=== PATIENT | female | born 1945 | race Two or more races ===

== ENCOUNTER 2016-11-18 20:38 | Inpatient (IN) | payer MEDICARE, OTHER ==
[~2016-11-18] VITALS: Ht 144.8 cm; Wt 50.0 kg
[~2016-11-18 20:38] MED LIST: ACET500T68 PO; CALC500T PO; CIPR250T30 PO; ENOX30DI SQ; HALO5AMP2 IJ; INSU100I17 SQ; INSU100V13 SQ; INSU200I SQ; LACT1CAP19 PO; LINA5TAB PO; LORA0.5T PO; MAG30ORA2 PO; MAGN2400 PO; MEMA10TA PO; METH29OI TP; MIRT15TA2 PO; MULT-245 PO; ONDA4TAB10 SL; PANT40TA3 PO; POTA10TA10 PO; POTA20TA82 PO; PROC5VIA2 IJ; QUET25TA PO; RIVA1PAT TD; SENN1TAB21 PO; SITA100T PO; SULF1TAB24 PO; THIA100T43 PO
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
[2016-11-18 21:41] LABS: BASO % 0 % (0-3); EOS # 0.1 x10^3/uL (0.0-0.7); EOS % 2 % (0-3); HEMATOCRIT 32.7 % (36.0-47.0); HEMOGLOBIN 11.2 g/dL (12.0-15.5); LYMPH # 2.4 x10^3/uL (1.0-4.8); LYMPH % 35 % (24-48); MEAN CORPUSCULAR HEMOGLOBIN 33 pg (25-35); MEAN CORPUSCULAR HGB CONC 34 g/dL (31-37); MEAN CORPUSCULAR VOLUME 97 fL (79-100); MONO # 0.5 x10^3/uL (0.0-1.1); MONO % 8 % (0-9); NEUT # 3.9 x10^3uL (1.8-7.7); NEUT % 56 % (31-73); PLATELET COUNT 191 x10^3/uL (140-400); RED BLOOD COUNT 3.36 x10^6/uL (3.50-5.40); RED CELL DISTRIBUTION WIDTH 13.3 % (11.5-14.5); WHITE BLOOD COUNT 6.9 x10^3/uL (4.0-11.0)
[2016-11-18 21:53] LABS: ACETAMIN < 2 mcg/mL (10-30); ETHANOL < 10 mg/dL (0-10)
--- NOTE | 2016-11-18 21:57 | EKG ---
[address] [address] Test Date: 2016-11-18 Test Time: 21:56:33 Pat Name: MARTIN CRAWLEY Department: Room: Gender: F Scada Operator: : [id number] Requested By: ASHLEY BARBER Order Number: [id number] Reading MD: Jatinder Morrell Measurements Intervals Clifford Rate: 75 P: 34 MO: 164 QRS: 0 QRSD: 88 T: 32 QT: 408 QTc: 458 Interpretive Statements SINUS RHYTHM Electronically Signed On 11-25-2016 14:20:40 CDT by Jatinder Morrell
--- NOTE | 2016-11-18 21:58 | RAD ---
PROCEDURE Head CT without contrast. HISTORY Altered mental status. TECHNIQUE Computed tomographic images the head were obtained without contrast. COMPARISON None. FINDINGS There is no acute or subacute hemorrhage. There is no mass effect or midline shift. There is mild to moderate enlargement of the ventricles, likely due to cerebral atrophy. There are scattered areas of hypodensity within the cerebral white matter, likely due to chronic small vessel disease. The orbits, paranasal sinuses mastoid air cells are unremarkable. No calvarial lesion is seen. IMPRESSION 1. Mild to moderate ventricular enlargement, appropriate for the degree of cerebral atrophy. This is not clearly greater than expected for cerebral volume to suggest hydrocephalus. 2. Scattered areas of hypodensity within the cerebral white matter, likely due to chronic small vessel disease. 3. Note is made that MRI is more sensitive for acute infarction. Electronically signed by: Aracelis Wade (Nov 18, 2016 21:57:06)
[2016-11-18 22:03] LABS: ALBUMIN 3.4 g/dL (3.4-5.0); ALBUMIN/GLOBULIN RATIO 0.9 (1.0-1.7); CREATININE 0.7 mg/dL (0.6-1.0); GFR 82.7; POTASSIUM 3.7 mmol/L (3.5-5.1); TOTAL BILIRUBIN 0.3 mg/dL (0.2-1.0); TOTAL PROTEIN 7.1 g/dL (6.4-8.2)
[2016-11-18 22:04] LABS: AMPHETAMINE/METHAMPHETAMINE NEG (NEG); BARBITURATES NEG (NEG); BENZODIAZEPINES NEG (NEG); CANNABINOIDS NEG (NEG); COCAINE NEG (NEG); METHADONE NEG (NEG); OPIATES NEG (NEG); PHENCYCLIDINE NEG (NEG)
[2016-11-18 22:16] LABS: BILIRUBIN,URINE NEG (NEG); CLARITY,URINE CLEAR; COLOR,URINE STRAW; GLUCOSE,URINE NEG (NEG)
[2016-11-18 22:17] LABS: NITRITE,URINE NEG (NEG); UROBILINOGEN,URINE 0.2 mg/dL (0.2 mg/dL)
[2016-11-18 22:18] LABS: BACTERIA,URINE 0 /HPF (0-FEW); RBC,URINE OCC /HPF (0-2); SQUAMOUS EPITHELIAL CELL,UR FEW /LPF
--- NOTE | 2016-11-18 23:30 | NUR ---
Admission Note: Pt arrived via EMS from ER @2315. Pt admitted to Dr. Slade with Dx: Dementia w/BD; Bipolar, mixed w/Psychotic Features. Pt A/O x1, becoming agitated and combative w/staff when attempting to assist her w/clothing and brief change. Skin C/D/I, LCTA bilateral upper lobes and diminished in bases, HRRR. Pt uncooperative w/admission assessment questions.
[2016-11-18 23:44] VITALS: BP 137/81
[2016-11-18] MEDS ORDERED: METHYL SALICYLATE/MENTHOL TOPICAL OINTMENT 29GM TUBE. TP PRN (23:45)
[2016-11-18] MEDS ORDERED: MAGNESIUM HYDROXIDE 2,400 MG/30 ML ORAL.SUSP. PO PRN (23:45)
[2016-11-18] MEDS ORDERED: MAG HYDROX/AL HYDROX/SIMETH 30 ML ORAL.SUSP PO PRN (23:45)
[2016-11-18] MEDS ORDERED: ACETAMINOPHEN 325 MG TABLET PO PRN (23:45)
[2016-11-19] MEDS ORDERED: OMEP20CA9 PO (00:16)
[2016-11-19] MEDS ORDERED: MIRT30TA3 PO (00:18)
[2016-11-19] MEDS ORDERED: QUET200T4 PO (00:19)
[2016-11-19] MEDS ORDERED: TRAZ50TA15 PO (00:21)
[2016-11-19] MEDS ORDERED: CLON0.5T3 PO (00:28)
[2016-11-19] MEDS ORDERED: ACET325T9 PO (00:30)
[2016-11-19] MEDS ORDERED: BUSP5TAB PO (00:31)
[2016-11-19] MEDS ORDERED: QUET100T4 PO (00:32)
--- NOTE | 2016-11-19 01:34 | ACF ---
Admission Criteria Forms PSYCHIATRIC DISORDERS Clinical Indications for Inpatient Care (Place 'X' for any and all applicable criteria): Ongoing inpatient care may be needed for ANY ONE of the following(1)(2)(3)(4)(6) (7)(8): [X]I. Danger to self or others not manageable at lower level of care. [ ]II. Grave disability (eg, inability to perform self care necessary at lower level of care) [ ]III. Agitation or inappropriate behavior interfering with care for primary condition (eg, attempting to discontinue lines or drains prematurely, unable to cooperate with respiratory care) [ ]IV. Severe disability or disorder indicated by ALL of the following: [ ]a) Severe behavioral health disorder-related symptoms or condition indicated by ANY ONE of the following: [ ]i) Severe problem with cognition, memory, judgment, or impulse control [ ]ii) Severe clinical manifestations (eg, hallucinations, delusions, other acute psychotic symptoms, ronit, extreme agitation or anxiety) [ ]b) Patient management at lower level of care is not feasible until acute intervention or modification is initiated. Extended stay beyond goal length of stay for the primary condition may be indicated when ANY ONE of the following is present: (1)(2)(3)(4): [ ]a) Patient is a danger to self or others and not manageable at lower level of care. [ ]b) Behavior crisis management, including physical or chemical restraints, is required and is not available at a lower level of care. [ ]c) Behavioral symptoms (e.g., agitation, somnolence, inappropriate behavior) are present, and are not manageable at a lower level of care. [ ]d) Patient cannot understand follow-up treatment and crisis plan. [ ]e) Provider and supports are not sufficiently available at lower level of care. [ ]f) Patient cannot participate (e.g., verify absence of plan for harm) and is in needed of monitoring. The original [facility] content created by [employer] has been revised. The portions of the content which have been revised are identified through the use of italic text or in bold, and [email or web address] has neither reviewed nor approved the modified material. All other unmodified content is copyright [facility] [employer]. Please see references footnoted in the original [facility] edition 2016 Admission Criteria Met?: Yes SYED ARBOLEDA Nov 19, 2016 01:33
--- NOTE | 2016-11-19 02:21 | NUR ---
Behavior Intervention Response and Plan: BIRP Note: Behavior: Assumed Care of patient, patient located in Patient Room at shift change. Patient exhibited the following behavior Disorganized, Irritable, Agitated. Brief assessment on rounds of vital signs, medication needs, lab studies, and pain. Treatment plan problems 1 and 2. Intervention: Patient assessed and the following interventions initiated safety checks 15 Minute Checks Cognitive Assessment , Head to toe Assessment , Medications. Response: After interactions and interventions patient responded in the following manner, Disorganized , Irritable ,Demanding. Continue to assess behaviors and condition will continue to monitor throughout the shift as needed. 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 Continue to assess patient for changes in above assessment. Monitor for medication needs, pain, and safety concerns. Hourly rounding performed to ensure safe environment.
--- NOTE | 2016-11-19 08:37 | RAD ---
Portable chest, 11/18/2016: History: Altered mental status The heart size and pulmonary vascularity are normal. There is mild tortuosity of the thoracic aorta. No pulmonary infiltrate is seen. There is no evidence of pleural fluid. Moderate spurring is present in the spine. IMPRESSION: No acute cardiopulmonary abnormality is detected.
[2016-11-19 09:59] VITALS: BP 122/70
[2016-11-19] MEDS: LACTOBACILLUS ACIDOPH & BULGAR 1 TABLET. PO SCH (10:01)
[2016-11-19] MEDS: QUEtiapine 100 MG TABLET. PO SCH ×4 (10:02→19:54)
[2016-11-19] MEDS: SENNOSIDES/DOCUSATE 8.6/50MG TABLET. PO SCH ×2 (10:02→19:52)
[2016-11-19] MEDS: PANTOPRAZOLE 40 MG TABLET. PO SCH (10:02)
[2016-11-19] MEDS: MEMANTINE 10 MG TABLET. PO SCH ×2 (10:02→19:52)
[2016-11-19] MEDS: MULTIVITAMIN with MINERAL TABLET. PO SCH (10:02)
[2016-11-19] MEDS: THIAMINE 100 MG TABLET. PO SCH (10:03)
[2016-11-19] MEDS: CLONAZEPAM 0.5 MG TABLET PO SCH ×2 (10:03→19:55)
[2016-11-19] MEDS: LINAGLIPTIN 5 MG TABLET PO SCH (10:04)
[2016-11-19] MEDS: ACETAMINOPHEN 325 MG TABLET PO SCH ×2 (10:04→19:52)
[2016-11-19] MEDS: POTASSIUM CHLORIDE 10 MEQ TABLET.ER. PO SCH (10:04)
[2016-11-19] MEDS: busPIRone 5 MG TABLET. PO SCH ×3 (10:04→19:52)
--- NOTE | 2016-11-19 11:28 | NUR ---
Psychosocial Assessment completed at previous admit - 04/2016 SW completed Psychosocial Assessment w/ Pt's dtr, Jeanna. Pt. was born and raised in [place] w/her siblings. Most of Pt's family history is unknown by dtr. Pt's dtr. was unsure if Pt. 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 Pt. was "for some time" to a man named Preston, who has . Pt. had 5 children; one of SIDS, one was murdered, and x2 from an alcohol related ). Only surviving child is Jeanna. Pt. has a strong history of alcohol abuse. Pt's dtr. could not exactly report usage terms, but stated she and a friend would each have a case of beer and split a bottle of liquor. Pt. began drinking heavily "young" and continued up until July of 2015 when Pt. moved in w/dtr due to her ongoing memory issues. According to Pt's dtr, PT. has not had a drink of liquor since July 2015. Pt. did test positive for THC, but Jeanna is unsure if it was due to marijuana use. Jeanna works in a women's [employer] unit where she stated, at times when a female inmate uses certain cold medications, it may result in a false THC positive. Jeanna does acknowledge she lives in a bad neighborhood, and there are times where the Pt. will sit on the porch and it is possible for someone of "shady character" to possibly have drugs on them. Jeanna could not be sure Pt. didn't smoke marijuana. At previous admit, APS was involved to assure Pt's safety and to establish Emergency Guardianship for new admit into a facility.
--- NOTE | 2016-11-19 12:06 | NUR ---
Behavior Intervention Response and Plan: BIRP Note: Behavior: Assumed Care of patient, patient located in Day Room at shift change. Patient exhibited the following behavior Disorganized, Non Compliant, Irritable. Brief assessment on rounds of vital signs, medication needs, lab studies, and pain. Treatment plan problems . Intervention: Patient assessed and the following interventions initiated safety checks 15 Minute Checks Cognitive Assessment , Head to toe Assessment , Medications. Response: After interactions and interventions patient responded in the following manner, Disorganized , Irritable ,Non Compliant with Meds. Continue to assess behaviors and condition will continue to monitor throughout the shift as needed. 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 Continue to assess patient for changes in above assessment. Monitor for medication needs, pain, and safety concerns. Hourly rounding performed to ensure safe environment.
[2016-11-19 14:18] LABS: THYROID STIM HORMONE (TSH) 1.994 uIU/mL (0.358-3.740)
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
[2016-11-19 16:16] VITALS: BP 162/91
[2016-11-19 18:11] LABS: T3 TOTAL 121 ng/dL (71-180); THYROXINE 6.4 ug/dL (4.5-12.0)
[2016-11-19] MEDS: traZODone 50 MG TABLET. PO SCH (19:54)
[2016-11-19] MEDS: MIRTAZAPINE 30 MG TABLET PO SCH (19:55)
[2016-11-19] MEDS ORDERED: QUEtiapine 100 MG TABLET. ONE (21:00)
--- NOTE | 2016-11-19 21:02 | PDOC ---
Exam Maximiliano Demential Exam: Maximiliano Note: Please also refer to the separate dictated note~for this date of service dictated separately.~Patient seen individually. Discussed the patient with Nursing staff reviewed the chart.~Reviewed interim history and current functioning. Reviewed vital signs,~Labs/ Radiology~and current medications noted below. Continue current treatment with the changes noted in the dictated addendum note Assessment: Vital Signs: Vital Signs Date Time Temp Pulse Resp B/P Pulse Ox O2 Delivery O2 Flow Rate FiO2 11/19/16 16:16 97.3 70 18 162/91 96 11/18/16 23:44 Room Air I&O Intake and Output 11/19/16 07:00 # Voids 1 Labs: Laboratory Tests Test 11/18/16 21:20 11/18/16 21:30 11/19/16 07:33 11/19/16 16:54 White Blood Count 6.9x10^3/uL (4.0-11.0) Red Blood Count 3.36x10^6/uL (3.50-5.40) L Hemoglobin 11.2g/dL (12.0-15.5) L Hematocrit 32.7% (36.0-47.0) L Mean Corpuscular Volume 97fL (79-100) Mean Corpuscular Hemoglobin 33pg (25-35) Mean Corpuscular Hemoglobin Concent 34g/dL (31-37) Red Cell Distribution Width 13.3% (11.5-14.5) Platelet Count 191x10^3/uL (140-400) Neutrophils (%) (Auto) 56% (31-73) Lymphocytes (%) (Auto) 35% (24-48) Monocytes (%) (Auto) 8% (0-9) Eosinophils (%) (Auto) 2% (0-3) Basophils (%) (Auto) 0% (0-3) Neutrophils # (Auto) 3.9x10^3uL (1.8-7.7) Lymphocytes # (Auto) 2.4x10^3/uL (1.0-4.8) Monocytes # (Auto) 0.5x10^3/uL (0.0-1.1) Eosinophils # (Auto) 0.1x10^3/uL (0.0-0.7) Basophils # (Auto) 0.0x10^3/uL (0.0-0.2) Sodium Level 141mmol/L (136-145) Potassium Level 3.7mmol/L (3.5-5.1) Chloride Level 106mmol/L (98-107) Carbon Dioxide Level 27mmol/L (21-32) Anion Gap 8 (6-14) Blood Urea Nitrogen 11mg/dL (7-20) Creatinine 0.7mg/dL (0.6-1.0) Estimated GFR (Cockcroft-Gault) 82.7 BUN/Creatinine Ratio 16 (6-20) Glucose Level 202mg/dL (70-99) H Lactic Acid Level 1.6mmol/L (0.4-2.0) Calcium Level 9.0mg/dL (8.5-10.1) Magnesium Level 2.1mg/dL (1.8-2.4) Iron Level 46ug/dL (50-170) L Total Iron Binding Capacity 264ug/dL (250-450) Iron Saturation 17% (15-34) Total Bilirubin 0.3mg/dL (0.2-1.0) Aspartate Amino Transferase (AST) 17U/L (15-37) Alanine Aminotransferase (ALT) 26U/L (14-59) Alkaline Phosphatase 90U/L (46-116) Ammonia 19mcmol/L (11-34) Total Protein 7.1g/dL (6.4-8.2) Albumin 3.4g/dL (3.4-5.0) Albumin/Globulin Ratio 0.9 (1.0-1.7) L Triglycerides Level 59mg/dL (0-150) Cholesterol Level 198mg/dL (0-200) LDL Cholesterol, Calculated 135mg/dL (0-100) H VLDL Cholesterol, Calculated 11mg/dL (0-40) HDL Cholesterol 52mg/dL (40-60) Cholesterol/HDL Ratio 3.0 Vitamin B12 Level 551pg/mL (247-911) 25-Hydroxy Vitamin D Total Pending Thyroid Stimulating Hormone (TSH) 1.994uIU/mL (0.358-3.740) Thyroxine (T4) 6.4ug/dL (4.5-12.0) Total Triiodothyronine (TT3) 121ng/dL (71-180) Salicylates Level 1.0mg/dL (2.8-20.0) L Salicylate Last Dose Date Unknown Salicylate Last Dose Time Unknown Acetaminophen Level < 2mcg/mL (10-30) L Acetaminophen Last Dose Date Unknown Acetaminophen Last Dose Time Unknown Ethyl Alcohol Level < 10mg/dL (0-10) Acetone Level Neg (NEG) RPR Titer Additional Testing Pending Urine Collection Type U cath Urine Color Straw Urine Clarity Clear Urine pH 6.5 Urine Specific Gloster 1.010 Urine Protein Neg (NEG-TRACE) Urine Glucose (UA) Negmg/dL (NEG) Urine Ketones (Stick) Negmg/dL (NEG) Urine Blood Trace (NEG) Urine Nitrite Neg (NEG) Urine Bilirubin Neg (NEG) Urine Urobilinogen Dipstick 0.2mg/dL (0.2 mg/dL) Urine Leukocyte Esterase Neg (NEG) Urine RBC Occ/HPF (0-2) Urine WBC 1-4/HPF (0-4) Urine Squamous Epithelial Cells Few/LPF Urine Transitional Epithelial Cells Few/LPF Urine Renal Epithelial Cells Few/LPF Urine Bacteria 0/HPF (0-FEW) Urine Opiates Screen Neg (NEG) Urine Methadone Screen Neg (NEG) Urine Barbiturates Neg (NEG) Urine Phencyclidine Screen Neg (NEG) Urine Amphetamine/Methamphetamine Neg (NEG) Urine Benzodiazepines Screen Neg (NEG) Urine Cocaine Screen Neg (NEG) Urine Cannabinoids Screen Neg (NEG) Urine Ethyl Alcohol Neg (NEG) Glucose (Fingerstick) 136mg/dL (70-99) H 149mg/dL (70-99) H Current Medications: Meds: Current Medications Acetaminophen (Tylenol) 650 mg PRN Q6HRS PRN PO PAIN / TEMP; Start 11/18/16 at 23:45 Multi-Ingredient Ointment (Analgesic Cullen) 1 kelin PRN QID PRN TP MUSCLE PAIN; Start 11/18/16 at 23:45 Al Hydroxide/Mg Hydroxide (Mylanta Plus Xs) 15 ml PRN AFTMEALHC PRN PO DYSPEPSIA; Start 11/18/16 at 23:45 Magnesium Hydroxide (Milk Of Magnesia) 2,400 mg PRN QHS PRN PO CONSTIPATION; Start 11/18/16 at 23:45 Buspirone HCl (Buspar) 5 mg TID PO Last administered on 11/19/16t 19:52; Start 11/19/16 at 09:00 Clonazepam (Klonopin) 0.25 mg BID PO Last administered on 11/19/16 19:55; Start 11/19/16 at 09:00 Memantine (Namenda) 10 mg BID PO Last administered on 11/19/16 19:52; Start at 09:00 Mirtazapine (Remeron) 30 mg QHS PO Last administered on 11/19/16 19:55; Start 11/19/16 at 21:00 Quetiapine Fumarate (SEROquel) 100 mg TIDWMEALS PO Last administered on 16:13; Start 11/19/16 at 08:00 Trazodone HCl (Desyrel) 50 mg QHS PO Last administered on 11/19/16 19:54; Start 11/19/16 at 21:00 Quetiapine Fumarate (SEROquel) 200 mg QHS PO Psychosis Last administered on 11/19 19:54; Start 11/19/16 at 21:00 Acetaminophen (Tylenol) 650 mg BID PO Last administered on 11/19/16 19:52; Start 11/19/16 at 09:00 Senna/Docusate Sodium (Senna Plus) 1 tab BID PO Last administered on 11/19/16 19:52; Start 11/19/16 at 09:00 Thiamine HCl (Vitamin B-1) 100 mg DAILY PO Last administered on 11/19/16 10:03 ; Start 11/19/16 at 09:00 Lactobacillus Acidophilus (Bacid, Ester-Bid) 2 tab DAILY PO Last administered on 11/19/16 10:01; Start 11/19/16 at 09:00 Multivitamins/ Calcium (Thera-M Plus) 1 tab DAILY PO Last administered on 10:02; Start 11/19/16 at 09:00 Pantoprazole Sodium (Protonix) 40 mg DAILYAC PO Last administered on 11/19/16 10:02; Start 11/19/16 at 07:30 Potassium Chloride (Klor-Con) 10 meq DAILYWBKFT PO Last administered on 10:04; Start 11/19/16 at 08:00 Linagliptin (Tradjenta) 5 mg DAILY PO Last administered on 11/19/16t 10:04; Start 11/19/16 at 09:00 Selenium Sulfide (Selsun Blue) 1 kelin QMTH TP ; Start 11/20/16 at 16:00 Active Scripts Active Reported Seroquel (Quetiapine Fumarate) 100 Mg Tablet 100 Mg PO TIDWMEALS Buspirone Hcl 5 Mg Tablet 5 Mg PO TID Tylenol (Acetaminophen) 325 Mg Tablet 650 Mg PO BID Clonazepam 0.5 Mg Tablet 0.25 Mg PO BID Trazodone Hcl 50 Mg Tablet 50 Mg PO QHS Seroquel (Quetiapine Fumarate) 200 Mg Tablet 200 Mg PO QHS Mirtazapine 30 Mg Tablet 30 Mg PO QHS Omeprazole 20 Mg Capsule.dr 20 Mg PO DAILY Potassium Chloride 10 Meq Tablet.er 10 Meq PO DAILYWBKFT Namenda (Memantine Hcl) 10 Mg Tablet 10 Mg PO BID Januvia (Sitagliptin Phosphate) 100 Mg Tablet 100 Mg PO DAILY B-1 (Thiamine HCl) 100 Mg Tablet 100 Mg PO DAILY Multi Vitamin Daily (Multivitamin) 1 Each Tablet 1 Each PO DAILY Senna Plus Tablet (Sennosides/Docusate Sodium) 1 Each Tablet 1 Each PO BID Culturelle (Lactobacillus Rhamnosus Gg) 1 Each Cap.sprink 1 Each PO DAILY Diagnosis: Problems: (1) Agitation (2) Bipolar disorder, mixed (3) Anxiety disorder (4) Dementia in Alzheimer's disease with delusions (5) Dementia in Alzheimer's disease with depression (6) Impulse control disorder (7) Dementia, vascular, with delusions (8) Dementia, vascular, with depression VIPIN BELTRAN MD Nov 19, 2016 21:02
--- NOTE | 2016-11-19 22:23 | NUR ---
Behavior Intervention Response and Plan: BIRP Note: Behavior: Assumed Care of patient, patient located in Day Room at shift change. Patient exhibited the following behavior Disorganized, Irritable, Resistive. Brief assessment on rounds of vital signs, medication needs, lab studies, and pain. Treatment plan problems 1 and 2. Intervention: Patient assessed and the following interventions initiated safety checks 15 Minute Checks Cognitive Assessment , Head to toe Assessment , Medications. Response: After interactions and interventions patient responded in the following manner, Irritable , Demanding ,Compliant. Continue to assess behaviors and condition will continue to monitor throughout the shift as needed. 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 Continue to assess patient for changes in above assessment. Monitor for medication needs, pain, and safety concerns. Hourly rounding performed to ensure safe environment.
[2016-11-20 05:52] VITALS: BP 137/74
--- NOTE | 2016-11-20 07:45 | NUR ---
Patient very resistive with morning acucheck. Hitting, scratching and kicking staff.
--- NOTE | 2016-11-20 09:08 | HP ---
ADMIT DATE: 11/19/2016 IDENTIFYING DATA: The patient is a 71-year-old female referred back to us from [facility] in [place], [place] on account of worsening symptoms of bipolar disorder after the patient was extremely paranoid that the other residents were taking her things and talking about her, irritable, yelling, cursing, and tried to take a female resident drink. She has been hitting at other residents, quite confused, psychotic, and paranoid. She has failed outpatient psychiatric interventions and was admitted by her court-appointed guardian Alena Montilla for psychiatric stabilization. CHIEF COMPLAINT: "I don't do those things." The patient responded after described the circumstances prompting her admission. HISTORY OF PRESENT ILLNESS: The patient has a long history of bipolar disorder. Additionally, she has been getting extremely confused, forgetful, and her diagnosis of dementia with behavioral disturbance. As noted above recently she has been increasingly paranoid, confused, irritable, yelling, cursing, trying to take peers drink, and was striking out at others unmanageable. She has had sleep and appetite changes. No active suicidal or homicidal ideation other than above. PAST PSYCHIATRIC HISTORY: The patient was admitted with us in 03/2016. She has a long history of bipolar disorder and progressive dementia recently. MEDICAL HISTORY: Diabetes mellitus, hypertension, GERD, and hyperlipidemia. She is a full code. DRUG ALLERGIES: Negative. She is no longer a smoker. CURRENT PSYCHOTROPICS: Remeron 30 mg p.o. bedtime and Seroquel 200 mg at bedtime. She was treated on Augmentin for UTI in November, Klonopin 0.5 mg twice a day, and Seroquel 100 mg 3 times a day. FAMILY HISTORY: Noncontributory. SOCIAL HISTORY: No history of alcohol, drug abuse, physical, sexual, or elder abuse. She is not known to be a perpetrator. REVIEW OF SYSTEMS: No CV, , pulmonary, eye, ENT system symptoms on review. Reliability is poor. OBJECTIVE: VITAL SIGNS: BP 122/70, pulse 74, respirations 18, and temperature 97.6. MENTAL STATUS EXAM: The patient is oriented to herself. Insight, judgment, recent memory is impaired. Mood and affect is labile, attention, concentration, fund of knowledge poor consistent with her diagnosis, attention span short, and language function intact. No active suicidal or homicidal ideation. LABORATORY DATA: Reviewed. IMPRESSION: Major neurocognitive disorder, Alzheimer, vascular with depression, delusion, behavioral disturbance; anxiety disorder, unspecified; impulse control disorder, unspecified; and bipolar 1 disorder, mixed with psychotic features. Rest diagnoses as above. PLAN: Admit to the geropsychiatry unit at [facility]. Request Dr. Rosen/Dr. Catherine to follow the patient from medical standpoint. I will see the patient daily individually from a psychiatric standpoint. Continue current psychotropics. Adjust these as clinically indicated with a plan to return to the [facility] at once she is psychiatrically stable. MAN Gladis BELTRAN MD DR: JIE/triston JOB#: [id number] / [id number]
[2016-11-20] MEDS: QUEtiapine 100 MG TABLET. PO SCH ×4 (09:43→20:08)
[2016-11-20] MEDS: SENNOSIDES/DOCUSATE 8.6/50MG TABLET. PO SCH ×2 (09:43→20:07)
[2016-11-20] MEDS: LINAGLIPTIN 5 MG TABLET PO SCH (09:43)
[2016-11-20] MEDS: LACTOBACILLUS ACIDOPH & BULGAR 1 TABLET. PO SCH (09:44)
[2016-11-20] MEDS: MULTIVITAMIN with MINERAL TABLET. PO SCH (09:44)
[2016-11-20] MEDS: PANTOPRAZOLE 40 MG TABLET. PO SCH (09:44)
[2016-11-20] MEDS: POTASSIUM CHLORIDE 10 MEQ TABLET.ER. PO SCH (09:44)
[2016-11-20] MEDS: THIAMINE 100 MG TABLET. PO SCH (09:44)
[2016-11-20] MEDS: ACETAMINOPHEN 325 MG TABLET PO SCH ×2 (09:44→20:08)
[2016-11-20] MEDS: MEMANTINE 10 MG TABLET. PO SCH ×2 (09:44→20:08)
[2016-11-20] MEDS: busPIRone 5 MG TABLET. PO SCH ×3 (09:44→20:08)
[2016-11-20] MEDS: CLONAZEPAM 0.5 MG TABLET PO SCH ×2 (09:46→20:08)
--- NOTE | 2016-11-20 11:15 | NUR ---
THERAPEUTIC RECREATION GROUP NOTE TITLE :Movement to Music: Flexibility ACTIVITY : Movement/ Exercise GOAL : Increase morale, attention, flexibility. Decrease stress/anxiety. DURATION : 35 Minutes RESPONSE : Minimal participation. Pt. was agreeable and joined the group; however, she only clapped to the music and was not redirectable in a group setting.
--- NOTE | 2016-11-20 14:45 | NUR ---
THERAPEUTIC RECREATION GROUP NOTE TITLE :Bin or Basket: [employer] history, quiz and game ACTIVITY : Activities and Games GOAL : Stimulate memory, increase socialization DURATION : 60 minutes RESPONSE : Moderate participation. Pt. talked nearly the entire time, mumbling most of the time. She occasionally gave valid responses but most of the time she would talk about random things that did not make complete sense.
[2016-11-20 15:40] VITALS: BP 162/77
[2016-11-20] MEDS: SELENIUM SULFIDE 2.5% SHAMPOO 120ML BOTTLE. TP SCH (16:23)
[2016-11-20] MEDS: MIRTAZAPINE 30 MG TABLET PO SCH (20:08)
[2016-11-20] MEDS: traZODone 50 MG TABLET. PO SCH (20:08)
--- NOTE | 2016-11-20 21:07 | PDOC ---
Exam Maximiliano Demential Exam: Maximiliano Note: Please also refer to the separate dictated note~for this date of service dictated separately.~Patient seen individually. Discussed the patient with Nursing staff reviewed the chart.~Reviewed interim history and current functioning. Reviewed vital signs,~Labs/ Radiology~and current medications noted below. Continue current treatment with the changes noted in the dictated addendum note Assessment: Vital Signs: Vital Signs Date Time Temp Pulse Resp B/P Pulse Ox O2 Delivery O2 Flow Rate FiO2 11/20/16 15:40 98.2 86 20 162/77 97 11/18/16 23:44 Room Air I&O Intake and Output 11/20/16 07:00 Intake Total 720 ml Balance 720 ml Intake Oral 720 ml Labs: Laboratory Tests Test 11/20/16 07:21 Glucose (Fingerstick) 183mg/dL (70-99) H Current Medications: Meds: Current Medications Acetaminophen (Tylenol) 650 mg PRN Q6HRS PRN PO PAIN / TEMP; Start 11/18/16 at 23:45 Multi-Ingredient Ointment (Analgesic [place]) 1 kelin PRN QID PRN TP MUSCLE PAIN; Start 11/18/16 at 23:45 Al Hydroxide/Mg Hydroxide (Mylanta Plus Xs) 15 ml PRN AFTMEALHC PRN PO DYSPEPSIA; Start 11/18/16 at 23:45 Magnesium Hydroxide (Milk Of Magnesia) 2,400 mg PRN QHS PRN PO CONSTIPATION; Start 11/18/16 at 23:45 Buspirone HCl (Buspar) 5 mg TID PO Last administered on 11/20/16 20:08; Start 11/19/16 at 09:00 Clonazepam (Klonopin) 0.25 mg BID PO Last administered on 11/20/16 20:08; Start 11/19/16 at 09:00 Memantine (Namenda) 10 mg BID PO Last administered on 11/20/16 20:08; Start at 09:00 Mirtazapine (Remeron) 30 mg QHS PO Last administered on 11/20/16 20:08; Start 11/19/16 at 21:00 Quetiapine Fumarate (SEROquel) 100 mg TIDWMEALS PO Last administered on 16:23; Start 11/19/16 at 08:00 Trazodone HCl (Desyrel) 50 mg QHS PO Last administered on 11/20/16 20:08; Start 11/19/16 at 21:00 Quetiapine Fumarate (SEROquel) 200 mg QHS PO Psychosis Last administered on 11/20 20:08; Start 11/19/16 at 21:00 Acetaminophen (Tylenol) 650 mg BID PO Last administered on 11/20/16 20:08; Start 11/19/16 at 09:00 Senna/Docusate Sodium (Senna Plus) 1 tab BID PO Last administered on 11/20/16 20:07; Start 11/19/16 at 09:00 Thiamine HCl (Vitamin B-1) 100 mg DAILY PO Last administered on 11/20/16 09:44 ; Start 11/19/16 at 09:00 Lactobacillus Acidophilus (Bacid, Ester-Bid) 2 tab DAILY PO Last administered on 11/20/16 09:44; Start 11/19/16 at 09:00 Multivitamins/ Calcium (Thera-M Plus) 1 tab DAILY PO Last administered on 09:44; Start 11/19/16 at 09:00 Pantoprazole Sodium (Protonix) 40 mg DAILYAC PO Last administered on 11/20/16 09:44; Start 11/19/16 at 07:30 Potassium Chloride (Klor-Con) 10 meq DAILYWBKFT PO Last administered on 09:44; Start 11/19/16 at 08:00 Linagliptin (Tradjenta) 5 mg DAILY PO Last administered on 11/20/16 09:43; Start 11/19/16 at 09:00 Selenium Sulfide (Selsun Blue) 1 kelin QMTH TP Last administered on 11/20/16 16: 23; Start 11/20/16 at 16:00 Quetiapine Fumarate (SEROquel) 200 mg STK-MED ONCE .ROUTE ; Start 11/19/16 at 21 :00; Stop 11/20/16 at 12:24; Status DC Active Scripts Active Reported Seroquel (Quetiapine Fumarate) 100 Mg Tablet 100 Mg PO TIDWMEALS Buspirone Hcl 5 Mg Tablet 5 Mg PO TID Tylenol (Acetaminophen) 325 Mg Tablet 650 Mg PO BID Clonazepam 0.5 Mg Tablet 0.25 Mg PO BID Trazodone Hcl 50 Mg Tablet 50 Mg PO QHS Seroquel (Quetiapine Fumarate) 200 Mg Tablet 200 Mg PO QHS Mirtazapine 30 Mg Tablet 30 Mg PO QHS Omeprazole 20 Mg Capsule.dr 20 Mg PO DAILY Potassium Chloride 10 Meq Tablet.er 10 Meq PO DAILYWBKFT Namenda (Memantine Hcl) 10 Mg Tablet 10 Mg PO BID Januvia (Sitagliptin Phosphate) 100 Mg Tablet 100 Mg PO DAILY B-1 (Thiamine HCl) 100 Mg Tablet 100 Mg PO DAILY Multi Vitamin Daily (Multivitamin) 1 Each Tablet 1 Each PO DAILY Senna Plus Tablet (Sennosides/Docusate Sodium) 1 Each Tablet 1 Each PO BID Culturelle (Lactobacillus Rhamnosus Gg) 1 Each Cap.sprink 1 Each PO DAILY Diagnosis: Problems: (1) Agitation (2) Bipolar disorder, mixed (3) Anxiety disorder (4) Dementia in Alzheimer's disease with delusions (5) Dementia in Alzheimer's disease with depression (6) Impulse control disorder (7) Dementia, vascular, with delusions (8) Dementia, vascular, with depression VIPIN BELTRAN MD Nov 20, 2016 21:07
--- NOTE | 2016-11-21 00:21 | NUR ---
Behavior Intervention Response and Plan: BIRP Note: Behavior: Assumed Care of patient, patient located in Hallway at shift change. Patient exhibited the following behavior Irritable, Disorganized, Restless. Brief assessment on rounds of vital signs, medication needs, lab studies, and pain. Treatment plan problems Dementia with BD, Alteration in Mood and Fall Risk. Intervention: Patient assessed and the following interventions initiated safety checks 15 Minute Checks Head to toe Assessment , Cognitive Assessment , Medications. Response: After interactions and interventions patient responded in the following manner, Irritable , Restless ,Cooperative. Continue to assess behaviors and condition will continue to monitor throughout the shift as needed. 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 Continue to assess patient for changes in above assessment. Monitor for medication needs, pain, and safety concerns. Hourly rounding performed to ensure safe environment.
[2016-11-21 06:33] VITALS: BP 130/61
[2016-11-21] MEDS: THIAMINE 100 MG TABLET. PO SCH (07:57)
[2016-11-21] MEDS: MEMANTINE 10 MG TABLET. PO SCH ×2 (07:57→19:37)
[2016-11-21] MEDS: LACTOBACILLUS ACIDOPH & BULGAR 1 TABLET. PO SCH (07:57)
[2016-11-21] MEDS: LINAGLIPTIN 5 MG TABLET PO SCH (07:57)
[2016-11-21] MEDS: SENNOSIDES/DOCUSATE 8.6/50MG TABLET. PO SCH ×2 (07:57→19:37)
[2016-11-21] MEDS: PANTOPRAZOLE 40 MG TABLET. PO SCH (07:57)
[2016-11-21] MEDS: QUEtiapine 100 MG TABLET. PO SCH ×4 (07:57→19:38)
[2016-11-21] MEDS: POTASSIUM CHLORIDE 10 MEQ TABLET.ER. PO SCH (07:57)
[2016-11-21] MEDS: busPIRone 5 MG TABLET. PO SCH ×3 (07:57→19:34)
[2016-11-21] MEDS: MULTIVITAMIN with MINERAL TABLET. PO SCH (07:57)
[2016-11-21] MEDS: ACETAMINOPHEN 325 MG TABLET PO SCH ×2 (07:57→19:38)
[2016-11-21] MEDS: CLONAZEPAM 0.5 MG TABLET PO SCH ×2 (07:59→19:42)
--- NOTE | 2016-11-21 09:50 | NUR ---
Behavior Intervention Response and Plan: BIRP Note: Behavior: Assumed Care of patient, patient located in Dining Room at shift change. Patient exhibited the following behavior Disorganized, Irritable, Compliant. Brief assessment on rounds of vital signs, medication needs, lab studies, and pain. Treatment plan problems . Intervention: Patient assessed and the following interventions initiated safety checks 15 Minute Checks Cognitive Assessment , Head to toe Assessment , Medications. Response: After interactions and interventions patient responded in the following manner, Disorganized , Restless , calm. Continue to assess behaviors and condition will continue to monitor throughout the shift as needed. 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 Continue to assess patient for changes in above assessment. Monitor for medication needs, pain, and safety concerns. Hourly rounding performed to ensure safe environment.
--- NOTE | 2016-11-21 14:37 | NUR ---
pt up adl to meals. has been compliant with meds and cares.
[2016-11-21 15:25] VITALS: BP 139/78
--- NOTE | 2016-11-21 16:00 | NUR ---
THERAPEUTIC RECREATION GROUP NOTE TITLE :Devendra Davis Planter Painting ACTIVITY : Arts and Crafts GOAL : Increase creativity, fine motor, socialization. DURATION : 60 minutes RESPONSE : Full participation. Pt. needed redirection and prompting. She painted the inside of her can. She talked most of the time under her breath and was difficult to understand but was pleasant
--- NOTE | 2016-11-21 18:50 | NUR ---
ACTIVITY THERAPY ASSESSMENT Completed based on observations and interview on this day at this time in the day room. Pt. was difficult to understand and did not give clear answers to most questions. Pt. reported she was 48 years old and seemed to turn every answer into talking about young kids. She stays around groups most of the time but does wander. Pt. goes by "Thania" and her initial goal: Pt. will participate in all group activities.
--- NOTE | 2016-11-21 19:00 | NUR ---
THERAPEUTIC RECREATION GROUP NOTE TITLE :Complete the popular phrase/ idiom ACTIVITY : Cognitive Stimulation GOAL : Stimulate memory, Increase problem solving DURATION : 60 minutes RESPONSE : Minimal participation. Pt. sat with group the entire time but was quiet and did not shout out guesses. She did not find the correct word after being asked directly and with several clues.
[2016-11-21] MEDS ORDERED: traZODone 50 MG TABLET. PO PRN (19:15)
[2016-11-21] MEDS: traZODone 50 MG TABLET. PO SCH (19:35)
[2016-11-21] MEDS: MIRTAZAPINE 30 MG TABLET PO SCH (19:37)
[2016-11-21] MEDS: DIVALPROEX 125 MG CAP.SPRINK PO SCH (19:42)
--- NOTE | 2016-11-21 20:58 | PDOC ---
Exam Maximiliano Demential Exam: Maximiliano Note: Please also refer to the separate dictated note~for this date of service dictated separately.~Patient seen individually. Discussed the patient with Nursing staff reviewed the chart.~Reviewed interim history and current functioning. Reviewed vital signs,~Labs/ Radiology~and current medications noted below. Continue current treatment with the changes noted in the dictated addendum note Assessment: Vital Signs: Vital Signs Date Time Temp Pulse Resp B/P Pulse Ox O2 Delivery O2 Flow Rate FiO2 11/21/16 15:25 98.0 78 18 139/78 97 11/18/16 23:44 Room Air I&O Intake and Output 11/21/16 07:00 Intake Total 720 ml Balance 720 ml Intake Oral 720 ml Labs: Laboratory Tests Test 11/21/16 07:13 Glucose (Fingerstick) 146mg/dL (70-99) H Current Medications: Meds: Current Medications Acetaminophen (Tylenol) 650 mg PRN Q6HRS PRN PO PAIN / TEMP; Start 11/18/16 at 23:45 Multi-Ingredient Ointment (Analgesic [place]) 1 kelin PRN QID PRN TP MUSCLE PAIN; Start 11/18/16 at 23:45 Al Hydroxide/Mg Hydroxide (Mylanta Plus Xs) 15 ml PRN AFTMEALHC PRN PO DYSPEPSIA; Start 11/18/16 at 23:45 Magnesium Hydroxide (Milk Of Magnesia) 2,400 mg PRN QHS PRN PO CONSTIPATION; Start 11/18/16 at 23:45 Buspirone HCl (Buspar) 5 mg TID PO Last administered on 11/21/16 19:34; Start 11/19/16 at 09:00 Clonazepam (Klonopin) 0.25 mg BID PO Last administered on 11/21/16 19:42; Start 11/19/16 at 09:00 Memantine (Namenda) 10 mg BID PO Last administered on 11/21/16 19:37; Start at 09:00 Mirtazapine (Remeron) 30 mg QHS PO Last administered on 11/21/16 19:37; Start 11/19/16 at 21:00 Quetiapine Fumarate (SEROquel) 100 mg TIDWMEALS PO Last administered on 17:23; Start 11/19/16 at 08:00 Trazodone HCl (Desyrel) 50 mg QHS PO Last administered on 11/21/16 19:35; Start 11/19/16 at 21:00 Quetiapine Fumarate (SEROquel) 200 mg QHS PO Psychosis Last administered on 11/21 19:38; Start 11/19/16 at 21:00 Acetaminophen (Tylenol) 650 mg BID PO Last administered on 11/21/16 19:38; Start 11/19/16 at 09:00 Senna/Docusate Sodium (Senna Plus) 1 tab BID PO Last administered on 11/21/16 19:37; Start 11/19/16 at 09:00 Thiamine HCl (Vitamin B-1) 100 mg DAILY PO Last administered on 11/21/16 07:57 ; Start 11/19/16 at 09:00 Lactobacillus Acidophilus (Bacid, Ester-Bid) 2 tab DAILY PO Last administered on 11/21/16 07:57; Start 11/19/16 at 09:00 Multivitamins/ Calcium (Thera-M Plus) 1 tab DAILY PO Last administered on 07:57; Start 11/19/16 at 09:00 Pantoprazole Sodium (Protonix) 40 mg DAILYAC PO Last administered on 11/21/16 07:57; Start 11/19/16 at 07:30 Potassium Chloride (Klor-Con) 10 meq DAILYWBKFT PO Last administered on 07:57; Start 11/19/16 at 08:00 Linagliptin (Tradjenta) 5 mg DAILY PO Last administered on 11/21/16 07:57; Start 11/19/16 at 09:00 Selenium Sulfide (Selsun Blue) 1 kelin QMTH TP Last administered on 11/20/16 16: 23; Start 11/20/16 at 16:00 Quetiapine Fumarate (SEROquel) 200 mg STK-MED ONCE .ROUTE ; Start 11/19/16 at 21 :00; Stop 11/20/16 at 12:24; Status DC Divalproex Sodium (Depakote Sprinkles) 125 mg BID PO Last administered on 19:42; Start 11/21/16 at 21:00 Trazodone HCl (Desyrel) 50 mg PRN QHS PRN PO INSOMNIA; Start 11/21/16 at 19:15 Active Scripts Active Reported Seroquel (Quetiapine Fumarate) 100 Mg Tablet 100 Mg PO TIDWMEALS Buspirone Hcl 5 Mg Tablet 5 Mg PO TID Tylenol (Acetaminophen) 325 Mg Tablet 650 Mg PO BID Clonazepam 0.5 Mg Tablet 0.25 Mg PO BID Trazodone Hcl 50 Mg Tablet 50 Mg PO QHS Seroquel (Quetiapine Fumarate) 200 Mg Tablet 200 Mg PO QHS Mirtazapine 30 Mg Tablet 30 Mg PO QHS Omeprazole 20 Mg Capsule.dr 20 Mg PO DAILY Potassium Chloride 10 Meq Tablet.er 10 Meq PO DAILYWBKFT Namenda (Memantine Hcl) 10 Mg Tablet 10 Mg PO BID Januvia (Sitagliptin Phosphate) 100 Mg Tablet 100 Mg PO DAILY B-1 (Thiamine HCl) 100 Mg Tablet 100 Mg PO DAILY Multi Vitamin Daily (Multivitamin) 1 Each Tablet 1 Each PO DAILY Senna Plus Tablet (Sennosides/Docusate Sodium) 1 Each Tablet 1 Each PO BID Culturelle (Lactobacillus Rhamnosus Gg) 1 Each Cap.sprink 1 Each PO DAILY Diagnosis: Problems: (1) Agitation (2) Bipolar disorder, mixed (3) Anxiety disorder (4) Dementia in Alzheimer's disease with delusions (5) Dementia in Alzheimer's disease with depression (6) Impulse control disorder (7) Dementia, vascular, with delusions (8) Dementia, vascular, with depression VIPIN BELTRAN MD Nov 21, 2016 20:58
--- NOTE | 2016-11-21 22:57 | NUR ---
Behavior Intervention Response and Plan: BIRP Note: Behavior: Assumed Care of patient, patient located in Day Room at shift change. Patient exhibited the following behavior Calm, Cooperative, Compliant. Brief assessment on rounds of vital signs, medication needs, lab studies, and pain. Treatment plan problems 1-2. Intervention: Patient assessed and the following interventions initiated safety checks 15 Minute Checks Cognitive Assessment , Head to toe Assessment , Medications. Response: After interactions and interventions patient responded in the following manner, Calm , Compliant ,Cooperative. Continue to assess behaviors and condition will continue to monitor throughout the shift as needed. Plan: Continue to monitor Master Treatment Plan for patient's progress toward short term goals of Decreased Agitation, Improved Mood, half-way goals to return to previous living setting vs placement. Continue to assess patient for changes in above assessment. Monitor for medication needs, pain, and safety concerns. Hourly rounding performed to ensure safe environment.
--- NOTE | 2016-11-21 23:32 | PN ---
DATE: 11/20/2016 PSYCHIATRIC PROGRESS NOTE This is late entry for date of service 11/20/2016. SUBJECTIVE: The patient staffed at treatment team meeting with the entire team the morning of 11/20/2016, seen individually in the evening of 11/20/2016. She is not cooperative with labs, continues to have marked mood lability, confused. REVIEW OF SYSTEMS: No CV, , pulmonary, eye, ENT system symptoms on review, sleeping about 5-1/2 hours, appetite 75%. MENTAL STATUS EXAMINATION: Oriented to herself. Insight, judgment, recent and remote memory, attention, concentration, fund of knowledge poor, consistent with her diagnosis. LABORATORY DATA: Reviewed. IMPRESSION: Unchanged from initial note, bipolar 1 disorder, mixed with psychotic features; major neurocognitive disorder, Alzheimer, vascular with delusion, depression, behavioral disturbance. PLAN: Continue trazodone 50 mg at bedtime, Seroquel 200 at bedtime, Remeron 30 at bedtime, Namenda 10 b.i.d., Klonopin 0.25 b.i.d., BuSpar 5 t.i.d., Seroquel 100 mg 3 times a day with meals, add Depakote Sprinkles 125 mg twice a day. Follow labs level. Adjust as clinically indicated. Depakote has been added as a mood stabilizer for her bipolar disorder and history of aggression prompting this hospitalization. MAN Gladis BELTRAN MD DR: JIE/triston JOB#: [id number] / [id number]
[2016-11-22 06:27] VITALS: BP 122/71
[2016-11-22] MEDS: POTASSIUM CHLORIDE 10 MEQ TABLET.ER. PO SCH (07:55)
[2016-11-22] MEDS: PANTOPRAZOLE 40 MG TABLET. PO SCH (07:55)
[2016-11-22] MEDS: QUEtiapine 100 MG TABLET. PO SCH ×4 (07:55→20:33)
[2016-11-22] MEDS: busPIRone 5 MG TABLET. PO SCH ×3 (07:55→20:32)
[2016-11-22] MEDS: MULTIVITAMIN with MINERAL TABLET. PO SCH (07:55)
[2016-11-22] MEDS: LACTOBACILLUS ACIDOPH & BULGAR 1 TABLET. PO SCH (07:55)
[2016-11-22] MEDS: SENNOSIDES/DOCUSATE 8.6/50MG TABLET. PO SCH ×2 (07:55→20:32)
[2016-11-22] MEDS: THIAMINE 100 MG TABLET. PO SCH (07:55)
[2016-11-22] MEDS: LINAGLIPTIN 5 MG TABLET PO SCH (07:55)
[2016-11-22] MEDS: CLONAZEPAM 0.5 MG TABLET PO SCH ×2 (07:56→20:36)
[2016-11-22] MEDS: ACETAMINOPHEN 325 MG TABLET PO SCH ×2 (07:56→20:34)
[2016-11-22] MEDS: DIVALPROEX 125 MG CAP.SPRINK PO SCH ×2 (07:56→20:32)
[2016-11-22] MEDS: MEMANTINE 10 MG TABLET. PO SCH ×2 (07:56→20:33)
--- NOTE | 2016-11-22 09:14 | NUR ---
Behavior Intervention Response and Plan: BIRP Note: Behavior: Assumed Care of patient, patient located in Dining Room at shift change. Patient exhibited the following behavior Calm, Anxious, Compliant. Brief assessment on rounds of vital signs, medication needs, lab studies, and pain. Treatment plan problems . Intervention: Patient assessed and the following interventions initiated safety checks 15 Minute Checks Cognitive Assessment , Head to toe Assessment , Medications. Response: After interactions and interventions patient responded in the following manner, Calm , Compliant ,Sleeping. Continue to assess behaviors and condition will continue to monitor throughout the shift as needed. Plan: Continue to monitor Master Treatment Plan for patient's progress toward short term goals of Decreased Agitation, Improved Mood, snf goals to return to previous living setting vs placement. Continue to assess patient for changes in above assessment. Monitor for medication needs, pain, and safety concerns. Hourly rounding performed to ensure safe environment.
--- NOTE | 2016-11-22 11:00 | NUR ---
THERAPEUTIC RECREATION GROUP NOTE TITLE :: Flower planting in painted tin cans ACTIVITY : Sensory Stimulation GOAL : Increase feeling of wellness, socialization, and facilitate memory DURATION : 30 minutes RESPONSE : Moderate participation. Pt. needed assistance every step but Pt. got her hands dirt and sat with the group the entire time.
[2016-11-22 16:10] VITALS: BP 116/78
[2016-11-22] MEDS ORDERED: OLANZAPINE ZYDIS 5 MG TAB.RAPDIS PO PRN (16:30)
--- NOTE | 2016-11-22 17:35 | NUR ---
pt yelling at peers to be quiet in day room. dr mitchell notified. ann given. pt has been up ambulating in halls. has been compliant with meds and cares,
[2016-11-22] MEDS: traZODone 50 MG TABLET. PO SCH (20:32)
[2016-11-22] MEDS: MIRTAZAPINE 30 MG TABLET PO SCH (20:32)
--- NOTE | 2016-11-22 23:45 | NUR ---
Behavior Intervention Response and Plan: BIRP Note: Behavior: Assumed Care of patient, patient located in Patient Room at shift change. Patient exhibited the following behavior Interactive, Able to Focus on Task, Compliant. Brief assessment on rounds of vital signs, medication needs, lab studies, and pain. Treatment plan problems:1-2 Intervention: Patient assessed and the following interventions initiated safety checks 15 Minute Checks Cognitive Assessment , Head to toe Assessment , Medications. Response: After interactions and interventions patient responded in the following manner, Disorganized , Calm ,Compliant. Continue to assess behaviors and condition will continue to monitor throughout the shift as needed. Plan: Continue to monitor Master Treatment Plan for patient's progress toward short term goals of Decreased Agitation, , intermediate designer goals to return to previous living setting vs placement. Continue to assess patient for changes in above assessment. Monitor for medication needs, pain, and safety concerns. Hourly rounding performed to ensure safe environment.
[2016-11-23] MEDS: LACTOBACILLUS ACIDOPH & BULGAR 1 TABLET. PO SCH (07:47)
[2016-11-23] MEDS: QUEtiapine 100 MG TABLET. PO SCH ×4 (07:47→21:10)
[2016-11-23] MEDS: PANTOPRAZOLE 40 MG TABLET. PO SCH (07:48)
[2016-11-23] MEDS: ACETAMINOPHEN 325 MG TABLET PO SCH ×2 (07:48→21:11)
[2016-11-23] MEDS: MULTIVITAMIN with MINERAL TABLET. PO SCH (07:48)
[2016-11-23] MEDS: MEMANTINE 10 MG TABLET. PO SCH ×2 (07:48→21:11)
[2016-11-23] MEDS: THIAMINE 100 MG TABLET. PO SCH (07:48)
[2016-11-23] MEDS: SENNOSIDES/DOCUSATE 8.6/50MG TABLET. PO SCH ×2 (07:48→21:10)
[2016-11-23] MEDS: busPIRone 5 MG TABLET. PO SCH ×3 (07:48→21:11)
[2016-11-23] MEDS: DIVALPROEX 125 MG CAP.SPRINK PO SCH ×2 (07:48→21:10)
[2016-11-23] MEDS: POTASSIUM CHLORIDE 10 MEQ TABLET.ER. PO SCH (07:48)
[2016-11-23] MEDS: LINAGLIPTIN 5 MG TABLET PO SCH (07:48)
[2016-11-23] MEDS: CLONAZEPAM 0.5 MG TABLET PO SCH ×2 (07:50→21:13)
--- NOTE | 2016-11-23 15:27 | NUR ---
pt slept thru breakfast. took pills at lunch. took meds with much encouragement. irritable in afternoon. compliant with cares.
[2016-11-23 17:03] VITALS: BP 109/71
--- NOTE | 2016-11-23 17:52 | PN ---
DATE: 11/21/2016 PSYCHIATRIC PROGRESS NOTE This is late entry of 11/21/2016, covers elements not covered in my initial note. SUBJECTIVE: The patient was up until about 1:30 in the morning, takes her medications whole, gets a little anxious, paranoid at times. REVIEW OF SYSTEMS: No CV, , pulmonary, eye, ENT system symptoms on review. MENTAL STATUS EXAMINATION: Oriented to herself. Insight, judgment, recent memory is impaired. Language function intact. Attention span short. Mood and affect still somewhat anxious, labile. LABORATORY DATA: Reviewed. IMPRESSION: Bipolar 1 disorder, mixed with psychotic features, dementia, Alzheimer, vascular with depression, delusion, behavioral disturbance. Rest diagnoses unchanged. PLAN: Continue Depakote 125 b.i.d. Labs level to be checked on 11/25/2016, Seroquel 200 at bedtime. She is on trazodone 50 at bedtime. We will add that it can be repeated x 1 for insomnia. Maintain Remeron 30 mg at bedtime, Namenda 10 b.i.d., Klonopin 0.25 b.i.d., BuSpar 5 t.i.d., Seroquel 100 t.i.d. Adjust further as clinically indicated. MAN Gladis BELTRAN MD DR: JIE/triston JOB#: [id number] / [id number]
--- NOTE | 2016-11-23 17:58 | PN ---
DATE: 11/22/2016 PSYCHIATRIC PROGRESS NOTE This is a late entry of 11/22/2016 covers elements not covered in my initial note. SUBJECTIVE: Per nursing report, the patient has been anxious, restless. Nursing staff had paged me due to increased agitation, being overstimulated in the day room area. We added Zyprexa p.r.n. She did better with it. Slept better the previous night with the added trazodone. REVIEW OF SYSTEMS: No CV, , pulmonary, eye, ENT system symptoms on review. Reliability poor. MENTAL STATUS EXAM: Oriented to herself. Insight, judgment, recent and remote memory, attention, concentration, fund of knowledge poor, consistent with her diagnosis mentioned in my initial note. PLAN: Continue current psychotropics including the increased trazodone. Check labs level on the Depakote. Adjust further as clinically indicated. MAN Gladis BELTRAN MD DR: JIE/triston JOB#: [id number] / [id number]
--- NOTE | 2016-11-23 21:00 | PDOC ---
Exam Maximiliano Demential Exam: Maximiliano Note: Please also refer to the separate dictated note~for this date of service dictated separately.~Patient seen individually. Discussed the patient with Nursing staff reviewed the chart.~Reviewed interim history and current functioning. Reviewed vital signs,~Labs/ Radiology~and current medications noted below. Continue current treatment with the changes noted in the dictated addendum note Assessment: Vital Signs: Vital Signs Date Time Temp Pulse Resp B/P Pulse Ox O2 Delivery O2 Flow Rate FiO2 11/23/16 17:03 97.9 82 17 109/71 95 11/22/16 06:27 Room Air I&O Intake and Output 11/23/16 07:00 Intake Total 1200 ml Balance 1200 ml Intake Oral 1200 ml Labs: Laboratory Tests Test 11/23/16 07:16 11/23/16 11:47 Glucose (Fingerstick) 156mg/dL (70-99) H 142mg/dL (70-99) H Current Medications: Meds: Current Medications Acetaminophen (Tylenol) 650 mg PRN Q6HRS PRN PO PAIN / TEMP; Start 11/18/16 at 23:45 Multi-Ingredient Ointment (Analgesic [place]) 1 kelin PRN QID PRN TP MUSCLE PAIN; Start 11/18/16 at 23:45 Al Hydroxide/Mg Hydroxide (Mylanta Plus Xs) 15 ml PRN AFTMEALHC PRN PO DYSPEPSIA; Start 11/18/16 at 23:45 Magnesium Hydroxide (Milk Of Magnesia) 2,400 mg PRN QHS PRN PO CONSTIPATION; Start 11/18/16 at 23:45 Buspirone HCl (Buspar) 5 mg TID PO Last administered on 11/23/16 12:16; Start 11/19/16 at 09:00 Clonazepam (Klonopin) 0.25 mg BID PO Last administered on 11/23/16 07:50; Start 11/19/16 at 09:00 Memantine (Namenda) 10 mg BID PO Last administered on 11/23/16 07:48; Start at 09:00 Mirtazapine (Remeron) 30 mg QHS PO Last administered on 11/22/16 20:32; Start 11/19/16 at 21:00 Quetiapine Fumarate (SEROquel) 100 mg TIDWMEALS PO Last administered on 17:30; Start 11/19/16 at 08:00 Trazodone HCl (Desyrel) 50 mg QHS PO Last administered on 11/22/16 20:32; Start 11/19/16 at 21:00 Quetiapine Fumarate (SEROquel) 200 mg QHS PO Psychosis Last administered on 11/22 20:33; Start 11/19/16 at 21:00 Acetaminophen (Tylenol) 650 mg BID PO Last administered on 11/23/16 07:48; Start 11/19/16 at 09:00 Senna/Docusate Sodium (Senna Plus) 1 tab BID PO Last administered on 11/23/16 07:48; Start 11/19/16 at 09:00 Thiamine HCl (Vitamin B-1) 100 mg DAILY PO Last administered on 11/23/16 07:48 ; Start 11/19/16 at 09:00 Lactobacillus Acidophilus (Bacid, Ester-Bid) 2 tab DAILY PO Last administered on 11/23/16 07:47; Start 11/19/16 at 09:00 Multivitamins/ Calcium (Thera-M Plus) 1 tab DAILY PO Last administered on 07:48; Start 11/19/16 at 09:00 Pantoprazole Sodium (Protonix) 40 mg DAILYAC PO Last administered on 11/23/16 07:48; Start 11/19/16 at 07:30 Potassium Chloride (Klor-Con) 10 meq DAILYWBKFT PO Last administered on 07:48; Start 11/19/16 at 08:00 Linagliptin (Tradjenta) 5 mg DAILY PO Last administered on 11/23/16 07:48; Start 11/19/16 at 09:00 Selenium Sulfide (Selsun Blue) 1 kelin QMTH TP Last administered on 11/20/16 16: 23; Start 11/20/16 at 16:00 Quetiapine Fumarate (SEROquel) 200 mg STK-MED ONCE .ROUTE ; Start 11/19/16 at 21 :00; Stop 11/20/16 at 12:24; Status DC Divalproex Sodium (Depakote Sprinkles) 125 mg BID PO Last administered on 07:48; Start 11/21/16 at 21:00 Trazodone HCl (Desyrel) 50 mg PRN QHS PRN PO INSOMNIA; Start 11/21/16 at 19:15 Olanzapine (Zyprexa Zydis) 2.5 mg PRN Q2HR PRN PO PSYCHOSIS Last administered on 11/22/16 16:41; Start 11/22/16 at 16:30 Active Scripts Active Reported Seroquel (Quetiapine Fumarate) 100 Mg Tablet 100 Mg PO TIDWMEALS Buspirone Hcl 5 Mg Tablet 5 Mg PO TID Tylenol (Acetaminophen) 325 Mg Tablet 650 Mg PO BID Clonazepam 0.5 Mg Tablet 0.25 Mg PO BID Trazodone Hcl 50 Mg Tablet 50 Mg PO QHS Seroquel (Quetiapine Fumarate) 200 Mg Tablet 200 Mg PO QHS Mirtazapine 30 Mg Tablet 30 Mg PO QHS Omeprazole 20 Mg Capsule.dr 20 Mg PO DAILY Potassium Chloride 10 Meq Tablet.er 10 Meq PO DAILYWBKFT Namenda (Memantine Hcl) 10 Mg Tablet 10 Mg PO BID Januvia (Sitagliptin Phosphate) 100 Mg Tablet 100 Mg PO DAILY B-1 (Thiamine HCl) 100 Mg Tablet 100 Mg PO DAILY Multi Vitamin Daily (Multivitamin) 1 Each Tablet 1 Each PO DAILY Senna Plus Tablet (Sennosides/Docusate Sodium) 1 Each Tablet 1 Each PO BID Culturelle (Lactobacillus Rhamnosus Gg) 1 Each Cap.sprink 1 Each PO DAILY Diagnosis: Problems: (1) Agitation (2) Bipolar disorder, mixed (3) Anxiety disorder (4) Dementia in Alzheimer's disease with delusions (5) Dementia in Alzheimer's disease with depression (6) Impulse control disorder (7) Dementia, vascular, with delusions (8) Dementia, vascular, with depression VIPIN BELTRAN MD Nov 23, 2016 21:00
[2016-11-23] MEDS: MIRTAZAPINE 30 MG TABLET PO SCH (21:10)
[2016-11-23] MEDS: traZODone 50 MG TABLET. PO SCH (21:10)
--- NOTE | 2016-11-24 00:02 | NUR ---
Behavior Intervention Response and Plan: BIRP Note: Behavior: Assumed Care of patient, patient located in Day Room at shift change. Patient exhibited the following behavior Interactive, Disorganized, Able to Focus on Task. Brief assessment on rounds of vital signs, medication needs, lab studies, and pain. Treatment plan problems:1-2 Intervention: Patient assessed and the following interventions initiated safety checks 15 Minute Checks Cognitive Assessment , Head to toe Assessment , Medications. Response: After interactions and interventions patient responded in the following manner, Calm , Cooperative ,Social. Continue to assess behaviors and condition will continue to monitor throughout the shift as needed. 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 Continue to assess patient for changes in above assessment. Monitor for medication needs, pain, and safety concerns. Hourly rounding performed to ensure safe environment.
[2016-11-24 06:53] VITALS: BP 125/63
[2016-11-24] MEDS: LACTOBACILLUS ACIDOPH & BULGAR 1 TABLET. PO SCH (08:41)
[2016-11-24] MEDS: POTASSIUM CHLORIDE 10 MEQ TABLET.ER. PO SCH (08:41)
[2016-11-24] MEDS: DIVALPROEX 125 MG CAP.SPRINK PO SCH ×2 (08:41→19:54)
[2016-11-24] MEDS: PANTOPRAZOLE 40 MG TABLET. PO SCH (08:41)
[2016-11-24] MEDS: ACETAMINOPHEN 325 MG TABLET PO SCH ×2 (08:41→19:55)
[2016-11-24] MEDS: busPIRone 5 MG TABLET. PO SCH ×3 (08:41→19:53)
[2016-11-24] MEDS: SENNOSIDES/DOCUSATE 8.6/50MG TABLET. PO SCH ×2 (08:41→19:54)
[2016-11-24] MEDS: MULTIVITAMIN with MINERAL TABLET. PO SCH (08:41)
[2016-11-24] MEDS: THIAMINE 100 MG TABLET. PO SCH (08:41)
[2016-11-24] MEDS: QUEtiapine 100 MG TABLET. PO SCH ×4 (08:41→19:55)
[2016-11-24] MEDS: MEMANTINE 10 MG TABLET. PO SCH ×2 (08:42→19:54)
[2016-11-24] MEDS: LINAGLIPTIN 5 MG TABLET PO SCH (08:42)
[2016-11-24] MEDS: CLONAZEPAM 0.5 MG TABLET PO SCH ×2 (08:43→19:57)
--- NOTE | 2016-11-24 11:09 | NUR ---
Behavior Intervention Response and Plan: BIRP Note: Behavior: Assumed Care of patient, patient located in Patient Room at shift change. Patient exhibited the following behavior Disorganized, Withdrawn, Drowsy. Brief assessment on rounds of vital signs, medication needs, lab studies, and pain. Treatment plan problems . Intervention: Patient assessed and the following interventions initiated safety checks 15 Minute Checks Cognitive Assessment , Head to toe Assessment , Medications. Response: After interactions and interventions patient responded in the following manner, Withdrawn , Drowsy ,Compliant. Continue to assess behaviors and condition will continue to monitor throughout the shift as needed. Plan: Continue to monitor Master Treatment Plan for patient's progress toward short term goals of Decreased Anxiety, Improved Mood, alf goals to return to previous living setting vs placement. Continue to assess patient for changes in above assessment. Monitor for medication needs, pain, and safety concerns. Hourly rounding performed to ensure safe environment.
--- NOTE | 2016-11-24 15:34 | PN ---
DATE: 11/23/2016 PSYCHIATRIC PROGRESS NOTE This is late entry of 11/23/2016, covers elements not covered in my initial note. SUBJECTIVE: The patient has been irritable today, staff had called me earlier in the day by paging me because of increased agitation, mood lability, we added Zyprexa p.r.n., which helped, resistive to taking medications. REVIEW OF SYSTEMS: No CV, , pulmonary, eye, ENT system symptoms on review. Reliability poor. MENTAL STATUS EXAMINATION: Oriented to herself. Insight, judgment, recent memory is impaired. Language function is intact. Attention span is short. Mood and affect remains intermittently labile. She is somewhat paranoid. LABORATORY DATA: Reviewed. IMPRESSION: Major neurocognitive disorder, Alzheimer, vascular with delusions, behavioral disturbance; bipolar 1 disorder, mixed with psychotic features, in partial remission. PLAN: Continue current psychotropics, Zyprexa was added p.r.n. Check valproic acid level on 11/25/2016. Adjust Depakote to reach a therapeutic level as a mood stabilizer. MAN Gladis BELTRAN MD DR: JIE/triston JOB#: [id number] / [id number]
[2016-11-24] MEDS: SELENIUM SULFIDE 2.5% SHAMPOO 120ML BOTTLE. TP SCH (16:00)
[2016-11-24 16:09] VITALS: BP 129/79
[2016-11-24] MEDS: traZODone 50 MG TABLET. PO SCH (19:53)
[2016-11-24] MEDS: MIRTAZAPINE 30 MG TABLET PO SCH (19:53)
--- NOTE | 2016-11-24 20:30 | NUR ---
Behavior Intervention Response and Plan: BIRP Note: Behavior: Assumed Care of patient, patient located in Day Room at shift change. Patient exhibited the following behavior Wandering, Calm, but anxious at time, Cooperative. Brief assessment on rounds of vital signs, medication needs, lab studies, and pain. Treatment plan problems 1-2/fall risk . Intervention: Patient assessed and the following interventions initiated safety checks 15 Minute Checks Cognitive Assessment , Head to toe Assessment , Medications, oral nutrition and hydration, tolieting. Response: After interactions and interventions patient responded in the following manner, Wandering , Interactive ,Calm, pleasant, compliant. Continue to assess behaviors and condition will continue to monitor throughout the shift as needed. Plan: Continue to monitor Master Treatment Plan for patient's progress toward short term goals of Decreased Anxiety, Medication Compliance, Improved Mood, residential goals to return to previous living setting vs placement. Continue to assess patient for changes in above assessment. Monitor for medication needs, pain, and safety concerns. Hourly rounding performed to ensure safe environment.
--- NOTE | 2016-11-24 23:43 | PDOC ---
Exam Maximiliano Demential Exam: Maximiliano Note: Please also refer to the separate dictated note~for this date of service dictated separately.~Patient seen individually. Discussed the patient with Nursing staff reviewed the chart.~Reviewed interim history and current functioning. Reviewed vital signs,~Labs/ Radiology~and current medications noted below. Continue current treatment with the changes noted in the dictated addendum note Assessment: Vital Signs: Vital Signs Date Time Temp Pulse Resp B/P Pulse Ox O2 Delivery O2 Flow Rate FiO2 11/24/16 16:09 72 18 129/79 96 11/24/16 06:53 97.8 11/22/16 06:27 Room Air I&O Intake and Output 11/24/16 07:00 Intake Total 720 ml Balance 720 ml Intake Oral 720 ml Labs: Laboratory Tests Test 11/24/16 07:24 11/24/16 17:06 Glucose (Fingerstick) 148mg/dL (70-99) H 171mg/dL (70-99) H Current Medications: Meds: Current Medications Acetaminophen (Tylenol) 650 mg PRN Q6HRS PRN PO PAIN / TEMP; Start 11/18/16 at 23:45 Multi-Ingredient Ointment (Analgesic [place]) 1 kelin PRN QID PRN TP MUSCLE PAIN; Start 11/18/16 at 23:45 Al Hydroxide/Mg Hydroxide (Mylanta Plus Xs) 15 ml PRN AFTMEALHC PRN PO DYSPEPSIA; Start 11/18/16 at 23:45 Magnesium Hydroxide (Milk Of Magnesia) 2,400 mg PRN QHS PRN PO CONSTIPATION; Start 11/18/16 at 23:45 Buspirone HCl (Buspar) 5 mg TID PO Last administered on 11/24/16 19:53; Start 11/19/16 at 09:00 Clonazepam (Klonopin) 0.25 mg BID PO Last administered on 11/24/16 19:57; Start 11/19/16 at 09:00 Memantine (Namenda) 10 mg BID PO Last administered on 11/24/16 19:54; Start at 09:00 Mirtazapine (Remeron) 30 mg QHS PO Last administered on 11/24/16 19:53; Start 11/19/16 at 21:00 Quetiapine Fumarate (SEROquel) 100 mg TIDWMEALS PO Last administered on 17:22; Start 11/19/16 at 08:00 Trazodone HCl (Desyrel) 50 mg QHS PO Last administered on 11/24/16 19:53; Start 11/19/16 at 21:00 Quetiapine Fumarate (SEROquel) 200 mg QHS PO Psychosis Last administered on 11/24 19:55; Start 11/19/16 at 21:00 Acetaminophen (Tylenol) 650 mg BID PO Last administered on 11/24/16 19:55; Start 11/19/16 at 09:00 Senna/Docusate Sodium (Senna Plus) 1 tab BID PO Last administered on 11/24/16 19:54; Start 11/19/16 at 09:00 Thiamine HCl (Vitamin B-1) 100 mg DAILY PO Last administered on 11/24/16 08:41 ; Start 11/19/16 at 09:00 Lactobacillus Acidophilus (Bacid, Ester-Bid) 2 tab DAILY PO Last administered on 11/24/16 08:41; Start 11/19/16 at 09:00 Multivitamins/ Calcium (Thera-M Plus) 1 tab DAILY PO Last administered on 08:41; Start 11/19/16 at 09:00 Pantoprazole Sodium (Protonix) 40 mg DAILYAC PO Last administered on 11/24/16 08:41; Start 11/19/16 at 07:30 Potassium Chloride (Klor-Con) 10 meq DAILYWBKFT PO Last administered on 08:41; Start 11/19/16 at 08:00 Linagliptin (Tradjenta) 5 mg DAILY PO Last administered on 11/24/16 08:42; Start 11/19/16 at 09:00 Selenium Sulfide (Selsun Blue) 1 kelin QMTH TP Last administered on 11/20/16 16: 23; Start 11/20/16 at 16:00 Quetiapine Fumarate (SEROquel) 200 mg STK-MED ONCE .ROUTE ; Start 11/19/16 at 21 :00; Stop 11/20/16 at 12:24; Status DC Divalproex Sodium (Depakote Sprinkles) 125 mg BID PO Last administered on 19:54; Start 11/21/16 at 21:00 Trazodone HCl (Desyrel) 50 mg PRN QHS PRN PO INSOMNIA; Start 11/21/16 at 19:15 Olanzapine (Zyprexa Zydis) 2.5 mg PRN Q2HR PRN PO PSYCHOSIS Last administered on 11/22/16 16:41; Start 11/22/16 at 16:30 Active Scripts Active Reported Seroquel (Quetiapine Fumarate) 100 Mg Tablet 100 Mg PO TIDWMEALS Buspirone Hcl 5 Mg Tablet 5 Mg PO TID Tylenol (Acetaminophen) 325 Mg Tablet 650 Mg PO BID Clonazepam 0.5 Mg Tablet 0.25 Mg PO BID Trazodone Hcl 50 Mg Tablet 50 Mg PO QHS Seroquel (Quetiapine Fumarate) 200 Mg Tablet 200 Mg PO QHS Mirtazapine 30 Mg Tablet 30 Mg PO QHS Omeprazole 20 Mg Capsule.dr 20 Mg PO DAILY Potassium Chloride 10 Meq Tablet.er 10 Meq PO DAILYWBKFT Namenda (Memantine Hcl) 10 Mg Tablet 10 Mg PO BID Januvia (Sitagliptin Phosphate) 100 Mg Tablet 100 Mg PO DAILY B-1 (Thiamine HCl) 100 Mg Tablet 100 Mg PO DAILY Multi Vitamin Daily (Multivitamin) 1 Each Tablet 1 Each PO DAILY Senna Plus Tablet (Sennosides/Docusate Sodium) 1 Each Tablet 1 Each PO BID Culturelle (Lactobacillus Rhamnosus Gg) 1 Each Cap.sprink 1 Each PO DAILY Diagnosis: Problems: (1) Agitation (2) Bipolar disorder, mixed (3) Anxiety disorder (4) Dementia in Alzheimer's disease with delusions (5) Dementia in Alzheimer's disease with depression (6) Impulse control disorder (7) Dementia, vascular, with delusions (8) Dementia, vascular, with depression VIPIN BELTRAN MD Nov 24, 2016 23:43
[2016-11-25 06:14] VITALS: BP 128/74
[2016-11-25] MEDS: SENNOSIDES/DOCUSATE 8.6/50MG TABLET. PO SCH ×2 (09:37→20:18)
[2016-11-25] MEDS: THIAMINE 100 MG TABLET. PO SCH (09:37)
[2016-11-25] MEDS: MULTIVITAMIN with MINERAL TABLET. PO SCH (09:37)
[2016-11-25] MEDS: DIVALPROEX 125 MG CAP.SPRINK PO SCH ×2 (09:37→20:19)
[2016-11-25] MEDS: PANTOPRAZOLE 40 MG TABLET. PO SCH (09:37)
[2016-11-25] MEDS: LACTOBACILLUS ACIDOPH & BULGAR 1 TABLET. PO SCH (09:38)
[2016-11-25] MEDS: QUEtiapine 100 MG TABLET. PO SCH ×4 (09:38→20:19)
[2016-11-25] MEDS: POTASSIUM CHLORIDE 10 MEQ TABLET.ER. PO SCH (09:38)
[2016-11-25] MEDS: busPIRone 5 MG TABLET. PO SCH ×3 (09:38→20:19)
[2016-11-25] MEDS: LINAGLIPTIN 5 MG TABLET PO SCH (09:38)
[2016-11-25] MEDS: MEMANTINE 10 MG TABLET. PO SCH ×2 (09:38→20:19)
[2016-11-25] MEDS: ACETAMINOPHEN 325 MG TABLET PO SCH ×2 (09:44→20:19)
[2016-11-25] MEDS: CLONAZEPAM 0.5 MG TABLET PO SCH ×2 (09:44→20:20)
--- NOTE | 2016-11-25 10:00 | NUR ---
THERAPEUTIC RECREATION GROUP NOTE TITLE :Butterflies and [employer] ACTIVITY : Arts and Crafts GOAL : Increase socialization, fine motor skills, creativity DURATION : 30 minutes RESPONSE : No participation.
--- NOTE | 2016-11-25 10:16 | NUR ---
Case Management Note Updated clinical information sent to [facility] at [phone], fax confirmation obtained. Will follow for continued stay and or discharge planning.
[2016-11-25 10:25] LABS: BASO % 1 % (0-3); EOS # 0.2 x10^3/uL (0.0-0.7); EOS % 2 % (0-3); HEMATOCRIT 37.1 % (36.0-47.0); HEMOGLOBIN 12.3 g/dL (12.0-15.5); LYMPH # 2.9 x10^3/uL (1.0-4.8); LYMPH % 42 % (24-48); MEAN CORPUSCULAR HEMOGLOBIN 33 pg (25-35); MEAN CORPUSCULAR HGB CONC 33 g/dL (31-37); MEAN CORPUSCULAR VOLUME 99 fL (79-100); MONO # 0.5 x10^3/uL (0.0-1.1); MONO % 8 % (0-9); NEUT # 3.3 x10^3uL (1.8-7.7); NEUT % 48 % (31-73); PLATELET COUNT 208 x10^3/uL (140-400); RED BLOOD COUNT 3.74 x10^6/uL (3.50-5.40); RED CELL DISTRIBUTION WIDTH 13.6 % (11.5-14.5); WHITE BLOOD COUNT 6.9 x10^3/uL (4.0-11.0)
[2016-11-25 10:51] LABS: ALBUMIN 3.6 g/dL (3.4-5.0); ALBUMIN/GLOBULIN RATIO 0.9 (1.0-1.7); ALK PHOS 80 U/L (46-116); ALT (SGPT) 25 U/L (14-59); ANION GAP 6 (6-14); AST (SGOT) 17 U/L (15-37); BLOOD UREA NITROGEN 16 mg/dL (7-20); BUN/CREATININE RATIO 23 (6-20); CALCIUM 9.3 mg/dL (8.5-10.1); CARBON DIOXIDE 31 mmol/L (21-32); CHLORIDE 106 mmol/L (98-107); CREATININE 0.7 mg/dL (0.6-1.0); GFR 82.7; GLUCOSE 144 mg/dL (70-99); POTASSIUM 4.1 mmol/L (3.5-5.1); SODIUM 143 mmol/L (136-145); TOTAL BILIRUBIN 0.4 mg/dL (0.2-1.0); TOTAL PROTEIN 7.6 g/dL (6.4-8.2)
[2016-11-25 10:52] LABS: VAL ACID 28 mcg/mL (50-100)
--- NOTE | 2016-11-25 11:15 | NUR ---
THERAPEUTIC RECREATION GROUP NOTE TITLE :Movement to Music: Flexibility ACTIVITY : Movement/ Exercise GOAL : Increase morale, attention, flexibility. Decrease stress/anxiety. DURATION : 40 Minutes RESPONSE : Moderate participation. Pt. sat quietly but followed along with most of the moves. She was pleasant and agreeable with encouragement, reminders, and demonstrations
--- NOTE | 2016-11-25 13:01 | NUR ---
Behavior Intervention Response and Plan: BIRP Note: Behavior: Assumed Care of patient, patient located in Day Room at shift change. Patient exhibited the following behavior Disorganized, Irritable, Non Compliant with Meds. Brief assessment on rounds of vital signs, medication needs, lab studies, and pain. Treatment plan problems . Intervention: Patient assessed and the following interventions initiated safety checks 15 Minute Checks Cognitive Assessment , Head to toe Assessment , Medications. Response: After interactions and interventions patient responded in the following manner, Disorganized , Demanding ,Irritable. Continue to assess behaviors and condition will continue to monitor throughout the shift as needed. Plan: Continue to monitor Master Treatment Plan for patient's progress toward short term goals of Decreased Agitation, Decreased Aggression, rn long term care goals to return to previous living setting vs placement. Continue to assess patient for changes in above assessment. Monitor for medication needs, pain, and safety concerns. Hourly rounding performed to ensure safe environment.
--- NOTE | 2016-11-25 14:00 | NUR ---
THERAPEUTIC RECREATION GROUP NOTE TITLE :Sing along with [place] ACTIVITY : Music GOAL : Increase socialization, elevate mood, stimulate memory DURATION : 60 Minutes RESPONSE : Minimal participation. Pt. joined the group a little late after a shower but followed along with a mariama sheet. She did not sing.
[2016-11-25 16:17] VITALS: BP 134/81
[2016-11-25] MEDS: MIRTAZAPINE 30 MG TABLET PO SCH (20:18)
[2016-11-25] MEDS: traZODone 50 MG TABLET. PO SCH (20:19)
--- NOTE | 2016-11-25 20:40 | NUR ---
Behavior Intervention Response and Plan: BIRP Note: Behavior: Assumed Care of patient, patient located in Day Room at shift change. Patient exhibited the following behavior Calm, Interactive, Disorganized, Cooperative, Suspicious. Brief assessment on rounds of vital signs, medication needs, lab studies, and pain. Treatment plan problems: 1-2/fall risk . Intervention: Patient assessed and the following interventions initiated safety checks 15 Minute Checks Cognitive Assessment , Head to toe Assessment , Medications. Response: After interactions and interventions patient responded in the following manner, Calm, Interactive, Receptive, Compliant. Continue to assess behaviors and condition will continue to monitor throughout the shift as needed. 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 Continue to assess patient for changes in above assessment. Monitor for medication needs, pain, and safety concerns. Hourly rounding performed to ensure safe environment.
--- NOTE | 2016-11-26 02:30 | PN ---
DATE: 11/24/2016 PSYCHIATRIC PROGRESS NOTE This is a late entry for 11/24/2016, covers elements not covered in my initial note. SUBJECTIVE: Overall, the patient had a difficult day, labile in her mood, agitated, paranoid, takes her medications crushed and hidden in food if noncompliant. Agitated during showers, refused shower, took it later. REVIEW OF SYSTEMS: No CV, , pulmonary, eye, ENT system symptoms on review. Reliability poor. MENTAL STATUS EXAM: Oriented to herself and situation. Speech coherent, talking to herself as I met with her. Insight limited, judgment marginal, language function intact, attention span short. Mood and affect still somewhat labile. LABORATORY DATA: Reviewed. IMPRESSION: Major neurocognitive disorder, Alzheimer, vascular with depression, delusions; bipolar 1 disorder, mixed with psychotic features. PLAN: Check valproic acid level on 11/25/2016. Continue Depakote 125 mg b.i.d., Seroquel 200 mg at bedtime, trazodone p.r.n., Remeron 30 mg at bedtime, Namenda 10 mg b.i.d., Klonopin 0.25 mg b.i.d., BuSpar 5 mg t.i.d., Seroquel 100 mg t.i.d., Zyprexa p.r.n. Adjust further as clinically indicated. MAN Gladis BELTRAN MD DR: JIE/triston JOB#: [id number] / [id number]
[2016-11-26 06:29] VITALS: BP 110/64
[2016-11-26] MEDS: QUEtiapine 100 MG TABLET. PO SCH ×4 (08:48→19:42)
[2016-11-26] MEDS: DIVALPROEX 125 MG CAP.SPRINK PO SCH ×2 (08:48→19:43)
[2016-11-26] MEDS: LACTOBACILLUS ACIDOPH & BULGAR 1 TABLET. PO SCH (08:49)
[2016-11-26] MEDS: PANTOPRAZOLE 40 MG TABLET. PO SCH (08:49)
[2016-11-26] MEDS: SENNOSIDES/DOCUSATE 8.6/50MG TABLET. PO SCH ×2 (08:49→19:43)
[2016-11-26] MEDS: POTASSIUM CHLORIDE 10 MEQ TABLET.ER. PO SCH (08:49)
[2016-11-26] MEDS: ACETAMINOPHEN 325 MG TABLET PO SCH ×2 (08:49→19:43)
[2016-11-26] MEDS: MEMANTINE 10 MG TABLET. PO SCH ×2 (08:50→19:43)
[2016-11-26] MEDS: busPIRone 5 MG TABLET. PO SCH ×3 (08:50→19:43)
[2016-11-26] MEDS: MULTIVITAMIN with MINERAL TABLET. PO SCH (08:50)
[2016-11-26] MEDS: THIAMINE 100 MG TABLET. PO SCH (08:50)
[2016-11-26] MEDS: CLONAZEPAM 0.5 MG TABLET PO SCH ×2 (08:51→19:45)
[2016-11-26] MEDS: LINAGLIPTIN 5 MG TABLET PO SCH (08:54)
--- NOTE | 2016-11-26 14:21 | NUR ---
Behavior Intervention Response and Plan: BIRP Note: Behavior: Assumed Care of patient, patient located in Patient Room at shift change. Patient exhibited the following behavior Wandering, Exit Seeking, Interactive. Brief assessment on rounds of vital signs, medication needs, lab studies, and pain. Treatment plan problems . Intervention: Patient assessed and the following interventions initiated safety checks 15 Minute Checks Head to toe Assessment , Medications , Oral Hydration. Response: After interactions and interventions patient responded in the following manner, Disorganized , Irritable ,Defensive. Continue to assess behaviors and condition will continue to monitor throughout the shift as needed. Plan: Continue to monitor Master Treatment Plan for patient's progress toward short term goals of No harm To self/ others, Medication Compliance, jail goals to return to previous living setting vs placement. Continue to assess patient for changes in above assessment. Monitor for medication needs, pain, and safety concerns. Hourly rounding performed to ensure safe environment.
[2016-11-26 15:53] VITALS: BP 114/67
--- NOTE | 2016-11-26 19:40 | NUR ---
Behavior Intervention Response and Plan: BIRP Note: Behavior: Assumed Care of patient, patient located in Day Room at shift change. Patient exhibited the following behavior Calm, Compliant, Cooperative. Brief assessment on rounds of vital signs, medication needs, lab studies, and pain. Treatment plan problems . Intervention: Patient assessed and the following interventions initiated safety checks 15 Minute Checks Cognitive Assessment , Head to toe Assessment , Medications. Response: After interactions and interventions patient responded in the following manner, Calm , Compliant ,Cooperative. Continue to assess behaviors and condition will continue to monitor throughout the shift as needed. Plan: Continue to monitor Master Treatment Plan for patient's progress toward short term goals of Decreased Agitation, Decreased Anxiety, [facility] goals to return to previous living setting vs placement. Continue to assess patient for changes in above assessment. Monitor for medication needs, pain, and safety concerns. Hourly rounding performed to ensure safe environment.
[2016-11-26] MEDS: traZODone 50 MG TABLET. PO SCH (19:43)
[2016-11-26] MEDS: MIRTAZAPINE 30 MG TABLET PO SCH (19:43)
--- NOTE | 2016-11-26 21:05 | PDOC ---
Exam Maximiliano Demential Exam: Maximiliano Note: Please also refer to the separate dictated note~for this date of service dictated separately.~Patient seen individually. Discussed the patient with Nursing staff reviewed the chart.~Reviewed interim history and current functioning. Reviewed vital signs,~Labs/ Radiology~and current medications noted below. Continue current treatment with the changes noted in the dictated addendum note Assessment: Vital Signs: Vital Signs Date Time Temp Pulse Resp B/P Pulse Ox O2 Delivery O2 Flow Rate FiO2 11/26/16 15:53 97.8 87 18 114/67 96 11/22/16 06:27 Room Air I&O Intake and Output 11/26/16 07:00 Intake Total 600 ml Balance 600 ml Intake Oral 600 ml Labs: Laboratory Tests Test 11/26/16 08:02 Glucose (Fingerstick) 124mg/dL (70-99) H Current Medications: Meds: Current Medications Acetaminophen (Tylenol) 650 mg PRN Q6HRS PRN PO PAIN / TEMP; Start 11/18/16 at 23:45 Multi-Ingredient Ointment (Analgesic [place]) 1 kelin PRN QID PRN TP MUSCLE PAIN; Start 11/18/16 at 23:45 Al Hydroxide/Mg Hydroxide (Mylanta Plus Xs) 15 ml PRN AFTMEALHC PRN PO DYSPEPSIA; Start 11/18/16 at 23:45 Magnesium Hydroxide (Milk Of Magnesia) 2,400 mg PRN QHS PRN PO CONSTIPATION; Start 11/18/16 at 23:45 Buspirone HCl (Buspar) 5 mg TID PO Last administered on 11/26/16 19:43; Start 11/19/16 at 09:00 Clonazepam (Klonopin) 0.25 mg BID PO Last administered on 11/26/16 19:45; Start 11/19/16 at 09:00 Memantine (Namenda) 10 mg BID PO Last administered on 11/26/16 19:43; Start at 09:00 Mirtazapine (Remeron) 30 mg QHS PO Last administered on 11/26/16 19:43; Start 11/19/16 at 21:00 Quetiapine Fumarate (SEROquel) 100 mg TIDWMEALS PO Last administered on 16:00; Start 11/19/16 at 08:00 Trazodone HCl (Desyrel) 50 mg QHS PO Last administered on 11/26/16 19:43; Start 11/19/16 at 21:00 Quetiapine Fumarate (SEROquel) 200 mg QHS PO Psychosis Last administered on 11/26 19:42; Start 11/19/16 at 21:00 Acetaminophen (Tylenol) 650 mg BID PO Last administered on 11/26/16 19:43; Start 11/19/16 at 09:00 Senna/Docusate Sodium (Senna Plus) 1 tab BID PO Last administered on 11/26/16 19:43; Start 11/19/16 at 09:00 Thiamine HCl (Vitamin B-1) 100 mg DAILY PO Last administered on 11/26/16 08:50 ; Start 11/19/16 at 09:00 Lactobacillus Acidophilus (Bacid, Ester-Bid) 2 tab DAILY PO Last administered on 11/26/16 08:49; Start 11/19/16 at 09:00 Multivitamins/ Calcium (Thera-M Plus) 1 tab DAILY PO Last administered on 08:50; Start 11/19/16 at 09:00 Pantoprazole Sodium (Protonix) 40 mg DAILYAC PO Last administered on 11/26/16 08:49; Start 11/19/16 at 07:30 Potassium Chloride (Klor-Con) 10 meq DAILYWBKFT PO Last administered on 08:49; Start 11/19/16 at 08:00 Linagliptin (Tradjenta) 5 mg DAILY PO Last administered on 11/26/16 08:54; Start 11/19/16 at 09:00 Selenium Sulfide (Selsun Blue) 1 kelin QMTH TP Last administered on 11/20/16 16: 23; Start 11/20/16 at 16:00 Quetiapine Fumarate (SEROquel) 200 mg STK-MED ONCE .ROUTE ; Start 11/19/16 at 21 :00; Stop 11/20/16 at 12:24; Status DC Divalproex Sodium (Depakote Sprinkles) 125 mg BID PO Last administered on 09:37; Start 11/21/16 at 21:00; Stop 11/25/16 at 18:12; Status DC Trazodone HCl (Desyrel) 50 mg PRN QHS PRN PO INSOMNIA; Start 11/21/16 at 19:15 Olanzapine (Zyprexa Zydis) 2.5 mg PRN Q2HR PRN PO PSYCHOSIS Last administered on 11/22/16 16:41; Start 11/22/16 at 16:30 Divalproex Sodium (Depakote Sprinkles) 250 mg BID PO Last administered on 19:43; Start 11/25/16 at 21:00 Active Scripts Active Reported Seroquel (Quetiapine Fumarate) 100 Mg Tablet 100 Mg PO TIDWMEALS Buspirone Hcl 5 Mg Tablet 5 Mg PO TID Tylenol (Acetaminophen) 325 Mg Tablet 650 Mg PO BID Clonazepam 0.5 Mg Tablet 0.25 Mg PO BID Trazodone Hcl 50 Mg Tablet 50 Mg PO QHS Seroquel (Quetiapine Fumarate) 200 Mg Tablet 200 Mg PO QHS Mirtazapine 30 Mg Tablet 30 Mg PO QHS Omeprazole 20 Mg Capsule.dr 20 Mg PO DAILY Potassium Chloride 10 Meq Tablet.er 10 Meq PO DAILYWBKFT Namenda (Memantine Hcl) 10 Mg Tablet 10 Mg PO BID Januvia (Sitagliptin Phosphate) 100 Mg Tablet 100 Mg PO DAILY B-1 (Thiamine HCl) 100 Mg Tablet 100 Mg PO DAILY Multi Vitamin Daily (Multivitamin) 1 Each Tablet 1 Each PO DAILY Senna Plus Tablet (Sennosides/Docusate Sodium) 1 Each Tablet 1 Each PO BID Culturelle (Lactobacillus Rhamnosus Gg) 1 Each Cap.sprink 1 Each PO DAILY Diagnosis: Problems: (1) Agitation (2) Bipolar disorder, mixed (3) Anxiety disorder (4) Dementia in Alzheimer's disease with delusions (5) Dementia in Alzheimer's disease with depression (6) Impulse control disorder (7) Dementia, vascular, with delusions (8) Dementia, vascular, with depression VIPIN BELTRAN MD Nov 26, 2016 21:05
--- NOTE | 2016-11-27 04:22 | PN ---
DATE: 11/25/2016 This is a late entry for 11/25/2016 covers elements not covered in my initial note. SUBJECTIVE: Overall per nursing report, the patient has been agitated with lab draw, yelling, combative, refused her medications. Meds have to be given hidden in food, especially in the morning, but took it whole the rest of the day. REVIEW OF SYSTEMS: No CV, , pulmonary, eye, ENT system symptoms on review. MENTAL STATUS EXAM: She is talking to herself as I went to visit with her, oblivious of her surroundings, remains psychotic. Insight, judgment, recent, remote memory, attention, concentration, fund of knowledge poor, consistent with her diagnosis mentioned in my initial note. IMPRESSION: Major neurocognitive disorder, Alzheimer, vascular with delusion, behavioral disturbance; bipolar 1 disorder, mixed with psychotic features. Rest diagnoses unchanged. Valproic acid level is subtherapeutic. PLAN: We will increase the Depakote Sprinkles from 125 b.i.d. to 250 twice a day. Check labs level. Continue Seroquel 200 at bedtime, Remeron 30 at bedtime, Namenda 10 b.i.d., Klonopin 0.25 b.i.d., BuSpar 5 t.i.d., Seroquel 100 t.i.d., Zyprexa p.r.n. for now. MAN Gladis BELTRAN MD DR: JIE/triston JOB#: [id number] / [id number]
[2016-11-27 06:42] VITALS: BP 121/65
[2016-11-27] MEDS: SENNOSIDES/DOCUSATE 8.6/50MG TABLET. PO SCH ×2 (07:43→19:38)
[2016-11-27] MEDS: DIVALPROEX 125 MG CAP.SPRINK PO SCH ×2 (07:43→19:38)
[2016-11-27] MEDS: POTASSIUM CHLORIDE 10 MEQ TABLET.ER. PO SCH (07:43)
[2016-11-27] MEDS: LACTOBACILLUS ACIDOPH & BULGAR 1 TABLET. PO SCH (07:43)
[2016-11-27] MEDS: MULTIVITAMIN with MINERAL TABLET. PO SCH (07:43)
[2016-11-27] MEDS: ACETAMINOPHEN 325 MG TABLET PO SCH ×2 (07:43→19:38)
[2016-11-27] MEDS: THIAMINE 100 MG TABLET. PO SCH (07:44)
[2016-11-27] MEDS: QUEtiapine 100 MG TABLET. PO SCH ×4 (07:44→19:38)
[2016-11-27] MEDS: PANTOPRAZOLE 40 MG TABLET. PO SCH (07:44)
[2016-11-27] MEDS: LINAGLIPTIN 5 MG TABLET PO SCH (07:44)
[2016-11-27] MEDS: MEMANTINE 10 MG TABLET. PO SCH ×2 (07:44→19:38)
[2016-11-27] MEDS: busPIRone 5 MG TABLET. PO SCH ×3 (07:44→19:38)
[2016-11-27] MEDS: CLONAZEPAM 0.5 MG TABLET PO SCH ×2 (07:45→19:40)
--- NOTE | 2016-11-27 10:32 | NUR ---
Behavior Intervention Response and Plan: BIRP Note: Behavior: Assumed Care of patient, patient located in Patient Room at shift change. Patient exhibited the following behavior Disorganized, Irritable, Defensive. Brief assessment on rounds of vital signs, medication needs, lab studies, and pain. Treatment plan problems . Intervention: Patient assessed and the following interventions initiated safety checks 15 Minute Checks Head to toe Assessment , Medications , Oral Hydration. Response: After interactions and interventions patient responded in the following manner, Sarcastic , Wandering ,Exit Seeking. Continue to assess behaviors and condition will continue to monitor throughout the shift as needed. 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 Continue to assess patient for changes in above assessment. Monitor for medication needs, pain, and safety concerns. Hourly rounding performed to ensure safe environment.
--- NOTE | 2016-11-27 11:15 | NUR ---
THERAPEUTIC RECREATION GROUP NOTE TITLE :Movement to Music: Flexibility ACTIVITY : Movement/ Exercise GOAL : Increase morale, attention, flexibility. Decrease stress/anxiety. DURATION : 40 Minutes RESPONSE : Minimal participation. Pt. stayed with the group the entire time; however, only did a few stretches. She talked to herself occasionally but was pleasant and calm the entire time.
--- NOTE | 2016-11-27 14:00 | NUR ---
THERAPEUTIC RECREATION GROUP NOTE TITLE :Balloon Bop with Noodles ACTIVITY : Activities and Games GOAL : Increase socialization and alertness. Maintain/improve mental and physical functioning. DURATION : 30 minutes RESPONSE : Moderate participation. Pt. socialized with other patient and intermittently bumped balloon with noodle and hand.
[2016-11-27 15:47] VITALS: BP 144/88
[2016-11-27] MEDS: SELENIUM SULFIDE 2.5% SHAMPOO 120ML BOTTLE. TP SCH (16:00)
[2016-11-27] MEDS: traZODone 50 MG TABLET. PO SCH (19:38)
[2016-11-27] MEDS: MIRTAZAPINE 30 MG TABLET PO SCH (19:38)
--- NOTE | 2016-11-27 21:09 | PDOC ---
Exam Maximiliano Demential Exam: Maximiliano Note: Please also refer to the separate dictated note~for this date of service dictated separately.~Patient seen individually. Discussed the patient with Nursing staff reviewed the chart.~Reviewed interim history and current functioning. Reviewed vital signs,~Labs/ Radiology~and current medications noted below. Continue current treatment with the changes noted in the dictated addendum note Assessment: Vital Signs: Vital Signs Date Time Temp Pulse Resp B/P Pulse Ox O2 Delivery O2 Flow Rate FiO2 11/27/16 15:47 97.5 86 20 144/88 98 11/22/16 06:27 Room Air I&O Intake and Output 11/27/16 07:00 Intake Total 648 ml Balance 648 ml Intake Oral 648 ml Labs: Laboratory Tests Test 11/27/16 07:24 Glucose (Fingerstick) 146mg/dL (70-99) H Current Medications: Meds: Current Medications Acetaminophen (Tylenol) 650 mg PRN Q6HRS PRN PO PAIN / TEMP; Start 11/18/16 at 23:45 Multi-Ingredient Ointment (Analgesic [place]) 1 kelin PRN QID PRN TP MUSCLE PAIN; Start 11/18/16 at 23:45 Al Hydroxide/Mg Hydroxide (Mylanta Plus Xs) 15 ml PRN AFTMEALHC PRN PO DYSPEPSIA; Start 11/18/16 at 23:45 Magnesium Hydroxide (Milk Of Magnesia) 2,400 mg PRN QHS PRN PO CONSTIPATION; Start 11/18/16 at 23:45 Buspirone HCl (Buspar) 5 mg TID PO Last administered on 11/27/16 19:38; Start 11/19/16 at 09:00 Clonazepam (Klonopin) 0.25 mg BID PO Last administered on 11/27/16 19:40; Start 11/19/16 at 09:00 Memantine (Namenda) 10 mg BID PO Last administered on 11/27/16 19:38; Start at 09:00 Mirtazapine (Remeron) 30 mg QHS PO Last administered on 11/27/16 19:38; Start 11/19/16 at 21:00 Quetiapine Fumarate (SEROquel) 100 mg TIDWMEALS PO Last administered on 16:20; Start 11/19/16 at 08:00 Trazodone HCl (Desyrel) 50 mg QHS PO Last administered on 11/27/16 19:38; Start 11/19/16 at 21:00 Quetiapine Fumarate (SEROquel) 200 mg QHS PO Psychosis Last administered on 11/27 19:38; Start 11/19/16 at 21:00 Acetaminophen (Tylenol) 650 mg BID PO Last administered on 11/27/16 19:38; Start 11/19/16 at 09:00 Senna/Docusate Sodium (Senna Plus) 1 tab BID PO Last administered on 11/27/16 19:38; Start 11/19/16 at 09:00 Thiamine HCl (Vitamin B-1) 100 mg DAILY PO Last administered on 11/27/16 07:44 ; Start 11/19/16 at 09:00 Lactobacillus Acidophilus (Bacid, Ester-Bid) 2 tab DAILY PO Last administered on 11/27/16 07:43; Start 11/19/16 at 09:00 Multivitamins/ Calcium (Thera-M Plus) 1 tab DAILY PO Last administered on 07:43; Start 11/19/16 at 09:00 Pantoprazole Sodium (Protonix) 40 mg DAILYAC PO Last administered on 11/27/16 07:44; Start 11/19/16 at 07:30 Potassium Chloride (Klor-Con) 10 meq DAILYWBKFT PO Last administered on 07:43; Start 11/19/16 at 08:00 Linagliptin (Tradjenta) 5 mg DAILY PO Last administered on 11/27/16 07:44; Start 11/19/16 at 09:00 Selenium Sulfide (Selsun Blue) 1 kelin QMTH TP Last administered on 11/27/16 16: 00; Start 11/20/16 at 16:00 Quetiapine Fumarate (SEROquel) 200 mg STK-MED ONCE .ROUTE ; Start 11/19/16 at 21 :00; Stop 11/20/16 at 12:24; Status DC Divalproex Sodium (Depakote Sprinkles) 125 mg BID PO Last administered on 09:37; Start 11/21/16 at 21:00; Stop 11/25/16 at 18:12; Status DC Trazodone HCl (Desyrel) 50 mg PRN QHS PRN PO INSOMNIA; Start 11/21/16 at 19:15 Olanzapine (Zyprexa Zydis) 2.5 mg PRN Q2HR PRN PO PSYCHOSIS Last administered on 11/22/16 16:41; Start 11/22/16 at 16:30 Divalproex Sodium (Depakote Sprinkles) 250 mg BID PO Last administered on 19:38; Start 11/25/16 at 21:00 Active Scripts Active Reported Seroquel (Quetiapine Fumarate) 100 Mg Tablet 100 Mg PO TIDWMEALS Buspirone Hcl 5 Mg Tablet 5 Mg PO TID Tylenol (Acetaminophen) 325 Mg Tablet 650 Mg PO BID Clonazepam 0.5 Mg Tablet 0.25 Mg PO BID Trazodone Hcl 50 Mg Tablet 50 Mg PO QHS Seroquel (Quetiapine Fumarate) 200 Mg Tablet 200 Mg PO QHS Mirtazapine 30 Mg Tablet 30 Mg PO QHS Omeprazole 20 Mg Capsule.dr 20 Mg PO DAILY Potassium Chloride 10 Meq Tablet.er 10 Meq PO DAILYWBKFT Namenda (Memantine Hcl) 10 Mg Tablet 10 Mg PO BID Januvia (Sitagliptin Phosphate) 100 Mg Tablet 100 Mg PO DAILY B-1 (Thiamine HCl) 100 Mg Tablet 100 Mg PO DAILY Multi Vitamin Daily (Multivitamin) 1 Each Tablet 1 Each PO DAILY Senna Plus Tablet (Sennosides/Docusate Sodium) 1 Each Tablet 1 Each PO BID Culturelle (Lactobacillus Rhamnosus Gg) 1 Each Cap.sprink 1 Each PO DAILY Diagnosis: Problems: (1) Agitation (2) Bipolar disorder, mixed (3) Anxiety disorder (4) Dementia in Alzheimer's disease with delusions (5) Dementia in Alzheimer's disease with depression (6) Impulse control disorder (7) Dementia, vascular, with delusions (8) Dementia, vascular, with depression VIPIN BELTRAN MD Nov 27, 2016 21:09
--- NOTE | 2016-11-28 04:35 | NUR ---
Behavior Intervention Response and Plan: BIRP Note: Behavior: Assumed Care of patient, patient located in Hallway at shift change. Patient exhibited the following behavior Irritable, Disorganized, Restless. Brief assessment on rounds of vital signs, medication needs, lab studies, and pain. Treatment plan problems Dementia with BD, Alteration in Mood and Fall Risk. Intervention: Patient assessed and the following interventions initiated safety checks 15 Minute Checks Head to toe Assessment , Cognitive Assessment , Medications. Response: After interactions and interventions patient responded in the following manner, Irritable , Restless ,Cooperative. Continue to assess behaviors and condition will continue to monitor throughout the shift as needed. 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 Continue to assess patient for changes in above assessment. Monitor for medication needs, pain, and safety concerns. Hourly rounding performed to ensure safe environment.
[2016-11-28 05:53] VITALS: BP 148/70
[2016-11-28 06:49] LABS: ALBUMIN 3.2 g/dL (3.4-5.0); ALBUMIN/GLOBULIN RATIO 0.9 (1.0-1.7); ALK PHOS 83 U/L (46-116); ALT (SGPT) 21 U/L (14-59); ANION GAP 6 (6-14); AST (SGOT) 13 U/L (15-37); BLOOD UREA NITROGEN 13 mg/dL (7-20); BUN/CREATININE RATIO 19 (6-20); CALCIUM 8.7 mg/dL (8.5-10.1); CARBON DIOXIDE 31 mmol/L (21-32); CHLORIDE 108 mmol/L (98-107); CREATININE 0.7 mg/dL (0.6-1.0); GFR 82.7; GLUCOSE 142 mg/dL (70-99); SODIUM 145 mmol/L (136-145); TOTAL BILIRUBIN 0.3 mg/dL (0.2-1.0); TOTAL PROTEIN 6.6 g/dL (6.4-8.2)
[2016-11-28 06:51] LABS: VAL ACID 42 mcg/mL (50-100)
[2016-11-28] MEDS: THIAMINE 100 MG TABLET. PO SCH (07:39)
[2016-11-28] MEDS: SENNOSIDES/DOCUSATE 8.6/50MG TABLET. PO SCH ×2 (07:39→18:58)
[2016-11-28] MEDS: QUEtiapine 100 MG TABLET. PO SCH ×4 (07:39→18:58)
[2016-11-28] MEDS: LACTOBACILLUS ACIDOPH & BULGAR 1 TABLET. PO SCH (07:39)
[2016-11-28] MEDS: MULTIVITAMIN with MINERAL TABLET. PO SCH (07:39)
[2016-11-28] MEDS: PANTOPRAZOLE 40 MG TABLET. PO SCH (07:39)
[2016-11-28] MEDS: busPIRone 5 MG TABLET. PO SCH ×3 (07:39→18:58)
[2016-11-28] MEDS: POTASSIUM CHLORIDE 10 MEQ TABLET.ER. PO SCH (07:39)
[2016-11-28] MEDS: DIVALPROEX 125 MG CAP.SPRINK PO SCH ×2 (07:40→18:57)
[2016-11-28] MEDS: MEMANTINE 10 MG TABLET. PO SCH ×2 (07:40→18:58)
[2016-11-28] MEDS: LINAGLIPTIN 5 MG TABLET PO SCH (07:40)
[2016-11-28] MEDS: ACETAMINOPHEN 325 MG TABLET PO SCH ×2 (07:40→18:58)
[2016-11-28] MEDS: CLONAZEPAM 0.5 MG TABLET PO SCH ×2 (07:43→18:59)
--- NOTE | 2016-11-28 09:17 | NUR ---
Behavior Intervention Response and Plan: BIRP Note: Behavior: Assumed Care of patient, patient located in Dining Room at shift change. Patient exhibited the following behavior Calm, Anxious, Compliant. Brief assessment on rounds of vital signs, medication needs, lab studies, and pain. Treatment plan problems . Intervention: Patient assessed and the following interventions initiated safety checks 15 Minute Checks Cognitive Assessment , Head to toe Assessment , Medications. Response: After interactions and interventions patient responded in the following manner, Calm , Compliant ,Sleeping. Continue to assess behaviors and condition will continue to monitor throughout the shift as needed. Plan: Continue to monitor Master Treatment Plan for patient's progress toward short term goals of Decreased Agitation, Improved Mood, jail goals to return to previous living setting vs placement. Continue to assess patient for changes in above assessment. Monitor for medication needs, pain, and safety concerns. Hourly rounding performed to ensure safe environment.
[2016-11-28 09:38] LABS: BASO % 0 % (0-3); EOS # 0.1 x10^3/uL (0.0-0.7); EOS % 2 % (0-3); HEMATOCRIT 36.3 % (36.0-47.0); HEMOGLOBIN 11.9 g/dL (12.0-15.5); LYMPH # 1.9 x10^3/uL (1.0-4.8); LYMPH % 33 % (24-48); MEAN CORPUSCULAR HEMOGLOBIN 33 pg (25-35); MEAN CORPUSCULAR HGB CONC 33 g/dL (31-37); MEAN CORPUSCULAR VOLUME 99 fL (79-100); MONO # 0.3 x10^3/uL (0.0-1.1); MONO % 5 % (0-9); NEUT # 3.4 x10^3uL (1.8-7.7); NEUT % 59 % (31-73); PLATELET COUNT 196 x10^3/uL (140-400); RED BLOOD COUNT 3.66 x10^6/uL (3.50-5.40); RED CELL DISTRIBUTION WIDTH 13.7 % (11.5-14.5); WHITE BLOOD COUNT 5.9 x10^3/uL (4.0-11.0)
[2016-11-28 15:39] VITALS: BP 142/58
--- NOTE | 2016-11-28 17:05 | NUR ---
pt up adl to meals. pt takes several meds. taken with much encouragement. calm and compliant.
[2016-11-28] MEDS: traZODone 50 MG TABLET. PO SCH (18:58)
[2016-11-28] MEDS: MIRTAZAPINE 30 MG TABLET PO SCH (18:58)
--- NOTE | 2016-11-28 20:35 | NUR ---
Behavior Intervention Response and Plan: BIRP Note: Behavior: Assumed Care of patient, patient located in Hallway at shift change. Patient exhibited the following behavior Restless, Irritable, Resistive, conspiring with peers to escape and try to open doors. Brief assessment on rounds of vital signs, medication needs, lab studies, and pain. Treatment plan problems 1-2. Intervention: Patient assessed and the following interventions initiated safety checks 15 Minute Checks Cognitive Assessment , Head to toe Assessment , Medications. Response: After interactions and interventions patient responded in the following manner, Restless , Demanding ,Irritable, still wandering with peers looking for a way out, initially would only take half of her medications stating that there were way too many, she eventually took all of them. Continue to assess behaviors and condition will continue to monitor throughout the shift as needed. Plan: Continue to monitor Master Treatment Plan for patient's progress toward short term goals of Decreased Agitation, Decreased Aggression, prison goals to return to previous living setting vs placement. Continue to assess patient for changes in above assessment. Monitor for medication needs, pain, and safety concerns. Hourly rounding performed to ensure safe environment.
[2016-11-29 05:59] VITALS: BP 130/72
[2016-11-29] MEDS: MULTIVITAMIN with MINERAL TABLET. PO SCH (07:58)
[2016-11-29] MEDS: QUEtiapine 100 MG TABLET. PO SCH ×4 (07:58→20:10)
[2016-11-29] MEDS: PANTOPRAZOLE 40 MG TABLET. PO SCH (07:58)
[2016-11-29] MEDS: LACTOBACILLUS ACIDOPH & BULGAR 1 TABLET. PO SCH (07:58)
[2016-11-29] MEDS: busPIRone 5 MG TABLET. PO SCH ×3 (07:58→20:10)
[2016-11-29] MEDS: MEMANTINE 10 MG TABLET. PO SCH ×2 (07:58→20:10)
[2016-11-29] MEDS: LINAGLIPTIN 5 MG TABLET PO SCH (07:58)
[2016-11-29] MEDS: POTASSIUM CHLORIDE 10 MEQ TABLET.ER. PO SCH (07:59)
[2016-11-29] MEDS: DIVALPROEX 125 MG CAP.SPRINK PO SCH ×2 (07:59→20:10)
[2016-11-29] MEDS: ACETAMINOPHEN 325 MG TABLET PO SCH (07:59)
[2016-11-29] MEDS: SENNOSIDES/DOCUSATE 8.6/50MG TABLET. PO SCH ×2 (07:59→20:09)
[2016-11-29] MEDS: CLONAZEPAM 0.5 MG TABLET PO SCH ×2 (08:00→20:12)
--- NOTE | 2016-11-29 09:39 | PN ---
DATE: 11/26/2016 PSYCHIATRIC PROGRESS NOTE This is a late entry for 11/26/2016, covers elements not covered in my initial note. SUBJECTIVE: Overall, the patient remains confused, nonsensical in her speech, but not aggressive, not actively hallucinations, somewhat irritable at times, "grumpy" per nursing staff. Get some medications and pudding. REVIEW OF SYSTEMS: No CV, , pulmonary, eye, ENT system symptoms on review. Reliability poor. MENTAL STATUS EXAM: Oriented to herself. Insight, judgment, recent and remote memory, attention, concentration, fund of knowledge poor, consistent with her diagnosis mentioned in my initial note. IMPRESSION: Major neurocognitive disorder, Alzheimer, vascular with delusion, behavioral disturbance; bipolar 1 disorder, mixed with psychotic features. PLAN: Can continue current psychotropics mentioned in my initial note. Valproic acid level is 28. Repeat labs on 11/28/2016 and then adjust Depakote to reach a therapeutic level. MAN Gladis BELTRAN MD DR: JIE/triston JOB#: [id number] / [id number]
--- NOTE | 2016-11-29 09:43 | PN ---
DATE: 11/27/2016 PSYCHIATRIC PROGRESS NOTE This is a late entry for 11/27/2016, covers elements not covered in my initial note. SUBJECTIVE: The patient was staffed at treatment team meeting morning of 11/27/2016, seen individually at length evening of 11/27/2016. Slept 6-1/4 hours. Appetite 60-70%, remains confused, less psychotic, less reacting and responding overt hallucinations. No CV, , pulmonary, eye, ENT system symptoms on review. Reliability poor. MENTAL STATUS EXAM: Oriented to herself. Insight, judgment, recent and remote memory, attention, concentration, fund of knowledge poor, consistent with her diagnosis as mentioned in my initial note. IMPRESSION: Major neurocognitive disorder, Alzheimer, vascular with depression, delusion, behavioral disturbance; bipolar 1 disorder, mixed with psychotic features, in partial remission. PLAN: Continue psychotropics mentioned in my initial note including Seroquel 100 mg t.i.d. and Depakote 250 mg b.i.d., level 28. Repeat labs level on 11/28/2016. Seroquel 200 mg at bedtime, trazodone p.r.n., Remeron, Namenda, Klonopin, and BuSpar. Schedule Seroquel 100 mg t.i.d. and Zyprexa p.r.n. MAN Gladis BELTRAN MD DR: JIE/triston JOB#: [id number] / [id number]
--- NOTE | 2016-11-29 11:01 | NUR ---
Behavior Intervention Response and Plan: BIRP Note: Behavior: Assumed Care of patient, patient located in Dining Room at shift change. Patient exhibited the following behavior Calm, Anxious, Compliant. Brief assessment on rounds of vital signs, medication needs, lab studies, and pain. Treatment plan problems . Intervention: Patient assessed and the following interventions initiated safety checks 15 Minute Checks Cognitive Assessment , Head to toe Assessment , Medications. Response: After interactions and interventions patient responded in the following manner, Calm , Compliant ,Sleeping. Continue to assess behaviors and condition will continue to monitor throughout the shift as needed. Plan: Continue to monitor Master Treatment Plan for patient's progress toward short term goals of Decreased Agitation, Improved Mood, half-way goals to return to previous living setting vs placement. Continue to assess patient for changes in above assessment. Monitor for medication needs, pain, and safety concerns. Hourly rounding performed to ensure safe environment.
--- NOTE | 2016-11-29 16:14 | NUR ---
pt up for meals. meds taken with encouragement. pt resistive to taking numerous pills. spoke with dr mcallister and some meds were dcd. has been compliant with cares.
[2016-11-29 16:28] VITALS: BP 149/89
[2016-11-29] MEDS: MIRTAZAPINE 30 MG TABLET PO SCH (20:10)
[2016-11-29] MEDS: traZODone 50 MG TABLET. PO SCH (20:10)
--- NOTE | 2016-11-29 22:58 | NUR ---
Behavior Intervention Response and Plan: BIRP Note: Behavior: Assumed Care of patient, patient located in Hallway at shift change. Patient exhibited the following behavior Irritable, Disorganized, Restless. Brief assessment on rounds of vital signs, medication needs, lab studies, and pain. Treatment plan problems Dementia with BD, Alteration in Mood and Fall Risk. Intervention: Patient assessed and the following interventions initiated safety checks 15 Minute Checks Head to toe Assessment , Cognitive Assessment , Medications. Response: After interactions and interventions patient responded in the following manner, Irritable , Restless ,Cooperative. Continue to assess behaviors and condition will continue to monitor throughout the shift as needed. 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 Continue to assess patient for changes in above assessment. Monitor for medication needs, pain, and safety concerns. Hourly rounding performed to ensure safe environment.
[2016-11-30 06:08] VITALS: BP 114/65
[2016-11-30] MEDS: SENNOSIDES/DOCUSATE 8.6/50MG TABLET. PO SCH ×2 (07:25→19:42)
[2016-11-30] MEDS: POTASSIUM CHLORIDE 10 MEQ TABLET.ER. PO SCH (07:25)
[2016-11-30] MEDS: busPIRone 5 MG TABLET. PO SCH ×3 (07:25→19:42)
[2016-11-30] MEDS: DIVALPROEX 125 MG CAP.SPRINK PO SCH ×2 (07:25→19:42)
[2016-11-30] MEDS: PANTOPRAZOLE 40 MG TABLET. PO SCH (07:26)
[2016-11-30] MEDS: QUEtiapine 100 MG TABLET. PO SCH ×4 (07:26→19:42)
[2016-11-30] MEDS: MEMANTINE 10 MG TABLET. PO SCH ×2 (07:26→19:42)
[2016-11-30] MEDS: LINAGLIPTIN 5 MG TABLET PO SCH (07:26)
[2016-11-30] MEDS: CLONAZEPAM 0.5 MG TABLET PO SCH ×2 (07:27→19:46)
--- NOTE | 2016-11-30 10:33 | NUR ---
Behavior Intervention Response and Plan: BIRP Note: Behavior: Assumed Care of patient, patient located in Dining Room at shift change. Patient exhibited the following behavior Calm, Anxious, Compliant. Brief assessment on rounds of vital signs, medication needs, lab studies, and pain. Treatment plan problems . Intervention: Patient assessed and the following interventions initiated safety checks 15 Minute Checks Cognitive Assessment , Head to toe Assessment , Medications. Response: After interactions and interventions patient responded in the following manner, Calm , Compliant ,Sleeping. Continue to assess behaviors and condition will continue to monitor throughout the shift as needed. Plan: Continue to monitor Master Treatment Plan for patient's progress toward short term goals of Decreased Agitation, Improved Mood, custodial goals to return to previous living setting vs placement. Continue to assess patient for changes in above assessment. Monitor for medication needs, pain, and safety concerns. Hourly rounding performed to ensure safe environment.
[2016-11-30 17:41] VITALS: BP 120/78
--- NOTE | 2016-11-30 17:42 | NUR ---
pt up for meals and out to day room . has taken meds with encouragement. calm and in pleasant spirits.
[2016-11-30] MEDS: traZODone 50 MG TABLET. PO SCH (19:41)
[2016-11-30] MEDS: MIRTAZAPINE 30 MG TABLET PO SCH (19:42)
--- NOTE | 2016-12-01 00:20 | NUR ---
Behavior Intervention Response and Plan: BIRP Note: Behavior: Assumed Care of patient, patient located in Hallway at shift change. Patient exhibited the following behavior Irritable, Disorganized, Restless. Brief assessment on rounds of vital signs, medication needs, lab studies, and pain. Treatment plan problems Dementia with BD, Alteration in Mood and Fall Risk. Intervention: Patient assessed and the following interventions initiated safety checks 15 Minute Checks Head to toe Assessment , Cognitive Assessment , Medications. Response: After interactions and interventions patient responded in the following manner, Irritable , Restless ,Cooperative. Continue to assess behaviors and condition will continue to monitor throughout the shift as needed. 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 Continue to assess patient for changes in above assessment. Monitor for medication needs, pain, and safety concerns. Hourly rounding performed to ensure safe environment.
--- NOTE | 2016-12-01 05:45 | PN ---
DATE: 11/29/2016 PSYCHIATRIC PROGRESS NOTE This is a late entry 11/29, covers elements not covered in my initial note. SUBJECTIVE: The patient has been irritable at times paranoid, but redirectable, compliant with assessments and medicines. REVIEW OF SYSTEMS: No CV, , pulmonary, eye, ENT system symptoms on review. Reliability poor. MENTAL STATUS EXAM: Oriented to herself. Insight, judgment, recent and remote memory, attention, concentration, fund of knowledge poor, consistent with her diagnosis. LABS: Valproic acid level 42 on the . IMPRESSION: Unchanged from initial note. PLAN: Increase Depakote Sprinkles from 250 b.i.d. to 375 b.i.d. Check labs level in 3 days. Continue rest of the psychotropics, attempt to reach therapeutic level on the Depakote before adjusting other psychotropics. MAN Gladis BELTRAN MD DR: JIE/trisotn JOB#: [id number] / [id number]
[2016-12-01 06:07] VITALS: BP 139/75
[2016-12-01] MEDS: POTASSIUM CHLORIDE 10 MEQ TABLET.ER. PO SCH (08:00)
--- NOTE | 2016-12-01 08:53 | NUR ---
Updated clinicals faxed to [facility] requesting supervisor photoengraving time for dc on Thursday.
[2016-12-01] MEDS: PANTOPRAZOLE 40 MG TABLET. PO SCH (08:56)
[2016-12-01] MEDS: DIVALPROEX 125 MG CAP.SPRINK PO SCH ×2 (08:56→21:14)
[2016-12-01] MEDS: busPIRone 5 MG TABLET. PO SCH ×3 (08:56→21:14)
[2016-12-01] MEDS: LINAGLIPTIN 5 MG TABLET PO SCH (08:56)
[2016-12-01] MEDS: SENNOSIDES/DOCUSATE 8.6/50MG TABLET. PO SCH ×2 (08:57→21:19)
[2016-12-01] MEDS: MEMANTINE 10 MG TABLET. PO SCH ×2 (08:57→21:19)
[2016-12-01] MEDS: QUEtiapine 100 MG TABLET. PO SCH ×4 (08:57→21:19)
[2016-12-01] MEDS: CLONAZEPAM 0.5 MG TABLET PO SCH ×2 (09:09→21:19)
--- NOTE | 2016-12-01 13:59 | PN ---
DATE: 11/28/2016 PSYCHIATRIC PROGRESS NOTE This is late entry of 11/28/2016, covers elements not covered in my initial note. SUBJECTIVE: The patient needs much encouragement to participate in activities, does take her medications with encouragement, gets upset with the number of tablets she has to take, but no yelling noted. Behaviorally, she is better. No CV, , pulmonary, eye system symptoms on review. Reliability poor. MENTAL STATUS EXAM: Oriented to herself. Insight, judgment, recent and remote memory, attention, concentration, fund of knowledge poor, consistent with her diagnosis as mentioned in my initial note. PLAN: Continue psychotropics mentioned in my initial note. Adjust further as clinically indicated. MAN Gladis BELTRAN MD DR: JIE/triston JOB#: [id number] / [id number]
--- NOTE | 2016-12-01 14:00 | NUR ---
Behavior Intervention Response and Plan: BIRP Note: Behavior: Assumed Care of patient, patient located in Hallway at shift change. Patient exhibited the following behavior Disorganized, Irritable, Compliant. Brief assessment on rounds of vital signs, medication needs, lab studies, and pain. Treatment plan problems . Intervention: Patient assessed and the following interventions initiated safety checks 15 Minute Checks Call alex in reach , ADL's , Nutrition. Response: After interactions and interventions patient responded in the following manner, Irritable , Disorganized ,Compliant. Continue to assess behaviors and condition will continue to monitor throughout the shift as needed. Plan: Continue to monitor Master Treatment Plan for patient's progress toward short term goals of Decreased Agitation, Decreased Anxiety, jail goals to return to previous living setting vs placement. Continue to assess patient for changes in above assessment. Monitor for medication needs, pain, and safety concerns. Hourly rounding performed to ensure safe environment.
[2016-12-01 15:47] VITALS: BP 116/66
[2016-12-01] MEDS: SELENIUM SULFIDE 2.5% SHAMPOO 120ML BOTTLE. TP SCH (16:00)
--- NOTE | 2016-12-01 20:41 | PDOC ---
Exam Maximiliano Demential Exam: Maximiliano Note: Please also refer to the separate dictated note~for this date of service dictated separately.~Patient seen individually. Discussed the patient with Nursing staff reviewed the chart.~Reviewed interim history and current functioning. Reviewed vital signs,~Labs/ Radiology~and current medications noted below. Continue current treatment with the changes noted in the dictated addendum note Assessment: Vital Signs: Vital Signs Date Time Temp Pulse Resp B/P Pulse Ox O2 Delivery O2 Flow Rate FiO2 12/01/16 15:47 98.0 88 20 116/66 100 11/28/16 15:39 Room Air I&O Intake and Output 12/01/16 07:00 Intake Total 1080 ml Balance 1080 ml Intake Oral 1080 ml Labs: Laboratory Tests Test 12/01/16 07:42 Glucose (Fingerstick) 120mg/dL (70-99) H Current Medications: Meds: Current Medications Acetaminophen (Tylenol) 650 mg PRN Q6HRS PRN PO PAIN / TEMP; Start 11/18/16 at 23:45 Multi-Ingredient Ointment (Analgesic Branch) 1 kelin PRN QID PRN TP MUSCLE PAIN; Start 11/18/16 at 23:45 Al Hydroxide/Mg Hydroxide (Mylanta Plus Xs) 15 ml PRN AFTMEALHC PRN PO DYSPEPSIA; Start 11/18/16 at 23:45 Magnesium Hydroxide (Milk Of Magnesia) 2,400 mg PRN QHS PRN PO CONSTIPATION; Start 11/18/16 at 23:45 Buspirone HCl (Buspar) 5 mg TID PO Last administered on 12/01/16 13:32; Start 11/19/16 at 09:00 Clonazepam (Klonopin) 0.25 mg BID PO Last administered on 12/01/16 09:09; Start 11/19/16 at 09:00 Memantine (Namenda) 10 mg BID PO Last administered on 12/01/16 08:57; Start at 09:00 Mirtazapine (Remeron) 30 mg QHS PO Last administered on 11/30/16 19:42; Start 11/19/16 at 21:00 Quetiapine Fumarate (SEROquel) 100 mg TIDWMEALS PO Last administered on 17:37; Start 11/19/16 at 08:00 Trazodone HCl (Desyrel) 50 mg QHS PO Last administered on 11/30/16 19:41; Start 11/19/16 at 21:00 Quetiapine Fumarate (SEROquel) 200 mg QHS PO Psychosis Last administered on 11/30 19:42; Start 11/19/16 at 21:00 Acetaminophen (Tylenol) 650 mg BID PO Last administered on 11/29/16 07:59; Start 11/19/16 at 09:00; Stop 11/29/16 at 16:14; Status DC Senna/Docusate Sodium (Senna Plus) 1 tab BID PO Last administered on 12/01/16 08:57; Start 11/19/16 at 09:00 Thiamine HCl (Vitamin B-1) 100 mg DAILY PO Last administered on 11/28/16 07:39 ; Start 11/19/16 at 09:00; Stop 11/28/16 at 18:35; Status DC Lactobacillus Acidophilus (Bacid, Ester-Bid) 2 tab DAILY PO Last administered on 11/29/16 07:58; Start 11/19/16 at 09:00; Stop 11/29/16 at 16:14; Status DC Multivitamins/ Calcium (Thera-M Plus) 1 tab DAILY PO Last administered on 07:58; Start 11/19/16 at 09:00; Stop 11/29/16 at 16:14; Status DC Pantoprazole Sodium (Protonix) 40 mg DAILYAC PO Last administered on 12/01/16 08:56; Start 11/19/16 at 07:30 Potassium Chloride (Klor-Con) 10 meq DAILYWBKFT PO Last administered on 08:00; Start 11/19/16 at 08:00 Linagliptin (Tradjenta) 5 mg DAILY PO Last administered on 12/01/16 08:56; Start 11/19/16 at 09:00 Selenium Sulfide (Selsun Blue) 1 kelin QMTH TP Last administered on 11/27/16 16: 00; Start 11/20/16 at 16:00 Quetiapine Fumarate (SEROquel) 200 mg STK-MED ONCE .ROUTE ; Start 11/19/16 at 21 :00; Stop 11/20/16 at 12:24; Status DC Divalproex Sodium (Depakote Sprinkles) 125 mg BID PO Last administered on 09:37; Start 11/21/16 at 21:00; Stop 11/25/16 at 18:12; Status DC Trazodone HCl (Desyrel) 50 mg PRN QHS PRN PO INSOMNIA; Start 11/21/16 at 19:15 Olanzapine (Zyprexa Zydis) 2.5 mg PRN Q2HR PRN PO PSYCHOSIS Last administered on 11/22/16 16:41; Start 11/22/16 at 16:30 Divalproex Sodium (Depakote Sprinkles) 250 mg BID PO Last administered on 07:59; Start 11/25/16 at 21:00; Stop 11/29/16 at 19:43; Status DC Divalproex Sodium (Depakote Sprinkles) 375 mg BID PO Last administered on 08:56; Start 11/29/16 at 21:00 Active Scripts Active Reported Seroquel (Quetiapine Fumarate) 100 Mg Tablet 100 Mg PO TIDWMEALS Buspirone Hcl 5 Mg Tablet 5 Mg PO TID Tylenol (Acetaminophen) 325 Mg Tablet 650 Mg PO BID Clonazepam 0.5 Mg Tablet 0.25 Mg PO BID Trazodone Hcl 50 Mg Tablet 50 Mg PO QHS Seroquel (Quetiapine Fumarate) 200 Mg Tablet 200 Mg PO QHS Mirtazapine 30 Mg Tablet 30 Mg PO QHS Omeprazole 20 Mg Capsule.dr 20 Mg PO DAILY Potassium Chloride 10 Meq Tablet.er 10 Meq PO DAILYWBKFT Namenda (Memantine Hcl) 10 Mg Tablet 10 Mg PO BID Januvia (Sitagliptin Phosphate) 100 Mg Tablet 100 Mg PO DAILY B-1 (Thiamine HCl) 100 Mg Tablet 100 Mg PO DAILY Multi Vitamin Daily (Multivitamin) 1 Each Tablet 1 Each PO DAILY Senna Plus Tablet (Sennosides/Docusate Sodium) 1 Each Tablet 1 Each PO BID Culturelle (Lactobacillus Rhamnosus Gg) 1 Each Cap.sprink 1 Each PO DAILY Diagnosis: Problems: (1) Agitation (2) Bipolar disorder, mixed (3) Anxiety disorder (4) Dementia in Alzheimer's disease with delusions (5) Dementia in Alzheimer's disease with depression (6) Impulse control disorder (7) Dementia, vascular, with delusions (8) Dementia, vascular, with depression VIPIN BELTRAN MD December 01, 2016 20:41
[2016-12-01] MEDS: traZODone 50 MG TABLET. PO SCH (21:14)
[2016-12-01] MEDS: MIRTAZAPINE 30 MG TABLET PO SCH (21:20)
--- NOTE | 2016-12-01 22:54 | NUR ---
Behavior Intervention Response and Plan: BIRP Note: Behavior: Assumed Care of patient, patient located in Day room at shift change. Patient exhibited the following behavior Irritable, Disorganized, Restless. Brief assessment on rounds of vital signs, medication needs, lab studies, and pain. Treatment plan problems Dementia with BD, Alteration in Mood and Fall Risk. Intervention: Patient assessed and the following interventions initiated safety checks 15 Minute Checks Head to toe Assessment , Cognitive Assessment , Medications. Response: After interactions and interventions patient responded in the following manner, Disorganized ,Cooperative. Continue to assess behaviors and condition will continue to monitor throughout the shift as needed. Plan: Continue to monitor Master Treatment Plan for patient's progress toward short term goals of Decreased Agitation, Decreased Aggression, shelter goals to return to previous living setting vs placement. Continue to assess patient for changes in above assessment. Monitor for medication needs, pain, and safety concerns. Hourly rounding performed to ensure safe environment.
[2016-12-02] MEDS ORDERED: ACET325T9 PO (00:30)
[2016-12-02] MEDS ORDERED: DIVA125C PO (00:32)
[2016-12-02] MEDS ORDERED: LINA5TAB PO (00:33)
[2016-12-02] MEDS ORDERED: MAG30ORA2 PO (00:36)
[2016-12-02] MEDS ORDERED: MAGN400O4 PO (00:37)
[2016-12-02] MEDS ORDERED: METH29OI TP (00:38)
[2016-12-02] MEDS ORDERED: OLAN5TAB5 PO (00:39)
[2016-12-02] MEDS ORDERED: PANT40TA5 PO (00:40)
[2016-12-02] MEDS ORDERED: SELE180S3 TP (00:44)
[2016-12-02] MEDS ORDERED: TRAZ50TA15 PO (00:49)
--- NOTE | 2016-12-02 02:40 | PN ---
DATE: 11/30/2016 PSYCHIATRIC PROGRESS NOTE This is late entry of 11/30/2016. SUBJECTIVE: The patient seen individually evening of 11/30/2016, discussed with nursing staff, reviewed the chart. Often patient refuses her medications, takes it later. She has been less agitated, less labile. REVIEW OF SYSTEMS: No CV, , pulmonary, eye, ENT system symptoms on review. Reliability poor. MENTAL STATUS EXAMINATION: Oriented to herself. Insight, judgment, recent and remote memory, attention, concentration, fund of knowledge poor, consistent with her diagnosis. LABORATORY DATA: Reviewed. IMPRESSION: Major neurocognitive disorder, Alzheimer, vascular with depression, delusion, behavioral disturbance; bipolar 1, mixed with psychotic features, in partial remission, rest unchanged. PLAN: Continue Depakote 375 b.i.d., check labs level in 3 days, Seroquel is 200 at bedtime, trazodone p.r.n., Remeron 30 at bedtime, Namenda 10 b.i.d., Klonopin 0.25 b.i.d., BuSpar 5 t.i.d., Seroquel 100 t.i.d., Zyprexa p.r.n. MAN Gladis BELTRAN MD DR: JIE/triston JOB#: [id number] / [id number]
[2016-12-02 06:29] VITALS: BP 119/70
--- NOTE | 2016-12-02 08:00 | NUR ---
[facility] Social Work Discharge Planning Form Patient Name MARTIN CRAWLEY Admit Date: 11/18/16 DISCHARGE PLAN Discharge Destination: return to [facility] Transportation: Facility to strip picker 12/02/16 at 11:00 DISCHARGE TO FACILITY Facility: [facility] Address: [address] [place] [address] Contact Name: PCP: at facility w/in 10-12 days of dc Psychiatrist: at facility w/in 10-12 days of dc
[2016-12-02 08:05] LABS: BASO % 1 % (0-3); EOS # 0.2 x10^3/uL (0.0-0.7); EOS % 2 % (0-3); HEMATOCRIT 41.6 % (36.0-47.0); HEMOGLOBIN 13.5 g/dL (12.0-15.5); LYMPH # 2.8 x10^3/uL (1.0-4.8); LYMPH % 37 % (24-48); MEAN CORPUSCULAR HEMOGLOBIN 32 pg (25-35); MEAN CORPUSCULAR HGB CONC 33 g/dL (31-37); MEAN CORPUSCULAR VOLUME 99 fL (79-100); MONO # 0.7 x10^3/uL (0.0-1.1); MONO % 9 % (0-9); NEUT % 52 % (31-73); PLATELET COUNT 212 x10^3/uL (140-400); RED CELL DISTRIBUTION WIDTH 13.7 % (11.5-14.5); WHITE BLOOD COUNT 7.7 x10^3/uL (4.0-11.0)
[2016-12-02 08:13] LABS: ALBUMIN 3.7 g/dL (3.4-5.0); ALBUMIN/GLOBULIN RATIO 0.8 (1.0-1.7); ALK PHOS 91 U/L (46-116); ALT (SGPT) 23 U/L (14-59); ANION GAP 11 (6-14); AST (SGOT) 14 U/L (15-37); BLOOD UREA NITROGEN 20 mg/dL (7-20); BUN/CREATININE RATIO 29 (6-20); CALCIUM 9.5 mg/dL (8.5-10.1); CARBON DIOXIDE 29 mmol/L (21-32); CHLORIDE 105 mmol/L (98-107); CREATININE 0.7 mg/dL (0.6-1.0); GFR 82.7; GLUCOSE 150 mg/dL (70-99); POTASSIUM 3.9 mmol/L (3.5-5.1); SODIUM 145 mmol/L (136-145); TOTAL BILIRUBIN 0.4 mg/dL (0.2-1.0); TOTAL PROTEIN 8.2 g/dL (6.4-8.2)
[2016-12-02 08:14] LABS: VAL ACID 86 mcg/mL (50-100)
[2016-12-02] MEDS: POTASSIUM CHLORIDE 10 MEQ TABLET.ER. PO SCH (08:57)
[2016-12-02] MEDS: PANTOPRAZOLE 40 MG TABLET. PO SCH (08:57)
[2016-12-02] MEDS: busPIRone 5 MG TABLET. PO SCH (08:58)
[2016-12-02] MEDS: CLONAZEPAM 0.5 MG TABLET PO SCH (08:58)
[2016-12-02] MEDS: QUEtiapine 100 MG TABLET. PO SCH (08:58)
[2016-12-02] MEDS: DIVALPROEX 125 MG CAP.SPRINK PO SCH (08:58)
[2016-12-02] MEDS: LINAGLIPTIN 5 MG TABLET PO SCH (08:59)
[2016-12-02] MEDS: MEMANTINE 10 MG TABLET. PO SCH (08:59)
[2016-12-02] MEDS: SENNOSIDES/DOCUSATE 8.6/50MG TABLET. PO SCH (08:59)
--- NOTE | 2016-12-02 11:32 | NUR ---
Group Note [facility] Group Type [place] Start Time: 10:45 End Time: 11:10 Problem: Anxiety Purpose: Stimulate Memory, express feelings, Level of Participation: low Behaviors or Symptoms Observed: Pts talked about their mothers and the positive qualities Interventions: Reminiscence Response: Each pt wrote the qualities on a flower petal as they shared with the group. Plan: Group Participation Additional Comments: sat with group
--- NOTE | 2016-12-02 11:57 | NUR ---
Discharge Note [facility] Patient is not currently a tobacco user. Follow up Appointment made: Date and Time 12/02/16 [id number] instructions and Social Work Discharge planning sheet sent to next level of care. [facility] contact Number for 24 hour support [phone] Discharge Packet Sent, and discusssed with patient and caregiver that includes Copies from the record of current medications with indications and frequencies, history and physical, Psychiatric Eval with reason and justification for admission, Lab values, Radiology results , follow up instructions for continuation of care, and Social Work discharge planning form: yes Discharge Packet Faxed to Provider/Next Level of Care: yes Discharge Packet Faxed with discharge Order and Discharge diagnosis sent to: [facility] Discharge Packet Discussed, and report Given to: YUDELKA Braggpediatric physiatrist instruction sheet was included in the packet and sent with the patient upon discharge. Any Pending lab results can be obtained by calling [phone] Discharge Summary will be sent to next care provider when available. This includes the reason for admission, DC diagnosis, and next level of care recommendations.
--- NOTE | 2016-12-03 08:01 | PN ---
DATE: 12/01/2016 PSYCHIATRIC PROGRESS NOTE This is late entry of 12/01/2016, covers elements not covered in my initial note. SUBJECTIVE: Overall, the patient remains confused, less agitated, less labile in her mood. The paranoid facial expression she was exhibiting a few days back seems to have resolved. She seems calmer. REVIEW OF SYSTEMS: No CV, , pulmonary, eye, ENT system symptoms on review. Reliability poor. MENTAL STATUS EXAMINATION: Oriented to herself. Insight, judgment, recent and remote memory, attention, concentration, fund of knowledge poor, consistent with her diagnosis mentioned in my initial note. IMPRESSION: Major neurocognitive disorder, Alzheimer, vascular with delusion, behavioral disturbance; bipolar 1, mixed with psychotic features, in partial remission. PLAN: Continue current psychotropics mentioned in my initial note, labs level on the Depakote are awaited, then transition to the snf. MAN Gladis BELTRAN MD DR: JIE/triston JOB#: [id number] / [id number]
--- NOTE | 2016-12-03 12:48 | NUR ---
SW attempted to contact Pt's State Guardian to notify of DC. The number provided was not accepting messages and there was no answer. STELLA obtained another phone number [phone] where a message was left but due to the lack of personalization, SW only left a name and number.
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
== END 2016-12-02 11:45 | DRG 884 ==
LOC: ER 20:56 → GEROPSY 22:47
PROVIDERS: ADMIT Psychiatry & Neurology Psychiatry; ATTEND Psychiatry & Neurology Psychiatry
DX: F01.51 Vascular dementia, unspecified severity, with behavioral disturbance (principal); F31.60 Bipolar disorder, current episode mixed, unspecified; F02.81 Dementia in other diseases classified elsewhere, unspecified severity, with behavioral disturbance; G30.9 Alzheimer's disease, unspecified; D64.9 Anemia, unspecified; E11.9 Type 2 diabetes mellitus without complications; E78.00 Pure hypercholesterolemia, unspecified; E78.5 Hyperlipidemia, unspecified; F41.9 Anxiety disorder, unspecified; F63.9 Impulse disorder, unspecified; I10 Essential (primary) hypertension; K21.9 Gastro-esophageal reflux disease without esophagitis; R63.4 Abnormal weight loss; K59.00 Constipation, unspecified; Z87.440 Personal history of urinary (tract) infections; Z68.23 Body mass index [BMI] 23.0-23.9, adult; Z87.820 Personal history of traumatic brain injury
CPT/HCPCS: 36415; 70450; 71010; 80053; 80061; 80164; 81001; 82010; 82140; 82306; 82607; 82947; 83036; 83540; 83550; 83605; 83735; 84436; 84443; 84480; 85027; 86592; 86593; 93005; G0480; G0481; G6038; 80196; 99285-25

== ENCOUNTER 2017-04-14 14:00 | Inpatient (IN) | payer MEDICARE, OTHER ==
[~2017-04-14] VITALS: Ht 149.9 cm; Wt 61.3 kg
[~2017-04-14 14:00] MED LIST changes: +ACET325T9 PO; +BUSP5TAB PO; +CLON0.5T3 PO; +DIVA125C PO; -LINA5TAB PO; +LINA5TAB4 PO; +MAGN400O7 PO; +MIRT30TA3 PO; +OLAN5TAB5 PO; +OMEP20CA9 PO; +PANT40TA5 PO; +QUET100T4 PO; +QUET200T4 PO; -RIVA1PAT TD; +RIVA1PAT22 TD; +SELE180S3 TP; +TRAZ50TA15 PO
[2017-04-14 14:58] LABS: BASO # 0.1 x10^3/uL (0.0-0.2); BASO % 1 % (0-3); EOS # 0.1 x10^3/uL (0.0-0.7); EOS % 1 % (0-3); HEMATOCRIT 34.5 % (36.0-47.0); HEMOGLOBIN 11.8 g/dL (12.0-15.5); LYMPH # 3.4 x10^3/uL (1.0-4.8); LYMPH % 48 % (24-48); MEAN CORPUSCULAR HEMOGLOBIN 35 pg (25-35); MEAN CORPUSCULAR HGB CONC 34 g/dL (31-37); MEAN CORPUSCULAR VOLUME 101 fL (79-100); MONO # 0.7 x10^3/uL (0.0-1.1); MONO % 9 % (0-9); NEUT # 2.9 x10^3uL (1.8-7.7); NEUT % 41 % (31-73); PLATELET COUNT 207 x10^3/uL (140-400); RED BLOOD COUNT 3.42 x10^6/uL (3.50-5.40); RED CELL DISTRIBUTION WIDTH 13.1 % (11.5-14.5); WHITE BLOOD COUNT 7.1 x10^3/uL (4.0-11.0)
[2017-04-14 15:16] LABS: ALBUMIN 3.3 g/dL (3.4-5.0); ALBUMIN/GLOBULIN RATIO 0.8 (1.0-1.7); CALCIUM 8.9 mg/dL (8.5-10.1); CREATININE 0.7 mg/dL (0.6-1.0); GFR 82.7; MAGNESIUM 1.9 mg/dL (1.8-2.4); POTASSIUM 4.3 mmol/L (3.5-5.1); TOTAL BILIRUBIN 0.2 mg/dL (0.2-1.0); TOTAL PROTEIN 7.2 g/dL (6.4-8.2)
[2017-04-14 16:09] LABS: BACTERIA,URINE 0 /HPF (0-FEW); BILIRUBIN,URINE NEG (NEG); CLARITY,URINE CLEAR; COLOR,URINE YELLOW; GLUCOSE,URINE 250 mg/dL (NEG); NITRITE,URINE NEG (NEG); RBC,URINE 0 /HPF (0-2); SQUAMOUS EPITHELIAL CELL,UR OCC /LPF; UROBILINOGEN,URINE 0.2 mg/dL (0.2 mg/dL); WBC,URINE OCC /HPF (0-4)
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
--- NOTE | 2017-04-14 18:40 | NUR ---
Admission Note: Pt admitted from ED arrived by [facility] accompanied by staff. Pt was combative upon arrival- hitting, biting, yelling, scratching. Unable to assess or to obtain vitals. Dr. Slade witnessed behaviors. Ordered Zyprexa Zydis 5 mg immediately. Pt placed in [facility].
[2017-04-14] MEDS ORDERED: MAGNESIUM HYDROXIDE 2,400 MG/30 ML ORAL.SUSP. PO PRN (19:30)
[2017-04-14] MEDS ORDERED: METHYL SALICYLATE/MENTHOL TOPICAL OINTMENT 29GM TUBE. TP PRN (19:30)
[2017-04-14] MEDS ORDERED: MAG HYDROX/AL HYDROX/SIMETH 30 ML ORAL.SUSP PO PRN ×2 (19:30→23:00)
--- NOTE | 2017-04-14 19:38 | PDOC ---
Exam Maximiliano Demential Exam: Maximiliano Note: Please also refer to the separate dictated note~for this date of service dictated separately.~Patient seen individually. Discussed the patient with Nursing staff reviewed the chart.~Reviewed interim history and current functioning. Reviewed vital signs,~Labs/ Radiology~and current medications noted below. Continue current treatment with the changes noted in the dictated addendum note Assessment: Vital Signs: Vital Signs Date Time Temp Pulse Resp B/P (MAP) Pulse Ox O2 Delivery O2 Flow Rate FiO2 04/14/17 14:00 98.9 80 20 95 Room Air Labs: Laboratory Tests Test 04/14/17 14:45 04/14/17 15:25 White Blood Count 7.1 x10^3/uL (4.0-11.0) Red Blood Count 3.42 x10^6/uL (3.50-5.40) L Hemoglobin 11.8 g/dL (12.0-15.5) L Hematocrit 34.5 % (36.0-47.0) L Mean Corpuscular Volume 101 fL (79-100) H Mean Corpuscular Hemoglobin 35 pg (25-35) Mean Corpuscular Hemoglobin Concent 34 g/dL (31-37) Red Cell Distribution Width 13.1 % (11.5-14.5) Platelet Count 207 x10^3/uL (140-400) Neutrophils (%) (Auto) 41 % (31-73) Lymphocytes (%) (Auto) 48 % (24-48) Monocytes (%) (Auto) 9 % (0-9) Eosinophils (%) (Auto) 1 % (0-3) Basophils (%) (Auto) 1 % (0-3) Neutrophils # (Auto) 2.9 x10^3uL (1.8-7.7) Lymphocytes # (Auto) 3.4 x10^3/uL (1.0-4.8) Monocytes # (Auto) 0.7 x10^3/uL (0.0-1.1) Eosinophils # (Auto) 0.1 x10^3/uL (0.0-0.7) Basophils # (Auto) 0.1 x10^3/uL (0.0-0.2) Sodium Level 137 mmol/L (136-145) Potassium Level 4.3 mmol/L (3.5-5.1) Chloride Level 103 mmol/L (98-107) Carbon Dioxide Level 31 mmol/L (21-32) Anion Gap 3 (6-14) L Blood Urea Nitrogen 9 mg/dL (7-20) Creatinine 0.7 mg/dL (0.6-1.0) Estimated GFR (Cockcroft-Gault) 82.7 BUN/Creatinine Ratio 13 (6-20) Glucose Level 238 mg/dL (70-99) H Calcium Level 8.9 mg/dL (8.5-10.1) Magnesium Level 1.9 mg/dL (1.8-2.4) Total Bilirubin 0.2 mg/dL (0.2-1.0) Aspartate Amino Transferase (AST) 11 U/L (15-37) L Alanine Aminotransferase (ALT) 12 U/L (14-59) L Alkaline Phosphatase 88 U/L (46-116) Total Protein 7.2 g/dL (6.4-8.2) Albumin 3.3 g/dL (3.4-5.0) L Albumin/Globulin Ratio 0.8 (1.0-1.7) L Urine Collection Type Unknown Urine Color Yellow Urine Clarity Clear Urine pH 6.5 Urine Specific [employer] 1.010 Urine Protein Neg (NEG-TRACE) Urine Glucose (UA) 250 mg/dL (NEG) Urine Ketones (Stick) Neg mg/dL (NEG) Urine Blood Neg (NEG) Urine Nitrite Neg (NEG) Urine Bilirubin Neg (NEG) Urine Urobilinogen Dipstick 0.2 mg/dL (0.2 mg/dL) Urine Leukocyte Esterase Trace (NEG) Urine RBC 0 /HPF (0-2) Urine WBC Occ /HPF (0-4) Urine Squamous Epithelial Cells Occ /LPF Urine Bacteria 0 /HPF (0-FEW) Current Medications: Meds: Current Medications Olanzapine (ZyPREXA ZYDIS) 5 mg 1X ONCE PO ; Start 04/14/17 at 18:45; Stop 07/19 at 18:46; Status DC Olanzapine (ZyPREXA ZYDIS) 2.5 mg PRN Q2HR PRN PO PSYCHOSIS; Start 04/14/17 at 18:45 Active Scripts Active Reported Trazodone Hcl 50 Mg Tablet 50 Mg PO PRN QHS PRN Selenium Sulfide 180 Ml Shampoo 1 Ghada TP QMTH OR ON SHOWER DAYS Pantoprazole Sodium 40 Mg Tablet.dr 40 Mg PO DAILYAC Zyprexa Zydis (Olanzapine) 5 Mg Tab.rapdis 2.5 Mg PO PRN Q2HR PRN MAX 10MG/24HRS Analgesic [place] (Methyl Salicylate/Menthol) 29 Gm Oint...g. 1 Ghada TP PRN QID PRN Milk Of Magnesia (Magnesium Hydroxide) 400 Mg/5 Ml Oral.susp 2,400 Mg PO PRN QHS PRN Depakote Sprinkle (Divalproex Sodium) 125 Mg Cap.sprink 375 Mg PO BID Tylenol (Acetaminophen) 325 Mg Tablet 650 Mg PO PRN Q6HRS PRN Seroquel (Quetiapine Fumarate) 100 Mg Tablet 100 Mg PO TIDWMEALS Buspirone Hcl 5 Mg Tablet 5 Mg PO TID Clonazepam 0.5 Mg Tablet 0.25 Mg PO BID Trazodone Hcl 50 Mg Tablet 50 Mg PO QHS Seroquel (Quetiapine Fumarate) 200 Mg Tablet 200 Mg PO QHS Mirtazapine 30 Mg Tablet 30 Mg PO QHS Omeprazole 20 Mg Capsule.dr 20 Mg PO DAILY Potassium Chloride 10 Meq Tablet.er 10 Meq PO DAILYWBKFT Namenda (Memantine Hcl) 10 Mg Tablet 10 Mg PO BID Januvia (Sitagliptin Phosphate) 100 Mg Tablet 100 Mg PO DAILY Senna Plus Tablet (Sennosides/Docusate Sodium) 1 Each Tablet 1 Each PO BID Culturelle (Lactobacillus Rhamnosus Gg) 1 Each Cap.sprink 1 Each PO DAILY Diagnosis: Problems: (1) Agitation (2) Diabetes mellitus (3) Schizophrenia (4) Dementia with behavioral disturbance (5) Bipolar disorder, mixed (6) Anxiety disorder (7) Dementia in Alzheimer's disease with delusions (8) Dementia in Alzheimer's disease with depression (9) Impulse control disorder (10) Dementia, vascular, with delusions (11) Dementia, vascular, with depression VIPIN BELTRAN MD Apr 14, 2017 19:38
[2017-04-14] MEDS ORDERED: LACT1CAP2 PO (22:08)
[2017-04-14] MEDS ORDERED: SELE180S3 TP (22:08)
[2017-04-14] MEDS ORDERED: CLON0.5T3 PO (22:08)
[2017-04-14] MEDS ORDERED: ACET325T9 PO (22:08)
[2017-04-14] MEDS ORDERED: OMEP20CA9 PO (22:08)
[2017-04-14] MEDS ORDERED: SITA100T PO (22:08)
[2017-04-14] MEDS ORDERED: MEMA10TA PO (22:08)
[2017-04-14] MEDS ORDERED: GABA-585 PO (22:08)
[2017-04-14] MEDS ORDERED: INSU100I13 SQ (22:08)
[2017-04-14] MEDS ORDERED: POTA10TA10 PO (22:08)
[2017-04-14] MEDS ORDERED: QUET50TA5 PO (22:08)
[2017-04-14] MEDS ORDERED: SENN-79 PO (22:08)
[2017-04-14] MEDS ORDERED: MULT-503 PO (22:08)
[2017-04-14] MEDS ORDERED: MAG-27 PO (22:08)
[2017-04-14] MEDS ORDERED: RIVA1PAT22 TD (22:08)
[2017-04-14] MEDS ORDERED: MIRT30TA3 PO (22:08)
[2017-04-14] MEDS ORDERED: CITA20TA5 PO (22:08)
[2017-04-14] MEDS ORDERED: DIVA500T17 PO (22:08)
[2017-04-14] MEDS ORDERED: POLY17PO5 PO (22:08)
[2017-04-14] MEDS ORDERED: QUET300T5 PO (22:08)
[2017-04-14] MEDS ORDERED: DEXTROSE 50% 25 GM / 50ML DISP.SYRIN. IV PRN (22:15)
[2017-04-14] MEDS ORDERED: MEMANTINE 10 MG TABLET. PO SCH (22:45)
[2017-04-14] MEDS: MEMANTINE 10 MG TABLET. PO SCH (22:45)
[2017-04-14] MEDS: MIRTAZAPINE 30 MG TABLET PO SCH (22:45)
[2017-04-14] MEDS: QUEtiapine 100 MG TABLET. PO SCH (22:45)
[2017-04-14] MEDS: QUEtiapine 50 MG TABLET. PO SCH (22:45)
[2017-04-14] MEDS: DIVALPROEX ER 500 MG TAB.ER.24H PO SCH (22:45)
[2017-04-14] MEDS: GABAPENTIN 100 MG CAPSULE. PO SCH (22:45)
[2017-04-14] MEDS: clonazePAM 0.5 MG TABLET PO SCH (22:45)
--- NOTE | 2017-04-15 02:21 | NUR ---
Behavior Intervention Response and Plan: BIRP Note: Behavior: Assumed Care of patient, patient located in Hallway at shift change. Patient exhibited the following behavior Disorganized, Agitated, Resistive. Brief assessment on rounds of vital signs, medication needs, lab studies, and pain. Treatment plan problems Dementia W/ BD and Fall Risk. Intervention: Patient assessed and the following interventions initiated safety checks 15 Minute Checks Cognitive Assessment , ADL's , Oral Hydration. Response: After interactions and interventions patient responded in the following manner, Agitated , Withdrawn ,Irritable. Continue to assess behaviors and condition will continue to monitor throughout the shift as needed. Patient educated on ADL's, and hand hygiene. Plan: Continue to monitor Master Treatment Plan for patient's progress toward short term goals of Decreased Agitation, Decreased Anxiety, skilled nursing goals to return to previous living setting vs placement. Continue to assess patient for changes in above assessment. Monitor for medication needs, pain, and safety concerns. Hourly rounding performed to ensure safe environment.
[2017-04-15 07:55] VITALS: BP 98/50
[2017-04-15] MEDS: POTASSIUM CHLORIDE 10 MEQ TABLET.ER. PO SCH (08:00)
[2017-04-15] MEDS: PANTOPRAZOLE 40 MG TABLET. PO SCH (08:23)
[2017-04-15] MEDS: LINAGLIPTIN 5 MG TABLET PO SCH ×2 (08:23→09:00)
[2017-04-15] MEDS: GABAPENTIN 100 MG CAPSULE. PO SCH ×3 (08:24→20:31)
[2017-04-15] MEDS: MEMANTINE 10 MG TABLET. PO SCH ×2 (08:24→20:30)
[2017-04-15] MEDS: MULTIVITAMIN with MINERAL TABLET. PO SCH ×2 (08:24→09:00)
[2017-04-15] MEDS: DIVALPROEX ER 500 MG TAB.ER.24H PO SCH ×2 (08:24→20:30)
[2017-04-15] MEDS: CITALOPRAM 20 MG TABLET. PO SCH (08:24)
[2017-04-15] MEDS: QUEtiapine 50 MG TABLET. PO SCH ×2 (08:24→20:30)
[2017-04-15] MEDS: LACTOBACILLUS ACIDOPH & BULGAR 1 TABLET. PO SCH ×2 (08:24→09:00)
[2017-04-15] MEDS: POLYETHYLENE GLYCOL 3350 17 GM PACKET. PO SCH (08:25)
[2017-04-15] MEDS: RIVASTIGMINE 4.6MG PATCH. TD SCH (08:25)
[2017-04-15] MEDS: INSULIN ASPART 300 UNITS/3 ML INSULN.PEN SQ SCH ×2 (08:27→20:29)
[2017-04-15] MEDS: SENNOSIDES 8.6 MG TABLET PO SCH ×2 (08:30→09:00)
--- NOTE | 2017-04-15 08:30 | NUR ---
Patient refusing to get out of bed, take her medication, or cooperate with assessments. Will re-approach her later.
--- NOTE | 2017-04-15 09:15 | NUR ---
THERAPEUTIC RECREATION GROUP NOTE TITLE :Mood Changers: Laughter, Gratitude, Compliments ACTIVITY : Humor/ Relaxation GOAL : Decrease stress, elevate mood, increase concentration/attention, encourage awareness DURATION : 60 minutes RESPONSE : No participation
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
--- NOTE | 2017-04-15 09:29 | NUR ---
Breezy reviewed Pt. insurance upon admit. Face sheet, csnap and intake state PT's insurance is Medicare A,B no C and has Medicaid secondary. No auth required.
--- NOTE | 2017-04-15 09:54 | NUR ---
STELLA left message for STELLA Noriega at [facility] to discuss reason for admit from [facility] and if they will be accepting Pt. back at dc from this facility.
--- NOTE | 2017-04-15 10:40 | NUR ---
Patient is continuing to refuse medications or to cooperate with assessments. Will attempt to hide medications in her lunch tray.
--- NOTE | 2017-04-15 10:40 | NUR ---
Behavior Intervention Response and Plan: BIRP Note: Behavior: Assumed Care of patient, patient located in Patient Room at shift change. Patient exhibited the following behavior Non Compliant with Meds, Disorganized, Resistive. Brief assessment on rounds of vital signs, medication needs, lab studies, and pain. Treatment plan problems 1 & 2. Intervention: Patient assessed and the following interventions initiated safety checks 15 Minute Checks Cognitive Assessment , Head to toe Assessment , Medications. Response: After interactions and interventions patient responded in the following manner, Calm , Appropriate ,Compliant. Continue to assess behaviors and condition will continue to monitor throughout the shift as needed. Patient educated on ADL's, and hand hygiene. 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 Continue to assess patient for changes in above assessment. Monitor for medication needs, pain, and safety concerns. Hourly rounding performed to ensure safe environment.
--- NOTE | 2017-04-15 10:40 | NUR ---
Behavior Intervention Response and Plan: BIRP Note: Behavior: Assumed Care of patient, patient located in Patient Room at shift change. Patient exhibited the following behavior Disorganized, Non Compliant with Meds, Resistive. Brief assessment on rounds of vital signs, medication needs, lab studies, and pain. Treatment plan problems 1 & 2. Intervention: Patient assessed and the following interventions initiated safety checks 15 Minute Checks Cognitive Assessment , Head to toe Assessment , Medications. Response: After interactions and interventions patient responded in the following manner, Calm , Appropriate ,Compliant. Continue to assess behaviors and condition will continue to monitor throughout the shift as needed. Patient educated on ADL's, and hand hygiene. Plan: Continue to monitor Master Treatment Plan for patient's progress toward short term goals of Decreased Agitation, Decreased Aggression, rn long term care goals to return to previous living setting vs placement. Continue to assess patient for changes in above assessment. Monitor for medication needs, pain, and safety concerns. Hourly rounding performed to ensure safe environment.
--- NOTE | 2017-04-15 11:30 | NUR ---
THERAPEUTIC RECREATION GROUP NOTE TITLE :Movement to Music: Flexibility ACTIVITY : Movement/ Exercise GOAL : Increase morale, attention, flexibility. Decrease stress/anxiety. DURATION : 30 Minutes RESPONSE : No participation
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
--- NOTE | 2017-04-15 12:10 | NUR ---
Patient is more cooperative, still refusing medications. Crushed medications and placed them in her coffee. Will monitor for consumption.
--- NOTE | 2017-04-15 12:50 | NUR ---
Patient has consumed the majority of medications in her coffee. Will hold the 14:00 dose of gabapentin because of the close proximity of administrating morning dose.
--- NOTE | 2017-04-15 13:50 | NUR ---
ACTIVITY THERAPY ASSESSMENT Completed based on observation and interview. Pt. sat with her back to LENS MOLD SETTER, had poor eye contact, and crossed her arms the entire time. She was not agreeable with assessment. Pt. stated she has been here before and said her whole family was here with her. Pt. had difficulty expressing herself clearly and often used the word "panicked" in her sentences. She told LENS MOLD SETTER to "just keep it in your head" when LENS MOLD SETTER asked questions. When asked if she knew the date, Pt. rolled her eyes and said "Oh my God, why would you ask me that? That's just odd." Pt. will participate in groups; however, has minimal interaction with others. Initial goal aimed to increase socialization and time management skills: Pt. will participate in at least two groups a day.
[2017-04-15 14:04] LABS: THYROID STIM HORMONE (TSH) 0.449 uIU/mL (0.358-3.740)
--- NOTE | 2017-04-15 14:10 | NUR ---
THERAPEUTIC RECREATION GROUP NOTE TITLE :ABC's of Leisure ACTIVITY : Leisure Awareness GOAL : Increase knowledge of leisure activities DURATION : 50 Minutes RESPONSE : Minimal participation. Pt. was alert and with the group the entire time. She did not show much interest and needed encouragement and direct prompting to engage.
--- NOTE | 2017-04-15 15:09 | NUR ---
Group note: Pt was absent declined to participate. SW tried x 2 to engage pt in the group.
[2017-04-15 16:11] VITALS: BP 122/96
--- NOTE | 2017-04-15 19:47 | PDOC ---
Exam Maximiliano Demential Exam: Maximiliano Note: Please also refer to the separate dictated note~for this date of service dictated separately.~Patient seen individually. Discussed the patient with Nursing staff reviewed the chart.~Reviewed interim history and current functioning. Reviewed vital signs,~Labs/ Radiology~and current medications noted below. Continue current treatment with the changes noted in the dictated addendum note Assessment: Vital Signs: Vital Signs Date Time Temp Pulse Resp B/P (MAP) Pulse Ox O2 Delivery O2 Flow Rate FiO2 04/15/17 16:11 97.9 58 18 122/96 (105) 97 04/15/17 07:55 Room Air I&O Intake and Output 04/16/17 07:00 Intake Total 600 ml Balance 600 ml Intake Oral 600 ml Labs: Laboratory Tests Test 04/15/17 07:45 04/15/17 19:11 Glucose (Fingerstick) 113 mg/dL (70-99) H 157 mg/dL (70-99) H Current Medications: Meds: Current Medications Olanzapine (ZyPREXA ZYDIS) 5 mg 1X ONCE PO ; Start 04/14/17 at 18:45; Stop 07/19 at 18:46; Status DC Olanzapine (ZyPREXA ZYDIS) 2.5 mg PRN Q2HR PRN PO PSYCHOSIS; Start 04/14/17 at 18:45 Acetaminophen (Tylenol) 650 mg PRN Q6HRS PRN PO PAIN / TEMP; Start 04/14/17 at 19:30 Multi-Ingredient Ointment (Analgesic [place]) 1 ghada PRN QID PRN TP MUSCLE PAIN; Start 04/14/17 at 19:30 Al Hydroxide/Mg Hydroxide (Mylanta Plus Xs) 15 ml PRN AFTMEALHC PRN PO DYSPEPSIA; Start 04/14/17 at 19:30; Status Cancel Magnesium Hydroxide (Milk Of Magnesia) 2,400 mg PRN QHS PRN PO CONSTIPATION; Start 04/14/17 at 19:30 Insulin Aspart (NovoLOG) 0-7 UNITS BID SQ ; Start 04/15/17 at 09:00 Dextrose 12.5 gm PRN Q15MIN PRN IV SEE COMMENTS; Start 04/14/17 at 22:15 Citalopram Hydrobromide (CeleXA) 20 mg DAILY PO Last administered on 04/15/17t 08:24; Start 04/15/17 at 09:00 Clonazepam (KlonoPIN) 0.25 mg HS PO ; Start 04/14/17 at 22:45 Divalproex Sodium (Depakote Er) 500 mg BID PO Last administered on 04/15/17 08 :24; Start 04/14/17 at 22:45 Memantine (Namenda) 5 mg BID PO ; Start 04/14/17 at 22:45; Stop 04/14/17 at 22: 45; Status DC Memantine (Namenda) 15 mg BID PO Last administered on 04/15/17 08:24; Start at 22:45 Mirtazapine (Remeron) 30 mg HS PO ; Start 04/14/17 at 22:45 Quetiapine Fumarate (SEROquel) 50 mg BID PO Last administered on 04/15/17 08: 24; Start 04/14/17 at 22:45 Rivastigmine (Exelon) 1 patch DAILY TD Last administered on 04/15/17 08:25; Start 04/15/17 at 09:00 Quetiapine Fumarate (SEROquel) 300 mg QHS PO ; Start 04/14/17 at 22:45 Gabapentin (Neurontin) 200 mg TID PO Last administered on 04/15/17 08:24; Start 04/14/17 at 22:45 Polyethylene Glycol (miraLAX) 17 gm DAILY PO Last administered on 04/15/17 08: 25; Start 04/15/17 at 09:00 Sennosides (Senna) 8.6 mg DAILY PO ; Start 04/15/17 at 09:00 Insulin Detemir (Levemir) 6 units QHS SQ ; Start 04/15/17 at 21:00 Lactobacillus Acidophilus (Bacid, Ester-Bid) 1 tab DAILY PO ; Start 04/15/17 at 09:00 Al Hydroxide/Mg Hydroxide (Mylanta Plus Xs) 30 ml PRN Q8HRS PRN PO DYSPEPSIA; Start 04/14/17 at 23:00 Multivitamins/ Calcium (Thera-M Plus) 1 tab DAILY PO ; Start 04/15/17 at 09:00 Pantoprazole Sodium (Protonix) 40 mg DAILYAC PO Last administered on 04/15/17 08:23; Start 04/15/17 at 07:30 Potassium Chloride (Klor-Con) 10 meq DAILYWBKFT PO ; Start 04/15/17 at 08:00 Selenium Sulfide (Selsun) 1 ghada QTU TP ; Start 04/21/17 at 16:00 Linagliptin (Tradjenta) 5 mg DAILY PO ; Start 04/15/17 at 09:00 Selenium Sulfide (Selsun) 1 ghada QFR TP ; Start 04/17/17 at 16:00 Vitamin D (Vitamin D3) 50,000 unit WEEKLY PO ; Start 04/16/17 at 09:00 Active Scripts Active Reported Dianna-Lanta Liquid (Mag Hydrox/Al Hydrox/Simeth) 355 Ml Oral.susp 30 Ml PO PRN Q8HRS PRN Thera-M (Multivits, W-,Other Min) 1 Each Tablet 1 Each PO DAILY Senna (Sennosides) 8.6 Mg Tablet 8.6 Mg PO DAILY EXELON 4.6mg/24hr (Rivastigmine) 1 Each Patch.td24 1 Patch TD DAILY Seroquel (Quetiapine Fumarate) 50 Mg Tablet 50 Mg PO BID Seroquel (Quetiapine Fumarate) 300 Mg Tablet 300 Mg PO QHS Potassium Chloride 10 Meq Tablet.er 10 Meq PO DAILY Miralax (Polyethylene Glycol 3350) 17 Gm Powd.pack 17 Gm PO DAILY Omeprazole 20 Mg Capsule.dr 20 Mg PO DAILY Mirtazapine 30 Mg Tablet 30 Mg PO HS Namenda (Memantine Hcl) 10 Mg Tablet 5 Mg PO BID Namenda (Memantine Hcl) 10 Mg Tablet 10 Mg PO BID Januvia (Sitagliptin Phosphate) 100 Mg Tablet 100 Mg PO DAILY Gabapentin 100 Mg Capsule 200 Mg PO TID Divalproex Sodium Er (Divalproex Sodium) 500 Mg Tab.er.24h 500 Mg PO BID Citalopram Hbr (Citalopram Hydrobromide) 20 Mg Tablet 20 Mg PO DAILY Acidophilus (Lactobacillus Acidophilus) 1 Each Capsule 1 Each PO DAILY Selenium Sulfide 180 Ml Shampoo 1 Ghada TP QHS TUES AND FRI Clonazepam 0.5 Mg Tablet 0.25 Mg PO HS Lantus Solostar (Insulin Glargine,Hum.rec.anlog) 100 Unit/1 Ml Insuln.pen 6 Unit SQ HS Tylenol (Acetaminophen) 325 Mg Tablet 650 Mg PO PRN Q6HRS PRN Diagnosis: Problems: (1) Bipolar disorder, mixed (2) Anxiety disorder (3) Dementia in Alzheimer's disease with delusions (4) Dementia in Alzheimer's disease with depression (5) Impulse control disorder (6) Dementia, vascular, with delusions (7) Dementia, vascular, with depression (8) Agitation (9) Dementia with behavioral disturbance VIPIN BELTRAN MD Apr 15, 2017 19:47
[2017-04-15] MEDS: QUEtiapine 100 MG TABLET. PO SCH (20:30)
--- NOTE | 2017-04-15 20:32 | NUR ---
Nursing Note Patient is non compliant with medications and cares and is irritable when staff asks if she will take her medications. Patient refusing to let staff help her change her brief when it is soiled. Patient given PRN Zyprexa per PRN order.
[2017-04-15] MEDS: MIRTAZAPINE 30 MG TABLET PO SCH (20:36)
[2017-04-15] MEDS: clonazePAM 0.5 MG TABLET PO SCH (20:36)
[2017-04-15] MEDS: INSULIN DETEMIR 300 UNITS/3 ML INSULN.PEN. SQ SCH (22:05)
[2017-04-15 23:09] LABS: T3 TOTAL 105 ng/dL (71-180)
--- NOTE | 2017-04-15 23:13 | NUR ---
Behavior Intervention Response and Plan: BIRP Note: Behavior: Assumed Care of patient, patient located in Day Room at shift change. Patient exhibited the following behavior Restless, Disorganized, Agitated. Brief assessment on rounds of vital signs, medication needs, lab studies, and pain. Treatment plan problems Dementia W/ BD and Fall Risk. Intervention: Patient assessed and the following interventions initiated safety checks 15 Minute Checks Cognitive Assessment , Medications , Nutrition. Response: After interactions and interventions patient responded in the following manner, Restless , Disorganized ,Agitated. Continue to assess behaviors and condition will continue to monitor throughout the shift as needed. Patient educated on ADL's, and hand hygiene. Plan: Continue to monitor Master Treatment Plan for patient's progress toward short term goals of Decreased Agitation, Decreased Aggression, intermediate card tender goals to return to previous living setting vs placement. Continue to assess patient for changes in above assessment. Monitor for medication needs, pain, and safety concerns. Hourly rounding performed to ensure safe environment.
[2017-04-16 04:12] LABS: HEMOGLOBIN A1C 6.9 % (4.8-5.6)
--- NOTE | 2017-04-16 05:18 | CONS ---
DATE OF CONSULTATION: 04/15/2017 CONSULT FOR MEDICAL MANAGEMENT HISTORY OF PRESENT ILLNESS: This is a 71-year-old female patient, a resident at [facility] who was referred by her primary care physician on account of increasing agitation, aggression, disruptive behavior. She has been extremely paranoid, psychotic, accusing other residents of stealing things from her. She is noncompliant with medication, wandering, progressively worsening behavior since 04/09/2017. She is combative verbally and physically abusive to other patients. She has failed outpatient psychiatric intervention and she is here for inpatient psychiatric stabilization. When I questioned her this afternoon, she denied any complaint. Her past psychiatric history is significant for dementia, Alzheimer, vascular with delusion, behavioral disturbances, and bipolar 1 disorder, mixed with psychotic features. She was in fact here in 12/2016, stabilized and returned to the [facility]. PAST MEDICAL HISTORY: Significant for type 2 diabetes, hypertension, anemia, history of TIA and hypertension. PAST SURGICAL HISTORY: Noncontributory. ALLERGIES: She has no known drug allergies. FAMILY HISTORY: Noncontributory. SOCIAL HISTORY: She is a resident at [facility]. She does not smoke, drink alcohol or use any recreational drugs. REVIEW OF SYSTEMS: As per history of present illness. MEDICATIONS: She is currently on the following medications: Tylenol 650 mg p.o. q. 6 hourly., citalopram hydrobromide 20 mg daily, clonazepam 0.25 mg at bedtime, divalproex sodium 500 mg p.o. b.i.d., gabapentin 200 mg 3 times a day, Lantus insulin 6 units at bedtime, lactobacillus acidophilus 1 tablet once a day, Dianna-Lanta liquid 30 mL every 8 hours as needed, Namenda 5 mg p.o. b.i.d., mirtazapine mg at bedtime, multivitamin with mineral 1 tablet once a day, omeprazole 20 mg once a day, polyethylene glycol 17 g once a day, potassium chloride 10 mEq once a day, quetiapine fumarate 300 mg at bedtime and Seroquel 50 mg twice a day, rivastigmine/Exelon 1 patch daily, selenium sulfide applied topically at bedtime on Thursday and Thursday. She is on senna 1 tablet daily, and sitagliptin phosphate 100 mg once a day. PHYSICAL EXAMINATION: GENERAL: On examining her, she was sitting comfortably in her chair in no apparent respiratory distress. She was somewhat pale, but no jaundice, cyanosis, or thyromegaly. No jugular venous distension, no limb edema. VITAL SIGNS: Her heart rate was 58, blood pressure 122/96, temperature was 97.9, respiratory rate was 18 and oxygen saturation was 97%. HEAD, EYES, NOSE AND THROAT: Showed normocephalic, atraumatic. NECK: Supple. HEART: Showed normal first and second heart sounds with no gallop, rub or murmur. CHEST: Clear to auscultation. No crepitation or rhonchi. ABDOMEN: Distended, soft, nontender. NEUROLOGIC: She is demented, but without any obvious lateralizing sign. All her cranial nerves intact. EXTREMITIES: She moves extremities without difficulty. She has unsteady gait. LABORATORY WORK: This morning showed a serum white cell count 7100, hemoglobin 12, hematocrit 35, MCV 101, and platelet count of 207,000. Serum sodium was 137, potassium 4.3, chloride 103, bicarbonate 31, anion gap of 3, BUN 9, creatinine 0.7, estimated GFR was 83 mL per minute, glucose 138, calcium is 8.9, magnesium was 1.9. Serum iron was 41, TIBC was 313 and percent saturation was 13%. Her total bilirubin, AST, ALT normal, alkaline phosphatase were normal. Total protein was 7.2, albumin was 3.3 g/dL. Her triglycerides were 82. Total cholesterol was 195, LDL cholesterol 125, VLDL was 16, and HDL cholesterol was 54 with a ratio of 3. Her 25-hydroxy vitamin D3 was 23 and TSH was 0.449. Her urinalysis was unremarkable. IMPRESSION: In summary, this is a 71-year-old female patient with multiple medical problems including type 2 diabetes, hypertension, anemia and history of transient ischemic attack. She seemed to be medically reasonably stable. I would continue with all her medication. I will review all her labs that are still pending at the time of this dictation and make any necessary recommendation. Thank you, Dr. Slade, for allowing me to participate in the care of this patient. ROSELYN HONG MD DR: WILFRIDO/triston JOB#: [id number] / [id number]
[2017-04-16] MEDS: PANTOPRAZOLE 40 MG TABLET. PO SCH (07:30)
[2017-04-16] MEDS: POTASSIUM CHLORIDE 10 MEQ TABLET.ER. PO SCH (08:00)
--- NOTE | 2017-04-16 08:00 | NUR ---
Patient in bed, refusing all meds and cares, refusing to come to breakfast. Will approach again in a short time.
--- NOTE | 2017-04-16 08:43 | NUR ---
STELLA contacted STELLA Noriega and Zeeshan, Supervisor Finish End at [facility] to discuss Pt's recent transition from [facility] to [facility] in the last week. They reported to this SW they assume it was due to Pt's behaviors and their inability to manage PT. Per report from Pt's Guardian to [facility], Pt. had been admitted to [facility] "several times" in the recent months prior to transitioning to [facility]. Leann and Zeeshan reported Pt. being very impulsive, making false accusations about staff hurting Pt., lashing out physically to other Pts. They, as of right now, are willing to accept back if Pt. is more manageable, but will likely be looking for alternative memory care placement where Pt. will be less stimulated and may help reduce behaviors. STELLA will follow up w/facility.
[2017-04-16] MEDS: INSULIN ASPART 300 UNITS/3 ML INSULN.PEN SQ SCH ×3 (09:00→21:00)
[2017-04-16] MEDS: MULTIVITAMIN with MINERAL TABLET. PO SCH (09:00)
[2017-04-16] MEDS: CHOLECALCIFEROL (VITAMIN D3) 50,000 UNIT CAPSULE PO SCH (09:00)
[2017-04-16] MEDS: LACTOBACILLUS ACIDOPH & BULGAR 1 TABLET. PO SCH (09:00)
[2017-04-16] MEDS: SENNOSIDES 8.6 MG TABLET PO SCH (09:00)
[2017-04-16] MEDS: POLYETHYLENE GLYCOL 3350 17 GM PACKET. PO SCH (09:00)
--- NOTE | 2017-04-16 09:10 | NUR ---
THERAPEUTIC RECREATION GROUP NOTE TITLE :Movie- REPORTED BY CNAs ACTIVITY : Activities and Games GOAL : Increase alertness, focus, decrease stress DURATION : 90 minutes RESPONSE : Minimal participation. Pt. sat and watched the movie a little bit before moving away from the tv to sleep.
[2017-04-16] MEDS: GABAPENTIN 100 MG CAPSULE. PO SCH ×3 (09:35→20:06)
[2017-04-16] MEDS: DIVALPROEX ER 500 MG TAB.ER.24H PO SCH (09:35)
[2017-04-16] MEDS: LINAGLIPTIN 5 MG TABLET PO SCH (09:35)
[2017-04-16] MEDS: QUEtiapine 50 MG TABLET. PO SCH ×2 (09:35→20:06)
[2017-04-16] MEDS: MEMANTINE 10 MG TABLET. PO SCH (09:35)
[2017-04-16] MEDS: CITALOPRAM 20 MG TABLET. PO SCH (09:35)
[2017-04-16] MEDS: RIVASTIGMINE 4.6MG PATCH. TD SCH (09:36)
--- NOTE | 2017-04-16 09:40 | NUR ---
Behavior Intervention Response and Plan: BIRP Note: Behavior: Assumed Care of patient, patient located in Day Room at shift change. Patient exhibited the following behavior Restless, Disorganized, Resistive. Brief assessment on rounds of vital signs, medication needs, lab studies, and pain. Treatment plan problems 1 & 2. Intervention: Patient assessed and the following interventions initiated safety checks 15 Minute Checks Cognitive Assessment , Head to toe Assessment , Medications. Response: After interactions and interventions patient responded in the following manner, Calm , Appropriate ,Compliant. Continue to assess behaviors and condition will continue to monitor throughout the shift as needed. Patient educated on ADL's, and hand hygiene. Plan: Continue to monitor Master Treatment Plan for patient's progress toward short term goals of Decreased Agitation, Decreased Aggression, assistant terminal manager goals to return to previous living setting vs placement. Continue to assess patient for changes in above assessment. Monitor for medication needs, pain, and safety concerns. Hourly rounding performed to ensure safe environment.
--- NOTE | 2017-04-16 09:40 | NUR ---
Patient in day room, resistive to medications and assessment. Medications placed in a Boost and provided to patient.
--- NOTE | 2017-04-16 11:30 | NUR ---
THERAPEUTIC RECREATION GROUP NOTE TITLE :Movement to Music:Strength ACTIVITY : Movement/ Exercise GOAL : Increase morale, attention, flexibility. Decrease stress/anxiety. DURATION : 30 Minutes RESPONSE : No participation
[2017-04-16 14:44] LABS: BASO % 1 % (0-3); EOS # 0.1 x10^3/uL (0.0-0.7); EOS % 1 % (0-3); HEMATOCRIT 35.6 % (36.0-47.0); HEMOGLOBIN 12.4 g/dL (12.0-15.5); LYMPH # 2.7 x10^3/uL (1.0-4.8); LYMPH % 41 % (24-48); MEAN CORPUSCULAR HEMOGLOBIN 35 pg (25-35); MEAN CORPUSCULAR HGB CONC 35 g/dL (31-37); MEAN CORPUSCULAR VOLUME 100 fL (79-100); MONO # 0.5 x10^3/uL (0.0-1.1); MONO % 8 % (0-9); NEUT # 3.3 x10^3uL (1.8-7.7); NEUT % 50 % (31-73); PLATELET COUNT 203 x10^3/uL (140-400); RED BLOOD COUNT 3.56 x10^6/uL (3.50-5.40); RED CELL DISTRIBUTION WIDTH 13.3 % (11.5-14.5); WHITE BLOOD COUNT 6.7 x10^3/uL (4.0-11.0)
[2017-04-16 14:49] LABS: ALBUMIN 3.2 g/dL (3.4-5.0); ALBUMIN/GLOBULIN RATIO 0.8 (1.0-1.7); ALK PHOS 82 U/L (46-116); ALT (SGPT) 13 U/L (14-59); ANION GAP 5 (6-14); AST (SGOT) 10 U/L (15-37); BLOOD UREA NITROGEN 12 mg/dL (7-20); BUN/CREATININE RATIO 15 (6-20); CALCIUM 8.7 mg/dL (8.5-10.1); CARBON DIOXIDE 31 mmol/L (21-32); CHLORIDE 107 mmol/L (98-107); CREATININE 0.8 mg/dL (0.6-1.0); GFR 70.9; GLUCOSE 194 mg/dL (70-99); POTASSIUM 4.2 mmol/L (3.5-5.1); SODIUM 143 mmol/L (136-145); TOTAL BILIRUBIN 0.2 mg/dL (0.2-1.0); TOTAL PROTEIN 7.1 g/dL (6.4-8.2)
[2017-04-16 14:50] LABS: VAL ACID 45 mcg/mL (50-100)
--- NOTE | 2017-04-16 15:00 | NUR ---
SW met w/Pt. briefly while PT. sat in the day room eating a snack. Pt. was very pleasant and confused. PT. stated she had been waiting for this SW all day, however, when SW introduced self, PT. did not truly know who this SW was and PT. was obviously compensating for her memory loss and attempting to be very pleasant w/SW. PT/OT came into room to work w/PT. and SW observed interactions to see if PT. would be compliant and Pt. was pleasant w/PT/OT as well.
--- NOTE | 2017-04-16 15:06 | NUR ---
Group Note [facility] Group Type:"The Ungame" Start time: 1:00pm End time: 2:00pm Problem: Socializing Purpose: Getting to know each other Level of participation: Moderate Behavior or symptom observed: Pt participated in group but soon became disinterested and starting talking about things outside. Intervention: Pt was asked direct questions and was prompted to participate. Response: Pt did not answer questions and seemed to be confused. At the end of group pt had fallen asleep. Plan: Group Participation.
--- NOTE | 2017-04-16 15:15 | NUR ---
THERAPEUTIC RECREATION GROUP NOTE TITLE :Internal Clock and Daily Schedule ACTIVITY : Education and Life Skills GOAL : Increase self-expression/insight, coping skills, attention. DURATION : 60 minutes RESPONSE : Moderate participation. Pt. was mostly distracting throughout the session. She talked loudly and interrupted others. She needed prompting and cues to stay on task and be appropriate. Pt. was slow to comply.
[2017-04-16 16:19] VITALS: BP 113/67
--- NOTE | 2017-04-16 20:00 | PDOC ---
Exam Maximiliano Demential Exam: Maximiliano Note: Please also refer to the separate dictated note~for this date of service dictated separately.~Patient seen individually. Discussed the patient with Nursing staff reviewed the chart.~Reviewed interim history and current functioning. Reviewed vital signs,~Labs/ Radiology~and current medications noted below. Continue current treatment with the changes noted in the dictated addendum note Assessment: Vital Signs: Vital Signs Date Time Temp Pulse Resp B/P (MAP) Pulse Ox O2 Delivery O2 Flow Rate FiO2 04/16/17 16:19 98.0 102 18 113/67 (82) 95 04/15/17 07:55 Room Air I&O Intake and Output 04/17/17 06:59 Intake Total 600 ml Balance 600 ml Intake Oral 600 ml # Bowel Movements 1 Labs: Laboratory Tests Test 04/16/17 07:12 04/16/17 14:15 04/16/17 19:08 Glucose (Fingerstick) 124 mg/dL (70-99) H 248 mg/dL (70-99) H White Blood Count 6.7 x10^3/uL (4.0-11.0) Red Blood Count 3.56 x10^6/uL (3.50-5.40) Hemoglobin 12.4 g/dL (12.0-15.5) Hematocrit 35.6 % (36.0-47.0) L Mean Corpuscular Volume 100 fL (79-100) Mean Corpuscular Hemoglobin 35 pg (25-35) Mean Corpuscular Hemoglobin Concent 35 g/dL (31-37) Red Cell Distribution Width 13.3 % (11.5-14.5) Platelet Count 203 x10^3/uL (140-400) Neutrophils (%) (Auto) 50 % (31-73) Lymphocytes (%) (Auto) 41 % (24-48) Monocytes (%) (Auto) 8 % (0-9) Eosinophils (%) (Auto) 1 % (0-3) Basophils (%) (Auto) 1 % (0-3) Neutrophils # (Auto) 3.3 x10^3uL (1.8-7.7) Lymphocytes # (Auto) 2.7 x10^3/uL (1.0-4.8) Monocytes # (Auto) 0.5 x10^3/uL (0.0-1.1) Eosinophils # (Auto) 0.1 x10^3/uL (0.0-0.7) Basophils # (Auto) 0.0 x10^3/uL (0.0-0.2) Sodium Level 143 mmol/L (136-145) Potassium Level 4.2 mmol/L (3.5-5.1) Chloride Level 107 mmol/L (98-107) Carbon Dioxide Level 31 mmol/L (21-32) Anion Gap 5 (6-14) L Blood Urea Nitrogen 12 mg/dL (7-20) Creatinine 0.8 mg/dL (0.6-1.0) Estimated GFR (Cockcroft-Gault) 70.9 BUN/Creatinine Ratio 15 (6-20) Glucose Level 194 mg/dL (70-99) H Calcium Level 8.7 mg/dL (8.5-10.1) Total Bilirubin 0.2 mg/dL (0.2-1.0) Aspartate Amino Transferase (AST) 10 U/L (15-37) L Alanine Aminotransferase (ALT) 13 U/L (14-59) L Alkaline Phosphatase 82 U/L (46-116) Total Protein 7.1 g/dL (6.4-8.2) Albumin 3.2 g/dL (3.4-5.0) L Albumin/Globulin Ratio 0.8 (1.0-1.7) L Valproic Acid Level 45 mcg/mL (50-100) L Valproic Acid Last Dose Date 04/16/17 Valproic Acid Last Dose Time 0900 Current Medications: Meds: Current Medications Olanzapine (ZyPREXA ZYDIS) 5 mg 1X ONCE PO ; Start 04/14/17 at 18:45; Stop 07/19 at 18:46; Status DC Olanzapine (ZyPREXA ZYDIS) 2.5 mg PRN Q2HR PRN PO PSYCHOSIS Last administered on 04/15/17t 20:32; Start 04/14/17 at 18:45 Acetaminophen (Tylenol) 650 mg PRN Q6HRS PRN PO PAIN / TEMP; Start 04/14/17 at 19:30 Multi-Ingredient Ointment (Analgesic Coward) 1 ghada PRN QID PRN TP MUSCLE PAIN; Start 04/14/17 at 19:30 Al Hydroxide/Mg Hydroxide (Mylanta Plus Xs) 15 ml PRN AFTMEALHC PRN PO DYSPEPSIA; Start 04/14/17 at 19:30; Status Cancel Magnesium Hydroxide (Milk Of Magnesia) 2,400 mg PRN QHS PRN PO CONSTIPATION; Start 04/14/17 at 19:30 Insulin Aspart (NovoLOG) 0-7 UNITS BID SQ ; Start 04/15/17 at 09:00 Dextrose 12.5 gm PRN Q15MIN PRN IV SEE COMMENTS; Start 04/14/17 at 22:15 Citalopram Hydrobromide (CeleXA) 20 mg DAILY PO Last administered on 04/16/17 09:35; Start 04/15/17 at 09:00 Clonazepam (KlonoPIN) 0.25 mg HS PO Last administered on 04/15/17 20:36; Start 04/14/17 at 22:45; Stop 04/16/17 at 10:54; Status DC Divalproex Sodium (Depakote Er) 500 mg BID PO Last administered on 04/16/17 09 :35; Start 04/14/17 at 22:45; Stop 04/16/17 at 19:26; Status DC Memantine (Namenda) 5 mg BID PO ; Start 04/14/17 at 22:45; Stop 04/14/17 at 22: 45; Status DC Memantine (Namenda) 15 mg BID PO Last administered on 04/16/17 09:35; Start at 22:45; Stop 04/16/17 at 10:54; Status DC Mirtazapine (Remeron) 30 mg HS PO Last administered on 04/15/17 20:36; Start 04/14/17 at 22:45 Quetiapine Fumarate (SEROquel) 50 mg BID PO Last administered on 04/16/17 09: 35; Start 04/14/17 at 22:45 Rivastigmine (Exelon) 1 patch DAILY TD Last administered on 04/16/17 09:36; Start 04/15/17 at 09:00; Stop 04/16/17 at 10:54; Status DC Quetiapine Fumarate (SEROquel) 300 mg QHS PO Last administered on 04/15/17 20: 30; Start 04/14/17 at 22:45 Gabapentin (Neurontin) 200 mg TID PO Last administered on 04/16/17 13:58; Start 04/14/17 at 22:45 Polyethylene Glycol (miraLAX) 17 gm DAILY PO Last administered on 04/15/17 08: 25; Start 04/15/17 at 09:00 Sennosides (Senna) 8.6 mg DAILY PO ; Start 04/15/17 at 09:00 Insulin Detemir (Levemir) 6 units QHS SQ Last administered on 04/15/17 22:05; Start 04/15/17 at 21:00 Lactobacillus Acidophilus (Bacid, Ester-Bid) 1 tab DAILY PO ; Start 04/15/17 at 09:00 Al Hydroxide/Mg Hydroxide (Mylanta Plus Xs) 30 ml PRN Q8HRS PRN PO DYSPEPSIA; Start 04/14/17 at 23:00 Multivitamins/ Calcium (Thera-M Plus) 1 tab DAILY PO ; Start 04/15/17 at 09:00 Pantoprazole Sodium (Protonix) 40 mg DAILYAC PO Last administered on 04/15/17 08:23; Start 04/15/17 at 07:30 Potassium Chloride (Klor-Con) 10 meq DAILYWBKFT PO ; Start 04/15/17 at 08:00 Selenium Sulfide (Selsun) 1 ghada QTU TP ; Start 04/21/17 at 16:00 Linagliptin (Tradjenta) 5 mg DAILY PO Last administered on 04/16/17 09:35; Start 04/15/17 at 09:00 Selenium Sulfide (Selsun) 1 ghada QFR TP ; Start 04/17/17 at 16:00 Vitamin D (Vitamin D3) 50,000 unit WEEKLY PO ; Start 04/16/17 at 09:00 Trazodone HCl (Desyrel) 100 mg QHS PO ; Start 04/16/17 at 21:00 Trazodone HCl (Desyrel) 100 mg PRN QHS PRN PO INSOMNIA; Start 04/16/17 at 21:00 Divalproex Sodium (Depakote Sprinkles) 500 mg DAILY PO ; Start 04/17/17 at 09:00 Divalproex Sodium (Depakote Sprinkles) 750 mg HS PO ; Start 04/16/17 at 21:00 Active Scripts Active Reported Dianna-Lanta Liquid (Mag Hydrox/Al Hydrox/Simeth) 355 Ml Oral.susp 30 Ml PO PRN Q8HRS PRN Thera-M (Multivits, W-Fe,Other Min) 1 Each Tablet 1 Each PO DAILY Senna (Sennosides) 8.6 Mg Tablet 8.6 Mg PO DAILY EXELON 4.6mg/24hr (Rivastigmine) 1 Each Patch.td24 1 Patch TD DAILY Seroquel (Quetiapine Fumarate) 50 Mg Tablet 50 Mg PO BID Seroquel (Quetiapine Fumarate) 300 Mg Tablet 300 Mg PO QHS Potassium Chloride 10 Meq Tablet.er 10 Meq PO DAILY Miralax (Polyethylene Glycol 3350) 17 Gm Powd.pack 17 Gm PO DAILY Omeprazole 20 Mg Capsule.dr 20 Mg PO DAILY Mirtazapine 30 Mg Tablet 30 Mg PO HS Namenda (Memantine Hcl) 10 Mg Tablet 5 Mg PO BID Namenda (Memantine Hcl) 10 Mg Tablet 10 Mg PO BID Januvia (Sitagliptin Phosphate) 100 Mg Tablet 100 Mg PO DAILY Gabapentin 100 Mg Capsule 200 Mg PO TID Divalproex Sodium Er (Divalproex Sodium) 500 Mg Tab.er.24h 500 Mg PO BID Citalopram Hbr (Citalopram Hydrobromide) 20 Mg Tablet 20 Mg PO DAILY Acidophilus (Lactobacillus Acidophilus) 1 Each Capsule 1 Each PO DAILY Selenium Sulfide 180 Ml Shampoo 1 Ghada TP QHS TUES AND FRI Clonazepam 0.5 Mg Tablet 0.25 Mg PO HS Lantus Solostar (Insulin Glargine,Hum.rec.anlog) 100 Unit/1 Ml Insuln.pen 6 Unit SQ HS Tylenol (Acetaminophen) 325 Mg Tablet 650 Mg PO PRN Q6HRS PRN Diagnosis: Problems: (1) Bipolar disorder, mixed (2) Anxiety disorder (3) Dementia in Alzheimer's disease with delusions (4) Dementia in Alzheimer's disease with depression (5) Impulse control disorder (6) Dementia, vascular, with delusions (7) Dementia, vascular, with depression (8) Diabetes mellitus (9) Schizophrenia (10) Agitation (11) Dementia with behavioral disturbance VIPIN BELTRAN MD Apr 16, 2017 20:00
[2017-04-16] MEDS: QUEtiapine 100 MG TABLET. PO SCH (20:06)
[2017-04-16] MEDS: MIRTAZAPINE 30 MG TABLET PO SCH (20:06)
[2017-04-16] MEDS: traZODone 100 MG TABLET. PO SCH (20:08)
[2017-04-16] MEDS: DIVALPROEX 125 MG CAP.SPRINK PO SCH (20:08)
[2017-04-16] MEDS: INSULIN DETEMIR 300 UNITS/3 ML INSULN.PEN. SQ SCH ×2 (20:11→21:00)
[2017-04-16] MEDS ORDERED: traZODone 100 MG TABLET. PO PRN (21:00)
--- NOTE | 2017-04-16 21:00 | NUR ---
Pt compliant with po HS medications this shift, however, refused to take her HS insulin.
--- NOTE | 2017-04-16 22:53 | NUR ---
Behavior Intervention Response and Plan: BIRP Note: Behavior: Assumed Care of patient, patient located in Day Room at shift change. Patient exhibited the following behavior Disorganized, Irritable, Resistive. Brief assessment on rounds of vital signs, medication needs, lab studies, and pain. Treatment plan problems 1 and 2. Intervention: Patient assessed and the following interventions initiated safety checks 15 Minute Checks Cognitive Assessment , Head to toe Assessment , Medications. Response: After interactions and interventions patient responded in the following manner, Irritable , Disorganized ,Non Compliant. Continue to assess behaviors and condition will continue to monitor throughout the shift as needed. Patient educated on ADL's, and hand hygiene. Plan: Continue to monitor Master Treatment Plan for patient's progress toward short term goals of Decreased Agitation, Decreased Aggression, terminal operator goals to return to previous living setting vs placement. Continue to assess patient for changes in above assessment. Monitor for medication needs, pain, and safety concerns. Hourly rounding performed to ensure safe environment.
[2017-04-17 05:40] VITALS: BP 117/76
--- NOTE | 2017-04-17 05:51 | PN ---
DATE: 04/15/2017 This late entry 04/15/2017, covers elements not covered in my initial note of 04/15/2017. SUBJECTIVE: I met with the patient evening of 04/15/2017. Per nursing report, the patient is quite irritable, labile in the morning of 04/15/2017, much better in the afternoon and she was much calmer when I met with her the evening of 04/15/2017. Previous evening, she was combative, yelling, biting, swinging at staff after she was admitted, refused vitals, extremely psychotic, disruptive. She takes medications crushed with coffee at lunchtime, accepted the Exelon patch later in the day. REVIEW OF SYSTEMS: No CV, , pulmonary, eye system symptoms on review. Reliability poor. MENTAL STATUS EXAM: Oriented to herself. Insight, judgment, recent and remote memory, attention, concentration, fund of knowledge poor, consistent with her diagnosis mentioned in my initial note. IMPRESSION: Major neurocognitive disorder, Alzheimer vascular with depression, delusion, behavioral disturbance; schizoaffective disorder, bipolar type, mixed with psychotic features. PLAN: Continue current psychotropics, Klonopin, Celexa, Depakote, Namenda, Remeron, Seroquel, Exelon patch. It is questionable what benefit an Exelon patch would have on the patient at this stage of her dementia. We will consider whether Klonopin is needed as well or not. Depakote, we will have to check the level, then adjust this to reach a therapeutic level, Seroquel is adequate at the current dosage. Reviewed drug interactions. Reviewed the risk/benefit ratio which favors no further change at this time. VIPIN BELTRAN MD DR: JIE/triston JOB#: [id number] / [id number]
[2017-04-17] MEDS: INSULIN ASPART 300 UNITS/3 ML INSULN.PEN SQ SCH ×2 (07:58→21:00)
[2017-04-17] MEDS: GABAPENTIN 100 MG CAPSULE. PO SCH ×3 (09:00→20:34)
[2017-04-17] MEDS: POTASSIUM CHLORIDE 10 MEQ TABLET.ER. PO SCH (09:30)
[2017-04-17] MEDS: QUEtiapine 50 MG TABLET. PO SCH ×2 (09:30→20:34)
[2017-04-17] MEDS: LINAGLIPTIN 5 MG TABLET PO SCH (09:30)
[2017-04-17] MEDS: CITALOPRAM 20 MG TABLET. PO SCH (09:30)
[2017-04-17] MEDS: POLYETHYLENE GLYCOL 3350 17 GM PACKET. PO SCH (09:32)
[2017-04-17] MEDS: DIVALPROEX 125 MG CAP.SPRINK PO SCH ×2 (09:32→20:34)
[2017-04-17] MEDS: PANTOPRAZOLE 40 MG TABLET. PO SCH (09:35)
[2017-04-17] MEDS: LACTOBACILLUS ACIDOPH & BULGAR 1 TABLET. PO SCH (09:35)
[2017-04-17] MEDS: SENNOSIDES 8.6 MG TABLET PO SCH (09:35)
[2017-04-17] MEDS: MULTIVITAMIN with MINERAL TABLET. PO SCH (09:36)
--- NOTE | 2017-04-17 10:00 | NUR ---
THERAPEUTIC RECREATION GROUP NOTE TITLE :Ball Bounce and Daily Awareness ACTIVITY : Activities and Games GOAL : Increase alertness, focus, decrease stress DURATION : 60 minutes RESPONSE : No participation. Pt. was working with PT/ OT
--- NOTE | 2017-04-17 11:03 | NUR ---
resistive with medications, "picks and chooses" what she is willing to take. Complaining the entire time that I had already given them all to her already this morning. Compliant with depakote and other psych meds. Will continue to monitor.
--- NOTE | 2017-04-17 11:04 | NUR ---
Behavior Intervention Response and Plan: BIRP Note: Behavior: Assumed Care of patient, patient located in Day Room at shift change. Patient exhibited the following behavior Restless, Disorganized, Resistive. Brief assessment on rounds of vital signs, medication needs, lab studies, and pain. Treatment plan problems 1 and 2. Intervention: Patient assessed and the following interventions initiated safety checks 15 Minute Checks Cognitive Assessment , Head to toe Assessment , Medications. Response: After interactions and interventions patient responded in the following manner, Disorganized , Demanding ,Resistive. Continue to assess behaviors and condition will continue to monitor throughout the shift as needed. Patient educated on ADL's, and hand hygiene. Plan: Continue to monitor Master Treatment Plan for patient's progress toward short term goals of Decreased Agitation, Decreased Aggression, terminal supervisor goals to return to previous living setting vs placement. Continue to assess patient for changes in above assessment. Monitor for medication needs, pain, and safety concerns. Hourly rounding performed to ensure safe environment.
--- NOTE | 2017-04-17 11:30 | NUR ---
THERAPEUTIC RECREATION GROUP NOTE TITLE :Movement to Music: Flexibility ACTIVITY : Movement/ Exercise GOAL : Increase morale, attention, flexibility. Decrease stress/anxiety. DURATION : 30 Minutes RESPONSE : No participation. Pt. was alert and with the group but showed no interest.
[2017-04-17] MEDS: SELENIUM SULFIDE 1% TOPICAL SHAMPOO 207ML BOTTLE. TP SCH (12:21)
--- NOTE | 2017-04-17 14:20 | NUR ---
THERAPEUTIC RECREATION GROUP NOTE TITLE :Bingo ACTIVITY : Activities and Games GOAL : Increase alertness, focus, morale, decrease stress, team building, positive communication DURATION : 50 Minutes RESPONSE : Minimal participation. Pt. sat with the group the entire time; however, showed no interest in the activity. Nursing staff played her card. Pt. at times talked to herself.
[2017-04-17 16:31] VITALS: BP 137/73
--- NOTE | 2017-04-17 20:19 | PDOC ---
Exam Maximiliano Demential Exam: Maximiliano Note: Please also refer to the separate dictated note~for this date of service dictated separately.~Patient seen individually. Discussed the patient with Nursing staff reviewed the chart.~Reviewed interim history and current functioning. Reviewed vital signs,~Labs/ Radiology~and current medications noted below. Continue current treatment with the changes noted in the dictated addendum note Assessment: Vital Signs: Vital Signs Date Time Temp Pulse Resp B/P (MAP) Pulse Ox O2 Delivery O2 Flow Rate FiO2 04/17/17 16:31 98.3 79 20 137/73 (94) 97 Room Air I&O Intake and Output 04/18/17 07:00 Intake Total 900 ml Balance 900 ml Intake Oral 900 ml Labs: Laboratory Tests Test 04/17/17 07:12 04/17/17 19:43 Glucose (Fingerstick) 112 mg/dL (70-99) H 223 mg/dL (70-99) H Current Medications: Meds: Current Medications Olanzapine (ZyPREXA ZYDIS) 5 mg 1X ONCE PO ; Start 04/14/17 at 18:45; Stop 07/19 at 18:46; Status DC Olanzapine (ZyPREXA ZYDIS) 2.5 mg PRN Q2HR PRN PO PSYCHOSIS Last administered on 04/15/17 20:32; Start 04/14/17 at 18:45 Acetaminophen (Tylenol) 650 mg PRN Q6HRS PRN PO PAIN / TEMP; Start 04/14/17 at 19:30 Multi-Ingredient Ointment (Analgesic [place]) 1 ghada PRN QID PRN TP MUSCLE PAIN; Start 04/14/17 at 19:30 Al Hydroxide/Mg Hydroxide (Mylanta Plus Xs) 15 ml PRN AFTMEALHC PRN PO DYSPEPSIA; Start 04/14/17 at 19:30; Status Cancel Magnesium Hydroxide (Milk Of Magnesia) 2,400 mg PRN QHS PRN PO CONSTIPATION; Start 04/14/17 at 19:30 Insulin Aspart (NovoLOG) 0-7 UNITS BID SQ ; Start 04/15/17 at 09:00 Dextrose 12.5 gm PRN Q15MIN PRN IV SEE COMMENTS; Start 04/14/17 at 22:15 Citalopram Hydrobromide (CeleXA) 20 mg DAILY PO Last administered on 04/17/17 09:30; Start 04/15/17 at 09:00 Clonazepam (KlonoPIN) 0.25 mg HS PO Last administered on 04/15/17 20:36; Start 04/14/17 at 22:45; Stop 04/16/17 at 10:54; Status DC Divalproex Sodium (Depakote Er) 500 mg BID PO Last administered on 04/16/17 09 :35; Start 04/14/17 at 22:45; Stop 04/16/17 at 19:26; Status DC Memantine (Namenda) 5 mg BID PO ; Start 04/14/17 at 22:45; Stop 04/14/17 at 22: 45; Status DC Memantine (Namenda) 15 mg BID PO Last administered on 04/16/17 09:35; Start at 22:45; Stop 04/16/17 at 10:54; Status DC Mirtazapine (Remeron) 30 mg HS PO Last administered on 04/16/17 20:06; Start 04/14/17 at 22:45 Quetiapine Fumarate (SEROquel) 50 mg BID PO Last administered on 04/17/17 09: 30; Start 04/14/17 at 22:45 Rivastigmine (Exelon) 1 patch DAILY TD Last administered on 04/16/17 09:36; Start 04/15/17 at 09:00; Stop 04/16/17 at 10:54; Status DC Quetiapine Fumarate (SEROquel) 300 mg QHS PO Last administered on 04/16/17 20: 06; Start 04/14/17 at 22:45 Gabapentin (Neurontin) 200 mg TID PO Last administered on 04/17/17 14:00; Start 04/14/17 at 22:45 Polyethylene Glycol (miraLAX) 17 gm DAILY PO Last administered on 04/17/17 09: 32; Start 04/15/17 at 09:00 Sennosides (Senna) 8.6 mg DAILY PO ; Start 04/15/17 at 09:00 Insulin Detemir (Levemir) 6 units QHS SQ Last administered on 04/15/17 22:05; Start 04/15/17 at 21:00 Lactobacillus Acidophilus (Bacid, Ester-Bid) 1 tab DAILY PO ; Start 04/15/17 at 09:00 Al Hydroxide/Mg Hydroxide (Mylanta Plus Xs) 30 ml PRN Q8HRS PRN PO DYSPEPSIA; Start 04/14/17 at 23:00 Multivitamins/ Calcium (Thera-M Plus) 1 tab DAILY PO ; Start 04/15/17 at 09:00 Pantoprazole Sodium (Protonix) 40 mg DAILYAC PO Last administered on 04/15/17 08:23; Start 04/15/17 at 07:30 Potassium Chloride (Klor-Con) 10 meq DAILYWBKFT PO Last administered on 09:30; Start 04/15/17 at 08:00 Selenium Sulfide (Selsun) 1 ghada QTU TP ; Start 04/21/17 at 16:00 Linagliptin (Tradjenta) 5 mg DAILY PO Last administered on 04/17/17 09:30; Start 04/15/17 at 09:00 Selenium Sulfide (Selsun) 1 ghada QFR TP ; Start 04/17/17 at 16:00 Vitamin D (Vitamin D3) 50,000 unit WEEKLY PO ; Start 04/16/17 at 09:00 Trazodone HCl (Desyrel) 100 mg QHS PO Last administered on 04/16/17 20:08; Start 04/16/17 at 21:00 Trazodone HCl (Desyrel) 100 mg PRN QHS PRN PO INSOMNIA; Start 04/16/17 at 21:00 Divalproex Sodium (Depakote Sprinkles) 500 mg DAILY PO Last administered on 09:32; Start 04/17/17 at 09:00 Divalproex Sodium (Depakote Sprinkles) 750 mg HS PO Last administered on 20:08; Start 04/16/17 at 21:00 Active Scripts Active Reported Dianna-Lanta Liquid (Mag Hydrox/Al Hydrox/Simeth) 355 Ml Oral.susp 30 Ml PO PRN Q8HRS PRN Thera-M (Multivits,Th W-Fe,Other Min) 1 Each Tablet 1 Each PO DAILY Senna (Sennosides) 8.6 Mg Tablet 8.6 Mg PO DAILY EXELON 4.6mg/24hr (Rivastigmine) 1 Each Patch.td24 1 Patch TD DAILY Seroquel (Quetiapine Fumarate) 50 Mg Tablet 50 Mg PO BID Seroquel (Quetiapine Fumarate) 300 Mg Tablet 300 Mg PO QHS Potassium Chloride 10 Meq Tablet.er 10 Meq PO DAILY Miralax (Polyethylene Glycol 3350) 17 Gm Powd.pack 17 Gm PO DAILY Omeprazole 20 Mg Capsule.dr 20 Mg PO DAILY Mirtazapine 30 Mg Tablet 30 Mg PO HS Namenda (Memantine Hcl) 10 Mg Tablet 5 Mg PO BID Namenda (Memantine Hcl) 10 Mg Tablet 10 Mg PO BID Januvia (Sitagliptin Phosphate) 100 Mg Tablet 100 Mg PO DAILY Gabapentin 100 Mg Capsule 200 Mg PO TID Divalproex Sodium Er (Divalproex Sodium) 500 Mg Tab.er.24h 500 Mg PO BID Citalopram Hbr (Citalopram Hydrobromide) 20 Mg Tablet 20 Mg PO DAILY Acidophilus (Lactobacillus Acidophilus) 1 Each Capsule 1 Each PO DAILY Selenium Sulfide 180 Ml Shampoo 1 Ghada TP QHS TUES AND FRI Clonazepam 0.5 Mg Tablet 0.25 Mg PO HS Lantus Solostar (Insulin Glargine,Hum.rec.anlog) 100 Unit/1 Ml Insuln.pen 6 Unit SQ HS Tylenol (Acetaminophen) 325 Mg Tablet 650 Mg PO PRN Q6HRS PRN Diagnosis: Problems: (1) Bipolar disorder, mixed (2) Anxiety disorder (3) Dementia in Alzheimer's disease with delusions (4) Dementia in Alzheimer's disease with depression (5) Impulse control disorder (6) Dementia, vascular, with delusions (7) Dementia, vascular, with depression (8) Dementia with behavioral disturbance VIPIN BELTRAN MD Apr 17, 2017 20:19
[2017-04-17] MEDS: MIRTAZAPINE 30 MG TABLET PO SCH (20:34)
[2017-04-17] MEDS: QUEtiapine 100 MG TABLET. PO SCH (20:34)
[2017-04-17] MEDS: traZODone 100 MG TABLET. PO SCH (20:34)
[2017-04-17] MEDS: INSULIN DETEMIR 300 UNITS/3 ML INSULN.PEN. SQ SCH (21:10)
--- NOTE | 2017-04-17 21:56 | NUR ---
Pt resistive with HS medications, stating "No, I'm not taking those!" Medications administered hidden in vanilla ice cream.
--- NOTE | 2017-04-17 22:07 | NUR ---
Behavior Intervention Response and Plan: BIRP Note: Behavior: Assumed Care of patient, patient located in Day Room at shift change. Patient exhibited the following behavior Disorganized, Resistive, Non Compliant. Brief assessment on rounds of vital signs, medication needs, lab studies, and pain. Treatment plan problems 1 and 2. Intervention: Patient assessed and the following interventions initiated safety checks 15 Minute Checks Cognitive Assessment , Head to toe Assessment , Medications. Response: After interactions and interventions patient responded in the following manner, Resistive , Sarcastic ,Disorganized. Continue to assess behaviors and condition will continue to monitor throughout the shift as needed. Patient educated on ADL's, and hand hygiene. Plan: Continue to monitor Master Treatment Plan for patient's progress toward short term goals of Decreased Agitation, Decreased Aggression, manager terminal goals to return to previous living setting vs placement. Continue to assess patient for changes in above assessment. Monitor for medication needs, pain, and safety concerns. Hourly rounding performed to ensure safe environment.
--- NOTE | 2017-04-18 02:50 | PN ---
DATE: 04/16/2017 This late entry 04/16/2017 covers elements not covered in my initial note on 04/16/2017. The patient was staffed at a treatment team meeting with the entire team morning of 04/16/2017. Reviewed the patient's history, progress, information from [facility]. She has done much better than the day before. Took her medications with some assistance from nursing staff. Valproic acid level is 45 and we will increase the Depakote Sprinkles from her current dosage of Depakote ER 500 b.i.d. to Depakote Sprinkles 500 a.m., 750 at bedtime. Check CBC, CMP, valproic acid level in 3 days to reach a therapeutic level. She has been resistive to care. She is compliant with medications, intermittently combative. Appetite is 50%, slept 5-1/2 hours. MENTAL STATUS EXAM: Oriented to herself. Insight, judgment, recent and remote memory, attention, concentration, fund of knowledge poor, consistent with her diagnosis mentioned in my initial note. PLAN: I have carefully reviewed the patient's current psychotropics, drug interactions, and risk, benefit ratio favors the changes as noted below. Given the patient's extent of her memory deficits, dementia, we will go ahead and stop the Namenda and Exelon patch since they will have little beneficial effect. I would like to minimize the use of benzodiazepines. We will stop the Klonopin 0.25 mg at bedtime. Change the Depakote as noted above since current level is low/subtherapeutic at 45. Maintain Celexa 20 mg a day, Remeron 30 mg at bedtime, Seroquel 50 mg b.i.d. and 300 mg at bedtime. Make further adjustments as clinically indicated. Trazodone has been added for insomnia 100 mg at bedtime, may repeat x 1. VIPIN BELTRAN MD DR: JIE/triston JOB#: [id number] / [id number]
[2017-04-18 06:05] VITALS: BP 112/70
[2017-04-18] MEDS: POTASSIUM CHLORIDE 10 MEQ TABLET.ER. PO SCH (08:00)
[2017-04-18] MEDS: INSULIN ASPART 300 UNITS/3 ML INSULN.PEN SQ SCH ×2 (09:00→20:10)
[2017-04-18] MEDS: LACTOBACILLUS ACIDOPH & BULGAR 1 TABLET. PO SCH (09:40)
[2017-04-18] MEDS: GABAPENTIN 100 MG CAPSULE. PO SCH ×3 (09:41→20:10)
[2017-04-18] MEDS: PANTOPRAZOLE 40 MG TABLET. PO SCH (09:41)
[2017-04-18] MEDS: MULTIVITAMIN with MINERAL TABLET. PO SCH (09:41)
[2017-04-18] MEDS: CITALOPRAM 20 MG TABLET. PO SCH (09:42)
[2017-04-18] MEDS: DIVALPROEX 125 MG CAP.SPRINK PO SCH ×2 (09:42→20:10)
[2017-04-18] MEDS: QUEtiapine 50 MG TABLET. PO SCH ×2 (09:42→20:09)
[2017-04-18] MEDS: SENNOSIDES 8.6 MG TABLET PO SCH (09:42)
[2017-04-18] MEDS: POLYETHYLENE GLYCOL 3350 17 GM PACKET. PO SCH (09:43)
--- NOTE | 2017-04-18 14:26 | NUR ---
Behavior Intervention Response and Plan: BIRP Note: Behavior: Assumed Care of patient, patient located in Day Room at shift change. Patient exhibited the following behavior Restless, Disorganized, Cooperative. Brief assessment on rounds of vital signs, medication needs, lab studies, and pain. Treatment plan problems 1 and 2. Intervention: Patient assessed and the following interventions initiated safety checks 15 Minute Checks Cognitive Assessment , Head to toe Assessment , Medications. Response: After interactions and interventions patient responded in the following manner, Disorganized , compliant, calm. Continue to assess behaviors and condition will continue to monitor throughout the shift as needed. Patient educated on ADL's, and hand hygiene. 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 Continue to assess patient for changes in above assessment. Monitor for medication needs, pain, and safety concerns. Hourly rounding performed to ensure safe environment.
[2017-04-18] MEDS: LINAGLIPTIN 5 MG TABLET PO SCH (14:53)
[2017-04-18] MEDS: QUEtiapine 100 MG TABLET. PO SCH (20:09)
[2017-04-18] MEDS: MIRTAZAPINE 30 MG TABLET PO SCH (20:10)
[2017-04-18] MEDS: traZODone 100 MG TABLET. PO SCH (20:10)
[2017-04-18] MEDS: INSULIN DETEMIR 300 UNITS/3 ML INSULN.PEN. SQ SCH (21:00)
--- NOTE | 2017-04-18 22:42 | PDOC ---
Exam Maximiliano Demential Exam: Maximiliano Note: Please also refer to the separate dictated note~for this date of service dictated separately.~Patient seen individually. Discussed the patient with Nursing staff reviewed the chart.~Reviewed interim history and current functioning. Reviewed vital signs,~Labs/ Radiology~and current medications noted below. Continue current treatment with the changes noted in the dictated addendum note Assessment: Vital Signs: Vital Signs Date Time Temp Pulse Resp B/P (MAP) Pulse Ox O2 Delivery O2 Flow Rate FiO2 04/18/17 06:05 97.3 65 18 112/70 (84) 95 04/17/17 16:31 Room Air I&O Intake and Output 04/19/17 07:00 Intake Total 840 ml Balance 840 ml Intake Oral 840 ml # Bowel Movements 2 Labs: Laboratory Tests Test 04/18/17 07:25 04/18/17 19:12 Glucose (Fingerstick) 146 mg/dL (70-99) H 135 mg/dL (70-99) H Current Medications: Meds: Current Medications Olanzapine (ZyPREXA ZYDIS) 5 mg 1X ONCE PO ; Start 04/14/17 at 18:45; Stop 07/19 at 18:46; Status DC Olanzapine (ZyPREXA ZYDIS) 2.5 mg PRN Q2HR PRN PO PSYCHOSIS Last administered on 04/15/17t 20:32; Start 04/14/17 at 18:45 Acetaminophen (Tylenol) 650 mg PRN Q6HRS PRN PO PAIN / TEMP; Start 04/14/17 at 19:30 Multi-Ingredient Ointment (Analgesic [place]) 1 ghada PRN QID PRN TP MUSCLE PAIN; Start 04/14/17 at 19:30 Al Hydroxide/Mg Hydroxide (Mylanta Plus Xs) 15 ml PRN AFTMEALHC PRN PO DYSPEPSIA; Start 04/14/17 at 19:30; Status Cancel Magnesium Hydroxide (Milk Of Magnesia) 2,400 mg PRN QHS PRN PO CONSTIPATION; Start 04/14/17 at 19:30 Insulin Aspart (NovoLOG) 0-7 UNITS BID SQ ; Start 04/15/17 at 09:00 Dextrose 12.5 gm PRN Q15MIN PRN IV SEE COMMENTS; Start 04/14/17 at 22:15 Citalopram Hydrobromide (CeleXA) 20 mg DAILY PO Last administered on 04/18/17 09:42; Start 04/15/17 at 09:00 Clonazepam (KlonoPIN) 0.25 mg HS PO Last administered on 04/15/17 20:36; Start 04/14/17 at 22:45; Stop 04/16/17 at 10:54; Status DC Divalproex Sodium (Depakote Er) 500 mg BID PO Last administered on 04/16/17 09 :35; Start 04/14/17 at 22:45; Stop 04/16/17 at 19:26; Status DC Memantine (Namenda) 5 mg BID PO ; Start 04/14/17 at 22:45; Stop 04/14/17 at 22: 45; Status DC Memantine (Namenda) 15 mg BID PO Last administered on 04/16/17 09:35; Start at 22:45; Stop 04/16/17 at 10:54; Status DC Mirtazapine (Remeron) 30 mg HS PO Last administered on 04/18/17 20:10; Start 04/14/17 at 22:45 Quetiapine Fumarate (SEROquel) 50 mg BID PO Last administered on 04/18/17 20: 09; Start 04/14/17 at 22:45 Rivastigmine (Exelon) 1 patch DAILY TD Last administered on 04/16/17 09:36; Start 04/15/17 at 09:00; Stop 04/16/17 at 10:54; Status DC Quetiapine Fumarate (SEROquel) 300 mg QHS PO Last administered on 04/18/17 20: 09; Start 04/14/17 at 22:45 Gabapentin (Neurontin) 200 mg TID PO Last administered on 04/18/17 20:10; Start 04/14/17 at 22:45 Polyethylene Glycol (miraLAX) 17 gm DAILY PO Last administered on 04/18/17 09: 43; Start 04/15/17 at 09:00 Sennosides (Senna) 8.6 mg DAILY PO Last administered on 04/18/17 09:42; Start 04/15/17 at 09:00 Insulin Detemir (Levemir) 6 units QHS SQ Last administered on 04/17/17 21:10; Start 04/15/17 at 21:00 Lactobacillus Acidophilus (Bacid, Ester-Bid) 1 tab DAILY PO Last administered on 04/18/17 09:40; Start 04/15/17 at 09:00 Al Hydroxide/Mg Hydroxide (Mylanta Plus Xs) 30 ml PRN Q8HRS PRN PO DYSPEPSIA; Start 04/14/17 at 23:00 Multivitamins/ Calcium (Thera-M Plus) 1 tab DAILY PO Last administered on 09:41; Start 04/15/17 at 09:00 Pantoprazole Sodium (Protonix) 40 mg DAILYAC PO Last administered on 04/18/17 09:41; Start 04/15/17 at 07:30 Potassium Chloride (Klor-Con) 10 meq DAILYWBKFT PO Last administered on 08:00; Start 04/15/17 at 08:00 Selenium Sulfide (Selsun) 1 ghada QTU TP ; Start 04/21/17 at 16:00 Linagliptin (Tradjenta) 5 mg DAILY PO Last administered on 04/18/17 14:53; Start 04/15/17 at 09:00 Selenium Sulfide (Selsun) 1 ghada QFR TP ; Start 04/17/17 at 16:00 Vitamin D (Vitamin D3) 50,000 unit WEEKLY PO ; Start 04/16/17 at 09:00 Trazodone HCl (Desyrel) 100 mg QHS PO Last administered on 04/18/17 20:10; Start 04/16/17 at 21:00 Trazodone HCl (Desyrel) 100 mg PRN QHS PRN PO INSOMNIA; Start 04/16/17 at 21:00 Divalproex Sodium (Depakote Sprinkles) 500 mg DAILY PO Last administered on 09:42; Start 04/17/17 at 09:00 Divalproex Sodium (Depakote Sprinkles) 750 mg HS PO Last administered on 20:10; Start 04/16/17 at 21:00 Active Scripts Active Reported Dianna-Lanta Liquid (Mag Hydrox/Al Hydrox/Simeth) 355 Ml Oral.susp 30 Ml PO PRN Q8HRS PRN Thera-M (Multivits,Th W-Fe,Other Min) 1 Each Tablet 1 Each PO DAILY Senna (Sennosides) 8.6 Mg Tablet 8.6 Mg PO DAILY EXELON 4.6mg/24hr (Rivastigmine) 1 Each Patch.td24 1 Patch TD DAILY Seroquel (Quetiapine Fumarate) 50 Mg Tablet 50 Mg PO BID Seroquel (Quetiapine Fumarate) 300 Mg Tablet 300 Mg PO QHS Potassium Chloride 10 Meq Tablet.er 10 Meq PO DAILY Miralax (Polyethylene Glycol 3350) 17 Gm Powd.pack 17 Gm PO DAILY Omeprazole 20 Mg Capsule.dr 20 Mg PO DAILY Mirtazapine 30 Mg Tablet 30 Mg PO HS Namenda (Memantine Hcl) 10 Mg Tablet 5 Mg PO BID Namenda (Memantine Hcl) 10 Mg Tablet 10 Mg PO BID Januvia (Sitagliptin Phosphate) 100 Mg Tablet 100 Mg PO DAILY Gabapentin 100 Mg Capsule 200 Mg PO TID Divalproex Sodium Er (Divalproex Sodium) 500 Mg Tab.er.24h 500 Mg PO BID Citalopram Hbr (Citalopram Hydrobromide) 20 Mg Tablet 20 Mg PO DAILY Acidophilus (Lactobacillus Acidophilus) 1 Each Capsule 1 Each PO DAILY Selenium Sulfide 180 Ml Shampoo 1 Ghada TP QHS TUES AND FRI Clonazepam 0.5 Mg Tablet 0.25 Mg PO HS Lantus Solostar (Insulin Glargine,Hum.rec.anlog) 100 Unit/1 Ml Insuln.pen 6 Unit SQ HS Tylenol (Acetaminophen) 325 Mg Tablet 650 Mg PO PRN Q6HRS PRN Diagnosis: Problems: (1) Dementia with behavioral disturbance (2) Agitation (3) Schizophrenia (4) Diabetes mellitus (5) Dementia, vascular, with depression (6) Dementia, vascular, with delusions (7) Impulse control disorder (8) Dementia in Alzheimer's disease with depression (9) Dementia in Alzheimer's disease with delusions (10) Bipolar disorder, mixed (11) Anxiety disorder VIPIN BELTRAN MD Apr 18, 2017 22:42
--- NOTE | 2017-04-18 23:21 | NUR ---
Behavior Intervention Response and Plan: BIRP Note: Behavior: Assumed Care of patient, patient located in Day Room at shift change. Patient exhibited the following behavior Irritable, Disorganized, Resistive. Brief assessment on rounds of vital signs, medication needs, lab studies, and pain. Treatment plan problems 1 and 2. Intervention: Patient assessed and the following interventions initiated safety checks 15 Minute Checks Cognitive Assessment , Head to toe Assessment , Medications. Response: After interactions and interventions patient responded in the following manner, Irritable , Compliant ,Disorganized. Continue to assess behaviors and condition will continue to monitor throughout the shift as needed. Patient educated on ADL's, and hand hygiene. 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 Continue to assess patient for changes in above assessment. Monitor for medication needs, pain, and safety concerns. Hourly rounding performed to ensure safe environment.
[2017-04-19 05:45] VITALS: BP 128/73
--- NOTE | 2017-04-19 06:02 | PN ---
DATE: 04/17/2017 This late entry of 04/17/2017 covers elements not covered in my initial note of 04/17/2017. SUBJECTIVE: The patient remains confused, resistive to medications, takes vitamins, often refuses the others. She remains a little paranoid, but not aggressive like she was the first day. REVIEW OF SYSTEMS: No CV, , pulmonary, eye, ENT system symptoms on review. Reliability poor. MENTAL STATUS EXAM: Oriented to herself. Insight, judgment, recent and remote memory, attention, concentration, fund of knowledge poor, consistent with her diagnosis mentioned in my initial note. PLAN: Continue current psychotropics. Depakote was adjusted. Repeat labs on the . Adjust further to reach a therapeutic level, maintain, the rest unchanged. Reviewed drug interactions. Risk/benefit ratio favors no further change. MAN Gladis BELTRAN MD DR: JIE/triston JOB#: [id number] / [id number]
[2017-04-19 08:14] LABS: BASO % 0 % (0-3); EOS # 0.1 x10^3/uL (0.0-0.7); EOS % 2 % (0-3); HEMATOCRIT 34.7 % (36.0-47.0); HEMOGLOBIN 11.9 g/dL (12.0-15.5); LYMPH # 2.7 x10^3/uL (1.0-4.8); LYMPH % 44 % (24-48); MEAN CORPUSCULAR HEMOGLOBIN 34 pg (25-35); MEAN CORPUSCULAR HGB CONC 34 g/dL (31-37); MEAN CORPUSCULAR VOLUME 100 fL (79-100); MONO # 0.5 x10^3/uL (0.0-1.1); MONO % 8 % (0-9); NEUT # 2.8 x10^3uL (1.8-7.7); NEUT % 46 % (31-73); PLATELET COUNT 188 x10^3/uL (140-400); RED BLOOD COUNT 3.48 x10^6/uL (3.50-5.40); RED CELL DISTRIBUTION WIDTH 13.2 % (11.5-14.5)
[2017-04-19 08:24] LABS: ALBUMIN 2.9 g/dL (3.4-5.0); ALBUMIN/GLOBULIN RATIO 0.8 (1.0-1.7); CALCIUM 8.7 mg/dL (8.5-10.1); CREATININE 0.7 mg/dL (0.6-1.0); GFR 82.7; POTASSIUM 3.8 mmol/L (3.5-5.1); TOTAL BILIRUBIN 0.3 mg/dL (0.2-1.0); TOTAL PROTEIN 6.6 g/dL (6.4-8.2)
[2017-04-19 08:31] LABS: VAL ACID 104 mcg/mL (50-100)
[2017-04-19] MEDS: POTASSIUM CHLORIDE 10 MEQ TABLET.ER. PO SCH (08:36)
[2017-04-19] MEDS: DIVALPROEX 125 MG CAP.SPRINK PO SCH ×2 (08:36→19:29)
[2017-04-19] MEDS: LINAGLIPTIN 5 MG TABLET PO SCH (08:36)
[2017-04-19] MEDS: GABAPENTIN 100 MG CAPSULE. PO SCH ×3 (08:36→19:29)
[2017-04-19] MEDS: LACTOBACILLUS ACIDOPH & BULGAR 1 TABLET. PO SCH (08:37)
[2017-04-19] MEDS: QUEtiapine 50 MG TABLET. PO SCH ×2 (08:41→19:30)
[2017-04-19] MEDS: MULTIVITAMIN with MINERAL TABLET. PO SCH (08:41)
[2017-04-19] MEDS: CITALOPRAM 20 MG TABLET. PO SCH (08:41)
[2017-04-19] MEDS: POLYETHYLENE GLYCOL 3350 17 GM PACKET. PO SCH (08:42)
[2017-04-19] MEDS: SENNOSIDES 8.6 MG TABLET PO SCH (08:42)
[2017-04-19] MEDS: PANTOPRAZOLE 40 MG TABLET. PO SCH (08:42)
[2017-04-19] MEDS: INSULIN ASPART 300 UNITS/3 ML INSULN.PEN SQ SCH ×2 (08:42→20:01)
--- NOTE | 2017-04-19 10:42 | NUR ---
Behavior Intervention Response and Plan: BIRP Note: Behavior: Assumed Care of patient, patient located in Dining Room at shift change. Patient exhibited the following behavior Calm, Disorganized, Cooperative. Brief assessment on rounds of vital signs, medication needs, lab studies, and pain. Treatment plan problems 1 and 2. Intervention: Patient assessed and the following interventions initiated safety checks 15 Minute Checks Cognitive Assessment , Head to toe Assessment , Medications. Response: After interactions and interventions patient responded in the following manner, Disorganized , compliant, calm. Continue to assess behaviors and condition will continue to monitor throughout the shift as needed. Patient educated on ADL's, and hand hygiene. 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 Continue to assess patient for changes in above assessment. Monitor for medication needs, pain, and safety concerns. Hourly rounding performed to ensure safe environment.
[2017-04-19 16:01] VITALS: BP 128/87
[2017-04-19] MEDS: traZODone 100 MG TABLET. PO SCH (19:29)
[2017-04-19] MEDS: QUEtiapine 100 MG TABLET. PO SCH (19:30)
[2017-04-19] MEDS: MIRTAZAPINE 30 MG TABLET PO SCH (19:30)
--- NOTE | 2017-04-19 19:50 | PDOC ---
Exam Maximiliano Demential Exam: Maximiliano Note: Please also refer to the separate dictated note~for this date of service dictated separately.~Patient seen individually. Discussed the patient with Nursing staff reviewed the chart.~Reviewed interim history and current functioning. Reviewed vital signs,~Labs/ Radiology~and current medications noted below. Continue current treatment with the changes noted in the dictated addendum note Assessment: Vital Signs: Vital Signs Date Time Temp Pulse Resp B/P (MAP) Pulse Ox O2 Delivery O2 Flow Rate FiO2 04/19/17 16:01 98.2 95 16 128/87 (101) 96 04/17/17 16:31 Room Air I&O Intake and Output 04/20/17 07:00 Intake Total 780 ml Balance 780 ml Intake Oral 780 ml # Bowel Movements 1 Labs: Laboratory Tests Test 04/19/17 07:21 04/19/17 07:51 Glucose (Fingerstick) 103 mg/dL (70-99) H White Blood Count 6.0 x10^3/uL (4.0-11.0) Red Blood Count 3.48 x10^6/uL (3.50-5.40) L Hemoglobin 11.9 g/dL (12.0-15.5) L Hematocrit 34.7 % (36.0-47.0) L Mean Corpuscular Volume 100 fL (79-100) Mean Corpuscular Hemoglobin 34 pg (25-35) Mean Corpuscular Hemoglobin Concent 34 g/dL (31-37) Red Cell Distribution Width 13.2 % (11.5-14.5) Platelet Count 188 x10^3/uL (140-400) Neutrophils (%) (Auto) 46 % (31-73) Lymphocytes (%) (Auto) 44 % (24-48) Monocytes (%) (Auto) 8 % (0-9) Eosinophils (%) (Auto) 2 % (0-3) Basophils (%) (Auto) 0 % (0-3) Neutrophils # (Auto) 2.8 x10^3uL (1.8-7.7) Lymphocytes # (Auto) 2.7 x10^3/uL (1.0-4.8) Monocytes # (Auto) 0.5 x10^3/uL (0.0-1.1) Eosinophils # (Auto) 0.1 x10^3/uL (0.0-0.7) Basophils # (Auto) 0.0 x10^3/uL (0.0-0.2) Sodium Level 144 mmol/L (136-145) Potassium Level 3.8 mmol/L (3.5-5.1) Chloride Level 110 mmol/L (98-107) H Carbon Dioxide Level 31 mmol/L (21-32) Anion Gap 3 (6-14) L Blood Urea Nitrogen 9 mg/dL (7-20) Creatinine 0.7 mg/dL (0.6-1.0) Estimated GFR (Cockcroft-Gault) 82.7 BUN/Creatinine Ratio 13 (6-20) Glucose Level 103 mg/dL (70-99) H Calcium Level 8.7 mg/dL (8.5-10.1) Total Bilirubin 0.3 mg/dL (0.2-1.0) Aspartate Amino Transferase (AST) 9 U/L (15-37) L Alanine Aminotransferase (ALT) 13 U/L (14-59) L Alkaline Phosphatase 67 U/L (46-116) Total Protein 6.6 g/dL (6.4-8.2) Albumin 2.9 g/dL (3.4-5.0) L Albumin/Globulin Ratio 0.8 (1.0-1.7) L Valproic Acid Level 104 mcg/mL (50-100) H Valproic Acid Last Dose Date 04/18/2017 Valproic Acid Last Dose Time 2100 Current Medications: Meds: Current Medications Olanzapine (ZyPREXA ZYDIS) 5 mg 1X ONCE PO ; Start 04/14/17 at 18:45; Stop 07/19 at 18:46; Status DC Olanzapine (ZyPREXA ZYDIS) 2.5 mg PRN Q2HR PRN PO PSYCHOSIS Last administered on 04/15/17t 20:32; Start 04/14/17 at 18:45 Acetaminophen (Tylenol) 650 mg PRN Q6HRS PRN PO PAIN / TEMP; Start 04/14/17 at 19:30 Multi-Ingredient Ointment (Analgesic [place]) 1 ghada PRN QID PRN TP MUSCLE PAIN; Start 04/14/17 at 19:30 Al Hydroxide/Mg Hydroxide (Mylanta Plus Xs) 15 ml PRN AFTMEALHC PRN PO DYSPEPSIA; Start 04/14/17 at 19:30; Status Cancel Magnesium Hydroxide (Milk Of Magnesia) 2,400 mg PRN QHS PRN PO CONSTIPATION; Start 04/14/17 at 19:30 Insulin Aspart (NovoLOG) 0-7 UNITS BID SQ ; Start 04/15/17 at 09:00 Dextrose 12.5 gm PRN Q15MIN PRN IV SEE COMMENTS; Start 04/14/17 at 22:15 Citalopram Hydrobromide (CeleXA) 20 mg DAILY PO Last administered on 04/19/17 08:41; Start 04/15/17 at 09:00 Clonazepam (KlonoPIN) 0.25 mg HS PO Last administered on 04/15/17 20:36; Start 04/14/17 at 22:45; Stop 04/16/17 at 10:54; Status DC Divalproex Sodium (Depakote Er) 500 mg BID PO Last administered on 04/16/17 09 :35; Start 04/14/17 at 22:45; Stop 04/16/17 at 19:26; Status DC Memantine (Namenda) 5 mg BID PO ; Start 04/14/17 at 22:45; Stop 04/14/17 at 22: 45; Status DC Memantine (Namenda) 15 mg BID PO Last administered on 04/16/17 09:35; Start at 22:45; Stop 04/16/17 at 10:54; Status DC Mirtazapine (Remeron) 30 mg HS PO Last administered on 04/19/17 19:30; Start 04/14/17 at 22:45 Quetiapine Fumarate (SEROquel) 50 mg BID PO Last administered on 04/19/17 19: 30; Start 04/14/17 at 22:45 Rivastigmine (Exelon) 1 patch DAILY TD Last administered on 04/16/17 09:36; Start 04/15/17 at 09:00; Stop 04/16/17 at 10:54; Status DC Quetiapine Fumarate (SEROquel) 300 mg QHS PO Last administered on 04/19/17 19: 30; Start 04/14/17 at 22:45 Gabapentin (Neurontin) 200 mg TID PO Last administered on 04/19/17 19:29; Start 04/14/17 at 22:45 Polyethylene Glycol (miraLAX) 17 gm DAILY PO Last administered on 04/18/17 09: 43; Start 04/15/17 at 09:00 Sennosides (Senna) 8.6 mg DAILY PO Last administered on 04/18/17 09:42; Start 04/15/17 at 09:00 Insulin Detemir (Levemir) 6 units QHS SQ Last administered on 04/17/17 21:10; Start 04/15/17 at 21:00 Lactobacillus Acidophilus (Bacid, Ester-Bid) 1 tab DAILY PO Last administered on 04/19/17 08:37; Start 04/15/17 at 09:00 Al Hydroxide/Mg Hydroxide (Mylanta Plus Xs) 30 ml PRN Q8HRS PRN PO DYSPEPSIA; Start 04/14/17 at 23:00 Multivitamins/ Calcium (Thera-M Plus) 1 tab DAILY PO Last administered on 08:41; Start 04/15/17 at 09:00 Pantoprazole Sodium (Protonix) 40 mg DAILYAC PO Last administered on 04/19/17 08:42; Start 04/15/17 at 07:30 Potassium Chloride (Klor-Con) 10 meq DAILYWBKFT PO Last administered on 08:36; Start 04/15/17 at 08:00 Selenium Sulfide (Selsun) 1 ghada QTU TP ; Start 04/21/17 at 16:00 Linagliptin (Tradjenta) 5 mg DAILY PO Last administered on 04/19/17 08:36; Start 04/15/17 at 09:00 Selenium Sulfide (Selsun) 1 ghada QFR TP ; Start 04/17/17 at 16:00 Vitamin D (Vitamin D3) 50,000 unit WEEKLY PO ; Start 04/16/17 at 09:00 Trazodone HCl (Desyrel) 100 mg QHS PO Last administered on 04/19/17 19:29; Start 04/16/17 at 21:00 Trazodone HCl (Desyrel) 100 mg PRN QHS PRN PO INSOMNIA; Start 04/16/17 at 21:00 Divalproex Sodium (Depakote Sprinkles) 500 mg DAILY PO Last administered on 08:36; Start 04/17/17 at 09:00 Divalproex Sodium (Depakote Sprinkles) 750 mg HS PO Last administered on 19:29; Start 04/16/17 at 21:00 Active Scripts Active Reported Dianna-Lanta Liquid (Mag Hydrox/Al Hydrox/Simeth) 355 Ml Oral.susp 30 Ml PO PRN Q8HRS PRN Thera-M (Multivits, W-Fe,Other Min) 1 Each Tablet 1 Each PO DAILY Senna (Sennosides) 8.6 Mg Tablet 8.6 Mg PO DAILY EXELON 4.6mg/24hr (Rivastigmine) 1 Each Patch.td24 1 Patch TD DAILY Seroquel (Quetiapine Fumarate) 50 Mg Tablet 50 Mg PO BID Seroquel (Quetiapine Fumarate) 300 Mg Tablet 300 Mg PO QHS Potassium Chloride 10 Meq Tablet.er 10 Meq PO DAILY Miralax (Polyethylene Glycol 3350) 17 Gm Powd.pack 17 Gm PO DAILY Omeprazole 20 Mg Capsule.dr 20 Mg PO DAILY Mirtazapine 30 Mg Tablet 30 Mg PO HS Namenda (Memantine Hcl) 10 Mg Tablet 5 Mg PO BID Namenda (Memantine Hcl) 10 Mg Tablet 10 Mg PO BID Januvia (Sitagliptin Phosphate) 100 Mg Tablet 100 Mg PO DAILY Gabapentin 100 Mg Capsule 200 Mg PO TID Divalproex Sodium Er (Divalproex Sodium) 500 Mg Tab.er.24h 500 Mg PO BID Citalopram Hbr (Citalopram Hydrobromide) 20 Mg Tablet 20 Mg PO DAILY Acidophilus (Lactobacillus Acidophilus) 1 Each Capsule 1 Each PO DAILY Selenium Sulfide 180 Ml Shampoo 1 Ghada TP QHS TUES AND FRI Clonazepam 0.5 Mg Tablet 0.25 Mg PO HS Lantus Solostar (Insulin Glargine,Hum.rec.anlog) 100 Unit/1 Ml Insuln.pen 6 Unit SQ HS Tylenol (Acetaminophen) 325 Mg Tablet 650 Mg PO PRN Q6HRS PRN Diagnosis: Problems: (1) Bipolar disorder, mixed (2) Anxiety disorder (3) Dementia in Alzheimer's disease with delusions (4) Dementia in Alzheimer's disease with depression (5) Impulse control disorder (6) Dementia, vascular, with delusions (7) Dementia, vascular, with depression (8) Agitation (9) Schizophrenia (10) Dementia with behavioral disturbance VIPIN BELTRAN MD Apr 19, 2017 19:50
[2017-04-19] MEDS: INSULIN DETEMIR 300 UNITS/3 ML INSULN.PEN. SQ SCH (20:01)
--- NOTE | 2017-04-19 23:01 | NUR ---
Behavior Intervention Response and Plan: BIRP Note: Behavior: Assumed Care of patient, patient located in Day Room at shift change. Patient exhibited the following behavior Agitated, Non Compliant, Resistive, scratching, hitting, yelling, using foul language. Brief assessment on rounds of vital signs, medication needs, lab studies, and pain. Treatment plan problems 1-2. Intervention: Patient assessed and the following interventions initiated safety checks 15 Minute Checks Cognitive Assessment , Head to toe Assessment , Medications. Response: After interactions and interventions patient responded in the following manner, Resistive , Agitated ,Combative. Continue to assess behaviors and condition will continue to monitor throughout the shift as needed. Patient educated on ADL's, and hand hygiene. Plan: Continue to monitor Master Treatment Plan for patient's progress toward short term goals of Decreased Agitation, Improved Mood, fdc goals to return to previous living setting vs placement. Continue to assess patient for changes in above assessment. Monitor for medication needs, pain, and safety concerns. Hourly rounding performed to ensure safe environment.
--- NOTE | 2017-04-20 00:57 | PN ---
DATE: 04/18/2017 This is a late entry for date of service 04/18/2017 and covers elements not covered in my initial note of 04/18/217. SUBJECTIVE: I met with the patient evening of 04/18/2017. The patient is compliant in the morning, compliant with medications, more resistive the evening of 04/18/2017. She has had 3 loose stools and we will check stool for C. diff. REVIEW OF SYSTEMS: No CV, , pulmonary, eye, ENT system symptoms on review. Reliability poor. MENTAL STATUS EXAM: Oriented to herself. Insight, judgment, recent and remote memory, attention, concentration, fund of knowledge poor, consistent with her diagnosis as mentioned in my initial note. PLAN: Continue current psychotropics as mentioned in my initial note. Check labs and valproic acid level on 04/19/2017, adjust to reach a therapeutic level. Reviewed drug interactions, risk/benefit ratio favors no further change. VIPIN BELTRAN MD DR: JIE/triston JOB#: [id number] / [id number]
[2017-04-20 06:14] VITALS: BP 137/76
[2017-04-20] MEDS: PANTOPRAZOLE 40 MG TABLET. PO SCH (07:20)
[2017-04-20] MEDS: DIVALPROEX 125 MG CAP.SPRINK PO SCH ×2 (07:44→21:19)
[2017-04-20] MEDS: POTASSIUM CHLORIDE 10 MEQ TABLET.ER. PO SCH (07:44)
[2017-04-20] MEDS: MULTIVITAMIN with MINERAL TABLET. PO SCH (07:45)
[2017-04-20] MEDS: SENNOSIDES 8.6 MG TABLET PO SCH (07:45)
[2017-04-20] MEDS: GABAPENTIN 100 MG CAPSULE. PO SCH ×3 (07:45→21:19)
[2017-04-20] MEDS: LINAGLIPTIN 5 MG TABLET PO SCH (07:45)
[2017-04-20] MEDS: LACTOBACILLUS ACIDOPH & BULGAR 1 TABLET. PO SCH (07:45)
[2017-04-20] MEDS: CITALOPRAM 20 MG TABLET. PO SCH (07:45)
[2017-04-20] MEDS: QUEtiapine 50 MG TABLET. PO SCH ×2 (07:45→21:20)
[2017-04-20] MEDS: POLYETHYLENE GLYCOL 3350 17 GM PACKET. PO SCH (07:46)
[2017-04-20] MEDS: INSULIN ASPART 300 UNITS/3 ML INSULN.PEN SQ SCH ×2 (08:02→21:00)
--- NOTE | 2017-04-20 10:00 | NUR ---
THERAPEUTIC RECREATION GROUP NOTE TITLE :Fall Festival Decoration ACTIVITY : Arts/ Crafts GOAL : Increase socialization, fine motor skills, creativity DURATION : 90 Minutes RESPONSE : Minimal participation. Pt. sat in the group room the entire time; however, only tapped her foot and sang a long to a few songs. She did not show interest in art.
--- NOTE | 2017-04-20 11:06 | NUR ---
Nursing Note: Pt observed talking to people who are not there and reaching for objects not present. When asked questions about whom she is speaking to pt does not respond.
--- NOTE | 2017-04-20 11:30 | NUR ---
THERAPEUTIC RECREATION GROUP NOTE TITLE :Movement to Music: Flexibility ACTIVITY : Movement/ Exercise GOAL : Increase morale, attention, flexibility. Decrease stress/anxiety. DURATION : 30 Minutes RESPONSE : No participation.
--- NOTE | 2017-04-20 14:00 | NUR ---
THERAPEUTIC RECREATION GROUP NOTE TITLE :Picture Puzzles ACTIVITY : Cognitive Stimulation GOAL : Maintain or improve cognitive functioning and memory. DURATION : 60 Minutes RESPONSE : No participation.
--- NOTE | 2017-04-20 14:39 | NUR ---
Behavior Intervention Response and Plan: BIRP Note: Behavior: Assumed Care of patient, patient located in Day Room at shift change. Patient exhibited the following behavior Hallucinating, Disorganized, Defensive. Brief assessment on rounds of vital signs, medication needs, lab studies, and pain. Treatment plan problems Dementia w/ BD and Fall Risk. Intervention: Patient assessed and the following interventions initiated safety checks 15 Minute Checks Cognitive Assessment , Head to toe Assessment , Medications. Response: After interactions and interventions patient responded in the following manner, Withdrawn , Disorganized ,Withdrawn. Continue to assess behaviors and condition will continue to monitor throughout the shift as needed. Patient educated on ADL's, and hand hygiene. Plan: Continue to monitor Master Treatment Plan for patient's progress toward short term goals of Decreased Agitation, Decreased Aggression, prison goals to return to previous living setting vs placement. Continue to assess patient for changes in above assessment. Monitor for medication needs, pain, and safety concerns. Hourly rounding performed to ensure safe environment.
--- NOTE | 2017-04-20 15:09 | NUR ---
Group Note [facility] Group Type Enthusiasm and Attitude Start Time: 1:10 End Time: 2:00pm Problem: Depression Purpose: Increase Motivation,increased positivity, socialization, elevate mood, express feelings, Level of Participation: Absent Behaviors or Symptoms Observed: Interventions: Reframing Response: Plan: Group Participation Additional Comments:
--- NOTE | 2017-04-20 19:47 | PDOC ---
Exam Maximiliano Demential Exam: Maximiliano Note: Please also refer to the separate dictated note~for this date of service dictated separately.~Patient seen individually. Discussed the patient with Nursing staff reviewed the chart.~Reviewed interim history and current functioning. Reviewed vital signs,~Labs/ Radiology~and current medications noted below. Continue current treatment with the changes noted in the dictated addendum note Assessment: Vital Signs: Vital Signs Date Time Temp Pulse Resp B/P (MAP) Pulse Ox O2 Delivery O2 Flow Rate FiO2 04/20/17 06:14 98.7 70 16 137/76 (96) 97 04/17/17 16:31 Room Air I&O Intake and Output 04/21/17 07:00 Intake Total 860 ml Balance 860 ml Intake Oral 860 ml Labs: Laboratory Tests Test 04/19/17 19:50 04/20/17 07:51 Glucose (Fingerstick) 143 mg/dL (70-99) H 93 mg/dL (70-99) Current Medications: Meds: Current Medications Olanzapine (ZyPREXA ZYDIS) 5 mg 1X ONCE PO ; Start 04/14/17 at 18:45; Stop 07/19 at 18:46; Status DC Olanzapine (ZyPREXA ZYDIS) 2.5 mg PRN Q2HR PRN PO PSYCHOSIS Last administered on 04/15/17t 20:32; Start 04/14/17 at 18:45 Acetaminophen (Tylenol) 650 mg PRN Q6HRS PRN PO PAIN / TEMP; Start 04/14/17 at 19:30 Multi-Ingredient Ointment (Analgesic [place]) 1 ghada PRN QID PRN TP MUSCLE PAIN; Start 04/14/17 at 19:30 Al Hydroxide/Mg Hydroxide (Mylanta Plus Xs) 15 ml PRN AFTMEALHC PRN PO DYSPEPSIA; Start 04/14/17 at 19:30; Status Cancel Magnesium Hydroxide (Milk Of Magnesia) 2,400 mg PRN QHS PRN PO CONSTIPATION; Start 04/14/17 at 19:30 Insulin Aspart (NovoLOG) 0-7 UNITS BID SQ ; Start 04/15/17 at 09:00 Dextrose 12.5 gm PRN Q15MIN PRN IV SEE COMMENTS; Start 04/14/17 at 22:15 Citalopram Hydrobromide (CeleXA) 20 mg DAILY PO Last administered on 04/20/17 07:45; Start 04/15/17 at 09:00 Clonazepam (KlonoPIN) 0.25 mg HS PO Last administered on 04/15/17 20:36; Start 04/14/17 at 22:45; Stop 04/16/17 at 10:54; Status DC Divalproex Sodium (Depakote Er) 500 mg BID PO Last administered on 04/16/17 09 :35; Start 04/14/17 at 22:45; Stop 04/16/17 at 19:26; Status DC Memantine (Namenda) 5 mg BID PO ; Start 04/14/17 at 22:45; Stop 04/14/17 at 22: 45; Status DC Memantine (Namenda) 15 mg BID PO Last administered on 04/16/17 09:35; Start at 22:45; Stop 04/16/17 at 10:54; Status DC Mirtazapine (Remeron) 30 mg HS PO Last administered on 04/19/17 19:30; Start 04/14/17 at 22:45 Quetiapine Fumarate (SEROquel) 50 mg BID PO Last administered on 04/20/17 07: 45; Start 04/14/17 at 22:45 Rivastigmine (Exelon) 1 patch DAILY TD Last administered on 04/16/17 09:36; Start 04/15/17 at 09:00; Stop 04/16/17 at 10:54; Status DC Quetiapine Fumarate (SEROquel) 300 mg QHS PO Last administered on 04/19/17 19: 30; Start 04/14/17 at 22:45 Gabapentin (Neurontin) 200 mg TID PO Last administered on 04/20/17 13:01; Start 04/14/17 at 22:45 Polyethylene Glycol (miraLAX) 17 gm DAILY PO Last administered on 04/20/17 07: 46; Start 04/15/17 at 09:00 Sennosides (Senna) 8.6 mg DAILY PO Last administered on 04/20/17 07:45; Start 04/15/17 at 09:00 Insulin Detemir (Levemir) 6 units QHS SQ Last administered on 04/19/17 20:01; Start 04/15/17 at 21:00 Lactobacillus Acidophilus (Bacid, Ester-Bid) 1 tab DAILY PO Last administered on 04/20/17 07:45; Start 04/15/17 at 09:00 Al Hydroxide/Mg Hydroxide (Mylanta Plus Xs) 30 ml PRN Q8HRS PRN PO DYSPEPSIA; Start 04/14/17 at 23:00 Multivitamins/ Calcium (Thera-M Plus) 1 tab DAILY PO Last administered on 07:45; Start 04/15/17 at 09:00 Pantoprazole Sodium (Protonix) 40 mg DAILYAC PO Last administered on 04/20/17 07:20; Start 04/15/17 at 07:30 Potassium Chloride (Klor-Con) 10 meq DAILYWBKFT PO Last administered on 07:44; Start 04/15/17 at 08:00 Selenium Sulfide (Selsun) 1 ghada QTU TP ; Start 04/21/17 at 16:00 Linagliptin (Tradjenta) 5 mg DAILY PO Last administered on 04/20/17 07:45; Start 04/15/17 at 09:00 Selenium Sulfide (Selsun) 1 ghada QFR TP ; Start 04/17/17 at 16:00 Vitamin D (Vitamin D3) 50,000 unit WEEKLY PO ; Start 04/16/17 at 09:00 Trazodone HCl (Desyrel) 100 mg QHS PO Last administered on 04/19/17 19:29; Start 04/16/17 at 21:00 Trazodone HCl (Desyrel) 100 mg PRN QHS PRN PO INSOMNIA; Start 04/16/17 at 21:00 Divalproex Sodium (Depakote Sprinkles) 500 mg DAILY PO Last administered on 07:44; Start 04/17/17 at 09:00 Divalproex Sodium (Depakote Sprinkles) 750 mg HS PO Last administered on 19:29; Start 04/16/17 at 21:00; Stop 04/20/17 at 18:21; Status DC Divalproex Sodium (Depakote Sprinkles) 500 mg HS PO ; Start 04/20/17 at 21:00 Active Scripts Active Reported Dianna-Lanta Liquid (Mag Hydrox/Al Hydrox/Simeth) 355 Ml Oral.susp 30 Ml PO PRN Q8HRS PRN Thera-M (Multivits, W-Fe,Other Min) 1 Each Tablet 1 Each PO DAILY Senna (Sennosides) 8.6 Mg Tablet 8.6 Mg PO DAILY EXELON 4.6mg/24hr (Rivastigmine) 1 Each Patch.td24 1 Patch TD DAILY Seroquel (Quetiapine Fumarate) 50 Mg Tablet 50 Mg PO BID Seroquel (Quetiapine Fumarate) 300 Mg Tablet 300 Mg PO QHS Potassium Chloride 10 Meq Tablet.er 10 Meq PO DAILY Miralax (Polyethylene Glycol 3350) 17 Gm Powd.pack 17 Gm PO DAILY Omeprazole 20 Mg Capsule.dr 20 Mg PO DAILY Mirtazapine 30 Mg Tablet 30 Mg PO HS Namenda (Memantine Hcl) 10 Mg Tablet 5 Mg PO BID Namenda (Memantine Hcl) 10 Mg Tablet 10 Mg PO BID Januvia (Sitagliptin Phosphate) 100 Mg Tablet 100 Mg PO DAILY Gabapentin 100 Mg Capsule 200 Mg PO TID Divalproex Sodium Er (Divalproex Sodium) 500 Mg Tab.er.24h 500 Mg PO BID Citalopram Hbr (Citalopram Hydrobromide) 20 Mg Tablet 20 Mg PO DAILY Acidophilus (Lactobacillus Acidophilus) 1 Each Capsule 1 Each PO DAILY Selenium Sulfide 180 Ml Shampoo 1 Ghada TP QHS TUES AND FRI Clonazepam 0.5 Mg Tablet 0.25 Mg PO HS Lantus Solostar (Insulin Glargine,Hum.rec.anlog) 100 Unit/1 Ml Insuln.pen 6 Unit SQ HS Tylenol (Acetaminophen) 325 Mg Tablet 650 Mg PO PRN Q6HRS PRN Diagnosis: Problems: (1) Bipolar disorder, mixed (2) Anxiety disorder (3) Dementia in Alzheimer's disease with delusions (4) Dementia in Alzheimer's disease with depression (5) Impulse control disorder (6) Dementia, vascular, with delusions (7) Dementia, vascular, with depression VIPIN BELTRAN MD Apr 20, 2017 19:47
[2017-04-20] MEDS: traZODone 100 MG TABLET. PO SCH (21:20)
[2017-04-20] MEDS: MIRTAZAPINE 30 MG TABLET PO SCH (21:21)
[2017-04-20] MEDS: QUEtiapine 100 MG TABLET. PO SCH (21:21)
[2017-04-20] MEDS: INSULIN DETEMIR 300 UNITS/3 ML INSULN.PEN. SQ SCH (21:27)
--- NOTE | 2017-04-21 01:04 | NUR ---
Behavior Intervention Response and Plan: BIRP Note: Behavior: Assumed Care of patient, patient located in Day Room at shift change. Patient exhibited the following behavior Calm, Compliant, Cooperative. Brief assessment on rounds of vital signs, medication needs, lab studies, and pain. Treatment plan problems Dementia w/ BD and Fall Risk. Intervention: Patient assessed and the following interventions initiated safety checks 15 Minute Checks Cognitive Assessment , Medications , Oral Hydration. Response: After interactions and interventions patient responded in the following manner, Calm , Compliant ,Cooperative. Continue to assess behaviors and condition will continue to monitor throughout the shift as needed. Patient educated on ADL's, and hand hygiene. 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 Continue to assess patient for changes in above assessment. Monitor for medication needs, pain, and safety concerns. Hourly rounding performed to ensure safe environment.
--- NOTE | 2017-04-21 05:22 | PN ---
DATE: 04/19/2017 This late entry for 04/19/2017 covers elements not covered in my initial note of 04/19/2017. SUBJECTIVE: I met with the patient in the evening of 04/19/2017. The patient takes her meds in ice cream, remains quite confused. Not aggressive, withdrawn at times. REVIEW OF SYSTEMS: No CV, , eye, ENT, pulmonary system symptoms on review. Reliability poor. MENTAL STATUS EXAM: Oriented to herself. Insight, judgment, recent and remote memory, attention, concentration, fund of knowledge poor, consistent with her diagnosis mentioned in my initial note. LABORATORY DATA: Reviewed. PLAN: Continue current psychotropics mentioned in my initial note. Adjust Depakote if clinically indicated. Right now, the level is 45. We will observe another day before deciding. MAN Gladis BELTRAN MD DR: JIE/triston JOB#: [id number] / [id number]
[2017-04-21] MEDS: PANTOPRAZOLE 40 MG TABLET. PO SCH (07:38)
[2017-04-21] MEDS: POTASSIUM CHLORIDE 10 MEQ TABLET.ER. PO SCH (07:38)
[2017-04-21] MEDS: SENNOSIDES 8.6 MG TABLET PO SCH (07:59)
[2017-04-21] MEDS: LINAGLIPTIN 5 MG TABLET PO SCH (07:59)
[2017-04-21] MEDS: DIVALPROEX 125 MG CAP.SPRINK PO SCH ×2 (07:59→20:50)
[2017-04-21] MEDS: MULTIVITAMIN with MINERAL TABLET. PO SCH (07:59)
[2017-04-21] MEDS: QUEtiapine 50 MG TABLET. PO SCH ×2 (08:00→20:50)
[2017-04-21] MEDS: LACTOBACILLUS ACIDOPH & BULGAR 1 TABLET. PO SCH (08:00)
[2017-04-21] MEDS: CITALOPRAM 20 MG TABLET. PO SCH (08:00)
[2017-04-21] MEDS: GABAPENTIN 100 MG CAPSULE. PO SCH ×3 (08:00→20:50)
[2017-04-21] MEDS: INSULIN ASPART 300 UNITS/3 ML INSULN.PEN SQ SCH ×2 (08:02→20:58)
[2017-04-21] MEDS: POLYETHYLENE GLYCOL 3350 17 GM PACKET. PO SCH (08:14)
--- NOTE | 2017-04-21 10:30 | NUR ---
THERAPEUTIC RECREATION GROUP NOTE TITLE :40 Ways to Relax in 5 ACTIVITY : Relaxation GOAL : Decrease stress, elevate mood, increase concentration/attention, encourage awareness DURATION : 60 Minutes RESPONSE : No participation
--- NOTE | 2017-04-21 14:00 | NUR ---
THERAPEUTIC RECREATION GROUP NOTE TITLE :Sing along with [place] ACTIVITY : Music GOAL : Increase socialization, elevate mood, stimulate memory DURATION : 60 minutes RESPONSE : Minimal participation. Pt. was with the group the entire time; however, showed little interest in the music. She was mostly calm and quiet.
--- NOTE | 2017-04-21 14:46 | NUR ---
Behavior Intervention Response and Plan: BIRP Note: Behavior: Assumed Care of patient, patient located in Patient Room at shift change. Patient exhibited the following behavior Calm, Disorganized, Withdrawn. Brief assessment on rounds of vital signs, medication needs, lab studies, and pain. Treatment plan problems Dementia w/ BD and Fall Risk. Intervention: Patient assessed and the following interventions initiated safety checks 15 Minute Checks Cognitive Assessment , Head to toe Assessment , Medications. Response: After interactions and interventions patient responded in the following manner, , ,. Continue to assess behaviors and condition will continue to monitor throughout the shift as needed. Patient educated on ADL's, and hand hygiene. 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 Continue to assess patient for changes in above assessment. Monitor for medication needs, pain, and safety concerns. Hourly rounding performed to ensure safe environment.
[2017-04-21] MEDS: SELENIUM SULFIDE 1% TOPICAL SHAMPOO 207ML BOTTLE. TP SCH (15:18)
[2017-04-21 15:47] VITALS: BP 108/71
[2017-04-21 16:28] VITALS: BP 113/82
--- NOTE | 2017-04-21 19:43 | PDOC ---
Exam Maximiliano Demential Exam: Maximiliano Note: Please also refer to the separate dictated note~for this date of service dictated separately.~Patient seen individually. Discussed the patient with Nursing staff reviewed the chart.~Reviewed interim history and current functioning. Reviewed vital signs,~Labs/ Radiology~and current medications noted below. Continue current treatment with the changes noted in the dictated addendum note Assessment: Vital Signs: Vital Signs Date Time Temp Pulse Resp B/P (MAP) Pulse Ox O2 Delivery O2 Flow Rate FiO2 04/21/17 16:28 98.0 86 20 113/82 (92) 96 Room Air I&O Intake and Output 04/22/17 07:00 Intake Total 120 ml Balance 120 ml Intake Oral 120 ml # Bowel Movements 1 Labs: Laboratory Tests Test 04/20/17 21:25 04/21/17 07:15 Glucose (Fingerstick) 198 mg/dL (70-99) H 103 mg/dL (70-99) H Current Medications: Meds: Current Medications Olanzapine (ZyPREXA ZYDIS) 5 mg 1X ONCE PO ; Start 04/14/17 at 18:45; Stop 07/19 at 18:46; Status DC Olanzapine (ZyPREXA ZYDIS) 2.5 mg PRN Q2HR PRN PO PSYCHOSIS Last administered on 04/15/17 20:32; Start 04/14/17 at 18:45 Acetaminophen (Tylenol) 650 mg PRN Q6HRS PRN PO PAIN / TEMP; Start 04/14/17 at 19:30 Multi-Ingredient Ointment (Analgesic [place]) 1 ghada PRN QID PRN TP MUSCLE PAIN; Start 04/14/17 at 19:30 Al Hydroxide/Mg Hydroxide (Mylanta Plus Xs) 15 ml PRN AFTMEALHC PRN PO DYSPEPSIA; Start 04/14/17 at 19:30; Status Cancel Magnesium Hydroxide (Milk Of Magnesia) 2,400 mg PRN QHS PRN PO CONSTIPATION; Start 04/14/17 at 19:30 Insulin Aspart (NovoLOG) 0-7 UNITS BID SQ ; Start 04/15/17 at 09:00 Dextrose 12.5 gm PRN Q15MIN PRN IV SEE COMMENTS; Start 04/14/17 at 22:15 Citalopram Hydrobromide (CeleXA) 20 mg DAILY PO Last administered on 04/21/17 08:00; Start 04/15/17 at 09:00 Clonazepam (KlonoPIN) 0.25 mg HS PO Last administered on 04/15/17 20:36; Start 04/14/17 at 22:45; Stop 04/16/17 at 10:54; Status DC Divalproex Sodium (Depakote Er) 500 mg BID PO Last administered on 04/16/17 09 :35; Start 04/14/17 at 22:45; Stop 04/16/17 at 19:26; Status DC Memantine (Namenda) 5 mg BID PO ; Start 04/14/17 at 22:45; Stop 04/14/17 at 22: 45; Status DC Memantine (Namenda) 15 mg BID PO Last administered on 04/16/17 09:35; Start at 22:45; Stop 04/16/17 at 10:54; Status DC Mirtazapine (Remeron) 30 mg HS PO Last administered on 04/20/17 21:21; Start 04/14/17 at 22:45 Quetiapine Fumarate (SEROquel) 50 mg BID PO Last administered on 04/21/17 08: 00; Start 04/14/17 at 22:45 Rivastigmine (Exelon) 1 patch DAILY TD Last administered on 04/16/17 09:36; Start 04/15/17 at 09:00; Stop 04/16/17 at 10:54; Status DC Quetiapine Fumarate (SEROquel) 300 mg QHS PO Last administered on 04/20/17 21: 21; Start 04/14/17 at 22:45 Gabapentin (Neurontin) 200 mg TID PO Last administered on 04/21/17 13:42; Start 04/14/17 at 22:45 Polyethylene Glycol (miraLAX) 17 gm DAILY PO Last administered on 04/21/17 08: 14; Start 04/15/17 at 09:00 Sennosides (Senna) 8.6 mg DAILY PO Last administered on 04/21/17 07:59; Start 04/15/17 at 09:00 Insulin Detemir (Levemir) 6 units QHS SQ Last administered on 04/20/17 21:27; Start 04/15/17 at 21:00 Lactobacillus Acidophilus (Bacid, Ester-Bid) 1 tab DAILY PO Last administered on 04/21/17 08:00; Start 04/15/17 at 09:00 Al Hydroxide/Mg Hydroxide (Mylanta Plus Xs) 30 ml PRN Q8HRS PRN PO DYSPEPSIA; Start 04/14/17 at 23:00 Multivitamins/ Calcium (Thera-M Plus) 1 tab DAILY PO Last administered on 07:59; Start 04/15/17 at 09:00 Pantoprazole Sodium (Protonix) 40 mg DAILYAC PO Last administered on 04/21/17 07:38; Start 04/15/17 at 07:30 Potassium Chloride (Klor-Con) 10 meq DAILYWBKFT PO Last administered on 07:38; Start 04/15/17 at 08:00 Selenium Sulfide (Selsun) 1 ghada QTU TP ; Start 04/21/17 at 16:00 Linagliptin (Tradjenta) 5 mg DAILY PO Last administered on 04/21/17 07:59; Start 04/15/17 at 09:00 Selenium Sulfide (Selsun) 1 ghada QFR TP ; Start 04/17/17 at 16:00 Vitamin D (Vitamin D3) 50,000 unit WEEKLY PO ; Start 04/16/17 at 09:00 Trazodone HCl (Desyrel) 100 mg QHS PO Last administered on 04/20/17 21:20; Start 04/16/17 at 21:00 Trazodone HCl (Desyrel) 100 mg PRN QHS PRN PO INSOMNIA; Start 04/16/17 at 21:00 Divalproex Sodium (Depakote Sprinkles) 500 mg DAILY PO Last administered on 07:59; Start 04/17/17 at 09:00 Divalproex Sodium (Depakote Sprinkles) 750 mg HS PO Last administered on 19:29; Start 04/16/17 at 21:00; Stop 04/20/17 at 18:21; Status DC Divalproex Sodium (Depakote Sprinkles) 500 mg HS PO Last administered on 21:19; Start 04/20/17 at 21:00 Active Scripts Active Reported Dianna-Lanta Liquid (Mag Hydrox/Al Hydrox/Simeth) 355 Ml Oral.susp 30 Ml PO PRN Q8HRS PRN Thera-M (Multivits, W-Fe,Other Min) 1 Each Tablet 1 Each PO DAILY Senna (Sennosides) 8.6 Mg Tablet 8.6 Mg PO DAILY EXELON 4.6mg/24hr (Rivastigmine) 1 Each Patch.td24 1 Patch TD DAILY Seroquel (Quetiapine Fumarate) 50 Mg Tablet 50 Mg PO BID Seroquel (Quetiapine Fumarate) 300 Mg Tablet 300 Mg PO QHS Potassium Chloride 10 Meq Tablet.er 10 Meq PO DAILY Miralax (Polyethylene Glycol 3350) 17 Gm Powd.pack 17 Gm PO DAILY Omeprazole 20 Mg Capsule.dr 20 Mg PO DAILY Mirtazapine 30 Mg Tablet 30 Mg PO HS Namenda (Memantine Hcl) 10 Mg Tablet 5 Mg PO BID Namenda (Memantine Hcl) 10 Mg Tablet 10 Mg PO BID Januvia (Sitagliptin Phosphate) 100 Mg Tablet 100 Mg PO DAILY Gabapentin 100 Mg Capsule 200 Mg PO TID Divalproex Sodium Er (Divalproex Sodium) 500 Mg Tab.er.24h 500 Mg PO BID Citalopram Hbr (Citalopram Hydrobromide) 20 Mg Tablet 20 Mg PO DAILY Acidophilus (Lactobacillus Acidophilus) 1 Each Capsule 1 Each PO DAILY Selenium Sulfide 180 Ml Shampoo 1 Ghada TP QHS TUES AND FRI Clonazepam 0.5 Mg Tablet 0.25 Mg PO HS Lantus Solostar (Insulin Glargine,Hum.rec.anlog) 100 Unit/1 Ml Insuln.pen 6 Unit SQ HS Tylenol (Acetaminophen) 325 Mg Tablet 650 Mg PO PRN Q6HRS PRN Diagnosis: Problems: (1) Bipolar disorder, mixed (2) Anxiety disorder (3) Dementia in Alzheimer's disease with delusions (4) Dementia in Alzheimer's disease with depression (5) Impulse control disorder (6) Dementia, vascular, with delusions (7) Dementia, vascular, with depression (8) Dementia with behavioral disturbance (9) Agitation (10) Schizophrenia VIPIN BELTRAN MD Apr 21, 2017 19:43
[2017-04-21] MEDS: MIRTAZAPINE 30 MG TABLET PO SCH (20:50)
[2017-04-21] MEDS: QUEtiapine 100 MG TABLET. PO SCH (20:50)
[2017-04-21] MEDS: traZODone 100 MG TABLET. PO SCH (20:50)
[2017-04-21] MEDS: INSULIN DETEMIR 300 UNITS/3 ML INSULN.PEN. SQ SCH (22:16)
--- NOTE | 2017-04-21 23:26 | NUR ---
Behavior Intervention Response and Plan: BIRP Note: Behavior: Assumed Care of patient, patient located in Day Room at shift change. Patient exhibited the following behavior Disorganized, Irritable, Compliant. Brief assessment on rounds of vital signs, medication needs, lab studies, and pain. Treatment plan problems Dementia w/ BD and Fall Risk. Intervention: Patient assessed and the following interventions initiated safety checks 15 Minute Checks Personal Alarm in place , Cognitive Assessment , Medications. Response: After interactions and interventions patient responded in the following manner, Disorganized , Compliant ,. Continue to assess behaviors and condition will continue to monitor throughout the shift as needed. Patient educated on ADL's, and hand hygiene. 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 Continue to assess patient for changes in above assessment. Monitor for medication needs, pain, and safety concerns. Hourly rounding performed to ensure safe environment.
--- NOTE | 2017-04-22 04:38 | PN ---
DATE: 04/20/2017 This late entry of 04/20/2017 covers elements not covered in my initial note of 04/20/2017. SUBJECTIVE: I met with the patient in the evening of 04/20/2017. The patient has appeared more confused, reaching out, grabbing at things as if hallucinating. Previous evening, she was name calling, was labile, agitated, quite disruptive, slept 6-3/4 hours, refusing cares, resistive to medications. Valproic acid level is 104. REVIEW OF SYSTEMS: No CV, , pulmonary, eye, ENT system symptoms on review. Reliability poor. MENTAL STATUS EXAM: Oriented to herself. Insight, judgment, recent and remote memory, attention, concentration, fund of knowledge poor, consistent with her diagnosis mentioned in my initial note. PLAN: Depakote Sprinkles 500 mg in a.m., 750 mg at bedtime, level is 104, slightly elevated. We will drop it down to 500 mg twice a day. Check labs level in 3 days. Maintain the rest of the psychotropics mentioned in my initial note. On 04/21/2017, we will check a UA to make sure UTI is not worsening her confusion. Reviewed drug interactions. Risk/benefit ratio favors no further change. VIPIN BELTRAN MD DR: JIE/triston JOB#: [id number] / [id number]
[2017-04-22 05:42] VITALS: BP 141/78
[2017-04-22] MEDS: PANTOPRAZOLE 40 MG TABLET. PO SCH (07:33)
[2017-04-22] MEDS: QUEtiapine 50 MG TABLET. PO SCH ×2 (08:08→21:05)
[2017-04-22] MEDS: MULTIVITAMIN with MINERAL TABLET. PO SCH (08:08)
[2017-04-22] MEDS: POTASSIUM CHLORIDE 10 MEQ TABLET.ER. PO SCH (08:08)
[2017-04-22] MEDS: GABAPENTIN 100 MG CAPSULE. PO SCH ×3 (08:08→21:05)
[2017-04-22] MEDS: CITALOPRAM 20 MG TABLET. PO SCH (08:08)
[2017-04-22] MEDS: LACTOBACILLUS ACIDOPH & BULGAR 1 TABLET. PO SCH (08:09)
[2017-04-22] MEDS: DIVALPROEX 125 MG CAP.SPRINK PO SCH ×2 (08:09→21:05)
[2017-04-22] MEDS: POLYETHYLENE GLYCOL 3350 17 GM PACKET. PO SCH (08:09)
[2017-04-22] MEDS: LINAGLIPTIN 5 MG TABLET PO SCH (08:09)
[2017-04-22] MEDS: SENNOSIDES 8.6 MG TABLET PO SCH (08:09)
[2017-04-22] MEDS: INSULIN ASPART 300 UNITS/3 ML INSULN.PEN SQ SCH ×2 (08:10→21:00)
--- NOTE | 2017-04-22 10:15 | NUR ---
THERAPEUTIC RECREATION GROUP NOTE TITLE :Funny Videos and Jokes ACTIVITY : Humor GOAL : Decrease stress, elevate mood DURATION : 75 Minutes RESPONSE : No participation
--- NOTE | 2017-04-22 10:56 | NUR ---
Group Note [facility] Orientation Group Start Time: 9:05am End Time: 9:35am Problem: Anxiety Purpose: Reduction of Stress, Orientation, Reduction of Anxiety, Socializing Level of Participation: low Behaviors or Symptoms Observed: Pt was present in group, but did not participate. Pt had her head down with her eyes closed. Interventions: Clarification Response: Pt remained in group but did not participate in group discussion. Plan: Group Participation Additional Comments:
--- NOTE | 2017-04-22 14:10 | NUR ---
THERAPEUTIC RECREATION GROUP NOTE TITLE :What can we do ALONE, needs NO SUPPLIES, that's FUN, and RELAXING? ACTIVITY : Leisure Awareness GOAL : Increase knowledge of leisure activities DURATION : 60 Minutes RESPONSE : No participation
[2017-04-22 14:33] LABS: BILIRUBIN,URINE NEG (NEG); CLARITY,URINE CLEAR; COLOR,URINE AMBER; GLUCOSE,URINE NEG (NEG); UROBILINOGEN,URINE 1 mg/dL (0.2 mg/dL)
[2017-04-22 14:34] LABS: BACTERIA,URINE 0 /HPF (0-FEW); NITRITE,URINE NEG (NEG); RBC,URINE OCC /HPF (0-2); SQUAMOUS EPITHELIAL CELL,UR OCC /LPF
[2017-04-22 16:46] VITALS: BP 138/85
--- NOTE | 2017-04-22 16:56 | NUR ---
Behavior Intervention Response and Plan: BIRP Note: Behavior: Assumed Care of patient, patient located in Day Room at shift change. Patient exhibited the following behavior Withdrawn, Disorganized, Drowsy. Brief assessment on rounds of vital signs, medication needs, lab studies, and pain. Treatment plan problems Dementia w/ BD and Fall Risk. Intervention: Patient assessed and the following interventions initiated safety checks 15 Minute Checks Cognitive Assessment , Head to toe Assessment , Medications. Response: After interactions and interventions patient responded in the following manner, Irritable , Disorganized ,Withdrawn. Continue to assess behaviors and condition will continue to monitor throughout the shift as needed. Patient educated on ADL's, and hand hygiene. Plan: Continue to monitor Master Treatment Plan for patient's progress toward short term goals of Decreased Aggression, Decreased Agitation, mcc goals to return to previous living setting vs placement. Continue to assess patient for changes in above assessment. Monitor for medication needs, pain, and safety concerns. Hourly rounding performed to ensure safe environment.
[2017-04-22] MEDS: MIRTAZAPINE 30 MG TABLET PO SCH (21:04)
[2017-04-22] MEDS: QUEtiapine 100 MG TABLET. PO SCH (21:05)
[2017-04-22] MEDS: traZODone 100 MG TABLET. PO SCH (21:05)
[2017-04-22] MEDS: INSULIN DETEMIR 300 UNITS/3 ML INSULN.PEN. SQ SCH (21:06)
--- NOTE | 2017-04-22 21:09 | PDOC ---
Exam Maximiliano Demential Exam: Maximiliano Note: Please also refer to the separate dictated note~for this date of service dictated separately.~Patient seen individually. Discussed the patient with Nursing staff reviewed the chart.~Reviewed interim history and current functioning. Reviewed vital signs,~Labs/ Radiology~and current medications noted below. Continue current treatment with the changes noted in the dictated addendum note Assessment: Vital Signs: Vital Signs Date Time Temp Pulse Resp B/P (MAP) Pulse Ox O2 Delivery O2 Flow Rate FiO2 04/22/17 16:46 98.2 73 16 138/85 (102) 94 04/22/17 05:42 Room Air I&O Intake and Output 04/23/17 07:00 Intake Total 360 ml Output Total 600 ml Balance -240 ml Intake Oral 360 ml Output Urine Total 600 ml # Bowel Movements 1 Labs: Laboratory Tests Test 04/22/17 07:08 04/22/17 13:40 04/22/17 21:00 Glucose (Fingerstick) 110 mg/dL (70-99) H 120 mg/dL (70-99) H Urine Collection Type U cath Urine Color Maureen Urine Clarity Clear Urine pH 6.5 Urine Specific [place] 1.020 Urine Protein Trace (NEG-TRACE) Urine Glucose (UA) Neg mg/dL (NEG) Urine Ketones (Stick) Trace mg/dL (NEG) Urine Blood Neg (NEG) Urine Nitrite Neg (NEG) Urine Bilirubin Neg (NEG) Urine Urobilinogen Dipstick 1 mg/dL (0.2 mg/dL) Urine Leukocyte Esterase Neg (NEG) Urine RBC Occ /HPF (0-2) Urine WBC 1-4 /HPF (0-4) Urine Squamous Epithelial Cells Occ /LPF Urine Bacteria 0 /HPF (0-FEW) Current Medications: Meds: Current Medications Olanzapine (ZyPREXA ZYDIS) 5 mg 1X ONCE PO ; Start 04/14/17 at 18:45; Stop 07/19 at 18:46; Status DC Olanzapine (ZyPREXA ZYDIS) 2.5 mg PRN Q2HR PRN PO PSYCHOSIS Last administered on 04/15/17t 20:32; Start 04/14/17 at 18:45 Acetaminophen (Tylenol) 650 mg PRN Q6HRS PRN PO PAIN / TEMP; Start 04/14/17 at 19:30 Multi-Ingredient Ointment (Analgesic [place]) 1 ghada PRN QID PRN TP MUSCLE PAIN; Start 04/14/17 at 19:30 Al Hydroxide/Mg Hydroxide (Mylanta Plus Xs) 15 ml PRN AFTMEALHC PRN PO DYSPEPSIA; Start 04/14/17 at 19:30; Status Cancel Magnesium Hydroxide (Milk Of Magnesia) 2,400 mg PRN QHS PRN PO CONSTIPATION; Start 04/14/17 at 19:30 Insulin Aspart (NovoLOG) 0-7 UNITS BID SQ ; Start 04/15/17 at 09:00 Dextrose 12.5 gm PRN Q15MIN PRN IV SEE COMMENTS; Start 04/14/17 at 22:15 Citalopram Hydrobromide (CeleXA) 20 mg DAILY PO Last administered on 04/22/17 08:08; Start 04/15/17 at 09:00 Clonazepam (KlonoPIN) 0.25 mg HS PO Last administered on 04/15/17 20:36; Start 04/14/17 at 22:45; Stop 04/16/17 at 10:54; Status DC Divalproex Sodium (Depakote Er) 500 mg BID PO Last administered on 04/16/17 09 :35; Start 04/14/17 at 22:45; Stop 04/16/17 at 19:26; Status DC Memantine (Namenda) 5 mg BID PO ; Start 04/14/17 at 22:45; Stop 04/14/17 at 22: 45; Status DC Memantine (Namenda) 15 mg BID PO Last administered on 04/16/17 09:35; Start at 22:45; Stop 04/16/17 at 10:54; Status DC Mirtazapine (Remeron) 30 mg HS PO Last administered on 04/22/17 21:04; Start 04/14/17 at 22:45 Quetiapine Fumarate (SEROquel) 50 mg BID PO Last administered on 04/22/17 21: 05; Start 04/14/17 at 22:45 Rivastigmine (Exelon) 1 patch DAILY TD Last administered on 04/16/17 09:36; Start 04/15/17 at 09:00; Stop 04/16/17 at 10:54; Status DC Quetiapine Fumarate (SEROquel) 300 mg QHS PO Last administered on 04/22/17 21: 05; Start 04/14/17 at 22:45 Gabapentin (Neurontin) 200 mg TID PO Last administered on 04/22/17 21:05; Start 04/14/17 at 22:45 Polyethylene Glycol (miraLAX) 17 gm DAILY PO Last administered on 04/21/17 08: 14; Start 04/15/17 at 09:00 Sennosides (Senna) 8.6 mg DAILY PO Last administered on 04/22/17 08:09; Start 04/15/17 at 09:00 Insulin Detemir (Levemir) 6 units QHS SQ Last administered on 04/22/17 21:06; Start 04/15/17 at 21:00 Lactobacillus Acidophilus (Bacid, Ester-Bid) 1 tab DAILY PO Last administered on 04/22/17 08:09; Start 04/15/17 at 09:00 Al Hydroxide/Mg Hydroxide (Mylanta Plus Xs) 30 ml PRN Q8HRS PRN PO DYSPEPSIA; Start 04/14/17 at 23:00 Multivitamins/ Calcium (Thera-M Plus) 1 tab DAILY PO Last administered on 08:08; Start 04/15/17 at 09:00 Pantoprazole Sodium (Protonix) 40 mg DAILYAC PO Last administered on 04/22/17 07:33; Start 04/15/17 at 07:30 Potassium Chloride (Klor-Con) 10 meq DAILYWBKFT PO Last administered on 08:08; Start 04/15/17 at 08:00 Selenium Sulfide (Selsun) 1 ghada QTU TP ; Start 04/21/17 at 16:00 Linagliptin (Tradjenta) 5 mg DAILY PO Last administered on 04/22/17 08:09; Start 04/15/17 at 09:00 Selenium Sulfide (Selsun) 1 ghada QFR TP ; Start 04/17/17 at 16:00 Vitamin D (Vitamin D3) 50,000 unit WEEKLY PO ; Start 04/16/17 at 09:00 Trazodone HCl (Desyrel) 100 mg QHS PO Last administered on 04/22/17 21:05; Start 04/16/17 at 21:00 Trazodone HCl (Desyrel) 100 mg PRN QHS PRN PO INSOMNIA; Start 04/16/17 at 21:00 Divalproex Sodium (Depakote Sprinkles) 500 mg DAILY PO Last administered on 08:09; Start 04/17/17 at 09:00 Divalproex Sodium (Depakote Sprinkles) 750 mg HS PO Last administered on 19:29; Start 04/16/17 at 21:00; Stop 04/20/17 at 18:21; Status DC Divalproex Sodium (Depakote Sprinkles) 500 mg HS PO Last administered on 21:05; Start 04/20/17 at 21:00 Active Scripts Active Reported Dianna-Lanta Liquid (Mag Hydrox/Al Hydrox/Simeth) 355 Ml Oral.susp 30 Ml PO PRN Q8HRS PRN Thera-M (Multivits,Th W-Fe,Other Min) 1 Each Tablet 1 Each PO DAILY Senna (Sennosides) 8.6 Mg Tablet 8.6 Mg PO DAILY EXELON 4.6mg/24hr (Rivastigmine) 1 Each Patch.td24 1 Patch TD DAILY Seroquel (Quetiapine Fumarate) 50 Mg Tablet 50 Mg PO BID Seroquel (Quetiapine Fumarate) 300 Mg Tablet 300 Mg PO QHS Potassium Chloride 10 Meq Tablet.er 10 Meq PO DAILY Miralax (Polyethylene Glycol 3350) 17 Gm Powd.pack 17 Gm PO DAILY Omeprazole 20 Mg Capsule.dr 20 Mg PO DAILY Mirtazapine 30 Mg Tablet 30 Mg PO HS Namenda (Memantine Hcl) 10 Mg Tablet 5 Mg PO BID Namenda (Memantine Hcl) 10 Mg Tablet 10 Mg PO BID Januvia (Sitagliptin Phosphate) 100 Mg Tablet 100 Mg PO DAILY Gabapentin 100 Mg Capsule 200 Mg PO TID Divalproex Sodium Er (Divalproex Sodium) 500 Mg Tab.er.24h 500 Mg PO BID Citalopram Hbr (Citalopram Hydrobromide) 20 Mg Tablet 20 Mg PO DAILY Acidophilus (Lactobacillus Acidophilus) 1 Each Capsule 1 Each PO DAILY Selenium Sulfide 180 Ml Shampoo 1 Ghada TP QHS TUES AND FRI Clonazepam 0.5 Mg Tablet 0.25 Mg PO HS Lantus Solostar (Insulin Glargine,Hum.rec.anlog) 100 Unit/1 Ml Insuln.pen 6 Unit SQ HS Tylenol (Acetaminophen) 325 Mg Tablet 650 Mg PO PRN Q6HRS PRN Diagnosis: Problems: (1) Bipolar disorder, mixed (2) Anxiety disorder (3) Dementia in Alzheimer's disease with delusions (4) Dementia in Alzheimer's disease with depression (5) Impulse control disorder (6) Dementia, vascular, with delusions (7) Dementia, vascular, with depression (8) Schizophrenia (9) Agitation (10) Dementia with behavioral disturbance VIPIN BELTRAN MD Apr 22, 2017 21:09
--- NOTE | 2017-04-22 22:10 | NUR ---
Behavior Intervention Response and Plan: BIRP Note: Behavior: Assumed Care of patient, patient located in Patient Room at shift change. Patient exhibited the following behavior Calm, Disorganized, Compliant. Brief assessment on rounds of vital signs, medication needs, lab studies, and pain. Treatment plan problems Dementia w/ BD and Fall Risk. Intervention: Patient assessed and the following interventions initiated safety checks 15 Minute Checks Cognitive Assessment , Medications , Nutrition. Response: After interactions and interventions patient responded in the following manner, Calm , Disorganized ,Drowsy. Continue to assess behaviors and condition will continue to monitor throughout the shift as needed. Patient educated on ADL's, and hand hygiene. 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 Continue to assess patient for changes in above assessment. Monitor for medication needs, pain, and safety concerns. Hourly rounding performed to ensure safe environment.
--- NOTE | 2017-04-23 04:47 | PN ---
DATE: 04/21/2017 PSHYCHIATRIC PROGRESS NOTE This is late entry 04/21/2017, covers the elements not covered in my initial note of 04/21/2017. I met with the patient in the evening of 04/21/2017. The patient slept 6-3/4 hours previous evening. UA has been uncollected and may need to be straight cathed per nursing report. She takes her meds in ice cream, intermittently drowsy during assessments. REVIEW OF SYSTEMS: Ambulation impaired, oriented to herself. No CV, , pulmonary, eye system symptoms on review. MENTAL STATUS EXAM: Oriented to herself. Insight, judgment, recent and remote memory, attention, concentration, fund of knowledge poor, consistent with her diagnosis. She can be still labile, intermittently psychotic. LABORATORY DATA: Reviewed. IMPRESSION: Major neurocognitive disorder, vascular with delusion, behavioral disturbance; history of schizoaffective disorder, bipolar type, mixed with psychotic features; anxiety disorder, unspecified; impulse control disorder, unspecified. PLAN: Valproic acid level at last check was elevated at 104, Depakote has since been reduced. We will repeat labs level. Maintain the rest of her psychotropics unchanged. Check UA. Reviewed drug interactions, risk/benefit ratio, favors no further change. VIPIN BELTRAN MD DR: JIE/triston JOB#: [id number] / [id number]
[2017-04-23 05:53] VITALS: BP 127/84
[2017-04-23 07:27] LABS: BASO % 0 % (0-3); EOS # 0.2 x10^3/uL (0.0-0.7); EOS % 3 % (0-3); HEMATOCRIT 36.2 % (36.0-47.0); HEMOGLOBIN 12.5 g/dL (12.0-15.5); LYMPH # 2.3 x10^3/uL (1.0-4.8); LYMPH % 42 % (24-48); MEAN CORPUSCULAR HEMOGLOBIN 35 pg (25-35); MEAN CORPUSCULAR HGB CONC 35 g/dL (31-37); MEAN CORPUSCULAR VOLUME 100 fL (79-100); MONO # 0.6 x10^3/uL (0.0-1.1); MONO % 11 % (0-9); NEUT # 2.4 x10^3uL (1.8-7.7); NEUT % 44 % (31-73); PLATELET COUNT 172 x10^3/uL (140-400); WHITE BLOOD COUNT 5.4 x10^3/uL (4.0-11.0)
[2017-04-23 07:49] LABS: ALBUMIN 2.9 g/dL (3.4-5.0); ALBUMIN/GLOBULIN RATIO 0.8 (1.0-1.7); ALK PHOS 65 U/L (46-116); ALT (SGPT) 16 U/L (14-59); ANION GAP 5 (6-14); AST (SGOT) 13 U/L (15-37); BLOOD UREA NITROGEN 12 mg/dL (7-20); BUN/CREATININE RATIO 20 (6-20); CALCIUM 8.7 mg/dL (8.5-10.1); CARBON DIOXIDE 29 mmol/L (21-32); CHLORIDE 112 mmol/L (98-107); CREATININE 0.6 mg/dL (0.6-1.0); GFR 98.8; GLUCOSE 98 mg/dL (70-99); POTASSIUM 3.8 mmol/L (3.5-5.1); SODIUM 146 mmol/L (136-145); TOTAL BILIRUBIN 0.3 mg/dL (0.2-1.0); TOTAL PROTEIN 6.7 g/dL (6.4-8.2); VAL ACID 84 mcg/mL (50-100)
--- NOTE | 2017-04-23 08:00 | NUR ---
WEEKLY THERAPEUTIC RECREATION NOTE Date of Admission: 04/14/2017 Date of AT Assessment:04/15/2017 Goal aimed: to increase socialization and time management skills Initial goal: Pt. will participate in at least two groups a day. Weekly progress towards goal: Poor progress towards goal Group participation level: Pt. is around groups but does not participate. She shows little interest, fidgets with blankets or other item. Difficult to engage. Behaviors observed: Pt. is withdrawn, quiet Plan: Change goal to: Pt. will participate fully in at least one group before discharge
[2017-04-23] MEDS: LACTOBACILLUS ACIDOPH & BULGAR 1 TABLET. PO SCH (08:21)
[2017-04-23] MEDS: QUEtiapine 50 MG TABLET. PO SCH ×2 (08:21→19:10)
[2017-04-23] MEDS: LINAGLIPTIN 5 MG TABLET PO SCH (08:22)
[2017-04-23] MEDS: POTASSIUM CHLORIDE 10 MEQ TABLET.ER. PO SCH (08:22)
[2017-04-23] MEDS: PANTOPRAZOLE 40 MG TABLET. PO SCH (08:22)
[2017-04-23] MEDS: DIVALPROEX 125 MG CAP.SPRINK PO SCH (08:22)
[2017-04-23] MEDS: MULTIVITAMIN with MINERAL TABLET. PO SCH (08:22)
[2017-04-23] MEDS: CITALOPRAM 20 MG TABLET. PO SCH (08:22)
[2017-04-23] MEDS: POLYETHYLENE GLYCOL 3350 17 GM PACKET. PO SCH (08:22)
[2017-04-23] MEDS: SENNOSIDES 8.6 MG TABLET PO SCH (08:22)
[2017-04-23] MEDS: GABAPENTIN 100 MG CAPSULE. PO SCH ×3 (08:22→19:13)
[2017-04-23] MEDS: INSULIN ASPART 300 UNITS/3 ML INSULN.PEN SQ SCH ×2 (08:23→21:45)
[2017-04-23] MEDS: CHOLECALCIFEROL (VITAMIN D3) 50,000 UNIT CAPSULE PO SCH (08:24)
--- NOTE | 2017-04-23 10:45 | NUR ---
THERAPEUTIC RECREATION GROUP NOTE TITLE :Balloon/Pool Noodle ACTIVITY : Activities and Games GOAL : Increase alertness, focus, morale, decrease stress, team building, positive communication DURATION : 30 Minutes RESPONSE : Minimal participation. Pt. was in the group room the entire time; however, mostly rested with her down while sitting in her chair. She was difficult to engaged, she hit the balloon only a couple times.
--- NOTE | 2017-04-23 11:15 | NUR ---
THERAPEUTIC RECREATION GROUP NOTE TITLE :Movement to Music: Strength ACTIVITY : Movement/ Exercise GOAL : Increase morale, attention, flexibility. Decrease stress/anxiety. DURATION : 45 Minutes RESPONSE : No participation
--- NOTE | 2017-04-23 14:20 | NUR ---
THERAPEUTIC RECREATION GROUP NOTE TITLE :Fall Festival: Apple Cider, Pumpkin Bread and Tin Can Painting ACTIVITY : Social Events/ Holidays GOAL : Facilitate sense of belonging and well-being, elevate mood, increase socialization. Incorporate traditions. DURATION : 80 Minutes RESPONSE : No participation
--- NOTE | 2017-04-23 15:23 | NUR ---
Behavior Intervention Response and Plan: BIRP Note: Behavior: Assumed Care of patient, patient located in Dining Room at shift change. Patient exhibited the following behavior Disorganized, Irritable, Resistive. Brief assessment on rounds of vital signs, medication needs, lab studies, and pain. Treatment plan problems . Intervention: Patient assessed and the following interventions initiated safety checks 15 Minute Checks Cognitive Assessment , Head to toe Assessment , Medications. Response: After interactions and interventions patient responded in the following manner, Disorganized , Irritable ,Resistive. Continue to assess behaviors and condition will continue to monitor throughout the shift as needed. Patient educated on ADL's, and hand hygiene. 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 Continue to assess patient for changes in above assessment. Monitor for medication needs, pain, and safety concerns. Hourly rounding performed to ensure safe environment.
[2017-04-23 16:24] VITALS: BP 125/72
--- NOTE | 2017-04-23 16:54 | NUR ---
STELLA faxed updated clinical notes to [facility]. They are actively attempting to transition Pt. to new Memory Care Placement at time of dc.
[2017-04-23] MEDS: MIRTAZAPINE 30 MG TABLET PO SCH (19:13)
--- NOTE | 2017-04-23 19:13 | NUR ---
Nursing Note Patient is agitated and yelling in day room, patient is attempting to put self on floor. Patient is agitated when attempting to redirect. Patient given PRN Zyprexa per PRN order.
[2017-04-23] MEDS: QUEtiapine 100 MG TABLET. PO SCH (19:14)
--- NOTE | 2017-04-23 21:06 | PDOC ---
Exam Maximiliano Demential Exam: Maximiliano Note: Please also refer to the separate dictated note~for this date of service dictated separately.~Patient seen individually. Discussed the patient with Nursing staff reviewed the chart.~Reviewed interim history and current functioning. Reviewed vital signs,~Labs/ Radiology~and current medications noted below. Continue current treatment with the changes noted in the dictated addendum note Assessment: Vital Signs: Vital Signs Date Time Temp Pulse Resp B/P (MAP) Pulse Ox O2 Delivery O2 Flow Rate FiO2 04/23/17 16:24 97.6 89 16 125/72 (89) 96 04/23/17 05:53 Room Air I&O Intake and Output 04/24/17 07:00 Intake Total 1735 ml Balance 1735 ml Intake Oral 1735 ml # Bowel Movements 1 Labs: Laboratory Tests Test 04/23/17 06:45 04/23/17 07:50 04/23/17 10:30 White Blood Count 5.4 x10^3/uL (4.0-11.0) Red Blood Count 3.60 x10^6/uL (3.50-5.40) Hemoglobin 12.5 g/dL (12.0-15.5) Hematocrit 36.2 % (36.0-47.0) Mean Corpuscular Volume 100 fL (79-100) Mean Corpuscular Hemoglobin 35 pg (25-35) Mean Corpuscular Hemoglobin Concent 35 g/dL (31-37) Red Cell Distribution Width 13.0 % (11.5-14.5) Platelet Count 172 x10^3/uL (140-400) Neutrophils (%) (Auto) 44 % (31-73) Lymphocytes (%) (Auto) 42 % (24-48) Monocytes (%) (Auto) 11 % (0-9) H Eosinophils (%) (Auto) 3 % (0-3) Basophils (%) (Auto) 0 % (0-3) Neutrophils # (Auto) 2.4 x10^3uL (1.8-7.7) Lymphocytes # (Auto) 2.3 x10^3/uL (1.0-4.8) Monocytes # (Auto) 0.6 x10^3/uL (0.0-1.1) Eosinophils # (Auto) 0.2 x10^3/uL (0.0-0.7) Basophils # (Auto) 0.0 x10^3/uL (0.0-0.2) Sodium Level 146 mmol/L (136-145) H Potassium Level 3.8 mmol/L (3.5-5.1) Chloride Level 112 mmol/L (98-107) H Carbon Dioxide Level 29 mmol/L (21-32) Anion Gap 5 (6-14) L Blood Urea Nitrogen 12 mg/dL (7-20) Creatinine 0.6 mg/dL (0.6-1.0) Estimated GFR (Cockcroft-Gault) 98.8 BUN/Creatinine Ratio 20 (6-20) Glucose Level 98 mg/dL (70-99) Calcium Level 8.7 mg/dL (8.5-10.1) Total Bilirubin 0.3 mg/dL (0.2-1.0) Aspartate Amino Transferase (AST) 13 U/L (15-37) L Alanine Aminotransferase (ALT) 16 U/L (14-59) Alkaline Phosphatase 65 U/L (46-116) Total Protein 6.7 g/dL (6.4-8.2) Albumin 2.9 g/dL (3.4-5.0) L Albumin/Globulin Ratio 0.8 (1.0-1.7) L Valproic Acid Level 84 mcg/mL (50-100) Valproic Acid Last Dose Date 04/22/17 Valproic Acid Last Dose Time 2100 Glucose (Fingerstick) 101 mg/dL (70-99) H Clostridium difficile Toxin (PCR) Negative (Negative) Current Medications: Meds: Current Medications Olanzapine (ZyPREXA ZYDIS) 5 mg 1X ONCE PO ; Start 04/14/17 at 18:45; Stop 07/19 at 18:46; Status DC Olanzapine (ZyPREXA ZYDIS) 2.5 mg PRN Q2HR PRN PO PSYCHOSIS Last administered on 04/23/17t 19:13; Start 04/14/17 at 18:45 Acetaminophen (Tylenol) 650 mg PRN Q6HRS PRN PO PAIN / TEMP; Start 04/14/17 at 19:30 Multi-Ingredient Ointment (Analgesic [place]) 1 ghada PRN QID PRN TP MUSCLE PAIN; Start 04/14/17 at 19:30 Al Hydroxide/Mg Hydroxide (Mylanta Plus Xs) 15 ml PRN AFTMEALHC PRN PO DYSPEPSIA; Start 04/14/17 at 19:30; Status Cancel Magnesium Hydroxide (Milk Of Magnesia) 2,400 mg PRN QHS PRN PO CONSTIPATION; Start 04/14/17 at 19:30 Insulin Aspart (NovoLOG) 0-7 UNITS BID SQ ; Start 04/15/17 at 09:00 Dextrose 12.5 gm PRN Q15MIN PRN IV SEE COMMENTS; Start 04/14/17 at 22:15 Citalopram Hydrobromide (CeleXA) 20 mg DAILY PO Last administered on 04/23/17 08:22; Start 04/15/17 at 09:00 Clonazepam (KlonoPIN) 0.25 mg HS PO Last administered on 04/15/17 20:36; Start 04/14/17 at 22:45; Stop 04/16/17 at 10:54; Status DC Divalproex Sodium (Depakote Er) 500 mg BID PO Last administered on 04/16/17 09 :35; Start 04/14/17 at 22:45; Stop 04/16/17 at 19:26; Status DC Memantine (Namenda) 5 mg BID PO ; Start 04/14/17 at 22:45; Stop 04/14/17 at 22: 45; Status DC Memantine (Namenda) 15 mg BID PO Last administered on 04/16/17 09:35; Start at 22:45; Stop 04/16/17 at 10:54; Status DC Mirtazapine (Remeron) 30 mg HS PO Last administered on 04/23/17 19:13; Start 04/14/17 at 22:45 Quetiapine Fumarate (SEROquel) 50 mg BID PO Last administered on 04/23/17 19: 10; Start 04/14/17 at 22:45 Rivastigmine (Exelon) 1 patch DAILY TD Last administered on 04/16/17 09:36; Start 04/15/17 at 09:00; Stop 04/16/17 at 10:54; Status DC Quetiapine Fumarate (SEROquel) 300 mg QHS PO Last administered on 04/23/17 19: 14; Start 04/14/17 at 22:45 Gabapentin (Neurontin) 200 mg TID PO Last administered on 04/23/17 19:13; Start 04/14/17 at 22:45 Polyethylene Glycol (miraLAX) 17 gm DAILY PO Last administered on 04/23/17 08: 22; Start 04/15/17 at 09:00 Sennosides (Senna) 8.6 mg DAILY PO Last administered on 04/23/17 08:22; Start 04/15/17 at 09:00 Insulin Detemir (Levemir) 6 units QHS SQ Last administered on 04/22/17 21:06; Start 04/15/17 at 21:00 Lactobacillus Acidophilus (Bacid, Ester-Bid) 1 tab DAILY PO Last administered on 04/23/17 08:21; Start 04/15/17 at 09:00 Al Hydroxide/Mg Hydroxide (Mylanta Plus Xs) 30 ml PRN Q8HRS PRN PO DYSPEPSIA; Start 04/14/17 at 23:00 Multivitamins/ Calcium (Thera-M Plus) 1 tab DAILY PO Last administered on 08:22; Start 04/15/17 at 09:00 Pantoprazole Sodium (Protonix) 40 mg DAILYAC PO Last administered on 04/23/17 08:22; Start 04/15/17 at 07:30 Potassium Chloride (Klor-Con) 10 meq DAILYWBKFT PO Last administered on 08:22; Start 04/15/17 at 08:00 Selenium Sulfide (Selsun) 1 ghada QTU TP ; Start 04/21/17 at 16:00 Linagliptin (Tradjenta) 5 mg DAILY PO Last administered on 04/23/17 08:22; Start 04/15/17 at 09:00 Selenium Sulfide (Selsun) 1 ghada QFR TP ; Start 04/17/17 at 16:00 Vitamin D (Vitamin D3) 50,000 unit WEEKLY PO Last administered on 04/23/17 08: 24; Start 04/16/17 at 09:00 Trazodone HCl (Desyrel) 100 mg QHS PO Last administered on 04/22/17 21:05; Start 04/16/17 at 21:00; Stop 04/23/17 at 17:59; Status DC Trazodone HCl (Desyrel) 100 mg PRN QHS PRN PO INSOMNIA; Start 04/16/17 at 21:00 ; Stop 04/23/17 at 17:59; Status DC Divalproex Sodium (Depakote Sprinkles) 500 mg DAILY PO Last administered on 08:22; Start 04/17/17 at 09:00; Stop 04/23/17 at 12:55; Status DC Divalproex Sodium (Depakote Sprinkles) 750 mg HS PO Last administered on 19:29; Start 04/16/17 at 21:00; Stop 04/20/17 at 18:21; Status DC Divalproex Sodium (Depakote Sprinkles) 500 mg HS PO Last administered on 21:05; Start 04/20/17 at 21:00; Stop 04/23/17 at 12:55; Status DC Active Scripts Active Reported Dianna-Lanta Liquid (Mag Hydrox/Al Hydrox/Simeth) 355 Ml Oral.susp 30 Ml PO PRN Q8HRS PRN Thera-M (Multivits,Th W-Fe,Other Min) 1 Each Tablet 1 Each PO DAILY Senna (Sennosides) 8.6 Mg Tablet 8.6 Mg PO DAILY EXELON 4.6mg/24hr (Rivastigmine) 1 Each Patch.td24 1 Patch TD DAILY Seroquel (Quetiapine Fumarate) 50 Mg Tablet 50 Mg PO BID Seroquel (Quetiapine Fumarate) 300 Mg Tablet 300 Mg PO QHS Potassium Chloride 10 Meq Tablet.er 10 Meq PO DAILY Miralax (Polyethylene Glycol 3350) 17 Gm Powd.pack 17 Gm PO DAILY Omeprazole 20 Mg Capsule.dr 20 Mg PO DAILY Mirtazapine 30 Mg Tablet 30 Mg PO HS Namenda (Memantine Hcl) 10 Mg Tablet 5 Mg PO BID Namenda (Memantine Hcl) 10 Mg Tablet 10 Mg PO BID Januvia (Sitagliptin Phosphate) 100 Mg Tablet 100 Mg PO DAILY Gabapentin 100 Mg Capsule 200 Mg PO TID Divalproex Sodium Er (Divalproex Sodium) 500 Mg Tab.er.24h 500 Mg PO BID Citalopram Hbr (Citalopram Hydrobromide) 20 Mg Tablet 20 Mg PO DAILY Acidophilus (Lactobacillus Acidophilus) 1 Each Capsule 1 Each PO DAILY Selenium Sulfide 180 Ml Shampoo 1 Ghada TP QHS TUES AND FRI Clonazepam 0.5 Mg Tablet 0.25 Mg PO HS Lantus Solostar (Insulin Glargine,Hum.rec.anlog) 100 Unit/1 Ml Insuln.pen 6 Unit SQ HS Tylenol (Acetaminophen) 325 Mg Tablet 650 Mg PO PRN Q6HRS PRN Diagnosis: Problems: (1) Bipolar disorder, mixed (2) Anxiety disorder (3) Dementia in Alzheimer's disease with delusions (4) Dementia in Alzheimer's disease with depression (5) Impulse control disorder (6) Dementia, vascular, with delusions (7) Dementia, vascular, with depression (8) Schizophrenia (9) Agitation (10) Dementia with behavioral disturbance VIPIN BELTRAN MD Apr 23, 2017 21:06
[2017-04-23] MEDS: INSULIN DETEMIR 300 UNITS/3 ML INSULN.PEN. SQ SCH (21:45)
--- NOTE | 2017-04-23 23:15 | NUR ---
Behavior Intervention Response and Plan: BIRP Note: Behavior: Assumed Care of patient, patient located in Day Room at shift change. Patient exhibited the following behavior Restless, Disorganized, Compliant. Brief assessment on rounds of vital signs, medication needs, lab studies, and pain. Treatment plan problems Dementia w/ BD and Fall Risk. Intervention: Patient assessed and the following interventions initiated safety checks 15 Minute Checks Cognitive Assessment , Medications , Nutrition. Response: After interactions and interventions patient responded in the following manner, Restless , Disorganized ,Compulsive. Continue to assess behaviors and condition will continue to monitor throughout the shift as needed. Patient educated on ADL's, and hand hygiene. Plan: Continue to monitor Master Treatment Plan for patient's progress toward short term goals of Decreased Agitation, Decreased Anxiety, meterman goals to return to previous living setting vs placement. Continue to assess patient for changes in above assessment. Monitor for medication needs, pain, and safety concerns. Hourly rounding performed to ensure safe environment.
--- NOTE | 2017-04-24 01:21 | PN ---
DATE: 04/22/2017 SUBJECTIVE: This is a late entry date of service , covers elements not covered in my initial note of 04/22/2017. The patient slept 6-3/4 hours previous evening. She had a UA by straight catheterization. Results are awaited. Bladder scan was completed. A 600 mL urine removed. No residual noted. Gait was more unsteady and withdrawn reaching out when there is nothing around her possibly hallucinating. REVIEW OF SYSTEMS: Positive for some tiredness. No CV, , pulmonary, eye, or ENT system symptoms on review. Some of these responses were inferred rather than direct responses back from the patient consequent to increased confusion. MENTAL STATUS EXAM: Oriented to herself. Insight, judgment, recent and remote memory, attention, concentration, and fund of knowledge poor consistent with her diagnosis mentioned in my initial note. PLAN: Continue current psychotropics. Await results of UA and then if the confusion and questionable delirium persists, we will consider stopping the Depakote. Reviewed drug contractions. Risk/benefit ratio favors no further change. MAN Gladis BELTRAN MD DR: JIE/triston JOB#: [id number] / [id number]
[2017-04-24 05:57] VITALS: BP 134/86
[2017-04-24] MEDS: PANTOPRAZOLE 40 MG TABLET. PO SCH (08:32)
[2017-04-24] MEDS: LACTOBACILLUS ACIDOPH & BULGAR 1 TABLET. PO SCH (08:32)
[2017-04-24] MEDS: POTASSIUM CHLORIDE 10 MEQ TABLET.ER. PO SCH (08:32)
[2017-04-24] MEDS: CITALOPRAM 20 MG TABLET. PO SCH (08:32)
[2017-04-24] MEDS: MULTIVITAMIN with MINERAL TABLET. PO SCH (08:32)
[2017-04-24] MEDS: SENNOSIDES 8.6 MG TABLET PO SCH (08:32)
[2017-04-24] MEDS: QUEtiapine 50 MG TABLET. PO SCH ×2 (08:32→19:25)
[2017-04-24] MEDS: POLYETHYLENE GLYCOL 3350 17 GM PACKET. PO SCH (08:32)
[2017-04-24] MEDS: GABAPENTIN 100 MG CAPSULE. PO SCH ×3 (08:32→19:25)
[2017-04-24] MEDS: LINAGLIPTIN 5 MG TABLET PO SCH (08:32)
[2017-04-24] MEDS: INSULIN ASPART 300 UNITS/3 ML INSULN.PEN SQ SCH (08:33)
--- NOTE | 2017-04-24 14:18 | RAD ---
CT of the head without contrast, 04/24/2017: History: Mental status change Comparison is made to a study from 11/18/2016. There is moderate cerebral atrophy. There are mild patchy deep white matter lucencies compatible with chronic ischemic change. The ventricles are mildly enlarged on a compensatory basis. There is no shift of the midline structures. There is no evidence of acute intracranial hemorrhage or mass effect. IMPRESSION: 1. Chronic findings as described above. 2. No acute intracranial abnormality is detected. PQRS Compliance Statement: One or more of the following individualized dose reduction techniques were utilized for this examination: 1. Automated exposure control 2. Adjustment of the mA and/or kV according to patient size 3. Use of iterative reconstruction technique
--- NOTE | 2017-04-24 14:24 | NUR ---
Behavior Intervention Response and Plan: BIRP Note: Behavior: Assumed Care of patient, patient located in Patient Room at shift change. Patient exhibited the following behavior Sleeping, , . Brief assessment on rounds of vital signs, medication needs, lab studies, and pain. Treatment plan problems 1. dementia with bd, 2. fall risk. Intervention: Patient assessed and the following interventions initiated safety checks 15 Minute Checks Cognitive Assessment , Head to toe Assessment , Medications. Response: After interactions and interventions patient responded in the following manner, Calm , Drowsy ,. Continue to assess behaviors and condition will continue to monitor throughout the shift as needed. Patient educated on ADL's, and hand hygiene. Plan: Continue to monitor Master Treatment Plan for patient's progress toward short term goals of Improved Mood, Medication Compliance, correction goals to return to previous living setting vs placement. Continue to assess patient for changes in above assessment. Monitor for medication needs, pain, and safety concerns. Hourly rounding performed to ensure safe environment.
[2017-04-24] MEDS: SELENIUM SULFIDE 1% TOPICAL SHAMPOO 207ML BOTTLE. TP SCH (16:00)
[2017-04-24 16:11] VITALS: BP 136/85
[2017-04-24] MEDS: QUEtiapine 100 MG TABLET. PO SCH (19:25)
[2017-04-24] MEDS: MIRTAZAPINE 30 MG TABLET PO SCH (19:25)
[2017-04-24] MEDS: INSULIN DETEMIR 300 UNITS/3 ML INSULN.PEN. SQ SCH (20:01)
--- NOTE | 2017-04-24 20:58 | PDOC ---
Exam Maximiliano Demential Exam: Maximiliano Note: Please also refer to the separate dictated note~for this date of service dictated separately.~Patient seen individually. Discussed the patient with Nursing staff reviewed the chart.~Reviewed interim history and current functioning. Reviewed vital signs,~Labs/ Radiology~and current medications noted below. Continue current treatment with the changes noted in the dictated addendum note Assessment: Vital Signs: Vital Signs Date Time Temp Pulse Resp B/P (MAP) Pulse Ox O2 Delivery O2 Flow Rate FiO2 04/24/17 16:11 98.2 82 17 136/85 (102) 96 04/23/17 05:53 Room Air I&O Intake and Output 04/25/17 07:00 Intake Total 660 ml Balance 660 ml Intake Oral 660 ml Labs: Laboratory Tests Test 04/23/17 21:35 04/24/17 07:26 04/24/17 19:31 Glucose (Fingerstick) 230 mg/dL (70-99) H 100 mg/dL (70-99) H 189 mg/dL (70-99) H Current Medications: Meds: Current Medications Olanzapine (ZyPREXA ZYDIS) 5 mg 1X ONCE PO ; Start 04/14/17 at 18:45; Stop 07/19 at 18:46; Status DC Olanzapine (ZyPREXA ZYDIS) 2.5 mg PRN Q2HR PRN PO PSYCHOSIS Last administered on 04/24/17t 14:46; Start 04/14/17 at 18:45 Acetaminophen (Tylenol) 650 mg PRN Q6HRS PRN PO PAIN / TEMP; Start 04/14/17 at 19:30 Multi-Ingredient Ointment (Analgesic [place]) 1 ghada PRN QID PRN TP MUSCLE PAIN; Start 04/14/17 at 19:30 Al Hydroxide/Mg Hydroxide (Mylanta Plus Xs) 15 ml PRN AFTMEALHC PRN PO DYSPEPSIA; Start 04/14/17 at 19:30; Status Cancel Magnesium Hydroxide (Milk Of Magnesia) 2,400 mg PRN QHS PRN PO CONSTIPATION; Start 04/14/17 at 19:30 Insulin Aspart (NovoLOG) 0-7 UNITS BID SQ Last administered on 04/23/17 21:45 ; Start 04/15/17 at 09:00; Stop 04/24/17 at 19:32; Status DC Dextrose 12.5 gm PRN Q15MIN PRN IV SEE COMMENTS; Start 04/14/17 at 22:15 Citalopram Hydrobromide (CeleXA) 20 mg DAILY PO Last administered on 04/24/17 08:32; Start 04/15/17 at 09:00 Clonazepam (KlonoPIN) 0.25 mg HS PO Last administered on 04/15/17 20:36; Start 04/14/17 at 22:45; Stop 04/16/17 at 10:54; Status DC Divalproex Sodium (Depakote Er) 500 mg BID PO Last administered on 04/16/17 09 :35; Start 04/14/17 at 22:45; Stop 04/16/17 at 19:26; Status DC Memantine (Namenda) 5 mg BID PO ; Start 04/14/17 at 22:45; Stop 04/14/17 at 22: 45; Status DC Memantine (Namenda) 15 mg BID PO Last administered on 04/16/17 09:35; Start at 22:45; Stop 04/16/17 at 10:54; Status DC Mirtazapine (Remeron) 30 mg HS PO Last administered on 04/24/17 19:25; Start 04/14/17 at 22:45 Quetiapine Fumarate (SEROquel) 50 mg BID PO Last administered on 04/24/17 19: 25; Start 04/14/17 at 22:45 Rivastigmine (Exelon) 1 patch DAILY TD Last administered on 04/16/17 09:36; Start 04/15/17 at 09:00; Stop 04/16/17 at 10:54; Status DC Quetiapine Fumarate (SEROquel) 300 mg QHS PO Last administered on 04/23/17 19: 14; Start 04/14/17 at 22:45; Stop 04/24/17 at 19:00; Status DC Gabapentin (Neurontin) 200 mg TID PO Last administered on 04/24/17 19:25; Start 04/14/17 at 22:45 Polyethylene Glycol (miraLAX) 17 gm DAILY PO Last administered on 04/24/17 08: 32; Start 04/15/17 at 09:00 Sennosides (Senna) 8.6 mg DAILY PO Last administered on 04/24/17 08:32; Start 04/15/17 at 09:00 Insulin Detemir (Levemir) 6 units QHS SQ Last administered on 04/24/17 20:01; Start 04/15/17 at 21:00 Lactobacillus Acidophilus (Bacid, Ester-Bid) 1 tab DAILY PO Last administered on 04/24/17 08:32; Start 04/15/17 at 09:00 Al Hydroxide/Mg Hydroxide (Mylanta Plus Xs) 30 ml PRN Q8HRS PRN PO DYSPEPSIA; Start 04/14/17 at 23:00 Multivitamins/ Calcium (Thera-M Plus) 1 tab DAILY PO Last administered on 08:32; Start 04/15/17 at 09:00 Pantoprazole Sodium (Protonix) 40 mg DAILYAC PO Last administered on 04/24/17 08:32; Start 04/15/17 at 07:30 Potassium Chloride (Klor-Con) 10 meq DAILYWBKFT PO Last administered on 08:32; Start 04/15/17 at 08:00 Selenium Sulfide (Selsun) 1 ghada QTU TP ; Start 04/21/17 at 16:00 Linagliptin (Tradjenta) 5 mg DAILY PO Last administered on 04/24/17 08:32; Start 04/15/17 at 09:00 Selenium Sulfide (Selsun) 1 ghada QFR TP ; Start 04/17/17 at 16:00 Vitamin D (Vitamin D3) 50,000 unit WEEKLY PO Last administered on 04/23/17 08: 24; Start 04/16/17 at 09:00 Trazodone HCl (Desyrel) 100 mg QHS PO Last administered on 04/22/17 21:05; Start 04/16/17 at 21:00; Stop 04/23/17 at 17:59; Status DC Trazodone HCl (Desyrel) 100 mg PRN QHS PRN PO INSOMNIA; Start 04/16/17 at 21:00 ; Stop 04/23/17 at 17:59; Status DC Divalproex Sodium (Depakote Sprinkles) 500 mg DAILY PO Last administered on 08:22; Start 04/17/17 at 09:00; Stop 04/23/17 at 12:55; Status DC Divalproex Sodium (Depakote Sprinkles) 750 mg HS PO Last administered on 19:29; Start 04/16/17 at 21:00; Stop 04/20/17 at 18:21; Status DC Divalproex Sodium (Depakote Sprinkles) 500 mg HS PO Last administered on 21:05; Start 04/20/17 at 21:00; Stop 04/23/17 at 12:55; Status DC Olanzapine (ZyPREXA ZYDIS) 5 mg 1X ONCE PO Last administered on 04/24/17 11: 55; Start 04/24/17 at 12:00; Stop 04/24/17 at 12:01; Status DC Quetiapine Fumarate (SEROquel) 200 mg QHS PO Last administered on 04/24/17 19: 25; Start 04/24/17 at 21:00 Insulin Aspart (NovoLOG) 0-7 UNITS BID94 SQ ; Start 04/25/17 at 09:00 Active Scripts Active Reported Dianna-Lanta Liquid (Mag Hydrox/Al Hydrox/Simeth) 355 Ml Oral.susp 30 Ml PO PRN Q8HRS PRN Thera-M (Multivits, W-Fe,Other Min) 1 Each Tablet 1 Each PO DAILY Senna (Sennosides) 8.6 Mg Tablet 8.6 Mg PO DAILY EXELON 4.6mg/24hr (Rivastigmine) 1 Each Patch.td24 1 Patch TD DAILY Seroquel (Quetiapine Fumarate) 50 Mg Tablet 50 Mg PO BID Seroquel (Quetiapine Fumarate) 300 Mg Tablet 300 Mg PO QHS Potassium Chloride 10 Meq Tablet.er 10 Meq PO DAILY Miralax (Polyethylene Glycol 3350) 17 Gm Powd.pack 17 Gm PO DAILY Omeprazole 20 Mg Capsule.dr 20 Mg PO DAILY Mirtazapine 30 Mg Tablet 30 Mg PO HS Namenda (Memantine Hcl) 10 Mg Tablet 5 Mg PO BID Namenda (Memantine Hcl) 10 Mg Tablet 10 Mg PO BID Januvia (Sitagliptin Phosphate) 100 Mg Tablet 100 Mg PO DAILY Gabapentin 100 Mg Capsule 200 Mg PO TID Divalproex Sodium Er (Divalproex Sodium) 500 Mg Tab.er.24h 500 Mg PO BID Citalopram Hbr (Citalopram Hydrobromide) 20 Mg Tablet 20 Mg PO DAILY Acidophilus (Lactobacillus Acidophilus) 1 Each Capsule 1 Each PO DAILY Selenium Sulfide 180 Ml Shampoo 1 Ghada TP QHS TUES AND FRI Clonazepam 0.5 Mg Tablet 0.25 Mg PO HS Lantus Solostar (Insulin Glargine,Hum.rec.anlog) 100 Unit/1 Ml Insuln.pen 6 Unit SQ HS Tylenol (Acetaminophen) 325 Mg Tablet 650 Mg PO PRN Q6HRS PRN Diagnosis: Problems: (1) Bipolar disorder, mixed (2) Anxiety disorder (3) Dementia in Alzheimer's disease with delusions (4) Dementia in Alzheimer's disease with depression (5) Impulse control disorder (6) Dementia, vascular, with delusions (7) Dementia, vascular, with depression (8) Schizophrenia (9) Agitation (10) Dementia with behavioral disturbance VIPIN BELTRAN MD Apr 24, 2017 20:58
--- NOTE | 2017-04-24 21:40 | NUR ---
Behavior Intervention Response and Plan: BIRP Note: Behavior: Assumed Care of patient, patient located in Dining Room at shift change. Patient exhibited the following behavior Disorganized, Irritable, Resistive. Brief assessment on rounds of vital signs, medication needs, lab studies, and pain. Treatment plan problems 1-2. Intervention: Patient assessed and the following interventions initiated safety checks 15 Minute Checks Cognitive Assessment , Head to toe Assessment , Medications. Response: After interactions and interventions patient responded in the following manner, Disorganized , Irritable ,Resistive. Continue to assess behaviors and condition will continue to monitor throughout the shift as needed. Patient educated on ADL's, and hand hygiene. 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 Continue to assess patient for changes in above assessment. Monitor for medication needs, pain, and safety concerns. Hourly rounding performed to ensure safe environment.
--- NOTE | 2017-04-25 01:03 | PN ---
DATE: 04/23/2017 PSYCHIATRIC PROGRESS NOTE This late entry for 04/23/2017 covers elements not covered in my initial note of 04/23/2017. SUBJECTIVE: The patient was staffed at a treatment team meeting with the entire team morning of 04/23/2017, seen individually evening of 04/23/2017. The patient remains quite confused, having to be fed by nursing staff, somewhat withdrawn, sedated. We stopped the Depakote in the morning and then stopped the trazodone at night to help with the sedation, and we will have to reassess. She is dehydrated. Sodium 146. Fluids are being pushed. Nursing staffs are feeding her. REVIEW OF SYSTEMS: Ambulation impaired. No CV, , pulmonary, eye, ENT system symptoms on review. Much of this did ____ from her responses, which are unreliable given her dementia. MENTAL STATUS EXAM: Oriented to herself. Insight, judgment, recent and remote memory, attention, concentration, fund of knowledge poor, consistent with her diagnosis as mentioned in my initial note. PLAN: Continue current psychotropics. Reviewed drug interactions, risk/benefit ratio favors no further change. VIPIN BELTRAN MD DR: JIE/triston JOB#: [id number] / [id number]
[2017-04-25] MEDS: LACTOBACILLUS ACIDOPH & BULGAR 1 TABLET. PO SCH ×2 (09:00→09:40)
[2017-04-25] MEDS: INSULIN ASPART 300 UNITS/3 ML INSULN.PEN SQ SCH ×2 (09:00→13:13)
[2017-04-25] MEDS: MULTIVITAMIN with MINERAL TABLET. PO SCH ×2 (09:00→09:41)
[2017-04-25] MEDS: SENNOSIDES 8.6 MG TABLET PO SCH ×2 (09:00→09:40)
[2017-04-25] MEDS: POLYETHYLENE GLYCOL 3350 17 GM PACKET. PO SCH ×2 (09:00→09:39)
[2017-04-25] MEDS: QUEtiapine 50 MG TABLET. PO SCH ×2 (09:40→19:21)
[2017-04-25] MEDS: LINAGLIPTIN 5 MG TABLET PO SCH (09:40)
[2017-04-25] MEDS: GABAPENTIN 100 MG CAPSULE. PO SCH ×3 (09:40→19:21)
[2017-04-25] MEDS: PANTOPRAZOLE 40 MG TABLET. PO SCH (09:42)
[2017-04-25] MEDS: POTASSIUM CHLORIDE 10 MEQ TABLET.ER. PO SCH (09:42)
[2017-04-25] MEDS: CITALOPRAM 20 MG TABLET. PO SCH (09:42)
--- NOTE | 2017-04-25 13:14 | NUR ---
Non administered insulin d/t pt refusing lunch
--- NOTE | 2017-04-25 13:16 | NUR ---
Behavior Intervention Response and Plan: BIRP Note: Behavior: Assumed Care of patient, patient located in Day Room at shift change. Patient exhibited the following behavior Disorganized, Irritable, Resistive. Brief assessment on rounds of vital signs, medication needs, lab studies, and pain. Treatment plan problems . Intervention: Patient assessed and the following interventions initiated safety checks 15 Minute Checks Cognitive Assessment , Head to toe Assessment , Medications. Response: After interactions and interventions patient responded in the following manner, Disorganized , Irritable ,Resistive. Continue to assess behaviors and condition will continue to monitor throughout the shift as needed. Patient educated on ADL's, and hand hygiene. 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 Continue to assess patient for changes in above assessment. Monitor for medication needs, pain, and safety concerns. Hourly rounding performed to ensure safe environment.
[2017-04-25 16:59] VITALS: BP 130/61
[2017-04-25] MEDS: QUEtiapine 100 MG TABLET. PO SCH (19:21)
[2017-04-25] MEDS: MIRTAZAPINE 30 MG TABLET PO SCH (19:21)
[2017-04-25] MEDS: INSULIN DETEMIR 300 UNITS/3 ML INSULN.PEN. SQ SCH (19:35)
--- NOTE | 2017-04-25 21:12 | PDOC ---
Exam Maximiliano Demential Exam: Maximiliano Note: Please also refer to the separate dictated note~for this date of service dictated separately.~Patient seen individually. Discussed the patient with Nursing staff reviewed the chart.~Reviewed interim history and current functioning. Reviewed vital signs,~Labs/ Radiology~and current medications noted below. Continue current treatment with the changes noted in the dictated addendum note Assessment: Vital Signs: Vital Signs Date Time Temp Pulse Resp B/P (MAP) Pulse Ox O2 Delivery O2 Flow Rate FiO2 04/25/17 16:59 98.0 76 18 130/61 (84) 95 04/23/17 05:53 Room Air I&O Intake and Output 04/26/17 06:59 Intake Total 600 ml Balance 600 ml Intake Oral 600 ml Labs: Laboratory Tests Test 04/25/17 07:33 04/25/17 11:23 04/25/17 16:49 04/25/17 19:29 Glucose (Fingerstick) 90 mg/dL (70-99) 271 mg/dL (70-99) H 114 mg/dL (70-99) H 228 mg/dL (70-99) H Current Medications: Meds: Current Medications Olanzapine (ZyPREXA ZYDIS) 5 mg 1X ONCE PO ; Start 04/14/17 at 18:45; Stop 07/19 at 18:46; Status DC Olanzapine (ZyPREXA ZYDIS) 2.5 mg PRN Q2HR PRN PO PSYCHOSIS Last administered on 04/24/17t 14:46; Start 04/14/17 at 18:45 Acetaminophen (Tylenol) 650 mg PRN Q6HRS PRN PO PAIN / TEMP; Start 04/14/17 at 19:30 Multi-Ingredient Ointment (Analgesic [place]) 1 ghada PRN QID PRN TP MUSCLE PAIN; Start 04/14/17 at 19:30 Al Hydroxide/Mg Hydroxide (Mylanta Plus Xs) 15 ml PRN AFTMEALHC PRN PO DYSPEPSIA; Start 04/14/17 at 19:30; Status Cancel Magnesium Hydroxide (Milk Of Magnesia) 2,400 mg PRN QHS PRN PO CONSTIPATION; Start 04/14/17 at 19:30 Insulin Aspart (NovoLOG) 0-7 UNITS BID SQ Last administered on 04/23/17 21:45 ; Start 04/15/17 at 09:00; Stop 04/24/17 at 19:32; Status DC Dextrose 12.5 gm PRN Q15MIN PRN IV SEE COMMENTS; Start 04/14/17 at 22:15 Citalopram Hydrobromide (CeleXA) 20 mg DAILY PO Last administered on 04/25/17 09:42; Start 04/15/17 at 09:00 Clonazepam (KlonoPIN) 0.25 mg HS PO Last administered on 04/15/17 20:36; Start 04/14/17 at 22:45; Stop 04/16/17 at 10:54; Status DC Divalproex Sodium (Depakote Er) 500 mg BID PO Last administered on 04/16/17 09 :35; Start 04/14/17 at 22:45; Stop 04/16/17 at 19:26; Status DC Memantine (Namenda) 5 mg BID PO ; Start 04/14/17 at 22:45; Stop 04/14/17 at 22: 45; Status DC Memantine (Namenda) 15 mg BID PO Last administered on 04/16/17 09:35; Start at 22:45; Stop 04/16/17 at 10:54; Status DC Mirtazapine (Remeron) 30 mg HS PO Last administered on 04/25/17 19:21; Start 04/14/17 at 22:45 Quetiapine Fumarate (SEROquel) 50 mg BID PO Last administered on 04/25/17 19: 21; Start 04/14/17 at 22:45 Rivastigmine (Exelon) 1 patch DAILY TD Last administered on 04/16/17 09:36; Start 04/15/17 at 09:00; Stop 04/16/17 at 10:54; Status DC Quetiapine Fumarate (SEROquel) 300 mg QHS PO Last administered on 04/23/17 19: 14; Start 04/14/17 at 22:45; Stop 04/24/17 at 19:00; Status DC Gabapentin (Neurontin) 200 mg TID PO Last administered on 04/25/17 19:21; Start 04/14/17 at 22:45 Polyethylene Glycol (miraLAX) 17 gm DAILY PO Last administered on 04/24/17 08: 32; Start 04/15/17 at 09:00 Sennosides (Senna) 8.6 mg DAILY PO Last administered on 04/24/17 08:32; Start 04/15/17 at 09:00 Insulin Detemir (Levemir) 6 units QHS SQ Last administered on 04/25/17 19:35; Start 04/15/17 at 21:00 Lactobacillus Acidophilus (Bacid, Ester-Bid) 1 tab DAILY PO Last administered on 04/24/17 08:32; Start 04/15/17 at 09:00 Al Hydroxide/Mg Hydroxide (Mylanta Plus Xs) 30 ml PRN Q8HRS PRN PO DYSPEPSIA; Start 04/14/17 at 23:00 Multivitamins/ Calcium (Thera-M Plus) 1 tab DAILY PO Last administered on 08:32; Start 04/15/17 at 09:00 Pantoprazole Sodium (Protonix) 40 mg DAILYAC PO Last administered on 04/25/17 09:42; Start 04/15/17 at 07:30 Potassium Chloride (Klor-Con) 10 meq DAILYWBKFT PO Last administered on 09:42; Start 04/15/17 at 08:00 Selenium Sulfide (Selsun) 1 ghada QTU TP ; Start 04/21/17 at 16:00 Linagliptin (Tradjenta) 5 mg DAILY PO Last administered on 04/25/17 09:40; Start 04/15/17 at 09:00 Selenium Sulfide (Selsun) 1 ghada QFR TP ; Start 04/17/17 at 16:00 Vitamin D (Vitamin D3) 50,000 unit WEEKLY PO Last administered on 04/23/17 08: 24; Start 04/16/17 at 09:00 Trazodone HCl (Desyrel) 100 mg QHS PO Last administered on 04/22/17 21:05; Start 04/16/17 at 21:00; Stop 04/23/17 at 17:59; Status DC Trazodone HCl (Desyrel) 100 mg PRN QHS PRN PO INSOMNIA; Start 04/16/17 at 21:00 ; Stop 04/23/17 at 17:59; Status DC Divalproex Sodium (Depakote Sprinkles) 500 mg DAILY PO Last administered on 08:22; Start 04/17/17 at 09:00; Stop 04/23/17 at 12:55; Status DC Divalproex Sodium (Depakote Sprinkles) 750 mg HS PO Last administered on 19:29; Start 04/16/17 at 21:00; Stop 04/20/17 at 18:21; Status DC Divalproex Sodium (Depakote Sprinkles) 500 mg HS PO Last administered on 21:05; Start 04/20/17 at 21:00; Stop 04/23/17 at 12:55; Status DC Olanzapine (ZyPREXA ZYDIS) 5 mg 1X ONCE PO Last administered on 04/24/17 11: 55; Start 04/24/17 at 12:00; Stop 04/24/17 at 12:01; Status DC Quetiapine Fumarate (SEROquel) 200 mg QHS PO Last administered on 04/25/17 19: 21; Start 04/24/17 at 21:00 Insulin Aspart (NovoLOG) 0-7 UNITS BID94 SQ ; Start 04/25/17 at 09:00 Active Scripts Active Reported Dianna-Lanta Liquid (Mag Hydrox/Al Hydrox/Simeth) 355 Ml Oral.susp 30 Ml PO PRN Q8HRS PRN Thera-M (Multivits,Th W-Fe,Other Min) 1 Each Tablet 1 Each PO DAILY Senna (Sennosides) 8.6 Mg Tablet 8.6 Mg PO DAILY EXELON 4.6mg/24hr (Rivastigmine) 1 Each Patch.td24 1 Patch TD DAILY Seroquel (Quetiapine Fumarate) 50 Mg Tablet 50 Mg PO BID Seroquel (Quetiapine Fumarate) 300 Mg Tablet 300 Mg PO QHS Potassium Chloride 10 Meq Tablet.er 10 Meq PO DAILY Miralax (Polyethylene Glycol 3350) 17 Gm Powd.pack 17 Gm PO DAILY Omeprazole 20 Mg Capsule.dr 20 Mg PO DAILY Mirtazapine 30 Mg Tablet 30 Mg PO HS Namenda (Memantine Hcl) 10 Mg Tablet 5 Mg PO BID Namenda (Memantine Hcl) 10 Mg Tablet 10 Mg PO BID Januvia (Sitagliptin Phosphate) 100 Mg Tablet 100 Mg PO DAILY Gabapentin 100 Mg Capsule 200 Mg PO TID Divalproex Sodium Er (Divalproex Sodium) 500 Mg Tab.er.24h 500 Mg PO BID Citalopram Hbr (Citalopram Hydrobromide) 20 Mg Tablet 20 Mg PO DAILY Acidophilus (Lactobacillus Acidophilus) 1 Each Capsule 1 Each PO DAILY Selenium Sulfide 180 Ml Shampoo 1 Ghada TP QHS TUES AND FRI Clonazepam 0.5 Mg Tablet 0.25 Mg PO HS Lantus Solostar (Insulin Glargine,Hum.rec.anlog) 100 Unit/1 Ml Insuln.pen 6 Unit SQ HS Tylenol (Acetaminophen) 325 Mg Tablet 650 Mg PO PRN Q6HRS PRN Diagnosis: Problems: (1) Bipolar disorder, mixed (2) Anxiety disorder (3) Dementia in Alzheimer's disease with delusions (4) Dementia in Alzheimer's disease with depression (5) Impulse control disorder (6) Dementia, vascular, with delusions (7) Dementia, vascular, with depression (8) Schizophrenia (9) Dementia with behavioral disturbance (10) Agitation VIPIN BELTRAN MD Apr 25, 2017 21:12
--- NOTE | 2017-04-25 22:26 | NUR ---
Behavior Intervention Response and Plan: BIRP Note: Behavior: Assumed Care of patient, patient located in Day Room at shift change. Patient exhibited the following behavior Calm, Able to Focus on Task, Restless. Brief assessment on rounds of vital signs, medication needs, lab studies, and pain. Treatment plan problems . Intervention: Patient assessed and the following interventions initiated safety checks 15 Minute Checks Cognitive Assessment , Head to toe Assessment , Medications. Response: After interactions and interventions patient responded in the following manner, Compliant , Cooperative ,Withdrawn. Continue to assess behaviors and condition will continue to monitor throughout the shift as needed. Patient educated on ADL's, and hand hygiene. 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 Continue to assess patient for changes in above assessment. Monitor for medication needs, pain, and safety concerns. Hourly rounding performed to ensure safe environment.
--- NOTE | 2017-04-25 22:27 | PN ---
DATE: 04/24/2017 PSYCHIATRIC PROGRESS NOTE This late entry 04/24/2017 covers elements not covered in my initial note 04/24/2017. I met with the patient in the evening of 04/24/2017. She slept until 11:[address] head shows chronic changes, no acute changes. Nursing staff had called me earlier in the day, needing p.r.n. before her CT and yet used the Zyprexa which was effective. Previous evening, she slid herself on to the floor from the chair, was combative, no interest in feeding herself, nursing staff have to do this during the day. She did better on 04/24/2017, ate her hamburger and we will change her foods to finger foods. REVIEW OF SYSTEMS: Ambulation impaired, some tiredness. No CV, , pulmonary, eye, ENT system symptoms on review. MENTAL STATUS EXAM: Oriented to herself. Insight, judgment, recent and remote memory, attention, concentration, fund of knowledge poor, consistent with her diagnosis mentioned in my initial note. PLAN: Depakote has been stopped. We will reduce bedtime Seroquel from 300 mg to 200 mg maintained, rest unchanged, reviewed drug interactions, risk/benefit ratio favors no further change. MAN Gladis BELTRAN MD DR: JIE/triston JOB#: [id number] / [id number]
[2017-04-26 06:17] VITALS: BP 100/67
[2017-04-26] MEDS: LACTOBACILLUS ACIDOPH & BULGAR 1 TABLET. PO SCH (07:50)
[2017-04-26] MEDS: LINAGLIPTIN 5 MG TABLET PO SCH (07:50)
[2017-04-26] MEDS: MULTIVITAMIN with MINERAL TABLET. PO SCH (07:51)
[2017-04-26] MEDS: QUEtiapine 50 MG TABLET. PO SCH ×2 (07:51→19:11)
[2017-04-26] MEDS: GABAPENTIN 100 MG CAPSULE. PO SCH ×3 (07:51→19:10)
[2017-04-26] MEDS: POTASSIUM CHLORIDE 10 MEQ TABLET.ER. PO SCH (07:51)
[2017-04-26] MEDS: CITALOPRAM 20 MG TABLET. PO SCH (07:51)
[2017-04-26] MEDS: PANTOPRAZOLE 40 MG TABLET. PO SCH (07:51)
[2017-04-26] MEDS: SENNOSIDES 8.6 MG TABLET PO SCH (07:52)
[2017-04-26] MEDS: POLYETHYLENE GLYCOL 3350 17 GM PACKET. PO SCH (07:52)
[2017-04-26] MEDS: INSULIN ASPART 300 UNITS/3 ML INSULN.PEN SQ SCH ×2 (08:22→17:20)
[2017-04-26] MEDS: ACETAMINOPHEN 325 MG TABLET PO PRN (09:53)
--- NOTE | 2017-04-26 10:55 | NUR ---
Behavior Intervention Response and Plan: BIRP Note: Behavior: Assumed Care of patient, patient located in Patient Room at shift change. Patient exhibited the following behavior Drowsy, Compliant, Cooperative. Brief assessment on rounds of vital signs, medication needs, lab studies, and pain. Treatment plan problems . Intervention: Patient assessed and the following interventions initiated safety checks 15 Minute Checks Medications , Head to toe Assessment , Cognitive Assessment. Response: After interactions and interventions patient responded in the following manner, Calm , Compliant ,Cooperative. Continue to assess behaviors and condition will continue to monitor throughout the shift as needed. Patient educated on ADL's, and hand hygiene. 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 Continue to assess patient for changes in above assessment. Monitor for medication needs, pain, and safety concerns. Hourly rounding performed to ensure safe environment.
[2017-04-26 16:19] VITALS: BP 120/83
[2017-04-26] MEDS: QUEtiapine 100 MG TABLET. PO SCH (19:10)
[2017-04-26] MEDS: MIRTAZAPINE 30 MG TABLET PO SCH (19:11)
[2017-04-26 19:56] LABS: BILIRUBIN,URINE NEG (NEG); CLARITY,URINE TURBID; COLOR,URINE YELLOW; GLUCOSE,URINE NEG (NEG); NITRITE,URINE NEG (NEG); UROBILINOGEN,URINE 2 mg/dL (0.2 mg/dL)
[2017-04-26 19:57] LABS: BACTERIA,URINE FEW /HPF (0-FEW); WBC,URINE 20-40 /HPF (0-4)
[2017-04-26 19:58] LABS: AMORPHOUS SEDIMENT,UR PRESENT /HPF
--- NOTE | 2017-04-26 20:13 | PN ---
DATE: 04/26/2017 This is a late entry 04/25/2017, covers the elements not covered in my initial note of 04/25/2017. SUBJECTIVE: I met with the patient in the evening of 04/25/2017. The patient remains confused, withdrawn, less sedated; however. She takes her medications hidden in the ice-cream, compliant with the assessments, quite disorganized, has trouble feeding herself, needs finger foods. REVIEW OF SYSTEMS: Ambulation impaired, in a wheelchair. No CV, , pulmonary, eye system symptoms on review. MENTAL STATUS EXAM: Oriented to herself. Insight, judgment, recent and remote memory, attention, concentration, fund of knowledge poor, consistent with her diagnosis as mentioned in my initial note. PLAN: Valproic acid level is 84 therapeutic. Continue Celexa, Remeron, and Seroquel at current dosage. Depakote is being discontinued for now. We will review her drug interactions, risk/benefit ration favors no further change. VIPIN BELTRAN MD DR: JIE/triston JOB#: [id number] / [id number]
[2017-04-26] MEDS: INSULIN DETEMIR 300 UNITS/3 ML INSULN.PEN. SQ SCH (20:26)
--- NOTE | 2017-04-26 22:43 | PDOC ---
Exam Maximiliano Demential Exam: Maximiliano Note: Please also refer to the separate dictated note~for this date of service dictated separately.~Patient seen individually. Discussed the patient with Nursing staff reviewed the chart.~Reviewed interim history and current functioning. Reviewed vital signs,~Labs/ Radiology~and current medications noted below. Continue current treatment with the changes noted in the dictated addendum note Assessment: Vital Signs: Vital Signs Date Time Temp Pulse Resp B/P (MAP) Pulse Ox O2 Delivery O2 Flow Rate FiO2 04/26/17 16:19 97.7 81 20 120/83 (95) 95 04/23/17 05:53 Room Air I&O Intake and Output 04/27/17 07:00 Intake Total 600 ml Balance 600 ml Intake Oral 600 ml # Voids 2 Labs: Laboratory Tests Test 04/26/17 07:27 04/26/17 11:03 04/26/17 16:45 04/26/17 18:30 Glucose (Fingerstick) 115 mg/dL (70-99) H 185 mg/dL (70-99) H 220 mg/dL (70-99) H Urine Collection Type Unknown Urine Color Yellow Urine Clarity Turbid Urine pH 8.5 Urine Specific [place] 1.015 Urine Protein 30 mg/dl (NEG-TRACE) Urine Glucose (UA) Neg mg/dL (NEG) Urine Ketones (Stick) Trace mg/dL (NEG) Urine Blood Mod (NEG) Urine Nitrite Neg (NEG) Urine Bilirubin Neg (NEG) Urine Urobilinogen Dipstick 2 mg/dL (0.2 mg/dL) Urine Leukocyte Esterase Large (NEG) Urine RBC 3-5 /HPF (0-2) Urine WBC 20-40 /HPF (0-4) Urine Squamous Epithelial Cells None /LPF Urine Ammonium Biurate Crystals /HPF Urine Amorphous Sediment Present /HPF Urine Bacteria Few /HPF (0-FEW) Test 04/26/17 19:31 Glucose (Fingerstick) 188 mg/dL (70-99) H Current Medications: Meds: Current Medications Olanzapine (ZyPREXA ZYDIS) 5 mg 1X ONCE PO ; Start 04/14/17 at 18:45; Stop 07/19 at 18:46; Status DC Olanzapine (ZyPREXA ZYDIS) 2.5 mg PRN Q2HR PRN PO PSYCHOSIS Last administered on 04/24/17t 14:46; Start 04/14/17 at 18:45 Acetaminophen (Tylenol) 650 mg PRN Q6HRS PRN PO PAIN / TEMP Last administered on 04/26/17 09:53; Start 04/14/17 at 19:30 Multi-Ingredient Ointment (Analgesic [place]) 1 ghada PRN QID PRN TP MUSCLE PAIN; Start 04/14/17 at 19:30 Al Hydroxide/Mg Hydroxide (Mylanta Plus Xs) 15 ml PRN AFTMEALHC PRN PO DYSPEPSIA; Start 04/14/17 at 19:30; Status Cancel Magnesium Hydroxide (Milk Of Magnesia) 2,400 mg PRN QHS PRN PO CONSTIPATION; Start 04/14/17 at 19:30 Insulin Aspart (NovoLOG) 0-7 UNITS BID SQ Last administered on 04/23/17 21:45 ; Start 04/15/17 at 09:00; Stop 04/24/17 at 19:32; Status DC Dextrose 12.5 gm PRN Q15MIN PRN IV SEE COMMENTS; Start 04/14/17 at 22:15 Citalopram Hydrobromide (CeleXA) 20 mg DAILY PO Last administered on 04/26/17 07:51; Start 04/15/17 at 09:00 Clonazepam (KlonoPIN) 0.25 mg HS PO Last administered on 04/15/17 20:36; Start 04/14/17 at 22:45; Stop 04/16/17 at 10:54; Status DC Divalproex Sodium (Depakote Er) 500 mg BID PO Last administered on 04/16/17 09 :35; Start 04/14/17 at 22:45; Stop 04/16/17 at 19:26; Status DC Memantine (Namenda) 5 mg BID PO ; Start 04/14/17 at 22:45; Stop 04/14/17 at 22: 45; Status DC Memantine (Namenda) 15 mg BID PO Last administered on 04/16/17 09:35; Start at 22:45; Stop 04/16/17 at 10:54; Status DC Mirtazapine (Remeron) 30 mg HS PO Last administered on 04/26/17 19:11; Start 04/14/17 at 22:45 Quetiapine Fumarate (SEROquel) 50 mg BID PO Last administered on 04/26/17 19: 11; Start 04/14/17 at 22:45 Rivastigmine (Exelon) 1 patch DAILY TD Last administered on 04/16/17 09:36; Start 04/15/17 at 09:00; Stop 04/16/17 at 10:54; Status DC Quetiapine Fumarate (SEROquel) 300 mg QHS PO Last administered on 04/23/17 19: 14; Start 04/14/17 at 22:45; Stop 04/24/17 at 19:00; Status DC Gabapentin (Neurontin) 200 mg TID PO Last administered on 04/26/17 19:10; Start 04/14/17 at 22:45 Polyethylene Glycol (miraLAX) 17 gm DAILY PO Last administered on 04/26/17 07: 52; Start 04/15/17 at 09:00 Sennosides (Senna) 8.6 mg DAILY PO Last administered on 04/26/17 07:52; Start 04/15/17 at 09:00 Insulin Detemir (Levemir) 6 units QHS SQ Last administered on 04/26/17 20:26; Start 04/15/17 at 21:00 Lactobacillus Acidophilus (Bacid, Ester-Bid) 1 tab DAILY PO Last administered on 04/26/17 07:50; Start 04/15/17 at 09:00 Al Hydroxide/Mg Hydroxide (Mylanta Plus Xs) 30 ml PRN Q8HRS PRN PO DYSPEPSIA; Start 04/14/17 at 23:00 Multivitamins/ Calcium (Thera-M Plus) 1 tab DAILY PO Last administered on 07:51; Start 04/15/17 at 09:00 Pantoprazole Sodium (Protonix) 40 mg DAILYAC PO Last administered on 04/26/17 07:51; Start 04/15/17 at 07:30 Potassium Chloride (Klor-Con) 10 meq DAILYWBKFT PO Last administered on 07:51; Start 04/15/17 at 08:00 Selenium Sulfide (Selsun) 1 ghada QTU TP ; Start 04/21/17 at 16:00 Linagliptin (Tradjenta) 5 mg DAILY PO Last administered on 04/26/17 07:50; Start 04/15/17 at 09:00 Selenium Sulfide (Selsun) 1 ghada QFR TP ; Start 04/17/17 at 16:00 Vitamin D (Vitamin D3) 50,000 unit WEEKLY PO Last administered on 04/23/17 08: 24; Start 04/16/17 at 09:00 Trazodone HCl (Desyrel) 100 mg QHS PO Last administered on 04/22/17 21:05; Start 04/16/17 at 21:00; Stop 04/23/17 at 17:59; Status DC Trazodone HCl (Desyrel) 100 mg PRN QHS PRN PO INSOMNIA; Start 04/16/17 at 21:00 ; Stop 04/23/17 at 17:59; Status DC Divalproex Sodium (Depakote Sprinkles) 500 mg DAILY PO Last administered on 08:22; Start 04/17/17 at 09:00; Stop 04/23/17 at 12:55; Status DC Divalproex Sodium (Depakote Sprinkles) 750 mg HS PO Last administered on 19:29; Start 04/16/17 at 21:00; Stop 04/20/17 at 18:21; Status DC Divalproex Sodium (Depakote Sprinkles) 500 mg HS PO Last administered on 21:05; Start 04/20/17 at 21:00; Stop 04/23/17 at 12:55; Status DC Olanzapine (ZyPREXA ZYDIS) 5 mg 1X ONCE PO Last administered on 04/24/17 11: 55; Start 04/24/17 at 12:00; Stop 04/24/17 at 12:01; Status DC Quetiapine Fumarate (SEROquel) 200 mg QHS PO Last administered on 04/26/17 19: 10; Start 04/24/17 at 21:00 Insulin Aspart (NovoLOG) 0-7 UNITS BID94 SQ Last administered on 04/26/17 17: 20; Start 04/25/17 at 09:00 Active Scripts Active Reported Dianna-Lanta Liquid (Mag Hydrox/Al Hydrox/Simeth) 355 Ml Oral.susp 30 Ml PO PRN Q8HRS PRN Thera-M (Multivits,Th W-Fe,Other Min) 1 Each Tablet 1 Each PO DAILY Senna (Sennosides) 8.6 Mg Tablet 8.6 Mg PO DAILY EXELON 4.6mg/24hr (Rivastigmine) 1 Each Patch.td24 1 Patch TD DAILY Seroquel (Quetiapine Fumarate) 50 Mg Tablet 50 Mg PO BID Seroquel (Quetiapine Fumarate) 300 Mg Tablet 300 Mg PO QHS Potassium Chloride 10 Meq Tablet.er 10 Meq PO DAILY Miralax (Polyethylene Glycol 3350) 17 Gm Powd.pack 17 Gm PO DAILY Omeprazole 20 Mg Capsule.dr 20 Mg PO DAILY Mirtazapine 30 Mg Tablet 30 Mg PO HS Namenda (Memantine Hcl) 10 Mg Tablet 5 Mg PO BID Namenda (Memantine Hcl) 10 Mg Tablet 10 Mg PO BID Januvia (Sitagliptin Phosphate) 100 Mg Tablet 100 Mg PO DAILY Gabapentin 100 Mg Capsule 200 Mg PO TID Divalproex Sodium Er (Divalproex Sodium) 500 Mg Tab.er.24h 500 Mg PO BID Citalopram Hbr (Citalopram Hydrobromide) 20 Mg Tablet 20 Mg PO DAILY Acidophilus (Lactobacillus Acidophilus) 1 Each Capsule 1 Each PO DAILY Selenium Sulfide 180 Ml Shampoo 1 Ghada TP QHS TUES AND FRI Clonazepam 0.5 Mg Tablet 0.25 Mg PO HS Lantus Solostar (Insulin Glargine,Hum.rec.anlog) 100 Unit/1 Ml Insuln.pen 6 Unit SQ HS Tylenol (Acetaminophen) 325 Mg Tablet 650 Mg PO PRN Q6HRS PRN Diagnosis: Problems: (1) Bipolar disorder, mixed (2) Anxiety disorder (3) Dementia in Alzheimer's disease with delusions (4) Dementia in Alzheimer's disease with depression (5) Impulse control disorder (6) Dementia, vascular, with delusions (7) Dementia, vascular, with depression (8) Schizophrenia (9) Agitation (10) Dementia with behavioral disturbance VIPIN BELTRAN MD Apr 26, 2017 22:43
--- NOTE | 2017-04-26 23:18 | NUR ---
Behavior Intervention Response and Plan: BIRP Note: Behavior: Assumed Care of patient, patient located in Day Room at shift change. Patient exhibited the following behavior Disorganized, Irritable, Resistive, combative. Brief assessment on rounds of vital signs, medication needs, lab studies, and pain. Treatment plan problems 1-2. Intervention: Patient assessed and the following interventions initiated safety checks 15 Minute Checks Cognitive Assessment , Head to toe Assessment , Medications. Response: After interactions and interventions patient responded in the following manner, Disorganized , Irritable ,Resistive. Continue to assess behaviors and condition will continue to monitor throughout the shift as needed. Patient educated on ADL's, and hand hygiene. 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 Continue to assess patient for changes in above assessment. Monitor for medication needs, pain, and safety concerns. Hourly rounding performed to ensure safe environment.
[2017-04-27 06:46] VITALS: BP 113/60
[2017-04-27] MEDS: GABAPENTIN 100 MG CAPSULE. PO SCH ×3 (08:17→19:38)
[2017-04-27] MEDS: PANTOPRAZOLE 40 MG TABLET. PO SCH (08:17)
[2017-04-27] MEDS: POLYETHYLENE GLYCOL 3350 17 GM PACKET. PO SCH (08:17)
[2017-04-27] MEDS: LINAGLIPTIN 5 MG TABLET PO SCH (08:17)
[2017-04-27] MEDS: CITALOPRAM 20 MG TABLET. PO SCH (08:17)
[2017-04-27] MEDS: QUEtiapine 50 MG TABLET. PO SCH ×2 (08:17→19:38)
[2017-04-27] MEDS: INSULIN ASPART 300 UNITS/3 ML INSULN.PEN SQ SCH ×3 (08:18→19:41)
[2017-04-27] MEDS: MULTIVITAMIN with MINERAL TABLET. PO SCH (08:18)
[2017-04-27] MEDS: SENNOSIDES 8.6 MG TABLET PO SCH (08:18)
[2017-04-27] MEDS: POTASSIUM CHLORIDE 10 MEQ TABLET.ER. PO SCH (08:18)
[2017-04-27] MEDS: LACTOBACILLUS ACIDOPH & BULGAR 1 TABLET. PO SCH (08:18)
--- NOTE | 2017-04-27 09:47 | NUR ---
Group Note [facility] Group Type Orientation Group Start Time: 9:00am End Time: 9:15am Problem: Anxiety Purpose: Increase Orientation Level of Participation: Absent Behaviors or Symptoms Observed: Interventions: Education, Orientation, Socialization Response: Plan: Group Participation Additional Comments:
[2017-04-27 16:24] VITALS: BP 110/74
--- NOTE | 2017-04-27 18:33 | NUR ---
Behavior Intervention Response and Plan: BIRP Note: Behavior: Assumed Care of patient, patient located in Patient Room at shift change. Patient exhibited the following behavior Disorganized, Withdrawn, Sleeping. Brief assessment on rounds of vital signs, medication needs, lab studies, and pain. Treatment plan problems Dementia w/ Bd and Fall Risk. Intervention: Patient assessed and the following interventions initiated safety checks 15 Minute Checks Cognitive Assessment , Head to toe Assessment , Medications. Response: After interactions and interventions patient responded in the following manner, Disorganized , Withdrawn ,Calm. Continue to assess behaviors and condition will continue to monitor throughout the shift as needed. Patient educated on ADL's, and hand hygiene. 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 Continue to assess patient for changes in above assessment. Monitor for medication needs, pain, and safety concerns. Hourly rounding performed to ensure safe environment.
[2017-04-27] MEDS: MIRTAZAPINE 30 MG TABLET PO SCH (19:38)
[2017-04-27] MEDS: QUEtiapine 100 MG TABLET. PO SCH (19:39)
[2017-04-27] MEDS: INSULIN DETEMIR 300 UNITS/3 ML INSULN.PEN. SQ SCH (19:42)
--- NOTE | 2017-04-27 21:01 | PDOC ---
Exam Maximiliano Demential Exam: Maximiliano Note: Please also refer to the separate dictated note~for this date of service dictated separately.~Patient seen individually. Discussed the patient with Nursing staff reviewed the chart.~Reviewed interim history and current functioning. Reviewed vital signs,~Labs/ Radiology~and current medications noted below. Continue current treatment with the changes noted in the dictated addendum note Assessment: Vital Signs: Vital Signs Date Time Temp Pulse Resp B/P (MAP) Pulse Ox O2 Delivery O2 Flow Rate FiO2 04/27/17 16:24 98.0 93 20 110/74 (86) 92 04/23/17 05:53 Room Air I&O Intake and Output 04/28/17 07:00 Intake Total 240 ml Balance 240 ml Intake Oral 240 ml Labs: Laboratory Tests Test 04/27/17 08:05 04/27/17 11:40 04/27/17 17:02 04/27/17 19:09 Glucose (Fingerstick) 108 mg/dL (70-99) H 122 mg/dL (70-99) H 214 mg/dL (70-99) H 219 mg/dL (70-99) H Current Medications: Meds: Current Medications Olanzapine (ZyPREXA ZYDIS) 5 mg 1X ONCE PO ; Start 04/14/17 at 18:45; Stop 07/19 at 18:46; Status DC Olanzapine (ZyPREXA ZYDIS) 2.5 mg PRN Q2HR PRN PO PSYCHOSIS Last administered on 04/24/17 14:46; Start 04/14/17 at 18:45 Acetaminophen (Tylenol) 650 mg PRN Q6HRS PRN PO PAIN / TEMP Last administered on 04/26/17 09:53; Start 04/14/17 at 19:30 Multi-Ingredient Ointment (Analgesic [place]) 1 ghada PRN QID PRN TP MUSCLE PAIN; Start 04/14/17 at 19:30 Al Hydroxide/Mg Hydroxide (Mylanta Plus Xs) 15 ml PRN AFTMEALHC PRN PO DYSPEPSIA; Start 04/14/17 at 19:30; Status Cancel Magnesium Hydroxide (Milk Of Magnesia) 2,400 mg PRN QHS PRN PO CONSTIPATION; Start 04/14/17 at 19:30 Insulin Aspart (NovoLOG) 0-7 UNITS BID SQ Last administered on 04/23/17 21:45 ; Start 04/15/17 at 09:00; Stop 04/24/17 at 19:32; Status DC Dextrose 12.5 gm PRN Q15MIN PRN IV SEE COMMENTS; Start 04/14/17 at 22:15 Citalopram Hydrobromide (CeleXA) 20 mg DAILY PO Last administered on 04/27/17 08:17; Start 04/15/17 at 09:00 Clonazepam (KlonoPIN) 0.25 mg HS PO Last administered on 04/15/17 20:36; Start 04/14/17 at 22:45; Stop 04/16/17 at 10:54; Status DC Divalproex Sodium (Depakote Er) 500 mg BID PO Last administered on 04/16/17 09 :35; Start 04/14/17 at 22:45; Stop 04/16/17 at 19:26; Status DC Memantine (Namenda) 5 mg BID PO ; Start 04/14/17 at 22:45; Stop 04/14/17 at 22: 45; Status DC Memantine (Namenda) 15 mg BID PO Last administered on 04/16/17 09:35; Start at 22:45; Stop 04/16/17 at 10:54; Status DC Mirtazapine (Remeron) 30 mg HS PO Last administered on 04/27/17 19:38; Start 04/14/17 at 22:45 Quetiapine Fumarate (SEROquel) 50 mg BID PO Last administered on 04/27/17 19: 38; Start 04/14/17 at 22:45 Rivastigmine (Exelon) 1 patch DAILY TD Last administered on 04/16/17 09:36; Start 04/15/17 at 09:00; Stop 04/16/17 at 10:54; Status DC Quetiapine Fumarate (SEROquel) 300 mg QHS PO Last administered on 04/23/17 19: 14; Start 04/14/17 at 22:45; Stop 04/24/17 at 19:00; Status DC Gabapentin (Neurontin) 200 mg TID PO Last administered on 04/27/17 19:38; Start 04/14/17 at 22:45 Polyethylene Glycol (miraLAX) 17 gm DAILY PO Last administered on 04/27/17 08: 17; Start 04/15/17 at 09:00 Sennosides (Senna) 8.6 mg DAILY PO Last administered on 04/27/17 08:18; Start 04/15/17 at 09:00 Insulin Detemir (Levemir) 6 units QHS SQ Last administered on 04/27/17 19:42; Start 04/15/17 at 21:00 Lactobacillus Acidophilus (Bacid, Ester-Bid) 1 tab DAILY PO Last administered on 04/27/17 08:18; Start 04/15/17 at 09:00 Al Hydroxide/Mg Hydroxide (Mylanta Plus Xs) 30 ml PRN Q8HRS PRN PO DYSPEPSIA; Start 04/14/17 at 23:00 Multivitamins/ Calcium (Thera-M Plus) 1 tab DAILY PO Last administered on 08:18; Start 04/15/17 at 09:00 Pantoprazole Sodium (Protonix) 40 mg DAILYAC PO Last administered on 04/27/17 08:17; Start 04/15/17 at 07:30 Potassium Chloride (Klor-Con) 10 meq DAILYWBKFT PO Last administered on 08:18; Start 04/15/17 at 08:00 Selenium Sulfide (Selsun) 1 ghada QTU TP ; Start 04/21/17 at 16:00 Linagliptin (Tradjenta) 5 mg DAILY PO Last administered on 04/27/17 08:17; Start 04/15/17 at 09:00 Selenium Sulfide (Selsun) 1 ghada QFR TP ; Start 04/17/17 at 16:00 Vitamin D (Vitamin D3) 50,000 unit WEEKLY PO Last administered on 04/23/17 08: 24; Start 04/16/17 at 09:00 Trazodone HCl (Desyrel) 100 mg QHS PO Last administered on 04/22/17 21:05; Start 04/16/17 at 21:00; Stop 04/23/17 at 17:59; Status DC Trazodone HCl (Desyrel) 100 mg PRN QHS PRN PO INSOMNIA; Start 04/16/17 at 21:00 ; Stop 04/23/17 at 17:59; Status DC Divalproex Sodium (Depakote Sprinkles) 500 mg DAILY PO Last administered on 08:22; Start 04/17/17 at 09:00; Stop 04/23/17 at 12:55; Status DC Divalproex Sodium (Depakote Sprinkles) 750 mg HS PO Last administered on 19:29; Start 04/16/17 at 21:00; Stop 04/20/17 at 18:21; Status DC Divalproex Sodium (Depakote Sprinkles) 500 mg HS PO Last administered on 21:05; Start 04/20/17 at 21:00; Stop 04/23/17 at 12:55; Status DC Olanzapine (ZyPREXA ZYDIS) 5 mg 1X ONCE PO Last administered on 04/24/17 11: 55; Start 04/24/17 at 12:00; Stop 04/24/17 at 12:01; Status DC Quetiapine Fumarate (SEROquel) 200 mg QHS PO Last administered on 04/27/17 19: 39; Start 04/24/17 at 21:00 Insulin Aspart (NovoLOG) 0-7 UNITS BID94 SQ Last administered on 04/27/17 19: 41; Start 04/25/17 at 09:00 Active Scripts Active Reported Dianna-Lanta Liquid (Mag Hydrox/Al Hydrox/Simeth) 355 Ml Oral.susp 30 Ml PO PRN Q8HRS PRN Thera-M (Multivits,Th W-Fe,Other Min) 1 Each Tablet 1 Each PO DAILY Senna (Sennosides) 8.6 Mg Tablet 8.6 Mg PO DAILY EXELON 4.6mg/24hr (Rivastigmine) 1 Each Patch.td24 1 Patch TD DAILY Seroquel (Quetiapine Fumarate) 50 Mg Tablet 50 Mg PO BID Seroquel (Quetiapine Fumarate) 300 Mg Tablet 300 Mg PO QHS Potassium Chloride 10 Meq Tablet.er 10 Meq PO DAILY Miralax (Polyethylene Glycol 3350) 17 Gm Powd.pack 17 Gm PO DAILY Omeprazole 20 Mg Capsule.dr 20 Mg PO DAILY Mirtazapine 30 Mg Tablet 30 Mg PO HS Namenda (Memantine Hcl) 10 Mg Tablet 5 Mg PO BID Namenda (Memantine Hcl) 10 Mg Tablet 10 Mg PO BID Januvia (Sitagliptin Phosphate) 100 Mg Tablet 100 Mg PO DAILY Gabapentin 100 Mg Capsule 200 Mg PO TID Divalproex Sodium Er (Divalproex Sodium) 500 Mg Tab.er.24h 500 Mg PO BID Citalopram Hbr (Citalopram Hydrobromide) 20 Mg Tablet 20 Mg PO DAILY Acidophilus (Lactobacillus Acidophilus) 1 Each Capsule 1 Each PO DAILY Selenium Sulfide 180 Ml Shampoo 1 Ghada TP QHS TUES AND FRI Clonazepam 0.5 Mg Tablet 0.25 Mg PO HS Lantus Solostar (Insulin Glargine,Hum.rec.anlog) 100 Unit/1 Ml Insuln.pen 6 Unit SQ HS Tylenol (Acetaminophen) 325 Mg Tablet 650 Mg PO PRN Q6HRS PRN Diagnosis: Problems: (1) Bipolar disorder, mixed (2) Anxiety disorder (3) Dementia in Alzheimer's disease with delusions (4) Dementia in Alzheimer's disease with depression (5) Impulse control disorder (6) Dementia, vascular, with delusions (7) Dementia, vascular, with depression (8) Agitation (9) Dementia with behavioral disturbance VIPIN BELTRAN MD Apr 27, 2017 21:01
--- NOTE | 2017-04-27 21:08 | NUR ---
Behavior Intervention Response and Plan: BIRP Note: Behavior: Assumed Care of patient, patient located in Day Room at shift change. Patient exhibited the following behavior Disorganized, Irritable, Resistive, combative. Brief assessment on rounds of vital signs, medication needs, lab studies, and pain. Treatment plan problems 1-2. Intervention: Patient assessed and the following interventions initiated safety checks 15 Minute Checks Cognitive Assessment , Head to toe Assessment , Medications. Response: After interactions and interventions patient responded in the following manner, Disorganized , Irritable ,Resistive. Continue to assess behaviors and condition will continue to monitor throughout the shift as needed. Patient educated on ADL's, and hand hygiene. 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 Continue to assess patient for changes in above assessment. Monitor for medication needs, pain, and safety concerns. Hourly rounding performed to ensure safe environment.
[2017-04-28 06:20] VITALS: BP 145/70
--- NOTE | 2017-04-28 08:58 | PN ---
DATE: 04/26/2017 This late entry 04/26/2017, covers elements not covered in my initial note of 04/26/2017. I met with the patient in the evening of 04/26/2017. She slept 6 hours previous evening. UA has a foul odor and has been sent for culture and sensitivity. She remains intermittently psychotic, talking to herself, but no yelling as noted, remains confused. REVIEW OF SYSTEMS: Ambulation impaired. No CV, , pulmonary, eye, ENT system symptoms on review. Reliability poor. MENTAL STATUS EXAM: Oriented to herself. Insight, judgment, recent and remote memory, attention, concentration, fund of knowledge poor, consistent with her diagnosis as mentioned in my initial note. PLAN: The patient's Depakote has been stopped, Seroquel reduced. We will continue current psychotropics, treat UTI if it is positive. Reviewed drug interactions, risk/benefit ratio favors no further change. VIPIN BELTRAN MD DR: JIE/triston JOB#: [id number] / [id number]
--- NOTE | 2017-04-28 09:45 | NUR ---
THERAPEUTIC RECREATION GROUP NOTE TITLE :Relaxation Session: Aromatherapy, heated blanket and hand massages ACTIVITY : Relaxation GOAL : Elevate mood, increase concentration/ attention. Decrease stress/ anxiety DURATION : 60 minutes RESPONSE : Full participation. Pt. was alert the entire time. 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 She was open to aromatherapy and the heated blanket; however, she worked with PT/ OT during hand massages.
[2017-04-28] MEDS: GABAPENTIN 100 MG CAPSULE. PO SCH ×3 (11:14→19:41)
[2017-04-28] MEDS: MULTIVITAMIN with MINERAL TABLET. PO SCH (11:15)
[2017-04-28] MEDS: PANTOPRAZOLE 40 MG TABLET. PO SCH (11:15)
[2017-04-28] MEDS: LACTOBACILLUS ACIDOPH & BULGAR 1 TABLET. PO SCH (11:15)
[2017-04-28] MEDS: SENNOSIDES 8.6 MG TABLET PO SCH (11:15)
[2017-04-28] MEDS: LINAGLIPTIN 5 MG TABLET PO SCH (11:15)
[2017-04-28] MEDS: POLYETHYLENE GLYCOL 3350 17 GM PACKET. PO SCH (11:15)
[2017-04-28] MEDS: POTASSIUM CHLORIDE 10 MEQ TABLET.ER. PO SCH (11:15)
[2017-04-28] MEDS: CITALOPRAM 20 MG TABLET. PO SCH (11:15)
[2017-04-28] MEDS: QUEtiapine 50 MG TABLET. PO SCH (11:15)
[2017-04-28] MEDS ORDERED: INSULIN ASPART 300 UNITS/3 ML INSULN.PEN SQ ONE (12:00)
--- NOTE | 2017-04-28 14:45 | NUR ---
THERAPEUTIC RECREATION GROUP NOTE TITLE :Grid Scattergories ACTIVITY : Cognitive Stimulation GOAL : Maintain or improve cognitive functioning and memory. DURATION : 90 minutes RESPONSE : Minimal participation. Pt. sat with the group the entire time; however, she was disruptive most of the time. She shouted out during the session with unrelated words/ statements. She contributed a couple answers when directly prompted.
--- NOTE | 2017-04-28 15:24 | NUR ---
Behavior Intervention Response and Plan: BIRP Note: Behavior: Assumed Care of patient, patient located in Day Room at shift change. Patient exhibited the following behavior Disorganized, Withdrawn, Drowsy. Brief assessment on rounds of vital signs, medication needs, lab studies, and pain. Treatment plan problems Dementia w/ BD and Fall Risk. Intervention: Patient assessed and the following interventions initiated safety checks 15 Minute Checks Cognitive Assessment , Head to toe Assessment , Medications. Response: After interactions and interventions patient responded in the following manner, Disorganized , Withdrawn ,Irritable. Continue to assess behaviors and condition will continue to monitor throughout the shift as needed. Patient educated on ADL's, and hand hygiene. Plan: Continue to monitor Master Treatment Plan for patient's progress toward short term goals of Decreased Aggression, Decreased Agitation, fdc goals to return to previous living setting vs placement. Continue to assess patient for changes in above assessment. Monitor for medication needs, pain, and safety concerns. Hourly rounding performed to ensure safe environment.
[2017-04-28] MEDS: INSULIN ASPART 300 UNITS/3 ML INSULN.PEN SQ SCH (16:00)
[2017-04-28] MEDS: SELENIUM SULFIDE 1% TOPICAL SHAMPOO 207ML BOTTLE. TP SCH (16:00)
[2017-04-28 16:07] VITALS: BP 109/71
--- NOTE | 2017-04-28 16:09 | NUR ---
Nursing Note: Pt due to use medicated shampoo however, pt is not due for a shower on this day.
[2017-04-28] MEDS: ACETAMINOPHEN 325 MG TABLET PO PRN (16:23)
[2017-04-28] MEDS: MIRTAZAPINE 30 MG TABLET PO SCH (19:41)
[2017-04-28] MEDS: QUEtiapine 100 MG TABLET. PO SCH (19:42)
[2017-04-28] MEDS: INSULIN DETEMIR 300 UNITS/3 ML INSULN.PEN. SQ SCH (19:44)
--- NOTE | 2017-04-28 20:41 | NUR ---
Behavior Intervention Response and Plan: BIRP Note: Behavior: Assumed Care of patient, patient located in Day Room at shift change. Patient exhibited the following behavior Disorganized, Non Compliant with Meds, Defensive. Brief assessment on rounds of vital signs, medication needs, lab studies, and pain. Treatment plan problems . Intervention: Patient assessed and the following interventions initiated safety checks 15 Minute Checks Cognitive Assessment , Head to toe Assessment , Medications. Response: After interactions and interventions patient responded in the following manner, Resistive , Non Compliant ,Non Compliant. Continue to assess behaviors and condition will continue to monitor throughout the shift as needed. Patient educated on ADL's, and hand hygiene. 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 Continue to assess patient for changes in above assessment. Monitor for medication needs, pain, and safety concerns. Hourly rounding performed to ensure safe environment.
--- NOTE | 2017-04-28 20:54 | PDOC ---
Exam Maximiliano Demential Exam: Maximiliano Note: Please also refer to the separate dictated note~for this date of service dictated separately.~Patient seen individually. Discussed the patient with Nursing staff reviewed the chart.~Reviewed interim history and current functioning. Reviewed vital signs,~Labs/ Radiology~and current medications noted below. Continue current treatment with the changes noted in the dictated addendum note Assessment: Vital Signs: Vital Signs Date Time Temp Pulse Resp B/P (MAP) Pulse Ox O2 Delivery O2 Flow Rate FiO2 04/28/17 16:07 98.6 91 18 109/71 (84) 95 04/23/17 05:53 Room Air I&O Intake and Output 04/29/17 07:00 Intake Total 1200 ml Balance 1200 ml Intake Oral 1200 ml Labs: Laboratory Tests Test 04/28/17 07:47 04/28/17 11:03 04/28/17 16:20 04/28/17 19:04 Glucose (Fingerstick) 134 mg/dL (70-99) H 245 mg/dL (70-99) H 136 mg/dL (70-99) H 159 mg/dL (70-99) H Current Medications: Meds: Current Medications Olanzapine (ZyPREXA ZYDIS) 5 mg 1X ONCE PO ; Start 04/14/17 at 18:45; Stop 07/19 at 18:46; Status DC Olanzapine (ZyPREXA ZYDIS) 2.5 mg PRN Q2HR PRN PO PSYCHOSIS Last administered on 04/24/17 14:46; Start 04/14/17 at 18:45 Acetaminophen (Tylenol) 650 mg PRN Q6HRS PRN PO PAIN / TEMP Last administered on 04/28/17 16:23; Start 04/14/17 at 19:30 Multi-Ingredient Ointment (Analgesic [place]) 1 ghada PRN QID PRN TP MUSCLE PAIN; Start 04/14/17 at 19:30 Al Hydroxide/Mg Hydroxide (Mylanta Plus Xs) 15 ml PRN AFTMEALHC PRN PO DYSPEPSIA; Start 04/14/17 at 19:30; Status Cancel Magnesium Hydroxide (Milk Of Magnesia) 2,400 mg PRN QHS PRN PO CONSTIPATION; Start 04/14/17 at 19:30 Insulin Aspart (NovoLOG) 0-7 UNITS BID SQ Last administered on 04/23/17 21:45 ; Start 04/15/17 at 09:00; Stop 04/24/17 at 19:32; Status DC Dextrose 12.5 gm PRN Q15MIN PRN IV SEE COMMENTS; Start 04/14/17 at 22:15 Citalopram Hydrobromide (CeleXA) 20 mg DAILY PO Last administered on 04/28/17 11:15; Start 04/15/17 at 09:00 Clonazepam (KlonoPIN) 0.25 mg HS PO Last administered on 04/15/17 20:36; Start 04/14/17 at 22:45; Stop 04/16/17 at 10:54; Status DC Divalproex Sodium (Depakote Er) 500 mg BID PO Last administered on 04/16/17 09 :35; Start 04/14/17 at 22:45; Stop 04/16/17 at 19:26; Status DC Memantine (Namenda) 5 mg BID PO ; Start 04/14/17 at 22:45; Stop 04/14/17 at 22: 45; Status DC Memantine (Namenda) 15 mg BID PO Last administered on 04/16/17 09:35; Start at 22:45; Stop 04/16/17 at 10:54; Status DC Mirtazapine (Remeron) 30 mg HS PO Last administered on 04/28/17 19:41; Start 04/14/17 at 22:45 Quetiapine Fumarate (SEROquel) 50 mg BID PO Last administered on 04/28/17 11: 15; Start 04/14/17 at 22:45; Stop 04/28/17 at 18:34; Status DC Rivastigmine (Exelon) 1 patch DAILY TD Last administered on 04/16/17 09:36; Start 04/15/17 at 09:00; Stop 04/16/17 at 10:54; Status DC Quetiapine Fumarate (SEROquel) 300 mg QHS PO Last administered on 04/23/17 19: 14; Start 04/14/17 at 22:45; Stop 04/24/17 at 19:00; Status DC Gabapentin (Neurontin) 200 mg TID PO Last administered on 04/28/17 19:41; Start 04/14/17 at 22:45 Polyethylene Glycol (miraLAX) 17 gm DAILY PO Last administered on 04/28/17 11: 15; Start 04/15/17 at 09:00 Sennosides (Senna) 8.6 mg DAILY PO Last administered on 04/28/17 11:15; Start 04/15/17 at 09:00 Insulin Detemir (Levemir) 6 units QHS SQ Last administered on 04/28/17 19:44; Start 04/15/17 at 21:00 Lactobacillus Acidophilus (Bacid, Ester-Bid) 1 tab DAILY PO Last administered on 04/28/17 11:15; Start 04/15/17 at 09:00 Al Hydroxide/Mg Hydroxide (Mylanta Plus Xs) 30 ml PRN Q8HRS PRN PO DYSPEPSIA; Start 04/14/17 at 23:00 Multivitamins/ Calcium (Thera-M Plus) 1 tab DAILY PO Last administered on 11:15; Start 04/15/17 at 09:00 Pantoprazole Sodium (Protonix) 40 mg DAILYAC PO Last administered on 04/28/17 11:15; Start 04/15/17 at 07:30 Potassium Chloride (Klor-Con) 10 meq DAILYWBKFT PO Last administered on 11:15; Start 04/15/17 at 08:00 Selenium Sulfide (Selsun) 1 ghada QTU TP ; Start 04/21/17 at 16:00 Linagliptin (Tradjenta) 5 mg DAILY PO Last administered on 04/28/17 11:15; Start 04/15/17 at 09:00 Selenium Sulfide (Selsun) 1 ghada QFR TP ; Start 04/17/17 at 16:00 Vitamin D (Vitamin D3) 50,000 unit WEEKLY PO Last administered on 04/23/17 08: 24; Start 04/16/17 at 09:00 Trazodone HCl (Desyrel) 100 mg QHS PO Last administered on 04/22/17 21:05; Start 04/16/17 at 21:00; Stop 04/23/17 at 17:59; Status DC Trazodone HCl (Desyrel) 100 mg PRN QHS PRN PO INSOMNIA; Start 04/16/17 at 21:00 ; Stop 04/23/17 at 17:59; Status DC Divalproex Sodium (Depakote Sprinkles) 500 mg DAILY PO Last administered on 08:22; Start 04/17/17 at 09:00; Stop 04/23/17 at 12:55; Status DC Divalproex Sodium (Depakote Sprinkles) 750 mg HS PO Last administered on 19:29; Start 04/16/17 at 21:00; Stop 04/20/17 at 18:21; Status DC Divalproex Sodium (Depakote Sprinkles) 500 mg HS PO Last administered on 21:05; Start 04/20/17 at 21:00; Stop 04/23/17 at 12:55; Status DC Olanzapine (ZyPREXA ZYDIS) 5 mg 1X ONCE PO Last administered on 04/24/17 11: 55; Start 04/24/17 at 12:00; Stop 04/24/17 at 12:01; Status DC Quetiapine Fumarate (SEROquel) 200 mg QHS PO Last administered on 04/28/17 19: 42; Start 04/24/17 at 21:00 Insulin Aspart (NovoLOG) 0-7 UNITS BID94 SQ Last administered on 04/27/17 19: 41; Start 04/25/17 at 09:00 Insulin Aspart (NovoLOG) 0-7 UNITS 1X ONCE SQ Last administered on 04/28/17 11:46; Start 04/28/17 at 12:00; Stop 04/28/17 at 12:02; Status DC Quetiapine Fumarate (SEROquel) 50 mg DAILY PO ; Start 04/29/17 at 09:00 Active Scripts Active Reported Dianna-Lanta Liquid (Mag Hydrox/Al Hydrox/Simeth) 355 Ml Oral.susp 30 Ml PO PRN Q8HRS PRN Thera-M (Multivits, W-Fe,Other Min) 1 Each Tablet 1 Each PO DAILY Senna (Sennosides) 8.6 Mg Tablet 8.6 Mg PO DAILY EXELON 4.6mg/24hr (Rivastigmine) 1 Each Patch.td24 1 Patch TD DAILY Seroquel (Quetiapine Fumarate) 50 Mg Tablet 50 Mg PO BID Seroquel (Quetiapine Fumarate) 300 Mg Tablet 300 Mg PO QHS Potassium Chloride 10 Meq Tablet.er 10 Meq PO DAILY Miralax (Polyethylene Glycol 3350) 17 Gm Powd.pack 17 Gm PO DAILY Omeprazole 20 Mg Capsule.dr 20 Mg PO DAILY Mirtazapine 30 Mg Tablet 30 Mg PO HS Namenda (Memantine Hcl) 10 Mg Tablet 5 Mg PO BID Namenda (Memantine Hcl) 10 Mg Tablet 10 Mg PO BID Januvia (Sitagliptin Phosphate) 100 Mg Tablet 100 Mg PO DAILY Gabapentin 100 Mg Capsule 200 Mg PO TID Divalproex Sodium Er (Divalproex Sodium) 500 Mg Tab.er.24h 500 Mg PO BID Citalopram Hbr (Citalopram Hydrobromide) 20 Mg Tablet 20 Mg PO DAILY Acidophilus (Lactobacillus Acidophilus) 1 Each Capsule 1 Each PO DAILY Selenium Sulfide 180 Ml Shampoo 1 Ghada TP QHS TUES AND FRI Clonazepam 0.5 Mg Tablet 0.25 Mg PO HS Lantus Solostar (Insulin Glargine,Hum.rec.anlog) 100 Unit/1 Ml Insuln.pen 6 Unit SQ HS Tylenol (Acetaminophen) 325 Mg Tablet 650 Mg PO PRN Q6HRS PRN Diagnosis: Problems: (1) Bipolar disorder, mixed (2) Anxiety disorder (3) Dementia in Alzheimer's disease with delusions (4) Dementia in Alzheimer's disease with depression (5) Impulse control disorder (6) Dementia, vascular, with delusions (7) Dementia, vascular, with depression (8) Schizophrenia (9) Agitation (10) Dementia with behavioral disturbance VIPIN BELTRAN MD Apr 28, 2017 20:54
[2017-04-29 06:22] VITALS: BP 146/74
[2017-04-29] MEDS: PANTOPRAZOLE 40 MG TABLET. PO SCH (07:43)
[2017-04-29] MEDS: LINAGLIPTIN 5 MG TABLET PO SCH (07:44)
[2017-04-29] MEDS: CITALOPRAM 20 MG TABLET. PO SCH (07:44)
[2017-04-29] MEDS: POTASSIUM CHLORIDE 10 MEQ TABLET.ER. PO SCH (07:44)
[2017-04-29] MEDS: MULTIVITAMIN with MINERAL TABLET. PO SCH (07:44)
[2017-04-29] MEDS: SENNOSIDES 8.6 MG TABLET PO SCH (07:44)
[2017-04-29] MEDS: LACTOBACILLUS ACIDOPH & BULGAR 1 TABLET. PO SCH (07:44)
[2017-04-29] MEDS: INSULIN ASPART 300 UNITS/3 ML INSULN.PEN SQ SCH ×2 (07:45→17:36)
[2017-04-29] MEDS: POLYETHYLENE GLYCOL 3350 17 GM PACKET. PO SCH (07:45)
[2017-04-29] MEDS: GABAPENTIN 100 MG CAPSULE. PO SCH ×3 (07:45→19:38)
[2017-04-29] MEDS: QUEtiapine 50 MG TABLET. PO SCH (07:47)
--- NOTE | 2017-04-29 12:10 | NUR ---
Nursing Notes: Physical Therapy staff would like for staff to assist/encourage pt in walking to meals.
--- NOTE | 2017-04-29 14:21 | NUR ---
STELLA received call from Leann at [facility] regarding updated clinical notes and to request this SW to fax admit referral to [facility]. STELLA stated updated notes were sent last week, however, the fax number was no longer working. Leann provided new fax number. Leann will continue to look for new placement as they believe Pt. would do better in a smaller unit or in a Memory Care unit.
--- NOTE | 2017-04-29 14:30 | NUR ---
Group Note SB Group Type "What's in your Heart" Start Time: 1:00pm End Time: 2:00pm Problem: Depression Purpose: Elevate Mood, expressing feelings, socializing Level of Participation: High Behaviors or Symptoms Observed: Pt participated in group and somewhat engaged in the conversation. Interventions: Reminiscence Response: Pt remained for the duration of group and filled in her heart. Pt was encouraged by SW to decorate her heart. Plan: Group Participation Additional Comments:
[2017-04-29 16:12] VITALS: BP 178/98
--- NOTE | 2017-04-29 17:51 | NUR ---
Behavior Intervention Response and Plan: BIRP Note: Behavior: Assumed Care of patient, patient located in Day Room at shift change. Patient exhibited the following behavior Calm, Disorganized, Withdrawn. Brief assessment on rounds of vital signs, medication needs, lab studies, and pain. Treatment plan problems Dementia w/ BD and Fall Risk. Intervention: Patient assessed and the following interventions initiated safety checks 15 Minute Checks Cognitive Assessment , Head to toe Assessment , Medications. Response: After interactions and interventions patient responded in the following manner, Calm , Disorganized ,Withdrawn. Continue to assess behaviors and condition will continue to monitor throughout the shift as needed. Patient educated on ADL's, and hand hygiene. 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 Continue to assess patient for changes in above assessment. Monitor for medication needs, pain, and safety concerns. Hourly rounding performed to ensure safe environment.
[2017-04-29] MEDS: MIRTAZAPINE 30 MG TABLET PO SCH (19:38)
[2017-04-29] MEDS: INSULIN DETEMIR 300 UNITS/3 ML INSULN.PEN. SQ SCH (19:38)
[2017-04-29] MEDS: QUEtiapine 100 MG TABLET. PO SCH (19:38)
--- NOTE | 2017-04-29 20:37 | NUR ---
Behavior Intervention Response and Plan: BIRP Note: Behavior: Assumed Care of patient, patient located in Patient Room at shift change. Patient exhibited the following behavior Compulsive, Disorganized, Anxious. Brief assessment on rounds of vital signs, medication needs, lab studies, and pain. Treatment plan problems . Intervention: Patient assessed and the following interventions initiated safety checks 15 Minute Checks Cognitive Assessment , Head to toe Assessment , Medications. Response: After interactions and interventions patient responded in the following manner, Able to Focus on Task , Compliant ,Cooperative. Continue to assess behaviors and condition will continue to monitor throughout the shift as needed. Patient educated on ADL's, and hand hygiene. Plan: Continue to monitor Master Treatment Plan for patient's progress toward short term goals of Medication Compliance, Decreased Anxiety, intermediate goals to return to previous living setting vs placement. Continue to assess patient for changes in above assessment. Monitor for medication needs, pain, and safety concerns. Hourly rounding performed to ensure safe environment.
--- NOTE | 2017-04-29 20:45 | PDOC ---
Exam Maximiliano Demential Exam: Maximiliano Note: Please also refer to the separate dictated note~for this date of service dictated separately.~Patient seen individually. Discussed the patient with Nursing staff reviewed the chart.~Reviewed interim history and current functioning. Reviewed vital signs,~Labs/ Radiology~and current medications noted below. Continue current treatment with the changes noted in the dictated addendum note Assessment: Vital Signs: Vital Signs Date Time Temp Pulse Resp B/P (MAP) Pulse Ox O2 Delivery O2 Flow Rate FiO2 04/29/17 16:12 97.3 70 18 178/98 (124) 95 I&O Intake and Output 04/30/17 06:59 Intake Total 840 ml Balance 840 ml Intake Oral 840 ml Labs: Laboratory Tests Test 04/29/17 07:19 04/29/17 11:38 04/29/17 16:42 04/29/17 18:56 Glucose (Fingerstick) 110 mg/dL (70-99) H 189 mg/dL (70-99) H 289 mg/dL (70-99) H 113 mg/dL (70-99) H Current Medications: Meds: Current Medications Olanzapine (ZyPREXA ZYDIS) 5 mg 1X ONCE PO ; Start 04/14/17 at 18:45; Stop 07/19 at 18:46; Status DC Olanzapine (ZyPREXA ZYDIS) 2.5 mg PRN Q2HR PRN PO PSYCHOSIS Last administered on 04/24/17 14:46; Start 04/14/17 at 18:45 Acetaminophen (Tylenol) 650 mg PRN Q6HRS PRN PO PAIN / TEMP Last administered on 04/28/17 16:23; Start 04/14/17 at 19:30 Multi-Ingredient Ointment (Analgesic [place]) 1 ghada PRN QID PRN TP MUSCLE PAIN; Start 04/14/17 at 19:30 Al Hydroxide/Mg Hydroxide (Mylanta Plus Xs) 15 ml PRN AFTMEALHC PRN PO DYSPEPSIA; Start 04/14/17 at 19:30; Status Cancel Magnesium Hydroxide (Milk Of Magnesia) 2,400 mg PRN QHS PRN PO CONSTIPATION; Start 04/14/17 at 19:30 Insulin Aspart (NovoLOG) 0-7 UNITS BID SQ Last administered on 04/23/17 21:45 ; Start 04/15/17 at 09:00; Stop 04/24/17 at 19:32; Status DC Dextrose 12.5 gm PRN Q15MIN PRN IV SEE COMMENTS; Start 04/14/17 at 22:15 Citalopram Hydrobromide (CeleXA) 20 mg DAILY PO Last administered on 04/29/17 07:44; Start 04/15/17 at 09:00 Clonazepam (KlonoPIN) 0.25 mg HS PO Last administered on 04/15/17 20:36; Start 04/14/17 at 22:45; Stop 04/16/17 at 10:54; Status DC Divalproex Sodium (Depakote Er) 500 mg BID PO Last administered on 04/16/17 09 :35; Start 04/14/17 at 22:45; Stop 04/16/17 at 19:26; Status DC Memantine (Namenda) 5 mg BID PO ; Start 04/14/17 at 22:45; Stop 04/14/17 at 22: 45; Status DC Memantine (Namenda) 15 mg BID PO Last administered on 04/16/17 09:35; Start at 22:45; Stop 04/16/17 at 10:54; Status DC Mirtazapine (Remeron) 30 mg HS PO Last administered on 04/29/17 19:38; Start 04/14/17 at 22:45 Quetiapine Fumarate (SEROquel) 50 mg BID PO Last administered on 04/28/17 11: 15; Start 04/14/17 at 22:45; Stop 04/28/17 at 18:34; Status DC Rivastigmine (Exelon) 1 patch DAILY TD Last administered on 04/16/17 09:36; Start 04/15/17 at 09:00; Stop 04/16/17 at 10:54; Status DC Quetiapine Fumarate (SEROquel) 300 mg QHS PO Last administered on 04/23/17 19: 14; Start 04/14/17 at 22:45; Stop 04/24/17 at 19:00; Status DC Gabapentin (Neurontin) 200 mg TID PO Last administered on 04/29/17 19:38; Start 04/14/17 at 22:45 Polyethylene Glycol (miraLAX) 17 gm DAILY PO Last administered on 04/29/17 07: 45; Start 04/15/17 at 09:00 Sennosides (Senna) 8.6 mg DAILY PO Last administered on 04/29/17 07:44; Start 04/15/17 at 09:00 Insulin Detemir (Levemir) 6 units QHS SQ Last administered on 04/29/17 19:38; Start 04/15/17 at 21:00 Lactobacillus Acidophilus (Bacid, Ester-Bid) 1 tab DAILY PO Last administered on 04/29/17 07:44; Start 04/15/17 at 09:00 Al Hydroxide/Mg Hydroxide (Mylanta Plus Xs) 30 ml PRN Q8HRS PRN PO DYSPEPSIA; Start 04/14/17 at 23:00 Multivitamins/ Calcium (Thera-M Plus) 1 tab DAILY PO Last administered on 07:44; Start 04/15/17 at 09:00 Pantoprazole Sodium (Protonix) 40 mg DAILYAC PO Last administered on 04/29/17 07:43; Start 04/15/17 at 07:30 Potassium Chloride (Klor-Con) 10 meq DAILYWBKFT PO Last administered on 07:44; Start 04/15/17 at 08:00 Selenium Sulfide (Selsun) 1 ghada QTU TP ; Start 04/21/17 at 16:00 Linagliptin (Tradjenta) 5 mg DAILY PO Last administered on 04/29/17 07:44; Start 04/15/17 at 09:00 Selenium Sulfide (Selsun) 1 ghada QFR TP ; Start 04/17/17 at 16:00 Vitamin D (Vitamin D3) 50,000 unit WEEKLY PO Last administered on 04/23/17 08: 24; Start 04/16/17 at 09:00 Trazodone HCl (Desyrel) 100 mg QHS PO Last administered on 04/22/17 21:05; Start 04/16/17 at 21:00; Stop 04/23/17 at 17:59; Status DC Trazodone HCl (Desyrel) 100 mg PRN QHS PRN PO INSOMNIA; Start 04/16/17 at 21:00 ; Stop 04/23/17 at 17:59; Status DC Divalproex Sodium (Depakote Sprinkles) 500 mg DAILY PO Last administered on 08:22; Start 04/17/17 at 09:00; Stop 04/23/17 at 12:55; Status DC Divalproex Sodium (Depakote Sprinkles) 750 mg HS PO Last administered on 19:29; Start 04/16/17 at 21:00; Stop 04/20/17 at 18:21; Status DC Divalproex Sodium (Depakote Sprinkles) 500 mg HS PO Last administered on 21:05; Start 04/20/17 at 21:00; Stop 04/23/17 at 12:55; Status DC Olanzapine (ZyPREXA ZYDIS) 5 mg 1X ONCE PO Last administered on 04/24/17 11: 55; Start 04/24/17 at 12:00; Stop 04/24/17 at 12:01; Status DC Quetiapine Fumarate (SEROquel) 200 mg QHS PO Last administered on 04/29/17 19: 38; Start 04/24/17 at 21:00 Insulin Aspart (NovoLOG) 0-7 UNITS BID94 SQ Last administered on 04/29/17 17: 36; Start 04/25/17 at 09:00 Insulin Aspart (NovoLOG) 0-7 UNITS 1X ONCE SQ Last administered on 04/28/17 11:46; Start 04/28/17 at 12:00; Stop 04/28/17 at 12:02; Status DC Quetiapine Fumarate (SEROquel) 50 mg DAILY PO Last administered on 04/29/17 07 :47; Start 04/29/17 at 09:00 Active Scripts Active Reported Dianna-Lanta Liquid (Mag Hydrox/Al Hydrox/Simeth) 355 Ml Oral.susp 30 Ml PO PRN Q8HRS PRN Thera-M (Multivits, W-Fe,Other Min) 1 Each Tablet 1 Each PO DAILY Senna (Sennosides) 8.6 Mg Tablet 8.6 Mg PO DAILY EXELON 4.6mg/24hr (Rivastigmine) 1 Each Patch.td24 1 Patch TD DAILY Seroquel (Quetiapine Fumarate) 50 Mg Tablet 50 Mg PO BID Seroquel (Quetiapine Fumarate) 300 Mg Tablet 300 Mg PO QHS Potassium Chloride 10 Meq Tablet.er 10 Meq PO DAILY Miralax (Polyethylene Glycol 3350) 17 Gm Powd.pack 17 Gm PO DAILY Omeprazole 20 Mg Capsule.dr 20 Mg PO DAILY Mirtazapine 30 Mg Tablet 30 Mg PO HS Namenda (Memantine Hcl) 10 Mg Tablet 5 Mg PO BID Namenda (Memantine Hcl) 10 Mg Tablet 10 Mg PO BID Januvia (Sitagliptin Phosphate) 100 Mg Tablet 100 Mg PO DAILY Gabapentin 100 Mg Capsule 200 Mg PO TID Divalproex Sodium Er (Divalproex Sodium) 500 Mg Tab.er.24h 500 Mg PO BID Citalopram Hbr (Citalopram Hydrobromide) 20 Mg Tablet 20 Mg PO DAILY Acidophilus (Lactobacillus Acidophilus) 1 Each Capsule 1 Each PO DAILY Selenium Sulfide 180 Ml Shampoo 1 Ghada TP QHS TUES AND FRI Clonazepam 0.5 Mg Tablet 0.25 Mg PO HS Lantus Solostar (Insulin Glargine,Hum.rec.anlog) 100 Unit/1 Ml Insuln.pen 6 Unit SQ HS Tylenol (Acetaminophen) 325 Mg Tablet 650 Mg PO PRN Q6HRS PRN Diagnosis: Problems: (1) Bipolar disorder, mixed (2) Anxiety disorder (3) Dementia in Alzheimer's disease with delusions (4) Dementia in Alzheimer's disease with depression (5) Impulse control disorder (6) Dementia, vascular, with delusions (7) Dementia, vascular, with depression (8) Schizophrenia (9) Agitation (10) Dementia with behavioral disturbance VIPIN BELTRAN MD Apr 29, 2017 20:45
--- NOTE | 2017-04-29 20:59 | PN ---
DATE: 04/27/2017 PSYCHIATRIC PROGRESS NOTE This is a late entry for 04/27/2017, covers elements not covered in my initial note of 04/27/2017. SUBJECTIVE: I met with the patient the evening of 04/27/2017. The patient slept 5-3/4 hours the previous evening. Per nursing report, she almost choked at lunchtime. She is on a dysphagia 2 diet. Slept on the morning of 04/27/2017. She is; however, more awake, alert and interactive as compared to the day before, probably a reflection of some of her psychotropics having been discontinued. REVIEW OF SYSTEMS: Ambulation impaired. No CV, , pulmonary, eye, ENT system symptoms on review. Reliability poor. MENTAL STATUS EXAM: Oriented to herself. Insight, judgment, recent and remote memory, attention, concentration, fund of knowledge poor, consistent with her diagnosis as mentioned in my initial note. LABORATORY DATA: Reviewed. PLAN: Continue current psychotropics, Celexa, Remeron and Seroquel. Make further adjustments as clinically indicated. Reviewed drug interactions. Risk/benefit ratio favors no further change. MAN Gladis BELTRAN MD DR: JIE/triston JOB#: [id number] / [id number]
--- NOTE | 2017-04-30 04:15 | PN ---
DATE: 04/28/2017 This late entry 04/28/2017 covers elements not covered in my initial note 04/28/2017. SUBJECTIVE: The patient was seen individually evening of 04/28/2017, slept 6-1/4 hours previous evening, was somewhat labile, shouting at times when insulin was administered. Nursing staff still have to feed her her meals and she was intermittently psychotic talking to her "papa" at times imaginary figure. REVIEW OF SYSTEMS: Ambulation impaired. No CV, , pulmonary, eye, ENT system symptoms on review. Reliability poor. MENTAL STATUS EXAM: Oriented to herself. Insight, judgment, recent and remote memory, attention, concentration, fund of knowledge poor, consistent with her diagnosis mentioned in my initial note. She is much more awake 04/28/2017. LABORATORIES: Reviewed. IMPRESSION: Unchanged from initial note. PLAN: Reduce Seroquel from 50 mg b.i.d. down to 50 mg in the morning, continue with the 200 mg at bedtime, Remeron 30 mg at bedtime, Celexa 20 mg a day, Depakote has been discontinued. We will see if we have a recurrence of mood lability, we may have to start a mood stabilizer. Review drug interactions, risk/benefit ratio favors no further change. VIPIN BELTRAN MD DR: JIE/triston JOB#: [id number] / [id number]
[2017-04-30 05:58] VITALS: BP 145/67
[2017-04-30] MEDS: SENNOSIDES 8.6 MG TABLET PO SCH (07:30)
[2017-04-30] MEDS: LINAGLIPTIN 5 MG TABLET PO SCH (07:30)
[2017-04-30] MEDS: POLYETHYLENE GLYCOL 3350 17 GM PACKET. PO SCH (07:30)
[2017-04-30] MEDS: PANTOPRAZOLE 40 MG TABLET. PO SCH (07:30)
[2017-04-30] MEDS: QUEtiapine 50 MG TABLET. PO SCH (07:31)
[2017-04-30] MEDS: CITALOPRAM 20 MG TABLET. PO SCH (07:31)
[2017-04-30] MEDS: MULTIVITAMIN with MINERAL TABLET. PO SCH (07:31)
[2017-04-30] MEDS: LACTOBACILLUS ACIDOPH & BULGAR 1 TABLET. PO SCH (07:31)
[2017-04-30] MEDS: POTASSIUM CHLORIDE 10 MEQ TABLET.ER. PO SCH (07:31)
[2017-04-30] MEDS: GABAPENTIN 100 MG CAPSULE. PO SCH ×4 (07:31→19:23)
[2017-04-30] MEDS: CHOLECALCIFEROL (VITAMIN D3) 50,000 UNIT CAPSULE PO SCH (07:33)
[2017-04-30] MEDS: INSULIN ASPART 300 UNITS/3 ML INSULN.PEN SQ SCH ×2 (08:32→17:29)
--- NOTE | 2017-04-30 09:15 | NUR ---
Behavior Intervention Response and Plan: BIRP Note: Behavior: Assumed Care of patient, patient located in Day Room at shift change. Patient exhibited the following behavior Interactive, Calm, Able to Focus on Task. Brief assessment on rounds of vital signs, medication needs, lab studies, and pain. Treatment plan problems . Intervention: Patient assessed and the following interventions initiated safety checks 15 Minute Checks Head to toe Assessment , Cognitive Assessment , Medications. Response: After interactions and interventions patient responded in the following manner, Compliant , Compliant ,Disorganized. Continue to assess behaviors and condition will continue to monitor throughout the shift as needed. Patient educated on ADL's, and hand hygiene. 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 Continue to assess patient for changes in above assessment. Monitor for medication needs, pain, and safety concerns. Hourly rounding performed to ensure safe environment.
--- NOTE | 2017-04-30 12:06 | NUR ---
SW received call back from Mariela at [facility] regarding the admit referral sent for possible new placement. Mariela stated they were unable to accept at this time due to having another Pt. w/very similar dynamics and the inability to care for both successfully.
--- NOTE | 2017-04-30 13:26 | NUR ---
Please weigh pt. Signed: 04/30/17 at [address]
--- NOTE | 2017-04-30 14:00 | NUR ---
This nurse attempted to give patient medication that was not hidden in ice cream. Patient refused medications. Patient hit this nurse. Will try again later.
--- NOTE | 2017-04-30 15:17 | NUR ---
Group Note [facility] Group Type Picture Frame Decorating Start Time: 1:00pm End Time: 2:15pm Problem: Depression Purpose: Elevate Mood, socialization, increase creativity Level of Participation: Absent; pt declined. Behaviors or Symptoms Observed: Interventions: Directed Focus Response: Plan: Group Participation Additional Comments:
[2017-04-30 16:01] VITALS: BP 138/58
--- NOTE | 2017-04-30 17:43 | NUR ---
This nurse attempted to check patient blood sugar patient is refusing and hitting staff. This nurse tried to administer insulin patient is still yelling calling staff Bitches, hitting. Patient scratched ROCIO Martinez.
[2017-04-30] MEDS: MIRTAZAPINE 30 MG TABLET PO SCH (19:23)
[2017-04-30] MEDS: INSULIN DETEMIR 300 UNITS/3 ML INSULN.PEN. SQ SCH (19:26)
--- NOTE | 2017-04-30 20:49 | PDOC ---
Exam Maximiliano Demential Exam: Maximiliano Note: Please also refer to the separate dictated note~for this date of service dictated separately.~Patient seen individually. Discussed the patient with Nursing staff reviewed the chart.~Reviewed interim history and current functioning. Reviewed vital signs,~Labs/ Radiology~and current medications noted below. Continue current treatment with the changes noted in the dictated addendum note Assessment: Vital Signs: Vital Signs Date Time Temp Pulse Resp B/P (MAP) Pulse Ox O2 Delivery O2 Flow Rate FiO2 04/30/17 16:01 98.8 75 18 138/58 (84) 98 Room Air I&O Intake and Output 05/01/17 06:59 Intake Total 360 ml Balance 360 ml Intake Oral 360 ml Labs: Laboratory Tests Test 04/30/17 08:18 04/30/17 11:35 04/30/17 17:26 04/30/17 19:03 Glucose (Fingerstick) 127 mg/dL (70-99) H 134 mg/dL (70-99) H 178 mg/dL (70-99) H 151 mg/dL (70-99) H Current Medications: Meds: Current Medications Olanzapine (ZyPREXA ZYDIS) 5 mg 1X ONCE PO ; Start 04/14/17 at 18:45; Stop 07/19 at 18:46; Status DC Olanzapine (ZyPREXA ZYDIS) 2.5 mg PRN Q2HR PRN PO PSYCHOSIS Last administered on 04/24/17 14:46; Start 04/14/17 at 18:45 Acetaminophen (Tylenol) 650 mg PRN Q6HRS PRN PO PAIN / TEMP Last administered on 04/28/17 16:23; Start 04/14/17 at 19:30 Multi-Ingredient Ointment (Analgesic [place]) 1 ghada PRN QID PRN TP MUSCLE PAIN; Start 04/14/17 at 19:30 Al Hydroxide/Mg Hydroxide (Mylanta Plus Xs) 15 ml PRN AFTMEALHC PRN PO DYSPEPSIA; Start 04/14/17 at 19:30; Status Cancel Magnesium Hydroxide (Milk Of Magnesia) 2,400 mg PRN QHS PRN PO CONSTIPATION; Start 04/14/17 at 19:30 Insulin Aspart (NovoLOG) 0-7 UNITS BID SQ Last administered on 04/23/17 21:45 ; Start 04/15/17 at 09:00; Stop 04/24/17 at 19:32; Status DC Dextrose 12.5 gm PRN Q15MIN PRN IV SEE COMMENTS; Start 04/14/17 at 22:15 Citalopram Hydrobromide (CeleXA) 20 mg DAILY PO Last administered on 04/30/17 07:31; Start 04/15/17 at 09:00 Clonazepam (KlonoPIN) 0.25 mg HS PO Last administered on 04/15/17 20:36; Start 04/14/17 at 22:45; Stop 04/16/17 at 10:54; Status DC Divalproex Sodium (Depakote Er) 500 mg BID PO Last administered on 04/16/17 09 :35; Start 04/14/17 at 22:45; Stop 04/16/17 at 19:26; Status DC Memantine (Namenda) 5 mg BID PO ; Start 04/14/17 at 22:45; Stop 04/14/17 at 22: 45; Status DC Memantine (Namenda) 15 mg BID PO Last administered on 04/16/17 09:35; Start at 22:45; Stop 04/16/17 at 10:54; Status DC Mirtazapine (Remeron) 30 mg HS PO Last administered on 04/30/17 19:23; Start 04/14/17 at 22:45 Quetiapine Fumarate (SEROquel) 50 mg BID PO Last administered on 04/28/17 11: 15; Start 04/14/17 at 22:45; Stop 04/28/17 at 18:34; Status DC Rivastigmine (Exelon) 1 patch DAILY TD Last administered on 04/16/17 09:36; Start 04/15/17 at 09:00; Stop 04/16/17 at 10:54; Status DC Quetiapine Fumarate (SEROquel) 300 mg QHS PO Last administered on 04/23/17 19: 14; Start 04/14/17 at 22:45; Stop 04/24/17 at 19:00; Status DC Gabapentin (Neurontin) 200 mg TID PO Last administered on 04/30/17 19:23; Start 04/14/17 at 22:45 Polyethylene Glycol (miraLAX) 17 gm DAILY PO Last administered on 04/30/17 07: 30; Start 04/15/17 at 09:00 Sennosides (Senna) 8.6 mg DAILY PO Last administered on 04/30/17 07:30; Start 04/15/17 at 09:00 Insulin Detemir (Levemir) 6 units QHS SQ Last administered on 04/30/17 19:26; Start 04/15/17 at 21:00 Lactobacillus Acidophilus (Bacid, Ester-Bid) 1 tab DAILY PO Last administered on 04/30/17 07:31; Start 04/15/17 at 09:00 Al Hydroxide/Mg Hydroxide (Mylanta Plus Xs) 30 ml PRN Q8HRS PRN PO DYSPEPSIA; Start 04/14/17 at 23:00 Multivitamins/ Calcium (Thera-M Plus) 1 tab DAILY PO Last administered on 07:31; Start 04/15/17 at 09:00 Pantoprazole Sodium (Protonix) 40 mg DAILYAC PO Last administered on 04/30/17 07:30; Start 04/15/17 at 07:30 Potassium Chloride (Klor-Con) 10 meq DAILYWBKFT PO Last administered on 07:31; Start 04/15/17 at 08:00 Selenium Sulfide (Selsun) 1 ghada QTU TP ; Start 04/21/17 at 16:00 Linagliptin (Tradjenta) 5 mg DAILY PO Last administered on 04/30/17 07:30; Start 04/15/17 at 09:00 Selenium Sulfide (Selsun) 1 ghada QFR TP ; Start 04/17/17 at 16:00 Vitamin D (Vitamin D3) 50,000 unit WEEKLY PO Last administered on 04/30/17 07: 33; Start 04/16/17 at 09:00 Trazodone HCl (Desyrel) 100 mg QHS PO Last administered on 04/22/17 21:05; Start 04/16/17 at 21:00; Stop 04/23/17 at 17:59; Status DC Trazodone HCl (Desyrel) 100 mg PRN QHS PRN PO INSOMNIA; Start 04/16/17 at 21:00 ; Stop 04/23/17 at 17:59; Status DC Divalproex Sodium (Depakote Sprinkles) 500 mg DAILY PO Last administered on 08:22; Start 04/17/17 at 09:00; Stop 04/23/17 at 12:55; Status DC Divalproex Sodium (Depakote Sprinkles) 750 mg HS PO Last administered on 19:29; Start 04/16/17 at 21:00; Stop 04/20/17 at 18:21; Status DC Divalproex Sodium (Depakote Sprinkles) 500 mg HS PO Last administered on 21:05; Start 04/20/17 at 21:00; Stop 04/23/17 at 12:55; Status DC Olanzapine (ZyPREXA ZYDIS) 5 mg 1X ONCE PO Last administered on 04/24/17 11: 55; Start 04/24/17 at 12:00; Stop 04/24/17 at 12:01; Status DC Quetiapine Fumarate (SEROquel) 200 mg QHS PO Last administered on 04/29/17 19: 38; Start 04/24/17 at 21:00; Stop 04/30/17 at 14:32; Status DC Insulin Aspart (NovoLOG) 0-7 UNITS BID94 SQ Last administered on 04/30/17 17: 29; Start 04/25/17 at 09:00 Insulin Aspart (NovoLOG) 0-7 UNITS 1X ONCE SQ Last administered on 04/28/17 11:46; Start 04/28/17 at 12:00; Stop 04/28/17 at 12:02; Status DC Quetiapine Fumarate (SEROquel) 50 mg DAILY PO Last administered on 04/30/17 07 :31; Start 04/29/17 at 09:00; Stop 04/30/17 at 14:32; Status DC Risperidone (RisperDAL) 0.25 mg BID92 PO ; Start 05/01/17 at 09:00 Active Scripts Active Reported Dianna-Lanta Liquid (Mag Hydrox/Al Hydrox/Simeth) 355 Ml Oral.susp 30 Ml PO PRN Q8HRS PRN Thera-M (Multivits,Th W-Fe,Other Min) 1 Each Tablet 1 Each PO DAILY Senna (Sennosides) 8.6 Mg Tablet 8.6 Mg PO DAILY EXELON 4.6mg/24hr (Rivastigmine) 1 Each Patch.td24 1 Patch TD DAILY Seroquel (Quetiapine Fumarate) 50 Mg Tablet 50 Mg PO BID Seroquel (Quetiapine Fumarate) 300 Mg Tablet 300 Mg PO QHS Potassium Chloride 10 Meq Tablet.er 10 Meq PO DAILY Miralax (Polyethylene Glycol 3350) 17 Gm Powd.pack 17 Gm PO DAILY Omeprazole 20 Mg Capsule.dr 20 Mg PO DAILY Mirtazapine 30 Mg Tablet 30 Mg PO HS Namenda (Memantine Hcl) 10 Mg Tablet 5 Mg PO BID Namenda (Memantine Hcl) 10 Mg Tablet 10 Mg PO BID Januvia (Sitagliptin Phosphate) 100 Mg Tablet 100 Mg PO DAILY Gabapentin 100 Mg Capsule 200 Mg PO TID Divalproex Sodium Er (Divalproex Sodium) 500 Mg Tab.er.24h 500 Mg PO BID Citalopram Hbr (Citalopram Hydrobromide) 20 Mg Tablet 20 Mg PO DAILY Acidophilus (Lactobacillus Acidophilus) 1 Each Capsule 1 Each PO DAILY Selenium Sulfide 180 Ml Shampoo 1 Ghada TP QHS TUES AND FRI Clonazepam 0.5 Mg Tablet 0.25 Mg PO HS Lantus Solostar (Insulin Glargine,Hum.rec.anlog) 100 Unit/1 Ml Insuln.pen 6 Unit SQ HS Tylenol (Acetaminophen) 325 Mg Tablet 650 Mg PO PRN Q6HRS PRN Diagnosis: Problems: (1) Bipolar disorder, mixed (2) Anxiety disorder (3) Dementia in Alzheimer's disease with delusions (4) Dementia in Alzheimer's disease with depression (5) Impulse control disorder (6) Dementia, vascular, with delusions (7) Dementia, vascular, with depression (8) Schizophrenia (9) Agitation (10) Dementia with behavioral disturbance VIPIN BELTRAN MD Apr 30, 2017 20:49
--- NOTE | 2017-04-30 23:39 | NUR ---
Behavior Intervention Response and Plan: BIRP Note: Behavior: Assumed Care of patient, patient located in Day Room at shift change. Patient exhibited the following behavior Drowsy, Disorganized, Calm. Brief assessment on rounds of vital signs, medication needs, lab studies, and pain. Treatment plan problems . Intervention: Patient assessed and the following interventions initiated safety checks 15 Minute Checks Cognitive Assessment , Head to toe Assessment , Medications. Response: After interactions and interventions patient responded in the following manner, Disorganized , Calm ,Drowsy. Continue to assess behaviors and condition will continue to monitor throughout the shift as needed. Patient educated on ADL's, and hand hygiene. 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 Continue to assess patient for changes in above assessment. Monitor for medication needs, pain, and safety concerns. Hourly rounding performed to ensure safe environment.
--- NOTE | 2017-05-01 06:49 | PN ---
DATE: 04/29/2017 This late entry for 04/29/2017 covers elements not covered in my initial note of 04/29/2017. SUBJECTIVE: I met with the patient in the evening of 04/29/2017. The patient gets quite agitated when blood sugar checks have to be done, insulin administered; otherwise, doing better, cooperative, calmer, confused. REVIEW OF SYSTEMS: No CV, , pulmonary, eye, ENT system symptoms on review. Gait unsteady. Reliability poor, not very forthcoming on questioning of review of systems, symptoms. Some of these are deduced. MENTAL STATUS EXAM: Oriented to herself. Insight, judgment, recent and remote memory, attention, concentration, fund of knowledge poor, consistent with her diagnoses. She gets somewhat paranoid at times. LABORATORY DATA: Reviewed. IMPRESSION: Unchanged from initial note. PLAN: Continue current psychotropics. Reviewed drug contractions. Risk/benefit ratio favors no change. If psychotic symptoms persists, we may change Seroquel to Risperdal. VIPIN BELTRAN MD DR: JIE/triston JOB#: [id number] / [id number]
[2017-05-01] MEDS: INSULIN ASPART 300 UNITS/3 ML INSULN.PEN SQ SCH ×2 (09:00→17:05)
[2017-05-01] MEDS: LINAGLIPTIN 5 MG TABLET PO SCH (09:10)
[2017-05-01] MEDS: LACTOBACILLUS ACIDOPH & BULGAR 1 TABLET. PO SCH (09:11)
[2017-05-01] MEDS: POTASSIUM CHLORIDE 10 MEQ TABLET.ER. PO SCH (09:11)
[2017-05-01] MEDS: MULTIVITAMIN with MINERAL TABLET. PO SCH (09:11)
[2017-05-01] MEDS: POLYETHYLENE GLYCOL 3350 17 GM PACKET. PO SCH (09:12)
[2017-05-01] MEDS: CITALOPRAM 20 MG TABLET. PO SCH (09:12)
[2017-05-01] MEDS: SENNOSIDES 8.6 MG TABLET PO SCH (09:12)
[2017-05-01] MEDS: GABAPENTIN 100 MG CAPSULE. PO SCH ×3 (09:12→19:35)
[2017-05-01] MEDS: PANTOPRAZOLE 40 MG TABLET. PO SCH (09:12)
[2017-05-01] MEDS: risperiDONE 0.25 MG TABLET. PO SCH ×2 (09:17→14:11)
--- NOTE | 2017-05-01 09:18 | NUR ---
Patient combative with accucheck this AM. She was hitting and scratching, bit one nurse, so unable to obtain accucheck- eliezer held this AM; she ate well for breakfast, will continue to monitor. Addendum: 05/01/17 at 1152 by LANDEN SOUZA RN Patient again combative with accuchecks, took three staff members to obtain BS: 195, will attempt PRN prior to next accucheck.
--- NOTE | 2017-05-01 11:00 | NUR ---
THERAPEUTIC RECREATION GROUP NOTE TITLE :Creating Happiness and Moving to Music ACTIVITY : Education/ Exercise GOAL : Increase self-expression/insight, coping skills, morale, attention, flexibility/strength. Decrease stress/ anxiety, impulsivity. DURATION : 60 minutes RESPONSE : No participation
--- NOTE | 2017-05-01 14:30 | NUR ---
THERAPEUTIC RECREATION GROUP NOTE TITLE :Comfort Zones OUTSIDE ACTIVITY : Activities and Games GOAL : Increase alertness, focus, morale, socialization. Decrease stress/ anxiety, impulsivity. DURATION : 50 minutes RESPONSE : Moderate participation. Pt. 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 She gave answers most of the time but occasionally did not show interest.
[2017-05-01] MEDS: SELENIUM SULFIDE 1% TOPICAL SHAMPOO 207ML BOTTLE. TP SCH (16:00)
--- NOTE | 2017-05-01 16:26 | NUR ---
Group Note [facility] Group Type: Depression Start Time: 1:20pm End Time: 2:20 pm Problem: Depression Purpose: Learn Coping Skills Level of Participation: low Behaviors or Symptoms Observed: Interventions: Education Response: Pt. agreeable to attending group outside, although cognitively, not able to follow conversation. Did provide "answers" when group was talking. Plan: continue to encourage participation
[2017-05-01 16:27] VITALS: BP 118/85
--- NOTE | 2017-05-01 17:29 | NUR ---
Behavior Intervention Response and Plan: BIRP Note: Behavior: Assumed Care of patient, patient located in Day Room at shift change. Patient exhibited the following behavior Disorganized, Irritable, Combative. Brief assessment on rounds of vital signs, medication needs, lab studies, and pain. Treatment plan problems . Intervention: Patient assessed and the following interventions initiated safety checks 15 Minute Checks Cognitive Assessment , Head to toe Assessment , Medications. Response: After interactions and interventions patient responded in the following manner, Disorganized , Cooperative ,Calm. Continue to assess behaviors and condition will continue to monitor throughout the shift as needed. Patient educated on ADL's, and hand hygiene. Plan: Continue to monitor Master Treatment Plan for patient's progress toward short term goals of Decreased Agitation, Decreased Aggression, [facility] goals to return to previous living setting vs placement. Continue to assess patient for changes in above assessment. Monitor for medication needs, pain, and safety concerns. Hourly rounding performed to ensure safe environment.
[2017-05-01] MEDS: MIRTAZAPINE 30 MG TABLET PO SCH (19:35)
[2017-05-01] MEDS: INSULIN DETEMIR 300 UNITS/3 ML INSULN.PEN. SQ SCH (19:46)
--- NOTE | 2017-05-01 20:00 | NUR ---
Behavior Intervention Response and Plan: BIRP Note: Behavior: Assumed Care of patient, patient located in Day Room at shift change. Patient exhibited the following behavior Withdrawn, Calm, Disorganized. Brief assessment on rounds of vital signs, medication needs, lab studies, and pain. Treatment plan problems . Intervention: Patient assessed and the following interventions initiated safety checks 15 Minute Checks Cognitive Assessment , Head to toe Assessment , Medications. Response: After interactions and interventions patient responded in the following manner, Drowsy , Disorganized ,Calm. Continue to assess behaviors and condition will continue to monitor throughout the shift as needed. Patient educated on ADL's, and hand hygiene. 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 Continue to assess patient for changes in above assessment. Monitor for medication needs, pain, and safety concerns. Hourly rounding performed to ensure safe environment.
--- NOTE | 2017-05-01 22:19 | PDOC ---
Exam Maximiliano Demential Exam: Maximiliano Note: Please also refer to the separate dictated note~for this date of service dictated separately.~Patient seen individually. Discussed the patient with Nursing staff reviewed the chart.~Reviewed interim history and current functioning. Reviewed vital signs,~Labs/ Radiology~and current medications noted below. Continue current treatment with the changes noted in the dictated addendum note Assessment: Vital Signs: Vital Signs Date Time Temp Pulse Resp B/P (MAP) Pulse Ox O2 Delivery O2 Flow Rate FiO2 05/01/17 16:27 98.2 81 16 118/85 (96) 95 04/30/17 16:01 Room Air I&O Intake and Output 05/02/17 07:00 Intake Total 900 ml Balance 900 ml Intake Oral 900 ml # Bowel Movements 1 Labs: Laboratory Tests Test 05/01/17 07:57 05/01/17 11:31 05/01/17 16:20 05/01/17 19:12 Glucose (Fingerstick) 89 mg/dL (70-99) 195 mg/dL (70-99) H 282 mg/dL (70-99) H 152 mg/dL (70-99) H Current Medications: Meds: Current Medications Olanzapine (ZyPREXA ZYDIS) 5 mg 1X ONCE PO ; Start 04/14/17 at 18:45; Stop 07/19 at 18:46; Status DC Olanzapine (ZyPREXA ZYDIS) 2.5 mg PRN Q2HR PRN PO PSYCHOSIS Last administered on 04/24/17 14:46; Start 04/14/17 at 18:45 Acetaminophen (Tylenol) 650 mg PRN Q6HRS PRN PO PAIN / TEMP Last administered on 04/28/17 16:23; Start 04/14/17 at 19:30 Multi-Ingredient Ointment (Analgesic [place]) 1 ghada PRN QID PRN TP MUSCLE PAIN; Start 04/14/17 at 19:30 Al Hydroxide/Mg Hydroxide (Mylanta Plus Xs) 15 ml PRN AFTMEALHC PRN PO DYSPEPSIA; Start 04/14/17 at 19:30; Status Cancel Magnesium Hydroxide (Milk Of Magnesia) 2,400 mg PRN QHS PRN PO CONSTIPATION; Start 04/14/17 at 19:30 Insulin Aspart (NovoLOG) 0-7 UNITS BID SQ Last administered on 04/23/17 21:45 ; Start 04/15/17 at 09:00; Stop 04/24/17 at 19:32; Status DC Dextrose 12.5 gm PRN Q15MIN PRN IV SEE COMMENTS; Start 04/14/17 at 22:15 Citalopram Hydrobromide (CeleXA) 20 mg DAILY PO Last administered on 05/01/17 09:12; Start 04/15/17 at 09:00 Clonazepam (KlonoPIN) 0.25 mg HS PO Last administered on 04/15/17 20:36; Start 04/14/17 at 22:45; Stop 04/16/17 at 10:54; Status DC Divalproex Sodium (Depakote Er) 500 mg BID PO Last administered on 04/16/17 09 :35; Start 04/14/17 at 22:45; Stop 04/16/17 at 19:26; Status DC Memantine (Namenda) 5 mg BID PO ; Start 04/14/17 at 22:45; Stop 04/14/17 at 22: 45; Status DC Memantine (Namenda) 15 mg BID PO Last administered on 04/16/17 09:35; Start at 22:45; Stop 04/16/17 at 10:54; Status DC Mirtazapine (Remeron) 30 mg HS PO Last administered on 05/01/17 19:35; Start 04/14/17 at 22:45 Quetiapine Fumarate (SEROquel) 50 mg BID PO Last administered on 04/28/17 11: 15; Start 04/14/17 at 22:45; Stop 04/28/17 at 18:34; Status DC Rivastigmine (Exelon) 1 patch DAILY TD Last administered on 04/16/17 09:36; Start 04/15/17 at 09:00; Stop 04/16/17 at 10:54; Status DC Quetiapine Fumarate (SEROquel) 300 mg QHS PO Last administered on 04/23/17 19: 14; Start 04/14/17 at 22:45; Stop 04/24/17 at 19:00; Status DC Gabapentin (Neurontin) 200 mg TID PO Last administered on 05/01/17 19:35; Start 04/14/17 at 22:45 Polyethylene Glycol (miraLAX) 17 gm DAILY PO Last administered on 05/01/17 09: 12; Start 04/15/17 at 09:00 Sennosides (Senna) 8.6 mg DAILY PO Last administered on 05/01/17 09:12; Start 04/15/17 at 09:00 Insulin Detemir (Levemir) 6 units QHS SQ Last administered on 05/01/17 19:46; Start 04/15/17 at 21:00 Lactobacillus Acidophilus (Bacid, Ester-Bid) 1 tab DAILY PO Last administered on 05/01/17 09:11; Start 04/15/17 at 09:00 Al Hydroxide/Mg Hydroxide (Mylanta Plus Xs) 30 ml PRN Q8HRS PRN PO DYSPEPSIA; Start 04/14/17 at 23:00 Multivitamins/ Calcium (Thera-M Plus) 1 tab DAILY PO Last administered on 09:11; Start 04/15/17 at 09:00 Pantoprazole Sodium (Protonix) 40 mg DAILYAC PO Last administered on 05/01/17 09:12; Start 04/15/17 at 07:30 Potassium Chloride (Klor-Con) 10 meq DAILYWBKFT PO Last administered on 09:11; Start 04/15/17 at 08:00 Selenium Sulfide (Selsun) 1 ghada QTU TP ; Start 04/21/17 at 16:00 Linagliptin (Tradjenta) 5 mg DAILY PO Last administered on 05/01/17 09:10; Start 04/15/17 at 09:00 Selenium Sulfide (Selsun) 1 ghada QFR TP ; Start 04/17/17 at 16:00 Vitamin D (Vitamin D3) 50,000 unit WEEKLY PO Last administered on 04/30/17 07: 33; Start 04/16/17 at 09:00 Trazodone HCl (Desyrel) 100 mg QHS PO Last administered on 04/22/17 21:05; Start 04/16/17 at 21:00; Stop 04/23/17 at 17:59; Status DC Trazodone HCl (Desyrel) 100 mg PRN QHS PRN PO INSOMNIA; Start 04/16/17 at 21:00 ; Stop 04/23/17 at 17:59; Status DC Divalproex Sodium (Depakote Sprinkles) 500 mg DAILY PO Last administered on 08:22; Start 04/17/17 at 09:00; Stop 04/23/17 at 12:55; Status DC Divalproex Sodium (Depakote Sprinkles) 750 mg HS PO Last administered on 19:29; Start 04/16/17 at 21:00; Stop 04/20/17 at 18:21; Status DC Divalproex Sodium (Depakote Sprinkles) 500 mg HS PO Last administered on 21:05; Start 04/20/17 at 21:00; Stop 04/23/17 at 12:55; Status DC Olanzapine (ZyPREXA ZYDIS) 5 mg 1X ONCE PO Last administered on 04/24/17 11: 55; Start 04/24/17 at 12:00; Stop 04/24/17 at 12:01; Status DC Quetiapine Fumarate (SEROquel) 200 mg QHS PO Last administered on 04/29/17 19: 38; Start 04/24/17 at 21:00; Stop 04/30/17 at 14:32; Status DC Insulin Aspart (NovoLOG) 0-7 UNITS BID94 SQ Last administered on 05/01/17 17: 05; Start 04/25/17 at 09:00 Insulin Aspart (NovoLOG) 0-7 UNITS 1X ONCE SQ Last administered on 04/28/17 11:46; Start 04/28/17 at 12:00; Stop 04/28/17 at 12:02; Status DC Quetiapine Fumarate (SEROquel) 50 mg DAILY PO Last administered on 04/30/17 07 :31; Start 04/29/17 at 09:00; Stop 04/30/17 at 14:32; Status DC Risperidone (RisperDAL) 0.25 mg BID92 PO Last administered on 05/01/17 14:11; Start 05/01/17 at 09:00 Divalproex Sodium (Depakote Sprinkles) 500 mg DAILY PO ; Start 05/02/17 at 09:00 ; Stop 05/04/17 at 09:00 Divalproex Sodium (Depakote Sprinkles) 500 mg BID PO ; Start 05/04/17 at 09:00 Active Scripts Active Reported Dianna-Lanta Liquid (Mag Hydrox/Al Hydrox/Simeth) 355 Ml Oral.susp 30 Ml PO PRN Q8HRS PRN Thera-M (Multivits,Th W-Fe,Other Min) 1 Each Tablet 1 Each PO DAILY Senna (Sennosides) 8.6 Mg Tablet 8.6 Mg PO DAILY EXELON 4.6mg/24hr (Rivastigmine) 1 Each Patch.td24 1 Patch TD DAILY Seroquel (Quetiapine Fumarate) 50 Mg Tablet 50 Mg PO BID Seroquel (Quetiapine Fumarate) 300 Mg Tablet 300 Mg PO QHS Potassium Chloride 10 Meq Tablet.er 10 Meq PO DAILY Miralax (Polyethylene Glycol 3350) 17 Gm Powd.pack 17 Gm PO DAILY Omeprazole 20 Mg Capsule.dr 20 Mg PO DAILY Mirtazapine 30 Mg Tablet 30 Mg PO HS Namenda (Memantine Hcl) 10 Mg Tablet 5 Mg PO BID Namenda (Memantine Hcl) 10 Mg Tablet 10 Mg PO BID Januvia (Sitagliptin Phosphate) 100 Mg Tablet 100 Mg PO DAILY Gabapentin 100 Mg Capsule 200 Mg PO TID Divalproex Sodium Er (Divalproex Sodium) 500 Mg Tab.er.24h 500 Mg PO BID Citalopram Hbr (Citalopram Hydrobromide) 20 Mg Tablet 20 Mg PO DAILY Acidophilus (Lactobacillus Acidophilus) 1 Each Capsule 1 Each PO DAILY Selenium Sulfide 180 Ml Shampoo 1 Ghada TP QHS TUES AND FRI Clonazepam 0.5 Mg Tablet 0.25 Mg PO HS Lantus Solostar (Insulin Glargine,Hum.rec.anlog) 100 Unit/1 Ml Insuln.pen 6 Unit SQ HS Tylenol (Acetaminophen) 325 Mg Tablet 650 Mg PO PRN Q6HRS PRN Diagnosis: Problems: (1) Bipolar disorder, mixed (2) Anxiety disorder (3) Dementia in Alzheimer's disease with delusions (4) Dementia in Alzheimer's disease with depression (5) Impulse control disorder (6) Dementia, vascular, with delusions (7) Dementia, vascular, with depression (8) Schizophrenia (9) Agitation (10) Dementia with behavioral disturbance VIPIN BELTRAN MD May 01, 2017 22:19
--- NOTE | 2017-05-02 04:30 | PN ---
DATE: 04/30/2017 This late entry for 04/30/2017 covers elements not covered in my initial note of 04/30/2017. SUBJECTIVE: The patient was staffed at treatment team meeting with the entire team morning of 04/30/2017, seen individually in the evening of 04/30/2017. Overall, per nursing staff, she is doing a little bit better, still paranoid, gets agitated during blood draws for blood sugars and insulin administration attending groups. REVIEW OF SYSTEMS: Ambulation impaired. No CV, , pulmonary, eye, ENT system symptoms on review. MENTAL STATUS EXAM: Oriented to herself. Insight, judgment, recent and remote memory, attention, concentration, fund of knowledge poor, consistent with her diagnosis mentioned in my initial note. At times, she refuses medications, and at one point, during administration of insulin, she was scratching, hitting staff and calling staff "bitches." IMPRESSION: Unchanged from initial note. PLAN: We will change the Seroquel to Risperdal 0.25 mg twice a day. Maintain the rest of the psychotropics, unchanged. Reviewed drug interactions. Risk/benefit ratio favors no further change. MAN Gladis BELTRAN MD DR: JIE/triston JOB#: [id number] / [id number]
[2017-05-02 06:09] VITALS: BP 110/66
[2017-05-02] MEDS: INSULIN ASPART 300 UNITS/3 ML INSULN.PEN SQ SCH ×2 (08:03→16:00)
[2017-05-02] MEDS: MULTIVITAMIN with MINERAL TABLET. PO SCH (09:09)
[2017-05-02] MEDS: POTASSIUM CHLORIDE 10 MEQ TABLET.ER. PO SCH (09:09)
[2017-05-02] MEDS: PANTOPRAZOLE 40 MG TABLET. PO SCH (09:09)
[2017-05-02] MEDS: GABAPENTIN 100 MG CAPSULE. PO SCH ×3 (09:09→20:23)
[2017-05-02] MEDS: POLYETHYLENE GLYCOL 3350 17 GM PACKET. PO SCH (09:09)
[2017-05-02] MEDS: risperiDONE 0.25 MG TABLET. PO SCH ×2 (09:09→14:12)
[2017-05-02] MEDS: SENNOSIDES 8.6 MG TABLET PO SCH (09:09)
[2017-05-02] MEDS: CITALOPRAM 20 MG TABLET. PO SCH (09:09)
[2017-05-02] MEDS: LACTOBACILLUS ACIDOPH & BULGAR 1 TABLET. PO SCH (09:09)
[2017-05-02] MEDS: LINAGLIPTIN 5 MG TABLET PO SCH (09:09)
[2017-05-02] MEDS: DIVALPROEX 125 MG CAP.SPRINK PO SCH (09:10)
[2017-05-02 09:43] LABS: BASO % 0 % (0-3); EOS # 0.1 x10^3/uL (0.0-0.7); EOS % 1 % (0-3); HEMATOCRIT 38.2 % (36.0-47.0); LYMPH # 4.8 x10^3/uL (1.0-4.8); LYMPH % 46 % (24-48); MEAN CORPUSCULAR HEMOGLOBIN 34 pg (25-35); MEAN CORPUSCULAR HGB CONC 34 g/dL (31-37); MEAN CORPUSCULAR VOLUME 101 fL (79-100); MONO % 9 % (0-9); NEUT # 4.6 x10^3uL (1.8-7.7); NEUT % 44 % (31-73); PLATELET COUNT 286 x10^3/uL (140-400); RED BLOOD COUNT 3.78 x10^6/uL (3.50-5.40); RED CELL DISTRIBUTION WIDTH 12.7 % (11.5-14.5); WHITE BLOOD COUNT 10.4 x10^3/uL (4.0-11.0)
[2017-05-02 09:51] LABS: ALBUMIN 3.5 g/dL (3.4-5.0); ALBUMIN/GLOBULIN RATIO 0.8 (1.0-1.7); CALCIUM 9.3 mg/dL (8.5-10.1); CREATININE 0.7 mg/dL (0.6-1.0); GFR 82.7; MAGNESIUM 2.2 mg/dL (1.8-2.4); POTASSIUM 4.6 mmol/L (3.5-5.1); TOTAL BILIRUBIN 0.2 mg/dL (0.2-1.0); TOTAL PROTEIN 7.9 g/dL (6.4-8.2)
--- NOTE | 2017-05-02 15:23 | NUR ---
Behavior Intervention Response and Plan: BIRP Note: Behavior: Assumed Care of patient, patient located in Hallway at shift change. Patient exhibited the following behavior Disorganized, Irritable, Resistive. Brief assessment on rounds of vital signs, medication needs, lab studies, and pain. Treatment plan problems . Intervention: Patient assessed and the following interventions initiated safety checks 15 Minute Checks Cognitive Assessment , Head to toe Assessment , Medications. Response: After interactions and interventions patient responded in the following manner, Calm , Disorganized ,Cooperative. Continue to assess behaviors and condition will continue to monitor throughout the shift as needed. Patient educated on ADL's, and hand hygiene. 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 Continue to assess patient for changes in above assessment. Monitor for medication needs, pain, and safety concerns. Hourly rounding performed to ensure safe environment.
[2017-05-02 17:13] VITALS: BP 121/70
--- NOTE | 2017-05-02 20:00 | NUR ---
Behavior Intervention Response and Plan: BIRP Note: Behavior: Assumed Care of patient, patient located in Day Room at shift change. Patient exhibited the following behavior Calm, Compulsive, Disorganized. Brief assessment on rounds of vital signs, medication needs, lab studies, and pain. Treatment plan problems . Intervention: Patient assessed and the following interventions initiated safety checks 15 Minute Checks Cognitive Assessment , Head to toe Assessment , Medications. Response: After interactions and interventions patient responded in the following manner, Compliant , Compliant ,Withdrawn. Continue to assess behaviors and condition will continue to monitor throughout the shift as needed. Patient educated on ADL's, and hand hygiene. 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 Continue to assess patient for changes in above assessment. Monitor for medication needs, pain, and safety concerns. Hourly rounding performed to ensure safe environment.
[2017-05-02] MEDS: MIRTAZAPINE 30 MG TABLET PO SCH (20:24)
--- NOTE | 2017-05-02 20:24 | NUR ---
SW weekly note Pt. will dc back to [facility] unless they are able to find new placement for Pt. upon dc. Pt. continues to be aggressive during cares/labs. Pt. has a Court Appt. Guardian who has been in contact w/[facility] and is working w/[facility] for new placement.
[2017-05-02] MEDS: INSULIN DETEMIR 300 UNITS/3 ML INSULN.PEN. SQ SCH (20:25)
--- NOTE | 2017-05-02 23:05 | PDOC ---
Exam Maximiliano Demential Exam: Maximiliano Note: Please also refer to the separate dictated note~for this date of service dictated separately.~Patient seen individually. Discussed the patient with Nursing staff reviewed the chart.~Reviewed interim history and current functioning. Reviewed vital signs,~Labs/ Radiology~and current medications noted below. Continue current treatment with the changes noted in the dictated addendum note Assessment: Vital Signs: Vital Signs Date Time Temp Pulse Resp B/P (MAP) Pulse Ox O2 Delivery O2 Flow Rate FiO2 05/02/17 17:13 97.8 74 18 121/70 (87) 98 04/30/17 16:01 Room Air I&O Intake and Output 05/03/17 07:00 Intake Total 1200 ml Balance 1200 ml Intake Oral 1200 ml # Bowel Movements 1 Labs: Laboratory Tests Test 05/02/17 07:15 05/02/17 09:14 05/02/17 12:04 05/02/17 17:00 Glucose (Fingerstick) 138 mg/dL (70-99) H 187 mg/dL (70-99) H 165 mg/dL (70-99) H White Blood Count 10.4 x10^3/uL (4.0-11.0) Red Blood Count 3.78 x10^6/uL (3.50-5.40) Hemoglobin 13.0 g/dL (12.0-15.5) Hematocrit 38.2 % (36.0-47.0) Mean Corpuscular Volume 101 fL (79-100) H Mean Corpuscular Hemoglobin 34 pg (25-35) Mean Corpuscular Hemoglobin Concent 34 g/dL (31-37) Red Cell Distribution Width 12.7 % (11.5-14.5) Platelet Count 286 x10^3/uL (140-400) Neutrophils (%) (Auto) 44 % (31-73) Lymphocytes (%) (Auto) 46 % (24-48) Monocytes (%) (Auto) 9 % (0-9) Eosinophils (%) (Auto) 1 % (0-3) Basophils (%) (Auto) 0 % (0-3) Neutrophils # (Auto) 4.6 x10^3uL (1.8-7.7) Lymphocytes # (Auto) 4.8 x10^3/uL (1.0-4.8) Monocytes # (Auto) 1.0 x10^3/uL (0.0-1.1) Eosinophils # (Auto) 0.1 x10^3/uL (0.0-0.7) Basophils # (Auto) 0.0 x10^3/uL (0.0-0.2) Sodium Level 143 mmol/L (136-145) Potassium Level 4.6 mmol/L (3.5-5.1) Chloride Level 106 mmol/L (98-107) Carbon Dioxide Level 27 mmol/L (21-32) Anion Gap 10 (6-14) Blood Urea Nitrogen 14 mg/dL (7-20) Creatinine 0.7 mg/dL (0.6-1.0) Estimated GFR (Cockcroft-Gault) 82.7 BUN/Creatinine Ratio 20 (6-20) Glucose Level 263 mg/dL (70-99) H Calcium Level 9.3 mg/dL (8.5-10.1) Magnesium Level 2.2 mg/dL (1.8-2.4) Total Bilirubin 0.2 mg/dL (0.2-1.0) Aspartate Amino Transferase (AST) 19 U/L (15-37) Alanine Aminotransferase (ALT) 18 U/L (14-59) Alkaline Phosphatase 84 U/L (46-116) Total Protein 7.9 g/dL (6.4-8.2) Albumin 3.5 g/dL (3.4-5.0) Albumin/Globulin Ratio 0.8 (1.0-1.7) L Test 05/02/17 19:08 Glucose (Fingerstick) 185 mg/dL (70-99) H Current Medications: Meds: Current Medications Olanzapine (ZyPREXA ZYDIS) 5 mg 1X ONCE PO ; Start 04/14/17 at 18:45; Stop 07/19 at 18:46; Status DC Olanzapine (ZyPREXA ZYDIS) 2.5 mg PRN Q2HR PRN PO PSYCHOSIS Last administered on 04/24/17t 14:46; Start 04/14/17 at 18:45 Acetaminophen (Tylenol) 650 mg PRN Q6HRS PRN PO PAIN / TEMP Last administered on 04/28/17 16:23; Start 04/14/17 at 19:30 Multi-Ingredient Ointment (Analgesic [place]) 1 ghada PRN QID PRN TP MUSCLE PAIN; Start 04/14/17 at 19:30 Al Hydroxide/Mg Hydroxide (Mylanta Plus Xs) 15 ml PRN AFTMEALHC PRN PO DYSPEPSIA; Start 04/14/17 at 19:30; Status Cancel Magnesium Hydroxide (Milk Of Magnesia) 2,400 mg PRN QHS PRN PO CONSTIPATION; Start 04/14/17 at 19:30 Insulin Aspart (NovoLOG) 0-7 UNITS BID SQ Last administered on 04/23/17 21:45 ; Start 04/15/17 at 09:00; Stop 04/24/17 at 19:32; Status DC Dextrose 12.5 gm PRN Q15MIN PRN IV SEE COMMENTS; Start 04/14/17 at 22:15 Citalopram Hydrobromide (CeleXA) 20 mg DAILY PO Last administered on 05/02/17 09:09; Start 04/15/17 at 09:00 Clonazepam (KlonoPIN) 0.25 mg HS PO Last administered on 04/15/17 20:36; Start 04/14/17 at 22:45; Stop 04/16/17 at 10:54; Status DC Divalproex Sodium (Depakote Er) 500 mg BID PO Last administered on 04/16/17 09 :35; Start 04/14/17 at 22:45; Stop 04/16/17 at 19:26; Status DC Memantine (Namenda) 5 mg BID PO ; Start 04/14/17 at 22:45; Stop 04/14/17 at 22: 45; Status DC Memantine (Namenda) 15 mg BID PO Last administered on 04/16/17 09:35; Start at 22:45; Stop 04/16/17 at 10:54; Status DC Mirtazapine (Remeron) 30 mg HS PO Last administered on 05/02/17 20:24; Start 04/14/17 at 22:45 Quetiapine Fumarate (SEROquel) 50 mg BID PO Last administered on 04/28/17 11: 15; Start 04/14/17 at 22:45; Stop 04/28/17 at 18:34; Status DC Rivastigmine (Exelon) 1 patch DAILY TD Last administered on 04/16/17 09:36; Start 04/15/17 at 09:00; Stop 04/16/17 at 10:54; Status DC Quetiapine Fumarate (SEROquel) 300 mg QHS PO Last administered on 04/23/17 19: 14; Start 04/14/17 at 22:45; Stop 04/24/17 at 19:00; Status DC Gabapentin (Neurontin) 200 mg TID PO Last administered on 05/02/17 20:23; Start 04/14/17 at 22:45 Polyethylene Glycol (miraLAX) 17 gm DAILY PO Last administered on 05/02/17 09: 09; Start 04/15/17 at 09:00 Sennosides (Senna) 8.6 mg DAILY PO Last administered on 05/02/17 09:09; Start 04/15/17 at 09:00 Insulin Detemir (Levemir) 6 units QHS SQ Last administered on 05/02/17 20:25; Start 04/15/17 at 21:00 Lactobacillus Acidophilus (Bacid, Ester-Bid) 1 tab DAILY PO Last administered on 05/02/17 09:09; Start 04/15/17 at 09:00 Al Hydroxide/Mg Hydroxide (Mylanta Plus Xs) 30 ml PRN Q8HRS PRN PO DYSPEPSIA; Start 04/14/17 at 23:00 Multivitamins/ Calcium (Thera-M Plus) 1 tab DAILY PO Last administered on 09:09; Start 04/15/17 at 09:00 Pantoprazole Sodium (Protonix) 40 mg DAILYAC PO Last administered on 05/02/17 09:09; Start 04/15/17 at 07:30 Potassium Chloride (Klor-Con) 10 meq DAILYWBKFT PO Last administered on 09:09; Start 04/15/17 at 08:00 Selenium Sulfide (Selsun) 1 ghada QTU TP ; Start 04/21/17 at 16:00 Linagliptin (Tradjenta) 5 mg DAILY PO Last administered on 05/02/17 09:09; Start 04/15/17 at 09:00 Selenium Sulfide (Selsun) 1 ghada QFR TP ; Start 04/17/17 at 16:00 Vitamin D (Vitamin D3) 50,000 unit WEEKLY PO Last administered on 04/30/17 07: 33; Start 04/16/17 at 09:00 Trazodone HCl (Desyrel) 100 mg QHS PO Last administered on 04/22/17 21:05; Start 04/16/17 at 21:00; Stop 04/23/17 at 17:59; Status DC Trazodone HCl (Desyrel) 100 mg PRN QHS PRN PO INSOMNIA; Start 04/16/17 at 21:00 ; Stop 04/23/17 at 17:59; Status DC Divalproex Sodium (Depakote Sprinkles) 500 mg DAILY PO Last administered on 08:22; Start 04/17/17 at 09:00; Stop 04/23/17 at 12:55; Status DC Divalproex Sodium (Depakote Sprinkles) 750 mg HS PO Last administered on 19:29; Start 04/16/17 at 21:00; Stop 04/20/17 at 18:21; Status DC Divalproex Sodium (Depakote Sprinkles) 500 mg HS PO Last administered on 21:05; Start 04/20/17 at 21:00; Stop 04/23/17 at 12:55; Status DC Olanzapine (ZyPREXA ZYDIS) 5 mg 1X ONCE PO Last administered on 04/24/17 11: 55; Start 04/24/17 at 12:00; Stop 04/24/17 at 12:01; Status DC Quetiapine Fumarate (SEROquel) 200 mg QHS PO Last administered on 04/29/17 19: 38; Start 04/24/17 at 21:00; Stop 04/30/17 at 14:32; Status DC Insulin Aspart (NovoLOG) 0-7 UNITS BID94 SQ Last administered on 05/01/17 17: 05; Start 04/25/17 at 09:00 Insulin Aspart (NovoLOG) 0-7 UNITS 1X ONCE SQ Last administered on 04/28/17 11:46; Start 04/28/17 at 12:00; Stop 04/28/17 at 12:02; Status DC Quetiapine Fumarate (SEROquel) 50 mg DAILY PO Last administered on 04/30/17 07 :31; Start 04/29/17 at 09:00; Stop 04/30/17 at 14:32; Status DC Risperidone (RisperDAL) 0.25 mg BID92 PO Last administered on 05/02/17 14:12; Start 05/01/17 at 09:00 Divalproex Sodium (Depakote Sprinkles) 500 mg DAILY PO Last administered on 09:10; Start 05/02/17 at 09:00; Stop 05/04/17 at 09:00 Divalproex Sodium (Depakote Sprinkles) 500 mg BID PO ; Start 05/04/17 at 09:00 Active Scripts Active Reported Dianna-Lanta Liquid (Mag Hydrox/Al Hydrox/Simeth) 355 Ml Oral.susp 30 Ml PO PRN Q8HRS PRN Thera-M (Multivits,Th W-Fe,Other Min) 1 Each Tablet 1 Each PO DAILY Senna (Sennosides) 8.6 Mg Tablet 8.6 Mg PO DAILY EXELON 4.6mg/24hr (Rivastigmine) 1 Each Patch.td24 1 Patch TD DAILY Seroquel (Quetiapine Fumarate) 50 Mg Tablet 50 Mg PO BID Seroquel (Quetiapine Fumarate) 300 Mg Tablet 300 Mg PO QHS Potassium Chloride 10 Meq Tablet.er 10 Meq PO DAILY Miralax (Polyethylene Glycol 3350) 17 Gm Powd.pack 17 Gm PO DAILY Omeprazole 20 Mg Capsule.dr 20 Mg PO DAILY Mirtazapine 30 Mg Tablet 30 Mg PO HS Namenda (Memantine Hcl) 10 Mg Tablet 5 Mg PO BID Namenda (Memantine Hcl) 10 Mg Tablet 10 Mg PO BID Januvia (Sitagliptin Phosphate) 100 Mg Tablet 100 Mg PO DAILY Gabapentin 100 Mg Capsule 200 Mg PO TID Divalproex Sodium Er (Divalproex Sodium) 500 Mg Tab.er.24h 500 Mg PO BID Citalopram Hbr (Citalopram Hydrobromide) 20 Mg Tablet 20 Mg PO DAILY Acidophilus (Lactobacillus Acidophilus) 1 Each Capsule 1 Each PO DAILY Selenium Sulfide 180 Ml Shampoo 1 Ghada TP QHS TUES AND FRI Clonazepam 0.5 Mg Tablet 0.25 Mg PO HS Lantus Solostar (Insulin Glargine,Hum.rec.anlog) 100 Unit/1 Ml Insuln.pen 6 Unit SQ HS Tylenol (Acetaminophen) 325 Mg Tablet 650 Mg PO PRN Q6HRS PRN Diagnosis: Problems: (1) Bipolar disorder, mixed (2) Anxiety disorder (3) Dementia in Alzheimer's disease with delusions (4) Dementia in Alzheimer's disease with depression (5) Impulse control disorder (6) Dementia, vascular, with delusions (7) Dementia, vascular, with depression (8) Schizophrenia (9) Agitation (10) Dementia with behavioral disturbance VIPIN BELTRAN MD May 02, 2017 23:05
--- NOTE | 2017-05-03 00:50 | PN ---
DATE: 05/01/2017 This is a late entry for 05/01/2017 and covers elements not covered in my initial note of 05/01/2017. I met with the patient evening of 05/01/2017. The patient was noncompliant with her medication, takes it in milk shake and ice cream, agitated, combative at times, especially with Accu-Cheks and insulin administration. More labile, REVIEW OF SYSTEMS: Ambulation impaired. No CV, , pulmonary, eye, ENT system symptoms on review. Reliability poor. MENTAL STATUS EXAM: Oriented to herself. Insight, judgment, recent and remote memory, attention, concentration, fund of knowledge poor, consistent with her diagnosis as mentioned in my initial note. IMPRESSION: Major neurocognitive disorder, Alzheimer, vascular with depression, delusion and behavioral disturbance, schizoaffective disorder, bipolar type, mixed with psychotic features, in partial remission. Rest unchanged. PLAN: Restart Depakote ER 500 mg at bedtime for 2 days and then 500 mg twice a day. Check CBC, CMP, valproic acid level in 3 days. Continue rest unchanged. Reviewed drug interactions, risk/benefit ratio favors no further change. VIPIN BELTRAN MD DR: JIE/triston JOB#: [id number] / [id number]
[2017-05-03] MEDS: POTASSIUM CHLORIDE 10 MEQ TABLET.ER. PO SCH (09:03)
[2017-05-03] MEDS: LINAGLIPTIN 5 MG TABLET PO SCH (09:03)
[2017-05-03] MEDS: DIVALPROEX 125 MG CAP.SPRINK PO SCH (09:03)
[2017-05-03] MEDS: LACTOBACILLUS ACIDOPH & BULGAR 1 TABLET. PO SCH (09:03)
[2017-05-03] MEDS: SENNOSIDES 8.6 MG TABLET PO SCH (09:03)
[2017-05-03] MEDS: GABAPENTIN 100 MG CAPSULE. PO SCH ×3 (09:03→20:05)
[2017-05-03] MEDS: MULTIVITAMIN with MINERAL TABLET. PO SCH (09:03)
[2017-05-03] MEDS: CITALOPRAM 20 MG TABLET. PO SCH (09:04)
[2017-05-03] MEDS: POLYETHYLENE GLYCOL 3350 17 GM PACKET. PO SCH (09:04)
[2017-05-03] MEDS: PANTOPRAZOLE 40 MG TABLET. PO SCH (09:04)
[2017-05-03] MEDS: risperiDONE 0.25 MG TABLET. PO SCH ×2 (09:04→14:20)
[2017-05-03] MEDS: INSULIN ASPART 300 UNITS/3 ML INSULN.PEN SQ SCH ×2 (09:07→16:00)
--- NOTE | 2017-05-03 09:20 | NUR ---
Behavior Intervention Response and Plan: BIRP Note: Behavior: Assumed Care of patient, patient located in Day Room at shift change. Patient exhibited the following behavior Restless, Disorganized, Resistive. Brief assessment on rounds of vital signs, medication needs, lab studies, and pain. Treatment plan problems 1 & 2. Intervention: Patient assessed and the following interventions initiated safety checks 15 Minute Checks Cognitive Assessment , Head to toe Assessment , Medications. Response: After interactions and interventions patient responded in the following manner, Calm , Appropriate ,Compliant. Continue to assess behaviors and condition will continue to monitor throughout the shift as needed. Patient educated on ADL's, and hand hygiene. 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 Continue to assess patient for changes in above assessment. Monitor for medication needs, pain, and safety concerns. Hourly rounding performed to ensure safe environment.
[2017-05-03 16:38] VITALS: BP 115/71
[2017-05-03] MEDS: INSULIN DETEMIR 300 UNITS/3 ML INSULN.PEN. SQ SCH ×2 (19:56→20:13)
[2017-05-03] MEDS: MIRTAZAPINE 30 MG TABLET PO SCH (20:05)
--- NOTE | 2017-05-03 21:17 | PDOC ---
Exam Maximiliano Demential Exam: Maximiliano Note: Please also refer to the separate dictated note~for this date of service dictated separately.~Patient seen individually. Discussed the patient with Nursing staff reviewed the chart.~Reviewed interim history and current functioning. Reviewed vital signs,~Labs/ Radiology~and current medications noted below. Continue current treatment with the changes noted in the dictated addendum note Assessment: Vital Signs: Vital Signs Date Time Temp Pulse Resp B/P (MAP) Pulse Ox O2 Delivery O2 Flow Rate FiO2 05/03/17 16:38 97.4 67 18 115/71 (86) 95 04/30/17 16:01 Room Air I&O Intake and Output 05/04/17 07:00 Intake Total 600 ml Balance 600 ml Intake Oral 600 ml Labs: Laboratory Tests Test 05/03/17 07:32 05/03/17 11:52 05/03/17 16:34 05/03/17 19:06 Glucose (Fingerstick) 387 mg/dL (70-99) H 164 mg/dL (70-99) H 127 mg/dL (70-99) H 228 mg/dL (70-99) H Current Medications: Meds: Current Medications Olanzapine (ZyPREXA ZYDIS) 5 mg 1X ONCE PO ; Start 04/14/17 at 18:45; Stop 07/19 at 18:46; Status DC Olanzapine (ZyPREXA ZYDIS) 2.5 mg PRN Q2HR PRN PO PSYCHOSIS Last administered on 04/24/17 14:46; Start 04/14/17 at 18:45 Acetaminophen (Tylenol) 650 mg PRN Q6HRS PRN PO PAIN / TEMP Last administered on 04/28/17 16:23; Start 04/14/17 at 19:30 Multi-Ingredient Ointment (Analgesic [place]) 1 ghada PRN QID PRN TP MUSCLE PAIN; Start 04/14/17 at 19:30 Al Hydroxide/Mg Hydroxide (Mylanta Plus Xs) 15 ml PRN AFTMEALHC PRN PO DYSPEPSIA; Start 04/14/17 at 19:30; Status Cancel Magnesium Hydroxide (Milk Of Magnesia) 2,400 mg PRN QHS PRN PO CONSTIPATION; Start 04/14/17 at 19:30 Insulin Aspart (NovoLOG) 0-7 UNITS BID SQ Last administered on 04/23/17 21:45 ; Start 04/15/17 at 09:00; Stop 04/24/17 at 19:32; Status DC Dextrose 12.5 gm PRN Q15MIN PRN IV SEE COMMENTS; Start 04/14/17 at 22:15 Citalopram Hydrobromide (CeleXA) 20 mg DAILY PO Last administered on 05/03/17 09:04; Start 04/15/17 at 09:00 Clonazepam (KlonoPIN) 0.25 mg HS PO Last administered on 04/15/17 20:36; Start 04/14/17 at 22:45; Stop 04/16/17 at 10:54; Status DC Divalproex Sodium (Depakote Er) 500 mg BID PO Last administered on 04/16/17 09 :35; Start 04/14/17 at 22:45; Stop 04/16/17 at 19:26; Status DC Memantine (Namenda) 5 mg BID PO ; Start 04/14/17 at 22:45; Stop 04/14/17 at 22: 45; Status DC Memantine (Namenda) 15 mg BID PO Last administered on 04/16/17 09:35; Start at 22:45; Stop 04/16/17 at 10:54; Status DC Mirtazapine (Remeron) 30 mg HS PO Last administered on 05/03/17 20:05; Start 04/14/17 at 22:45 Quetiapine Fumarate (SEROquel) 50 mg BID PO Last administered on 04/28/17 11: 15; Start 04/14/17 at 22:45; Stop 04/28/17 at 18:34; Status DC Rivastigmine (Exelon) 1 patch DAILY TD Last administered on 04/16/17 09:36; Start 04/15/17 at 09:00; Stop 04/16/17 at 10:54; Status DC Quetiapine Fumarate (SEROquel) 300 mg QHS PO Last administered on 04/23/17 19: 14; Start 04/14/17 at 22:45; Stop 04/24/17 at 19:00; Status DC Gabapentin (Neurontin) 200 mg TID PO Last administered on 05/03/17 20:05; Start 04/14/17 at 22:45 Polyethylene Glycol (miraLAX) 17 gm DAILY PO Last administered on 05/03/17 09: 04; Start 04/15/17 at 09:00 Sennosides (Senna) 8.6 mg DAILY PO Last administered on 05/03/17 09:03; Start 04/15/17 at 09:00 Insulin Detemir (Levemir) 6 units QHS SQ Last administered on 05/02/17 20:25; Start 04/15/17 at 21:00 Lactobacillus Acidophilus (Bacid, Ester-Bid) 1 tab DAILY PO Last administered on 05/03/17 09:03; Start 04/15/17 at 09:00 Al Hydroxide/Mg Hydroxide (Mylanta Plus Xs) 30 ml PRN Q8HRS PRN PO DYSPEPSIA; Start 04/14/17 at 23:00 Multivitamins/ Calcium (Thera-M Plus) 1 tab DAILY PO Last administered on 09:03; Start 04/15/17 at 09:00 Pantoprazole Sodium (Protonix) 40 mg DAILYAC PO Last administered on 05/03/17 09:04; Start 04/15/17 at 07:30 Potassium Chloride (Klor-Con) 10 meq DAILYWBKFT PO Last administered on 09:03; Start 04/15/17 at 08:00 Selenium Sulfide (Selsun) 1 ghada QTU TP ; Start 04/21/17 at 16:00 Linagliptin (Tradjenta) 5 mg DAILY PO Last administered on 05/03/17 09:03; Start 04/15/17 at 09:00 Selenium Sulfide (Selsun) 1 ghada QFR TP ; Start 04/17/17 at 16:00 Vitamin D (Vitamin D3) 50,000 unit WEEKLY PO Last administered on 04/30/17 07: 33; Start 04/16/17 at 09:00 Trazodone HCl (Desyrel) 100 mg QHS PO Last administered on 04/22/17 21:05; Start 04/16/17 at 21:00; Stop 04/23/17 at 17:59; Status DC Trazodone HCl (Desyrel) 100 mg PRN QHS PRN PO INSOMNIA; Start 04/16/17 at 21:00 ; Stop 04/23/17 at 17:59; Status DC Divalproex Sodium (Depakote Sprinkles) 500 mg DAILY PO Last administered on 08:22; Start 04/17/17 at 09:00; Stop 04/23/17 at 12:55; Status DC Divalproex Sodium (Depakote Sprinkles) 750 mg HS PO Last administered on 19:29; Start 04/16/17 at 21:00; Stop 04/20/17 at 18:21; Status DC Divalproex Sodium (Depakote Sprinkles) 500 mg HS PO Last administered on 21:05; Start 04/20/17 at 21:00; Stop 04/23/17 at 12:55; Status DC Olanzapine (ZyPREXA ZYDIS) 5 mg 1X ONCE PO Last administered on 04/24/17 11: 55; Start 04/24/17 at 12:00; Stop 04/24/17 at 12:01; Status DC Quetiapine Fumarate (SEROquel) 200 mg QHS PO Last administered on 04/29/17 19: 38; Start 04/24/17 at 21:00; Stop 04/30/17 at 14:32; Status DC Insulin Aspart (NovoLOG) 0-7 UNITS BID94 SQ Last administered on 05/03/17 09: 07; Start 04/25/17 at 09:00 Insulin Aspart (NovoLOG) 0-7 UNITS 1X ONCE SQ Last administered on 04/28/17 11:46; Start 04/28/17 at 12:00; Stop 04/28/17 at 12:02; Status DC Quetiapine Fumarate (SEROquel) 50 mg DAILY PO Last administered on 04/30/17 07 :31; Start 04/29/17 at 09:00; Stop 04/30/17 at 14:32; Status DC Risperidone (RisperDAL) 0.25 mg BID92 PO Last administered on 05/03/17 14:20; Start 05/01/17 at 09:00 Divalproex Sodium (Depakote Sprinkles) 500 mg DAILY PO Last administered on 09:03; Start 05/02/17 at 09:00; Stop 05/04/17 at 09:00 Divalproex Sodium (Depakote Sprinkles) 500 mg BID PO ; Start 05/04/17 at 09:00 Active Scripts Active Reported Dianna-Lanta Liquid (Mag Hydrox/Al Hydrox/Simeth) 355 Ml Oral.susp 30 Ml PO PRN Q8HRS PRN Thera-M (Multivits,Th W-Fe,Other Min) 1 Each Tablet 1 Each PO DAILY Senna (Sennosides) 8.6 Mg Tablet 8.6 Mg PO DAILY EXELON 4.6mg/24hr (Rivastigmine) 1 Each Patch.td24 1 Patch TD DAILY Seroquel (Quetiapine Fumarate) 50 Mg Tablet 50 Mg PO BID Seroquel (Quetiapine Fumarate) 300 Mg Tablet 300 Mg PO QHS Potassium Chloride 10 Meq Tablet.er 10 Meq PO DAILY Miralax (Polyethylene Glycol 3350) 17 Gm Powd.pack 17 Gm PO DAILY Omeprazole 20 Mg Capsule.dr 20 Mg PO DAILY Mirtazapine 30 Mg Tablet 30 Mg PO HS Namenda (Memantine Hcl) 10 Mg Tablet 5 Mg PO BID Namenda (Memantine Hcl) 10 Mg Tablet 10 Mg PO BID Januvia (Sitagliptin Phosphate) 100 Mg Tablet 100 Mg PO DAILY Gabapentin 100 Mg Capsule 200 Mg PO TID Divalproex Sodium Er (Divalproex Sodium) 500 Mg Tab.er.24h 500 Mg PO BID Citalopram Hbr (Citalopram Hydrobromide) 20 Mg Tablet 20 Mg PO DAILY Acidophilus (Lactobacillus Acidophilus) 1 Each Capsule 1 Each PO DAILY Selenium Sulfide 180 Ml Shampoo 1 Ghada TP QHS TUES AND FRI Clonazepam 0.5 Mg Tablet 0.25 Mg PO HS Lantus Solostar (Insulin Glargine,Hum.rec.anlog) 100 Unit/1 Ml Insuln.pen 6 Unit SQ HS Tylenol (Acetaminophen) 325 Mg Tablet 650 Mg PO PRN Q6HRS PRN Diagnosis: Problems: (1) Bipolar disorder, mixed (2) Anxiety disorder (3) Dementia in Alzheimer's disease with delusions (4) Dementia in Alzheimer's disease with depression (5) Impulse control disorder (6) Dementia, vascular, with delusions (7) Dementia, vascular, with depression (8) Schizophrenia (9) Agitation (10) Dementia with behavioral disturbance VIPIN BELTRAN MD May 03, 2017 21:17
--- NOTE | 2017-05-03 21:46 | NUR ---
Behavior Intervention Response and Plan: BIRP Note: Behavior: Assumed Care of patient, patient located in Day Room at shift change. Patient exhibited the following behavior Calm, resistive,angry, Disorganized. Brief assessment on rounds of vital signs, medication needs, lab studies, and pain. Treatment plan problems 1-2. Intervention: Patient assessed and the following interventions initiated safety checks 15 Minute Checks Cognitive Assessment , Head to toe Assessment , Medications. Response: After interactions and interventions patient responded in the following manner, Calm , Compliant ,Withdrawn. Continue to assess behaviors and condition will continue to monitor throughout the shift as needed. Patient educated on ADL's, and hand hygiene. 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 Continue to assess patient for changes in above assessment. Monitor for medication needs, pain, and safety concerns. Hourly rounding performed to ensure safe environment.
[2017-05-04 05:53] VITALS: BP 148/71
[2017-05-04] MEDS: INSULIN ASPART 300 UNITS/3 ML INSULN.PEN SQ SCH ×3 (07:57→17:17)
[2017-05-04] MEDS: DIVALPROEX 125 MG CAP.SPRINK PO SCH ×3 (09:00→19:51)
[2017-05-04] MEDS: risperiDONE 0.25 MG TABLET. PO SCH ×2 (09:02→14:32)
[2017-05-04] MEDS: SENNOSIDES 8.6 MG TABLET PO SCH (09:02)
[2017-05-04] MEDS: LACTOBACILLUS ACIDOPH & BULGAR 1 TABLET. PO SCH (09:02)
[2017-05-04] MEDS: GABAPENTIN 100 MG CAPSULE. PO SCH ×3 (09:03→19:51)
[2017-05-04] MEDS: MULTIVITAMIN with MINERAL TABLET. PO SCH (09:03)
[2017-05-04] MEDS: POTASSIUM CHLORIDE 10 MEQ TABLET.ER. PO SCH (09:03)
[2017-05-04] MEDS: LINAGLIPTIN 5 MG TABLET PO SCH (09:03)
[2017-05-04] MEDS: PANTOPRAZOLE 40 MG TABLET. PO SCH (09:03)
[2017-05-04] MEDS: CITALOPRAM 20 MG TABLET. PO SCH (09:03)
[2017-05-04] MEDS: POLYETHYLENE GLYCOL 3350 17 GM PACKET. PO SCH (09:03)
--- NOTE | 2017-05-04 09:20 | NUR ---
Behavior Intervention Response and Plan: BIRP Note: Behavior: Assumed Care of patient, patient located in Day Room at shift change. Patient exhibited the following behavior Disorganized, Resistive, Irritable. Brief assessment on rounds of vital signs, medication needs, lab studies, and pain. Treatment plan problems 1 & 2. Intervention: Patient assessed and the following interventions initiated safety checks 15 Minute Checks Cognitive Assessment , Head to toe Assessment , Medications. Response: After interactions and interventions patient responded in the following manner, Calm , Appropriate ,Compliant. Continue to assess behaviors and condition will continue to monitor throughout the shift as needed. Patient educated on ADL's, and hand hygiene. 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 Continue to assess patient for changes in above assessment. Monitor for medication needs, pain, and safety concerns. Hourly rounding performed to ensure safe environment.
--- NOTE | 2017-05-04 10:38 | NUR ---
Group Note [facility] Group Type Weekly Goals Start Time: 9:15am End Time: 9:50am Problem: Depression Purpose: Goal Setting, Cognitive stimulation, socialization, education/life skills Level of Participation: Absent Behaviors or Symptoms Observed: Interventions: Education Response: Plan: Group Participation Additional Comments:
--- NOTE | 2017-05-04 13:53 | PN ---
DATE: 05/02/2017 PSYCHIATRIC PROGRESS NOTE This is a late entry 05/02/2017, covers elements not covered in my initial note of 05/02/2017. I met with the patient evening of 05/02/2017. Overall, the patient is compliant with her medications ____ showers, very resistive, likes to do things for herself, resistive with insulin and blood checks for Accu-Cheks but doing overall better. REVIEW OF SYSTEMS: No CV, , pulmonary, eye, ENT system symptoms on review. Reliability poor. MENTAL STATUS EXAM: Oriented to herself. Insight, judgment, recent and remote memory, attention, concentration, fund of knowledge poor, consistent with her diagnosis as mentioned in my initial note. PLAN: Continue current psychotropics including Depakote as mentioned in my initial note. Follow labs level, adjust to reach a therapeutic level. MAN Gladis BELTRAN MD DR: JIE/triston JOB#: [id number] / [id number]
[2017-05-04] MEDS: MIRTAZAPINE 30 MG TABLET PO SCH (19:51)
[2017-05-04] MEDS: INSULIN DETEMIR 300 UNITS/3 ML INSULN.PEN. SQ SCH (19:52)
--- NOTE | 2017-05-04 21:10 | PDOC ---
Exam Maximiliano Demential Exam: Maximiliano Note: Please also refer to the separate dictated note~for this date of service dictated separately.~Patient seen individually. Discussed the patient with Nursing staff reviewed the chart.~Reviewed interim history and current functioning. Reviewed vital signs,~Labs/ Radiology~and current medications noted below. Continue current treatment with the changes noted in the dictated addendum note Assessment: Vital Signs: Vital Signs Date Time Temp Pulse Resp B/P (MAP) Pulse Ox O2 Delivery O2 Flow Rate FiO2 05/04/17 05:53 97.2 61 16 148/71 (96) 98 04/30/17 16:01 Room Air I&O Intake and Output 05/05/17 07:00 Intake Total 1010 ml Balance 1010 ml Intake Oral 1010 ml # Bowel Movements 1 Labs: Laboratory Tests Test 05/04/17 07:26 05/04/17 11:39 05/04/17 16:35 05/04/17 19:00 Glucose (Fingerstick) 128 mg/dL (70-99) H 227 mg/dL (70-99) H 191 mg/dL (70-99) H 284 mg/dL (70-99) H Current Medications: Meds: Current Medications Olanzapine (ZyPREXA ZYDIS) 5 mg 1X ONCE PO ; Start 04/14/17 at 18:45; Stop 07/19 at 18:46; Status DC Olanzapine (ZyPREXA ZYDIS) 2.5 mg PRN Q2HR PRN PO PSYCHOSIS Last administered on 04/24/17 14:46; Start 04/14/17 at 18:45 Acetaminophen (Tylenol) 650 mg PRN Q6HRS PRN PO PAIN / TEMP Last administered on 04/28/17t 16:23; Start 04/14/17 at 19:30 Multi-Ingredient Ointment (Analgesic [place]) 1 ghada PRN QID PRN TP MUSCLE PAIN; Start 04/14/17 at 19:30 Al Hydroxide/Mg Hydroxide (Mylanta Plus Xs) 15 ml PRN AFTMEALHC PRN PO DYSPEPSIA; Start 04/14/17 at 19:30; Status Cancel Magnesium Hydroxide (Milk Of Magnesia) 2,400 mg PRN QHS PRN PO CONSTIPATION; Start 04/14/17 at 19:30 Insulin Aspart (NovoLOG) 0-7 UNITS BID SQ Last administered on 04/23/17 21:45 ; Start 04/15/17 at 09:00; Stop 04/24/17 at 19:32; Status DC Dextrose 12.5 gm PRN Q15MIN PRN IV SEE COMMENTS; Start 04/14/17 at 22:15 Citalopram Hydrobromide (CeleXA) 20 mg DAILY PO Last administered on 05/04/17 09:03; Start 04/15/17 at 09:00 Clonazepam (KlonoPIN) 0.25 mg HS PO Last administered on 04/15/17 20:36; Start 04/14/17 at 22:45; Stop 04/16/17 at 10:54; Status DC Divalproex Sodium (Depakote Er) 500 mg BID PO Last administered on 04/16/17 09 :35; Start 04/14/17 at 22:45; Stop 04/16/17 at 19:26; Status DC Memantine (Namenda) 5 mg BID PO ; Start 04/14/17 at 22:45; Stop 04/14/17 at 22: 45; Status DC Memantine (Namenda) 15 mg BID PO Last administered on 04/16/17 09:35; Start at 22:45; Stop 04/16/17 at 10:54; Status DC Mirtazapine (Remeron) 30 mg HS PO Last administered on 05/04/17 19:51; Start 04/14/17 at 22:45 Quetiapine Fumarate (SEROquel) 50 mg BID PO Last administered on 04/28/17 11: 15; Start 04/14/17 at 22:45; Stop 04/28/17 at 18:34; Status DC Rivastigmine (Exelon) 1 patch DAILY TD Last administered on 04/16/17 09:36; Start 04/15/17 at 09:00; Stop 04/16/17 at 10:54; Status DC Quetiapine Fumarate (SEROquel) 300 mg QHS PO Last administered on 04/23/17 19: 14; Start 04/14/17 at 22:45; Stop 04/24/17 at 19:00; Status DC Gabapentin (Neurontin) 200 mg TID PO Last administered on 05/04/17 19:51; Start 04/14/17 at 22:45 Polyethylene Glycol (miraLAX) 17 gm DAILY PO Last administered on 05/04/17 09: 03; Start 04/15/17 at 09:00 Sennosides (Senna) 8.6 mg DAILY PO Last administered on 05/04/17 09:02; Start 04/15/17 at 09:00 Insulin Detemir (Levemir) 6 units QHS SQ Last administered on 05/04/17 19:52; Start 04/15/17 at 21:00 Lactobacillus Acidophilus (Bacid, Ester-Bid) 1 tab DAILY PO Last administered on 05/04/17 09:02; Start 04/15/17 at 09:00 Al Hydroxide/Mg Hydroxide (Mylanta Plus Xs) 30 ml PRN Q8HRS PRN PO DYSPEPSIA; Start 04/14/17 at 23:00 Multivitamins/ Calcium (Thera-M Plus) 1 tab DAILY PO Last administered on 09:03; Start 04/15/17 at 09:00 Pantoprazole Sodium (Protonix) 40 mg DAILYAC PO Last administered on 05/04/17 09:03; Start 04/15/17 at 07:30 Potassium Chloride (Klor-Con) 10 meq DAILYWBKFT PO Last administered on 09:03; Start 04/15/17 at 08:00 Selenium Sulfide (Selsun) 1 ghada QTU TP ; Start 04/21/17 at 16:00 Linagliptin (Tradjenta) 5 mg DAILY PO Last administered on 05/04/17 09:03; Start 04/15/17 at 09:00 Selenium Sulfide (Selsun) 1 ghada QFR TP ; Start 04/17/17 at 16:00 Vitamin D (Vitamin D3) 50,000 unit WEEKLY PO Last administered on 04/30/17 07: 33; Start 04/16/17 at 09:00 Trazodone HCl (Desyrel) 100 mg QHS PO Last administered on 04/22/17 21:05; Start 04/16/17 at 21:00; Stop 04/23/17 at 17:59; Status DC Trazodone HCl (Desyrel) 100 mg PRN QHS PRN PO INSOMNIA; Start 04/16/17 at 21:00 ; Stop 04/23/17 at 17:59; Status DC Divalproex Sodium (Depakote Sprinkles) 500 mg DAILY PO Last administered on 08:22; Start 04/17/17 at 09:00; Stop 04/23/17 at 12:55; Status DC Divalproex Sodium (Depakote Sprinkles) 750 mg HS PO Last administered on 19:29; Start 04/16/17 at 21:00; Stop 04/20/17 at 18:21; Status DC Divalproex Sodium (Depakote Sprinkles) 500 mg HS PO Last administered on 21:05; Start 04/20/17 at 21:00; Stop 04/23/17 at 12:55; Status DC Olanzapine (ZyPREXA ZYDIS) 5 mg 1X ONCE PO Last administered on 04/24/17 11: 55; Start 04/24/17 at 12:00; Stop 04/24/17 at 12:01; Status DC Quetiapine Fumarate (SEROquel) 200 mg QHS PO Last administered on 04/29/17 19: 38; Start 04/24/17 at 21:00; Stop 04/30/17 at 14:32; Status DC Insulin Aspart (NovoLOG) 0-7 UNITS BID94 SQ Last administered on 05/03/17 09: 07; Start 04/25/17 at 09:00 Insulin Aspart (NovoLOG) 0-7 UNITS 1X ONCE SQ Last administered on 04/28/17 11:46; Start 04/28/17 at 12:00; Stop 04/28/17 at 12:02; Status DC Quetiapine Fumarate (SEROquel) 50 mg DAILY PO Last administered on 04/30/17 07 :31; Start 04/29/17 at 09:00; Stop 04/30/17 at 14:32; Status DC Risperidone (RisperDAL) 0.25 mg BID92 PO Last administered on 05/04/17 14:32; Start 05/01/17 at 09:00 Divalproex Sodium (Depakote Sprinkles) 500 mg DAILY PO Last administered on 09:03; Start 05/02/17 at 09:00; Stop 05/04/17 at 09:01; Status DC Divalproex Sodium (Depakote Sprinkles) 500 mg BID PO Last administered on t 19:51; Start 05/04/17 at 09:00 Active Scripts Active Reported Dianna-Lanta Liquid (Mag Hydrox/Al Hydrox/Simeth) 355 Ml Oral.susp 30 Ml PO PRN Q8HRS PRN Thera-M (Multivits, W-Fe,Other Min) 1 Each Tablet 1 Each PO DAILY Senna (Sennosides) 8.6 Mg Tablet 8.6 Mg PO DAILY EXELON 4.6mg/24hr (Rivastigmine) 1 Each Patch.td24 1 Patch TD DAILY Seroquel (Quetiapine Fumarate) 50 Mg Tablet 50 Mg PO BID Seroquel (Quetiapine Fumarate) 300 Mg Tablet 300 Mg PO QHS Potassium Chloride 10 Meq Tablet.er 10 Meq PO DAILY Miralax (Polyethylene Glycol 3350) 17 Gm Powd.pack 17 Gm PO DAILY Omeprazole 20 Mg Capsule.dr 20 Mg PO DAILY Mirtazapine 30 Mg Tablet 30 Mg PO HS Namenda (Memantine Hcl) 10 Mg Tablet 5 Mg PO BID Namenda (Memantine Hcl) 10 Mg Tablet 10 Mg PO BID Januvia (Sitagliptin Phosphate) 100 Mg Tablet 100 Mg PO DAILY Gabapentin 100 Mg Capsule 200 Mg PO TID Divalproex Sodium Er (Divalproex Sodium) 500 Mg Tab.er.24h 500 Mg PO BID Citalopram Hbr (Citalopram Hydrobromide) 20 Mg Tablet 20 Mg PO DAILY Acidophilus (Lactobacillus Acidophilus) 1 Each Capsule 1 Each PO DAILY Selenium Sulfide 180 Ml Shampoo 1 Ghada TP QHS TUES AND FRI Clonazepam 0.5 Mg Tablet 0.25 Mg PO HS Lantus Solostar (Insulin Glargine,Hum.rec.anlog) 100 Unit/1 Ml Insuln.pen 6 Unit SQ HS Tylenol (Acetaminophen) 325 Mg Tablet 650 Mg PO PRN Q6HRS PRN Diagnosis: Problems: (1) Bipolar disorder, mixed (2) Anxiety disorder (3) Dementia in Alzheimer's disease with delusions (4) Dementia in Alzheimer's disease with depression (5) Impulse control disorder (6) Dementia, vascular, with delusions (7) Dementia, vascular, with depression (8) Schizophrenia (9) Agitation (10) Dementia with behavioral disturbance VIPIN BELTRAN MD May 04, 2017 21:10
--- NOTE | 2017-05-04 22:08 | NUR ---
Behavior Intervention Response and Plan: BIRP Note: Behavior: Assumed Care of patient, patient located in Day Room at shift change. Patient exhibited the following behavior Calm, Disorganized, Compulsive. Brief assessment on rounds of vital signs, medication needs, lab studies, and pain. Treatment plan problems . Intervention: Patient assessed and the following interventions initiated safety checks 15 Minute Checks Cognitive Assessment , Head to toe Assessment , Medications. Response: After interactions and interventions patient responded in the following manner, Compliant , Cooperative ,Restless. Continue to assess behaviors and condition will continue to monitor throughout the shift as needed. Patient educated on ADL's, and hand hygiene. 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 Continue to assess patient for changes in above assessment. Monitor for medication needs, pain, and safety concerns. Hourly rounding performed to ensure safe environment.
[2017-05-05] MEDS: INSULIN ASPART 300 UNITS/3 ML INSULN.PEN SQ SCH ×2 (07:46→16:39)
[2017-05-05] MEDS: POLYETHYLENE GLYCOL 3350 17 GM PACKET. PO SCH (09:36)
[2017-05-05] MEDS: DIVALPROEX 125 MG CAP.SPRINK PO SCH ×2 (09:37→19:23)
[2017-05-05] MEDS: LACTOBACILLUS ACIDOPH & BULGAR 1 TABLET. PO SCH (09:37)
[2017-05-05] MEDS: PANTOPRAZOLE 40 MG TABLET. PO SCH (09:37)
[2017-05-05] MEDS: risperiDONE 0.25 MG TABLET. PO SCH ×2 (09:38→13:53)
[2017-05-05] MEDS: SENNOSIDES 8.6 MG TABLET PO SCH (09:38)
[2017-05-05] MEDS: LINAGLIPTIN 5 MG TABLET PO SCH (09:38)
[2017-05-05] MEDS: MULTIVITAMIN with MINERAL TABLET. PO SCH (09:39)
[2017-05-05] MEDS: POTASSIUM CHLORIDE 10 MEQ TABLET.ER. PO SCH (09:39)
[2017-05-05] MEDS: CITALOPRAM 20 MG TABLET. PO SCH (09:39)
[2017-05-05] MEDS: GABAPENTIN 100 MG CAPSULE. PO SCH ×3 (09:39→19:23)
--- NOTE | 2017-05-05 09:50 | NUR ---
Behavior Intervention Response and Plan: BIRP Note: Behavior: Assumed Care of patient, patient located in Day Room at shift change. Patient exhibited the following behavior Restless, Disorganized, Resistive. Brief assessment on rounds of vital signs, medication needs, lab studies, and pain. Treatment plan problems 1 & 2. Intervention: Patient assessed and the following interventions initiated safety checks 15 Minute Checks Cognitive Assessment , Head to toe Assessment , Medications. Response: After interactions and interventions patient responded in the following manner, Calm , Appropriate ,Compliant. Continue to assess behaviors and condition will continue to monitor throughout the shift as needed. Patient educated on ADL's, and hand hygiene. 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 Continue to assess patient for changes in above assessment. Monitor for medication needs, pain, and safety concerns. Hourly rounding performed to ensure safe environment.
--- NOTE | 2017-05-05 14:22 | PN ---
DATE: 05/03/2017 This is a late entry for 05/03/2017, covers the elements not covered in my initial of 05/03/2017. I met with the patient in the evening of 05/03/2017. The patient has been combative at times, especially when blood sugars are checked or she gets her insulin, otherwise doing better, resistive to care the evening of 05/03/2017. REVIEW OF SYSTEMS: No CV, , pulmonary, eye, ENT system symptoms on review. MENTAL STATUS EXAM: Oriented to herself. Insight, judgment, recent and remote memory, attention, concentration, fund of knowledge poor, consistent with her diagnosis as mentioned in my initial note. PLAN: Continue current psychotropics. Check lab level on the valproic acid, Depakote currently 500 mg b.i.d., maintain Celexa, Remeron, Risperdal at current dosage. Reviewed drug interactions, risk/benefit ratio favors no further change. VIPIN BELTRAN MD DR: JIE/triston JOB#: [id number] / [id number]
[2017-05-05 15:58] VITALS: BP 128/90
[2017-05-05] MEDS: SELENIUM SULFIDE 1% TOPICAL SHAMPOO 207ML BOTTLE. TP SCH (16:00)
--- NOTE | 2017-05-05 16:30 | NUR ---
Patient has medicated shampoo scheduled opposite days that patient showers. She does use the medicated shampoo on her shower days.
[2017-05-05] MEDS: MIRTAZAPINE 30 MG TABLET PO SCH (19:23)
[2017-05-05] MEDS: INSULIN DETEMIR 300 UNITS/3 ML INSULN.PEN. SQ SCH (19:24)
--- NOTE | 2017-05-05 20:13 | NUR ---
Behavior Intervention Response and Plan: BIRP Note: Behavior: Assumed Care of patient, patient located in Day Room at shift change. Patient exhibited the following behavior Calm, Interactive, Social. Brief assessment on rounds of vital signs, medication needs, lab studies, and pain. Treatment plan problems . Intervention: Patient assessed and the following interventions initiated safety checks 15 Minute Checks Cognitive Assessment , Head to toe Assessment , Medications. Response: After interactions and interventions patient responded in the following manner, Disorganized , Compliant ,Cooperative. Continue to assess behaviors and condition will continue to monitor throughout the shift as needed. Patient educated on ADL's, and hand hygiene. Plan: Continue to monitor Master Treatment Plan for patient's progress toward short term goals of Decreased Agitation, Medication Compliance, penitentiary goals to return to previous living setting vs placement. Continue to assess patient for changes in above assessment. Monitor for medication needs, pain, and safety concerns. Hourly rounding performed to ensure safe environment.
--- NOTE | 2017-05-05 20:52 | PDOC ---
Exam Maximiliano Demential Exam: Maximiliano Note: Please also refer to the separate dictated note~for this date of service dictated separately.~Patient seen individually. Discussed the patient with Nursing staff reviewed the chart.~Reviewed interim history and current functioning. Reviewed vital signs,~Labs/ Radiology~and current medications noted below. Continue current treatment with the changes noted in the dictated addendum note Assessment: Vital Signs: Vital Signs Date Time Temp Pulse Resp B/P (MAP) Pulse Ox O2 Delivery O2 Flow Rate FiO2 05/05/17 15:58 97.7 77 18 128/90 (103) 96 04/30/17 16:01 Room Air I&O Intake and Output 05/06/17 07:00 Intake Total 600 ml Balance 600 ml Intake Oral 600 ml # Bowel Movements 1 Labs: Laboratory Tests Test 05/05/17 07:33 05/05/17 10:35 05/05/17 16:34 05/05/17 19:04 Glucose (Fingerstick) 107 mg/dL (70-99) H 140 mg/dL (70-99) H 270 mg/dL (70-99) H 119 mg/dL (70-99) H Current Medications: Meds: Current Medications Olanzapine (ZyPREXA ZYDIS) 5 mg 1X ONCE PO ; Start 04/14/17 at 18:45; Stop 07/19 at 18:46; Status DC Olanzapine (ZyPREXA ZYDIS) 2.5 mg PRN Q2HR PRN PO PSYCHOSIS Last administered on 04/24/17t 14:46; Start 04/14/17 at 18:45 Acetaminophen (Tylenol) 650 mg PRN Q6HRS PRN PO PAIN / TEMP Last administered on 04/28/17t 16:23; Start 04/14/17 at 19:30 Multi-Ingredient Ointment (Analgesic [place]) 1 ghada PRN QID PRN TP MUSCLE PAIN; Start 04/14/17 at 19:30 Al Hydroxide/Mg Hydroxide (Mylanta Plus Xs) 15 ml PRN AFTMEALHC PRN PO DYSPEPSIA; Start 04/14/17 at 19:30; Status Cancel Magnesium Hydroxide (Milk Of Magnesia) 2,400 mg PRN QHS PRN PO CONSTIPATION; Start 04/14/17 at 19:30 Insulin Aspart (NovoLOG) 0-7 UNITS BID SQ Last administered on 04/23/17 21:45 ; Start 04/15/17 at 09:00; Stop 04/24/17 at 19:32; Status DC Dextrose 12.5 gm PRN Q15MIN PRN IV SEE COMMENTS; Start 04/14/17 at 22:15 Citalopram Hydrobromide (CeleXA) 20 mg DAILY PO Last administered on 05/05/17 09:39; Start 04/15/17 at 09:00 Clonazepam (KlonoPIN) 0.25 mg HS PO Last administered on 04/15/17 20:36; Start 04/14/17 at 22:45; Stop 04/16/17 at 10:54; Status DC Divalproex Sodium (Depakote Er) 500 mg BID PO Last administered on 04/16/17 09 :35; Start 04/14/17 at 22:45; Stop 04/16/17 at 19:26; Status DC Memantine (Namenda) 5 mg BID PO ; Start 04/14/17 at 22:45; Stop 04/14/17 at 22: 45; Status DC Memantine (Namenda) 15 mg BID PO Last administered on 04/16/17 09:35; Start at 22:45; Stop 04/16/17 at 10:54; Status DC Mirtazapine (Remeron) 30 mg HS PO Last administered on 05/05/17 19:23; Start 04/14/17 at 22:45 Quetiapine Fumarate (SEROquel) 50 mg BID PO Last administered on 04/28/17 11: 15; Start 04/14/17 at 22:45; Stop 04/28/17 at 18:34; Status DC Rivastigmine (Exelon) 1 patch DAILY TD Last administered on 04/16/17 09:36; Start 04/15/17 at 09:00; Stop 04/16/17 at 10:54; Status DC Quetiapine Fumarate (SEROquel) 300 mg QHS PO Last administered on 04/23/17 19: 14; Start 04/14/17 at 22:45; Stop 04/24/17 at 19:00; Status DC Gabapentin (Neurontin) 200 mg TID PO Last administered on 05/05/17 19:23; Start 04/14/17 at 22:45 Polyethylene Glycol (miraLAX) 17 gm DAILY PO Last administered on 05/05/17 09: 36; Start 04/15/17 at 09:00 Sennosides (Senna) 8.6 mg DAILY PO Last administered on 05/05/17 09:38; Start 04/15/17 at 09:00 Insulin Detemir (Levemir) 6 units QHS SQ Last administered on 05/05/17 19:24; Start 04/15/17 at 21:00 Lactobacillus Acidophilus (Bacid, Ester-Bid) 1 tab DAILY PO Last administered on 05/05/17 09:37; Start 04/15/17 at 09:00 Al Hydroxide/Mg Hydroxide (Mylanta Plus Xs) 30 ml PRN Q8HRS PRN PO DYSPEPSIA; Start 04/14/17 at 23:00 Multivitamins/ Calcium (Thera-M Plus) 1 tab DAILY PO Last administered on 09:39; Start 04/15/17 at 09:00 Pantoprazole Sodium (Protonix) 40 mg DAILYAC PO Last administered on 05/05/17 09:37; Start 04/15/17 at 07:30 Potassium Chloride (Klor-Con) 10 meq DAILYWBKFT PO Last administered on 09:39; Start 04/15/17 at 08:00 Selenium Sulfide (Selsun) 1 ghada QTU TP ; Start 04/21/17 at 16:00 Linagliptin (Tradjenta) 5 mg DAILY PO Last administered on 05/05/17 09:38; Start 04/15/17 at 09:00 Selenium Sulfide (Selsun) 1 ghada QFR TP ; Start 04/17/17 at 16:00 Vitamin D (Vitamin D3) 50,000 unit WEEKLY PO Last administered on 04/30/17 07: 33; Start 04/16/17 at 09:00 Trazodone HCl (Desyrel) 100 mg QHS PO Last administered on 04/22/17 21:05; Start 04/16/17 at 21:00; Stop 04/23/17 at 17:59; Status DC Trazodone HCl (Desyrel) 100 mg PRN QHS PRN PO INSOMNIA; Start 04/16/17 at 21:00 ; Stop 04/23/17 at 17:59; Status DC Divalproex Sodium (Depakote Sprinkles) 500 mg DAILY PO Last administered on 08:22; Start 04/17/17 at 09:00; Stop 04/23/17 at 12:55; Status DC Divalproex Sodium (Depakote Sprinkles) 750 mg HS PO Last administered on 19:29; Start 04/16/17 at 21:00; Stop 04/20/17 at 18:21; Status DC Divalproex Sodium (Depakote Sprinkles) 500 mg HS PO Last administered on 21:05; Start 04/20/17 at 21:00; Stop 04/23/17 at 12:55; Status DC Olanzapine (ZyPREXA ZYDIS) 5 mg 1X ONCE PO Last administered on 04/24/17 11: 55; Start 04/24/17 at 12:00; Stop 04/24/17 at 12:01; Status DC Quetiapine Fumarate (SEROquel) 200 mg QHS PO Last administered on 04/29/17 19: 38; Start 04/24/17 at 21:00; Stop 04/30/17 at 14:32; Status DC Insulin Aspart (NovoLOG) 0-7 UNITS BID94 SQ Last administered on 05/05/17 16: 39; Start 04/25/17 at 09:00 Insulin Aspart (NovoLOG) 0-7 UNITS 1X ONCE SQ Last administered on 04/28/17 11:46; Start 04/28/17 at 12:00; Stop 04/28/17 at 12:02; Status DC Quetiapine Fumarate (SEROquel) 50 mg DAILY PO Last administered on 04/30/17 07 :31; Start 04/29/17 at 09:00; Stop 04/30/17 at 14:32; Status DC Risperidone (RisperDAL) 0.25 mg BID92 PO Last administered on 05/05/17 13:53; Start 05/01/17 at 09:00 Divalproex Sodium (Depakote Sprinkles) 500 mg DAILY PO Last administered on 09:03; Start 05/02/17 at 09:00; Stop 05/04/17 at 09:01; Status DC Divalproex Sodium (Depakote Sprinkles) 500 mg BID PO Last administered on t 19:23; Start 05/04/17 at 09:00 Active Scripts Active Reported Dianna-Lanta Liquid (Mag Hydrox/Al Hydrox/Simeth) 355 Ml Oral.susp 30 Ml PO PRN Q8HRS PRN Thera-M (Multivits,Th W-Fe,Other Min) 1 Each Tablet 1 Each PO DAILY Senna (Sennosides) 8.6 Mg Tablet 8.6 Mg PO DAILY EXELON 4.6mg/24hr (Rivastigmine) 1 Each Patch.td24 1 Patch TD DAILY Seroquel (Quetiapine Fumarate) 50 Mg Tablet 50 Mg PO BID Seroquel (Quetiapine Fumarate) 300 Mg Tablet 300 Mg PO QHS Potassium Chloride 10 Meq Tablet.er 10 Meq PO DAILY Miralax (Polyethylene Glycol 3350) 17 Gm Powd.pack 17 Gm PO DAILY Omeprazole 20 Mg Capsule.dr 20 Mg PO DAILY Mirtazapine 30 Mg Tablet 30 Mg PO HS Namenda (Memantine Hcl) 10 Mg Tablet 5 Mg PO BID Namenda (Memantine Hcl) 10 Mg Tablet 10 Mg PO BID Januvia (Sitagliptin Phosphate) 100 Mg Tablet 100 Mg PO DAILY Gabapentin 100 Mg Capsule 200 Mg PO TID Divalproex Sodium Er (Divalproex Sodium) 500 Mg Tab.er.24h 500 Mg PO BID Citalopram Hbr (Citalopram Hydrobromide) 20 Mg Tablet 20 Mg PO DAILY Acidophilus (Lactobacillus Acidophilus) 1 Each Capsule 1 Each PO DAILY Selenium Sulfide 180 Ml Shampoo 1 Ghada TP QHS TUES AND FRI Clonazepam 0.5 Mg Tablet 0.25 Mg PO HS Lantus Solostar (Insulin Glargine,Hum.rec.anlog) 100 Unit/1 Ml Insuln.pen 6 Unit SQ HS Tylenol (Acetaminophen) 325 Mg Tablet 650 Mg PO PRN Q6HRS PRN Diagnosis: Problems: (1) Bipolar disorder, mixed (2) Anxiety disorder (3) Dementia in Alzheimer's disease with delusions (4) Dementia in Alzheimer's disease with depression (5) Impulse control disorder (6) Dementia, vascular, with delusions (7) Dementia, vascular, with depression (8) Schizophrenia (9) Agitation (10) Dementia with behavioral disturbance VIPIN BELTRAN MD May 05, 2017 20:52
--- NOTE | 2017-05-05 22:55 | PN ---
DATE: 05/04/2017 PSYCHIATRIC PROGRESS NOTE This late entry 05/04/2017 covers elements not covered in my initial note of 05/04/2017. SUBJECTIVE: I met with the patient in the evening of 05/04/2017. Per nursing report, she has been resistive of medications, combative with cares and blood sugar draws and insulin administration, does take her medications and putting an applesauce. She does appear more alert and interactive gently and also as I met with her this was evident. REVIEW OF SYSTEMS: No CV, , pulmonary, eye, ENT system symptoms on review. Reliability poor. MENTAL STATUS EXAM: Oriented to herself. Insight, judgment, recent and remote memory, attention, concentration, fund of knowledge poor, consistent with her diagnosis mentioned in my initial note. PLAN: Continue current psychotropics, Celexa, Remeron, Risperdal, Depakote. Valproic acid level therapeutic at 84. Review drug interactions, risk/benefit ratio favors no further change. VIPIN BELTRAN MD DR: JIE/triston JOB#: [id number] / [id number]
[2017-05-06 06:28] VITALS: BP 123/56
[2017-05-06] MEDS: POTASSIUM CHLORIDE 10 MEQ TABLET.ER. PO SCH (08:01)
[2017-05-06] MEDS: PANTOPRAZOLE 40 MG TABLET. PO SCH (08:01)
[2017-05-06 08:11] LABS: BASO % 1 % (0-3); EOS # 0.2 x10^3/uL (0.0-0.7); EOS % 2 % (0-3); HEMATOCRIT 35.5 % (36.0-47.0); HEMOGLOBIN 12.2 g/dL (12.0-15.5); LYMPH # 4.7 x10^3/uL (1.0-4.8); LYMPH % 47 % (24-48); MEAN CORPUSCULAR HEMOGLOBIN 34 pg (25-35); MEAN CORPUSCULAR HGB CONC 34 g/dL (31-37); MEAN CORPUSCULAR VOLUME 100 fL (79-100); MONO # 0.7 x10^3/uL (0.0-1.1); MONO % 7 % (0-9); NEUT # 4.2 x10^3uL (1.8-7.7); NEUT % 43 % (31-73); PLATELET COUNT 265 x10^3/uL (140-400); RED BLOOD COUNT 3.54 x10^6/uL (3.50-5.40); RED CELL DISTRIBUTION WIDTH 12.8 % (11.5-14.5); WHITE BLOOD COUNT 9.9 x10^3/uL (4.0-11.0)
[2017-05-06 08:47] LABS: ALBUMIN 3.1 g/dL (3.4-5.0); ALBUMIN/GLOBULIN RATIO 0.7 (1.0-1.7); ALK PHOS 78 U/L (46-116); ALT (SGPT) 17 U/L (14-59); ANION GAP 6 (6-14); AST (SGOT) 11 U/L (15-37); BLOOD UREA NITROGEN 12 mg/dL (7-20); BUN/CREATININE RATIO 20 (6-20); CARBON DIOXIDE 32 mmol/L (21-32); CHLORIDE 108 mmol/L (98-107); CREATININE 0.6 mg/dL (0.6-1.0); GFR 98.8; GLUCOSE 110 mg/dL (70-99); MAGNESIUM 2.1 mg/dL (1.8-2.4); POTASSIUM 4.2 mmol/L (3.5-5.1); SODIUM 146 mmol/L (136-145); TOTAL BILIRUBIN 0.3 mg/dL (0.2-1.0); TOTAL PROTEIN 7.3 g/dL (6.4-8.2)
[2017-05-06 08:48] LABS: VAL ACID 60 mcg/mL (50-100)
[2017-05-06] MEDS: INSULIN ASPART 300 UNITS/3 ML INSULN.PEN SQ SCH ×2 (09:00→17:00)
[2017-05-06] MEDS: CITALOPRAM 20 MG TABLET. PO SCH (10:17)
[2017-05-06] MEDS: GABAPENTIN 100 MG CAPSULE. PO SCH ×3 (10:17→19:31)
[2017-05-06] MEDS: risperiDONE 0.25 MG TABLET. PO SCH ×2 (10:17→13:50)
[2017-05-06] MEDS: MULTIVITAMIN with MINERAL TABLET. PO SCH (10:17)
[2017-05-06] MEDS: LACTOBACILLUS ACIDOPH & BULGAR 1 TABLET. PO SCH (10:17)
[2017-05-06] MEDS: SENNOSIDES 8.6 MG TABLET PO SCH (10:17)
[2017-05-06] MEDS: DIVALPROEX 125 MG CAP.SPRINK PO SCH ×2 (10:18→19:31)
[2017-05-06] MEDS: POLYETHYLENE GLYCOL 3350 17 GM PACKET. PO SCH (10:18)
[2017-05-06] MEDS: LINAGLIPTIN 5 MG TABLET PO SCH (10:18)
--- NOTE | 2017-05-06 10:51 | NUR ---
STELLA faxed admit referral to [facility] in [place], per request by Douglas HOPSON.
--- NOTE | 2017-05-06 10:54 | NUR ---
STELLA faxed updated clinicals to [place] w/target dc date for early next week.
--- NOTE | 2017-05-06 15:16 | NUR ---
Behavior Intervention Response and Plan: BIRP Note: Behavior: Assumed Care of patient, patient located in Patient Room at shift change. Patient exhibited the following behavior Sleeping, Combative, Disorganized. Brief assessment on rounds of vital signs, medication needs, lab studies, and pain. Treatment plan problems Dementia w/ BD and fall risk. Intervention: Patient assessed and the following interventions initiated safety checks 15 Minute Checks Cognitive Assessment , Head to toe Assessment , Medications. Response: After interactions and interventions patient responded in the following manner, Disorganized , Compliant ,Withdrawn. Continue to assess behaviors and condition will continue to monitor throughout the shift as needed. Patient educated on ADL's, and hand hygiene. 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 Continue to assess patient for changes in above assessment. Monitor for medication needs, pain, and safety concerns. Hourly rounding performed to ensure safe environment.
[2017-05-06] MEDS: MIRTAZAPINE 30 MG TABLET PO SCH (19:31)
[2017-05-06] MEDS: INSULIN DETEMIR 300 UNITS/3 ML INSULN.PEN. SQ SCH (19:32)
--- NOTE | 2017-05-06 19:50 | NUR ---
Nursing note: pt given bedtime Levemir (6 units). Blood sugar charted as 221 but was actually 147.
--- NOTE | 2017-05-06 21:03 | PDOC ---
Exam Maximiliano Demential Exam: Maximiliano Note: Please also refer to the separate dictated note~for this date of service dictated separately.~Patient seen individually. Discussed the patient with Nursing staff reviewed the chart.~Reviewed interim history and current functioning. Reviewed vital signs,~Labs/ Radiology~and current medications noted below. Continue current treatment with the changes noted in the dictated addendum note Assessment: Vital Signs: Vital Signs Date Time Temp Pulse Resp B/P (MAP) Pulse Ox O2 Delivery O2 Flow Rate FiO2 05/06/17 06:28 98.0 57 20 123/56 (78) 96 04/30/17 16:01 Room Air I&O Intake and Output 05/07/17 07:00 Intake Total 480 ml Balance 480 ml Intake Oral 480 ml Labs: Laboratory Tests Test 05/06/17 07:23 05/06/17 07:25 Glucose (Fingerstick) 106 mg/dL (70-99) H White Blood Count 9.9 x10^3/uL (4.0-11.0) Red Blood Count 3.54 x10^6/uL (3.50-5.40) Hemoglobin 12.2 g/dL (12.0-15.5) Hematocrit 35.5 % (36.0-47.0) L Mean Corpuscular Volume 100 fL (79-100) Mean Corpuscular Hemoglobin 34 pg (25-35) Mean Corpuscular Hemoglobin Concent 34 g/dL (31-37) Red Cell Distribution Width 12.8 % (11.5-14.5) Platelet Count 265 x10^3/uL (140-400) Neutrophils (%) (Auto) 43 % (31-73) Lymphocytes (%) (Auto) 47 % (24-48) Monocytes (%) (Auto) 7 % (0-9) Eosinophils (%) (Auto) 2 % (0-3) Basophils (%) (Auto) 1 % (0-3) Neutrophils # (Auto) 4.2 x10^3uL (1.8-7.7) Lymphocytes # (Auto) 4.7 x10^3/uL (1.0-4.8) Monocytes # (Auto) 0.7 x10^3/uL (0.0-1.1) Eosinophils # (Auto) 0.2 x10^3/uL (0.0-0.7) Basophils # (Auto) 0.0 x10^3/uL (0.0-0.2) Sodium Level 146 mmol/L (136-145) H Potassium Level 4.2 mmol/L (3.5-5.1) Chloride Level 108 mmol/L (98-107) H Carbon Dioxide Level 32 mmol/L (21-32) Anion Gap 6 (6-14) Blood Urea Nitrogen 12 mg/dL (7-20) Creatinine 0.6 mg/dL (0.6-1.0) Estimated GFR (Cockcroft-Gault) 98.8 BUN/Creatinine Ratio 20 (6-20) Glucose Level 110 mg/dL (70-99) H Calcium Level 9.0 mg/dL (8.5-10.1) Magnesium Level 2.1 mg/dL (1.8-2.4) Total Bilirubin 0.3 mg/dL (0.2-1.0) Aspartate Amino Transferase (AST) 11 U/L (15-37) L Alanine Aminotransferase (ALT) 17 U/L (14-59) Alkaline Phosphatase 78 U/L (46-116) Total Protein 7.3 g/dL (6.4-8.2) Albumin 3.1 g/dL (3.4-5.0) L Albumin/Globulin Ratio 0.7 (1.0-1.7) L Valproic Acid Level 60 mcg/mL (50-100) Valproic Acid Last Dose Date 05/05/2017 Valproic Acid Last Dose Time 2100 Current Medications: Meds: Current Medications Olanzapine (ZyPREXA ZYDIS) 5 mg 1X ONCE PO ; Start 04/14/17 at 18:45; Stop 07/19 at 18:46; Status DC Olanzapine (ZyPREXA ZYDIS) 2.5 mg PRN Q2HR PRN PO PSYCHOSIS Last administered on 04/24/17t 14:46; Start 04/14/17 at 18:45; Stop 05/06/17 at 18:45; Status DC Acetaminophen (Tylenol) 650 mg PRN Q6HRS PRN PO PAIN / TEMP Last administered on 04/28/17t 16:23; Start 04/14/17 at 19:30 Multi-Ingredient Ointment (Analgesic [place]) 1 ghada PRN QID PRN TP MUSCLE PAIN; Start 04/14/17 at 19:30 Al Hydroxide/Mg Hydroxide (Mylanta Plus Xs) 15 ml PRN AFTMEALHC PRN PO DYSPEPSIA; Start 04/14/17 at 19:30; Status Cancel Magnesium Hydroxide (Milk Of Magnesia) 2,400 mg PRN QHS PRN PO CONSTIPATION; Start 04/14/17 at 19:30 Insulin Aspart (NovoLOG) 0-7 UNITS BID SQ Last administered on 04/23/17 21:45 ; Start 04/15/17 at 09:00; Stop 04/24/17 at 19:32; Status DC Dextrose 12.5 gm PRN Q15MIN PRN IV SEE COMMENTS; Start 04/14/17 at 22:15 Citalopram Hydrobromide (CeleXA) 20 mg DAILY PO Last administered on 05/06/17 10:17; Start 04/15/17 at 09:00 Clonazepam (KlonoPIN) 0.25 mg HS PO Last administered on 04/15/17 20:36; Start 04/14/17 at 22:45; Stop 04/16/17 at 10:54; Status DC Divalproex Sodium (Depakote Er) 500 mg BID PO Last administered on 04/16/17 09 :35; Start 04/14/17 at 22:45; Stop 04/16/17 at 19:26; Status DC Memantine (Namenda) 5 mg BID PO ; Start 04/14/17 at 22:45; Stop 04/14/17 at 22: 45; Status DC Memantine (Namenda) 15 mg BID PO Last administered on 04/16/17 09:35; Start at 22:45; Stop 04/16/17 at 10:54; Status DC Mirtazapine (Remeron) 30 mg HS PO Last administered on 05/06/17 19:31; Start 04/14/17 at 22:45 Quetiapine Fumarate (SEROquel) 50 mg BID PO Last administered on 04/28/17 11: 15; Start 04/14/17 at 22:45; Stop 04/28/17 at 18:34; Status DC Rivastigmine (Exelon) 1 patch DAILY TD Last administered on 04/16/17 09:36; Start 04/15/17 at 09:00; Stop 04/16/17 at 10:54; Status DC Quetiapine Fumarate (SEROquel) 300 mg QHS PO Last administered on 04/23/17 19: 14; Start 04/14/17 at 22:45; Stop 04/24/17 at 19:00; Status DC Gabapentin (Neurontin) 200 mg TID PO Last administered on 05/06/17 19:31; Start 04/14/17 at 22:45 Polyethylene Glycol (miraLAX) 17 gm DAILY PO Last administered on 05/06/17 10: 18; Start 04/15/17 at 09:00 Sennosides (Senna) 8.6 mg DAILY PO Last administered on 05/06/17 10:17; Start 04/15/17 at 09:00 Insulin Detemir (Levemir) 6 units QHS SQ Last administered on 05/06/17 19:32; Start 04/15/17 at 21:00 Lactobacillus Acidophilus (Bacid, Ester-Bid) 1 tab DAILY PO Last administered on 05/06/17 10:17; Start 04/15/17 at 09:00 Al Hydroxide/Mg Hydroxide (Mylanta Plus Xs) 30 ml PRN Q8HRS PRN PO DYSPEPSIA; Start 04/14/17 at 23:00 Multivitamins/ Calcium (Thera-M Plus) 1 tab DAILY PO Last administered on 10:17; Start 04/15/17 at 09:00 Pantoprazole Sodium (Protonix) 40 mg DAILYAC PO Last administered on 05/06/17 08:01; Start 04/15/17 at 07:30 Potassium Chloride (Klor-Con) 10 meq DAILYWBKFT PO Last administered on 08:01; Start 04/15/17 at 08:00 Selenium Sulfide (Selsun) 1 ghada QTU TP ; Start 04/21/17 at 16:00 Linagliptin (Tradjenta) 5 mg DAILY PO Last administered on 05/06/17 10:18; Start 04/15/17 at 09:00 Selenium Sulfide (Selsun) 1 ghada QFR TP ; Start 04/17/17 at 16:00 Vitamin D (Vitamin D3) 50,000 unit WEEKLY PO Last administered on 04/30/17 07: 33; Start 04/16/17 at 09:00 Trazodone HCl (Desyrel) 100 mg QHS PO Last administered on 04/22/17 21:05; Start 04/16/17 at 21:00; Stop 04/23/17 at 17:59; Status DC Trazodone HCl (Desyrel) 100 mg PRN QHS PRN PO INSOMNIA; Start 04/16/17 at 21:00 ; Stop 04/23/17 at 17:59; Status DC Divalproex Sodium (Depakote Sprinkles) 500 mg DAILY PO Last administered on 08:22; Start 04/17/17 at 09:00; Stop 04/23/17 at 12:55; Status DC Divalproex Sodium (Depakote Sprinkles) 750 mg HS PO Last administered on 19:29; Start 04/16/17 at 21:00; Stop 04/20/17 at 18:21; Status DC Divalproex Sodium (Depakote Sprinkles) 500 mg HS PO Last administered on 21:05; Start 04/20/17 at 21:00; Stop 04/23/17 at 12:55; Status DC Olanzapine (ZyPREXA ZYDIS) 5 mg 1X ONCE PO Last administered on 04/24/17 11: 55; Start 04/24/17 at 12:00; Stop 04/24/17 at 12:01; Status DC Quetiapine Fumarate (SEROquel) 200 mg QHS PO Last administered on 04/29/17 19: 38; Start 04/24/17 at 21:00; Stop 04/30/17 at 14:32; Status DC Insulin Aspart (NovoLOG) 0-7 UNITS BID94 SQ Last administered on 05/06/17 17: 00; Start 04/25/17 at 09:00 Insulin Aspart (NovoLOG) 0-7 UNITS 1X ONCE SQ Last administered on 04/28/17 11:46; Start 04/28/17 at 12:00; Stop 04/28/17 at 12:02; Status DC Quetiapine Fumarate (SEROquel) 50 mg DAILY PO Last administered on 04/30/17 07 :31; Start 04/29/17 at 09:00; Stop 04/30/17 at 14:32; Status DC Risperidone (RisperDAL) 0.25 mg BID92 PO Last administered on 05/06/17 13:50; Start 05/01/17 at 09:00 Divalproex Sodium (Depakote Sprinkles) 500 mg DAILY PO Last administered on 09:03; Start 05/02/17 at 09:00; Stop 05/04/17 at 09:01; Status DC Divalproex Sodium (Depakote Sprinkles) 500 mg BID PO Last administered on 19:31; Start 05/04/17 at 09:00 Olanzapine (ZyPREXA ZYDIS) 2.5 mg PRN Q2HR PRN PO PSYCHOSIS; Start 05/06/17 at 18:45 Active Scripts Active Reported Dianna-Lanta Liquid (Mag Hydrox/Al Hydrox/Simeth) 355 Ml Oral.susp 30 Ml PO PRN Q8HRS PRN Thera-M (Multivits, W-Fe,Other Min) 1 Each Tablet 1 Each PO DAILY Senna (Sennosides) 8.6 Mg Tablet 8.6 Mg PO DAILY EXELON 4.6mg/24hr (Rivastigmine) 1 Each Patch.td24 1 Patch TD DAILY Seroquel (Quetiapine Fumarate) 50 Mg Tablet 50 Mg PO BID Seroquel (Quetiapine Fumarate) 300 Mg Tablet 300 Mg PO QHS Potassium Chloride 10 Meq Tablet.er 10 Meq PO DAILY Miralax (Polyethylene Glycol 3350) 17 Gm Powd.pack 17 Gm PO DAILY Omeprazole 20 Mg Capsule.dr 20 Mg PO DAILY Mirtazapine 30 Mg Tablet 30 Mg PO HS Namenda (Memantine Hcl) 10 Mg Tablet 5 Mg PO BID Namenda (Memantine Hcl) 10 Mg Tablet 10 Mg PO BID Januvia (Sitagliptin Phosphate) 100 Mg Tablet 100 Mg PO DAILY Gabapentin 100 Mg Capsule 200 Mg PO TID Divalproex Sodium Er (Divalproex Sodium) 500 Mg Tab.er.24h 500 Mg PO BID Citalopram Hbr (Citalopram Hydrobromide) 20 Mg Tablet 20 Mg PO DAILY Acidophilus (Lactobacillus Acidophilus) 1 Each Capsule 1 Each PO DAILY Selenium Sulfide 180 Ml Shampoo 1 Ghada TP QHS TUES AND FRI Clonazepam 0.5 Mg Tablet 0.25 Mg PO HS Lantus Solostar (Insulin Glargine,Hum.rec.anlog) 100 Unit/1 Ml Insuln.pen 6 Unit SQ HS Tylenol (Acetaminophen) 325 Mg Tablet 650 Mg PO PRN Q6HRS PRN Diagnosis: Problems: (1) Bipolar disorder, mixed (2) Anxiety disorder (3) Dementia in Alzheimer's disease with delusions (4) Dementia in Alzheimer's disease with depression (5) Impulse control disorder (6) Dementia, vascular, with delusions (7) Dementia, vascular, with depression (8) Schizophrenia (9) Agitation (10) Dementia with behavioral disturbance VIPIN BELTRAN MD May 06, 2017 21:03
--- NOTE | 2017-05-06 21:14 | NUR ---
Behavior Intervention Response and Plan: BIRP Note: Behavior: Assumed Care of patient, patient located in Hallway at shift change. Patient exhibited the following behavior Calm, Wandering, Disorganized. Brief assessment on rounds of vital signs, medication needs, lab studies, and pain. Treatment plan problems . Intervention: Patient assessed and the following interventions initiated safety checks 15 Minute Checks Cognitive Assessment , Head to toe Assessment , Medications. Response: After interactions and interventions patient responded in the following manner, Compliant , Cooperative ,Disorganized. Continue to assess behaviors and condition will continue to monitor throughout the shift as needed. Patient educated on ADL's, and hand hygiene. 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 Continue to assess patient for changes in above assessment. Monitor for medication needs, pain, and safety concerns. Hourly rounding performed to ensure safe environment.
--- NOTE | 2017-05-06 23:16 | PN ---
DATE: 05/05/2017 PSYCHIATRIC PROGRESS NOTE This late entry 05/05/2017 covers elements not covered in my initial note of 05/05/2017. SUBJECTIVE: I met with the patient in the evening of 05/05/2017. The patient remains somewhat confused; otherwise compliant, less combative, refusing medications, did accept her medications in ice cream. REVIEW OF SYSTEMS: Ambulation impaired. No CV, , pulmonary, eye, ENT system symptoms on review. Reliability poor. MENTAL STATUS EXAM: Oriented to herself. Insight, judgment, recent and remote memory, attention, concentration, fund of knowledge poor, consistent with her diagnosis mentioned in my initial note. Valproic acid level 84. IMPRESSION: Unchanged from initial note. PLAN: Continue current psychotropics. Review drug interactions, risk/benefit ratio favors no further change. MAN Gladis BELTRAN MD DR: JIE/triston JOB#: [id number] / [id number]
[2017-05-07 06:38] VITALS: BP 130/82
[2017-05-07] MEDS: PANTOPRAZOLE 40 MG TABLET. PO SCH (07:42)
[2017-05-07] MEDS: POTASSIUM CHLORIDE 10 MEQ TABLET.ER. PO SCH (07:57)
[2017-05-07] MEDS: INSULIN ASPART 300 UNITS/3 ML INSULN.PEN SQ SCH ×2 (09:00→16:49)
--- NOTE | 2017-05-07 09:16 | NUR ---
Nursing Note: Pt refused morning care becoming agitated immediately. PRN given.
[2017-05-07] MEDS: CITALOPRAM 20 MG TABLET. PO SCH (09:46)
[2017-05-07] MEDS: risperiDONE 0.25 MG TABLET. PO SCH ×2 (09:46→14:17)
[2017-05-07] MEDS: DIVALPROEX 125 MG CAP.SPRINK PO SCH ×2 (09:46→20:16)
[2017-05-07] MEDS: GABAPENTIN 100 MG CAPSULE. PO SCH ×3 (09:46→20:16)
[2017-05-07] MEDS: LACTOBACILLUS ACIDOPH & BULGAR 1 TABLET. PO SCH (09:46)
[2017-05-07] MEDS: SENNOSIDES 8.6 MG TABLET PO SCH (09:46)
[2017-05-07] MEDS: CHOLECALCIFEROL (VITAMIN D3) 50,000 UNIT CAPSULE PO SCH (09:46)
[2017-05-07] MEDS: MULTIVITAMIN with MINERAL TABLET. PO SCH (09:46)
[2017-05-07] MEDS: LINAGLIPTIN 5 MG TABLET PO SCH (09:46)
[2017-05-07] MEDS: POLYETHYLENE GLYCOL 3350 17 GM PACKET. PO SCH (09:47)
--- NOTE | 2017-05-07 11:48 | NUR ---
Nursing Note: Pt refused to allow FSBS to be taken. Combative with staff.
--- NOTE | 2017-05-07 15:34 | NUR ---
Nursing Note: Pt combative w/ staff. Took 4 staff members to change pt's clothing after pt had a bowel movement while sitting in the [address].
[2017-05-07 16:24] VITALS: BP 156/95
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
--- NOTE | 2017-05-07 17:06 | NUR ---
WEEKLY THERAPEUTIC RECREATION NOTE Date of Admission: 04/14/2017 Date of AT Assessment:04/15/2017 Goal aimed: to increase socialization and time management skills Updated goal: Pt. will participate fully in at least one group before discharge Weekly progress towards goal: achieved Group participation level: Pt. participated in one group last Thursday, none on Thursday, sing along on , nothing yesterday or today Behaviors observed: Pt. is often disruptive. She yells, does not appear to understand when people need to work with her. Plan: change goal to Pt. will participate in at least one group a day.
[2017-05-07] MEDS: MIRTAZAPINE 30 MG TABLET PO SCH (20:16)
[2017-05-07] MEDS: INSULIN DETEMIR 300 UNITS/3 ML INSULN.PEN. SQ SCH (20:18)
--- NOTE | 2017-05-07 21:06 | PDOC ---
Exam Maximiliano Demential Exam: Maximiliano Note: Please also refer to the separate dictated note~for this date of service dictated separately.~Patient seen individually. Discussed the patient with Nursing staff reviewed the chart.~Reviewed interim history and current functioning. Reviewed vital signs,~Labs/ Radiology~and current medications noted below. Continue current treatment with the changes noted in the dictated addendum note Assessment: Vital Signs: Vital Signs Date Time Temp Pulse Resp B/P (MAP) Pulse Ox O2 Delivery O2 Flow Rate FiO2 05/07/17 16:24 108 22 156/95 (115) 97 05/07/17 06:38 98.3 Room Air I&O Intake and Output 05/08/17 07:00 Intake Total 1320 ml Balance 1320 ml Intake Oral 1320 ml # Bowel Movements 2 Labs: Laboratory Tests Test 05/07/17 07:23 05/07/17 16:25 05/07/17 19:06 Glucose (Fingerstick) 104 mg/dL (70-99) H 194 mg/dL (70-99) H 170 mg/dL (70-99) H Current Medications: Meds: Current Medications Olanzapine (ZyPREXA ZYDIS) 5 mg 1X ONCE PO ; Start 04/14/17 at 18:45; Stop 07/19 at 18:46; Status DC Olanzapine (ZyPREXA ZYDIS) 2.5 mg PRN Q2HR PRN PO PSYCHOSIS Last administered on 04/24/17 14:46; Start 04/14/17 at 18:45; Stop 05/06/17 at 18:45; Status DC Acetaminophen (Tylenol) 650 mg PRN Q6HRS PRN PO PAIN / TEMP Last administered on 04/28/17 16:23; Start 04/14/17 at 19:30 Multi-Ingredient Ointment (Analgesic [place]) 1 ghada PRN QID PRN TP MUSCLE PAIN; Start 04/14/17 at 19:30 Al Hydroxide/Mg Hydroxide (Mylanta Plus Xs) 15 ml PRN AFTMEALHC PRN PO DYSPEPSIA; Start 04/14/17 at 19:30; Status Cancel Magnesium Hydroxide (Milk Of Magnesia) 2,400 mg PRN QHS PRN PO CONSTIPATION; Start 04/14/17 at 19:30 Insulin Aspart (NovoLOG) 0-7 UNITS BID SQ Last administered on 04/23/17 21:45 ; Start 04/15/17 at 09:00; Stop 04/24/17 at 19:32; Status DC Dextrose 12.5 gm PRN Q15MIN PRN IV SEE COMMENTS; Start 04/14/17 at 22:15 Citalopram Hydrobromide (CeleXA) 20 mg DAILY PO Last administered on 05/07/17 09:46; Start 04/15/17 at 09:00 Clonazepam (KlonoPIN) 0.25 mg HS PO Last administered on 04/15/17 20:36; Start 04/14/17 at 22:45; Stop 04/16/17 at 10:54; Status DC Divalproex Sodium (Depakote Er) 500 mg BID PO Last administered on 04/16/17 09 :35; Start 04/14/17 at 22:45; Stop 04/16/17 at 19:26; Status DC Memantine (Namenda) 5 mg BID PO ; Start 04/14/17 at 22:45; Stop 04/14/17 at 22: 45; Status DC Memantine (Namenda) 15 mg BID PO Last administered on 04/16/17 09:35; Start at 22:45; Stop 04/16/17 at 10:54; Status DC Mirtazapine (Remeron) 30 mg HS PO Last administered on 05/07/17 20:16; Start 04/14/17 at 22:45 Quetiapine Fumarate (SEROquel) 50 mg BID PO Last administered on 04/28/17 11: 15; Start 04/14/17 at 22:45; Stop 04/28/17 at 18:34; Status DC Rivastigmine (Exelon) 1 patch DAILY TD Last administered on 04/16/17 09:36; Start 04/15/17 at 09:00; Stop 04/16/17 at 10:54; Status DC Quetiapine Fumarate (SEROquel) 300 mg QHS PO Last administered on 04/23/17 19: 14; Start 04/14/17 at 22:45; Stop 04/24/17 at 19:00; Status DC Gabapentin (Neurontin) 200 mg TID PO Last administered on 05/07/17 20:16; Start 04/14/17 at 22:45 Polyethylene Glycol (miraLAX) 17 gm DAILY PO Last administered on 05/07/17 09: 47; Start 04/15/17 at 09:00 Sennosides (Senna) 8.6 mg DAILY PO Last administered on 05/07/17 09:46; Start 04/15/17 at 09:00 Insulin Detemir (Levemir) 6 units QHS SQ Last administered on 05/07/17 20:18; Start 04/15/17 at 21:00 Lactobacillus Acidophilus (Bacid, Ester-Bid) 1 tab DAILY PO Last administered on 05/07/17 09:46; Start 04/15/17 at 09:00 Al Hydroxide/Mg Hydroxide (Mylanta Plus Xs) 30 ml PRN Q8HRS PRN PO DYSPEPSIA; Start 04/14/17 at 23:00 Multivitamins/ Calcium (Thera-M Plus) 1 tab DAILY PO Last administered on 09:46; Start 04/15/17 at 09:00 Pantoprazole Sodium (Protonix) 40 mg DAILYAC PO Last administered on 05/07/17 07:42; Start 04/15/17 at 07:30 Potassium Chloride (Klor-Con) 10 meq DAILYWBKFT PO Last administered on 07:57; Start 04/15/17 at 08:00 Selenium Sulfide (Selsun) 1 ghada QTU TP ; Start 04/21/17 at 16:00 Linagliptin (Tradjenta) 5 mg DAILY PO Last administered on 05/07/17 09:46; Start 04/15/17 at 09:00 Selenium Sulfide (Selsun) 1 ghada QFR TP ; Start 04/17/17 at 16:00 Vitamin D (Vitamin D3) 50,000 unit WEEKLY PO Last administered on 05/07/17 09: 46; Start 04/16/17 at 09:00 Trazodone HCl (Desyrel) 100 mg QHS PO Last administered on 04/22/17 21:05; Start 04/16/17 at 21:00; Stop 04/23/17 at 17:59; Status DC Trazodone HCl (Desyrel) 100 mg PRN QHS PRN PO INSOMNIA; Start 04/16/17 at 21:00 ; Stop 04/23/17 at 17:59; Status DC Divalproex Sodium (Depakote Sprinkles) 500 mg DAILY PO Last administered on 08:22; Start 04/17/17 at 09:00; Stop 04/23/17 at 12:55; Status DC Divalproex Sodium (Depakote Sprinkles) 750 mg HS PO Last administered on 19:29; Start 04/16/17 at 21:00; Stop 04/20/17 at 18:21; Status DC Divalproex Sodium (Depakote Sprinkles) 500 mg HS PO Last administered on 21:05; Start 04/20/17 at 21:00; Stop 04/23/17 at 12:55; Status DC Olanzapine (ZyPREXA ZYDIS) 5 mg 1X ONCE PO Last administered on 04/24/17 11: 55; Start 04/24/17 at 12:00; Stop 04/24/17 at 12:01; Status DC Quetiapine Fumarate (SEROquel) 200 mg QHS PO Last administered on 04/29/17 19: 38; Start 04/24/17 at 21:00; Stop 04/30/17 at 14:32; Status DC Insulin Aspart (NovoLOG) 0-7 UNITS BID94 SQ Last administered on 05/07/17 16: 49; Start 04/25/17 at 09:00 Insulin Aspart (NovoLOG) 0-7 UNITS 1X ONCE SQ Last administered on 04/28/17 11:46; Start 04/28/17 at 12:00; Stop 04/28/17 at 12:02; Status DC Quetiapine Fumarate (SEROquel) 50 mg DAILY PO Last administered on 04/30/17 07 :31; Start 04/29/17 at 09:00; Stop 04/30/17 at 14:32; Status DC Risperidone (RisperDAL) 0.25 mg BID92 PO Last administered on 05/07/17 14:17; Start 05/01/17 at 09:00 Divalproex Sodium (Depakote Sprinkles) 500 mg DAILY PO Last administered on 09:03; Start 05/02/17 at 09:00; Stop 05/04/17 at 09:01; Status DC Divalproex Sodium (Depakote Sprinkles) 500 mg BID PO Last administered on 20:16; Start 05/04/17 at 09:00 Olanzapine (ZyPREXA ZYDIS) 2.5 mg PRN Q2HR PRN PO PSYCHOSIS Last administered on 05/07/17 16:39; Start 05/06/17 at 18:45 Active Scripts Active Reported Dianna-Lanta Liquid (Mag Hydrox/Al Hydrox/Simeth) 355 Ml Oral.susp 30 Ml PO PRN Q8HRS PRN Thera-M (Multivits,Th W-Fe,Other Min) 1 Each Tablet 1 Each PO DAILY Senna (Sennosides) 8.6 Mg Tablet 8.6 Mg PO DAILY EXELON 4.6mg/24hr (Rivastigmine) 1 Each Patch.td24 1 Patch TD DAILY Seroquel (Quetiapine Fumarate) 50 Mg Tablet 50 Mg PO BID Seroquel (Quetiapine Fumarate) 300 Mg Tablet 300 Mg PO QHS Potassium Chloride 10 Meq Tablet.er 10 Meq PO DAILY Miralax (Polyethylene Glycol 3350) 17 Gm Powd.pack 17 Gm PO DAILY Omeprazole 20 Mg Capsule.dr 20 Mg PO DAILY Mirtazapine 30 Mg Tablet 30 Mg PO HS Namenda (Memantine Hcl) 10 Mg Tablet 5 Mg PO BID Namenda (Memantine Hcl) 10 Mg Tablet 10 Mg PO BID Januvia (Sitagliptin Phosphate) 100 Mg Tablet 100 Mg PO DAILY Gabapentin 100 Mg Capsule 200 Mg PO TID Divalproex Sodium Er (Divalproex Sodium) 500 Mg Tab.er.24h 500 Mg PO BID Citalopram Hbr (Citalopram Hydrobromide) 20 Mg Tablet 20 Mg PO DAILY Acidophilus (Lactobacillus Acidophilus) 1 Each Capsule 1 Each PO DAILY Selenium Sulfide 180 Ml Shampoo 1 Ghada TP QHS TUES AND FRI Clonazepam 0.5 Mg Tablet 0.25 Mg PO HS Lantus Solostar (Insulin Glargine,Hum.rec.anlog) 100 Unit/1 Ml Insuln.pen 6 Unit SQ HS Tylenol (Acetaminophen) 325 Mg Tablet 650 Mg PO PRN Q6HRS PRN Diagnosis: Problems: (1) Bipolar disorder, mixed (2) Anxiety disorder (3) Dementia in Alzheimer's disease with delusions (4) Dementia in Alzheimer's disease with depression (5) Impulse control disorder (6) Dementia, vascular, with delusions (7) Dementia, vascular, with depression (8) Schizophrenia (9) Agitation (10) Dementia with behavioral disturbance VIPIN BELTRAN MD May 07, 2017 21:06
--- NOTE | 2017-05-07 21:31 | NUR ---
Nursing Note This nurse administered medications to pt, pt took them with no complaints. Went to administer Lantus, pt swung and kicked at this nurse. This nurse attempted to redirect pt, no success. Finally asked pt if this nurse could give the pt her insulin because her blood glucose was high (170). Pt agreed to let this nurse give Lantus SubQ. Lantus administered. Pt tried to swing at this nurse again. This nurse walked away. Will CTM.
--- NOTE | 2017-05-08 02:33 | NUR ---
Behavior Intervention Response and Plan: BIRP Note: Behavior: Assumed Care of patient, patient located in Hallway at shift change. Patient exhibited the following behavior Calm, Wandering, Disorganized. Brief assessment on rounds of vital signs, medication needs, lab studies, and pain. Treatment plan problems . Intervention: Patient assessed and the following interventions initiated safety checks 15 Minute Checks Cognitive Assessment , Head to toe Assessment , Medications. Response: After interactions and interventions patient responded in the following manner, Compliant , Cooperative ,Disorganized. Continue to assess behaviors and condition will continue to monitor throughout the shift as needed. Patient educated on ADL's, and hand hygiene. 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 Continue to assess patient for changes in above assessment. Monitor for medication needs, pain, and safety concerns. Hourly rounding performed to ensure safe environment.
[2017-05-08] MEDS: PANTOPRAZOLE 40 MG TABLET. PO SCH (07:44)
[2017-05-08] MEDS: INSULIN ASPART 300 UNITS/3 ML INSULN.PEN SQ SCH ×2 (07:56→16:37)
[2017-05-08] MEDS: POTASSIUM CHLORIDE 10 MEQ TABLET.ER. PO SCH (07:57)
--- NOTE | 2017-05-08 07:58 | NUR ---
Nursing Note: Pt combative with morning care. Took 4 staff members to get pt cleaned up and changed this am. PRN given.
[2017-05-08] MEDS: LINAGLIPTIN 5 MG TABLET PO SCH (09:23)
[2017-05-08] MEDS: DIVALPROEX 125 MG CAP.SPRINK PO SCH ×2 (09:23→19:55)
[2017-05-08] MEDS: risperiDONE 0.25 MG TABLET. PO SCH ×2 (09:24→14:18)
[2017-05-08] MEDS: SENNOSIDES 8.6 MG TABLET PO SCH (09:24)
[2017-05-08] MEDS: MULTIVITAMIN with MINERAL TABLET. PO SCH (09:24)
[2017-05-08] MEDS: LACTOBACILLUS ACIDOPH & BULGAR 1 TABLET. PO SCH (09:24)
[2017-05-08] MEDS: GABAPENTIN 100 MG CAPSULE. PO SCH ×3 (09:24→19:54)
[2017-05-08] MEDS: CITALOPRAM 20 MG TABLET. PO SCH (09:24)
[2017-05-08] MEDS: POLYETHYLENE GLYCOL 3350 17 GM PACKET. PO SCH (09:24)
--- NOTE | 2017-05-08 15:46 | NUR ---
STELLA Weekly Progress Note PT. continues to be combative during cares and labs, otherwise pleasant to this SW. PT. difficult to redirect due to her inability to cognitively process directions and redirections. Pt. a resident of [facility] for only 1 week prior to admit to this facility. STELLA has sent out referral packets to facilities per [facility] request and all have so far been denied. STELLA will discuss dc options w/[facility] at the start of next week.
[2017-05-08 15:52] VITALS: BP 124/70
[2017-05-08] MEDS: SELENIUM SULFIDE 1% TOPICAL SHAMPOO 207ML BOTTLE. TP SCH (16:00)
--- NOTE | 2017-05-08 17:28 | NUR ---
Behavior Intervention Response and Plan: BIRP Note: Behavior: Assumed Care of patient, patient located in Patient Room at shift change. Patient exhibited the following behavior Disorganized, Resistive, Agitated. Brief assessment on rounds of vital signs, medication needs, lab studies, and pain. Treatment plan problems Dementia W/ BD and Fall risk. Intervention: Patient assessed and the following interventions initiated safety checks 15 Minute Checks Cognitive Assessment , Head to toe Assessment , Medications. Response: After interactions and interventions patient responded in the following manner, Disorganized , Agitated ,Resistive. Continue to assess behaviors and condition will continue to monitor throughout the shift as needed. Patient educated on ADL's, and hand hygiene. 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 Continue to assess patient for changes in above assessment. Monitor for medication needs, pain, and safety concerns. Hourly rounding performed to ensure safe environment.
[2017-05-08] MEDS: MIRTAZAPINE 30 MG TABLET PO SCH (19:54)
[2017-05-08] MEDS: INSULIN DETEMIR 300 UNITS/3 ML INSULN.PEN. SQ SCH (20:01)
--- NOTE | 2017-05-08 20:18 | PN ---
DATE: 05/06/2017 This is a late entry for 05/06/2017 and covers elements not covered in my initial note of 05/06/2017. SUBJECTIVE: I met with the patient evening of 05/06/2017. The patient was somewhat combative morning of 05/06/2017, especially with cares and administration of insulin, otherwise she does reasonably well. Nursing staff had called me, we started Zyprexa 2.5 mg q. 2 hours p.r.n. psychosis, agitation, max 10 mg in 24 hours and this can be used prior to her blood draw and insulin administration. REVIEW OF SYSTEMS: Ambulation impaired. No CV, , pulmonary, eye, ENT system symptoms on review. Reliability poor. MENTAL STATUS EXAM: Oriented to herself. Insight, judgment, recent and remote memory, attention, concentration, fund of knowledge poor, consistent with her diagnosis mentioned in my note. PLAN: Continue current psychotropics. Reviewed drug interactions, risk/benefit ratio favors no further change. Valproic acid level therapeutic at 84. Continue Celexa, Remeron, Risperdal, Depakote at current dosage. MAN Gladis BELTRAN MD DR: JEI/triston JOB#: [id number] / [id number]
--- NOTE | 2017-05-08 21:15 | PDOC ---
Exam Maximiliano Demential Exam: Maximiliano Note: Please also refer to the separate dictated note~for this date of service dictated separately.~Patient seen individually. Discussed the patient with Nursing staff reviewed the chart.~Reviewed interim history and current functioning. Reviewed vital signs,~Labs/ Radiology~and current medications noted below. Continue current treatment with the changes noted in the dictated addendum note Assessment: Vital Signs: Vital Signs Date Time Temp Pulse Resp B/P (MAP) Pulse Ox O2 Delivery O2 Flow Rate FiO2 05/08/17 15:52 97.3 72 18 124/70 (88) 95 05/07/17 06:38 Room Air I&O Intake and Output 05/09/17 07:00 Intake Total 840 ml Balance 840 ml Intake Oral 840 ml # Bowel Movements 2 Labs: Laboratory Tests Test 05/08/17 07:54 05/08/17 16:05 05/08/17 19:28 Glucose (Fingerstick) 120 mg/dL (70-99) H 233 mg/dL (70-99) H 173 mg/dL (70-99) H Current Medications: Meds: Current Medications Olanzapine (ZyPREXA ZYDIS) 5 mg 1X ONCE PO ; Start 04/14/17 at 18:45; Stop 07/19 at 18:46; Status DC Olanzapine (ZyPREXA ZYDIS) 2.5 mg PRN Q2HR PRN PO PSYCHOSIS Last administered on 04/24/17 14:46; Start 04/14/17 at 18:45; Stop 05/06/17 at 18:45; Status DC Acetaminophen (Tylenol) 650 mg PRN Q6HRS PRN PO PAIN / TEMP Last administered on 04/28/17 16:23; Start 04/14/17 at 19:30 Multi-Ingredient Ointment (Analgesic [place]) 1 ghada PRN QID PRN TP MUSCLE PAIN; Start 04/14/17 at 19:30 Al Hydroxide/Mg Hydroxide (Mylanta Plus Xs) 15 ml PRN AFTMEALHC PRN PO DYSPEPSIA; Start 04/14/17 at 19:30; Status Cancel Magnesium Hydroxide (Milk Of Magnesia) 2,400 mg PRN QHS PRN PO CONSTIPATION; Start 04/14/17 at 19:30 Insulin Aspart (NovoLOG) 0-7 UNITS BID SQ Last administered on 04/23/17 21:45 ; Start 04/15/17 at 09:00; Stop 04/24/17 at 19:32; Status DC Dextrose 12.5 gm PRN Q15MIN PRN IV SEE COMMENTS; Start 04/14/17 at 22:15 Citalopram Hydrobromide (CeleXA) 20 mg DAILY PO Last administered on 05/08/17 09:24; Start 04/15/17 at 09:00 Clonazepam (KlonoPIN) 0.25 mg HS PO Last administered on 04/15/17 20:36; Start 04/14/17 at 22:45; Stop 04/16/17 at 10:54; Status DC Divalproex Sodium (Depakote Er) 500 mg BID PO Last administered on 04/16/17 09 :35; Start 04/14/17 at 22:45; Stop 04/16/17 at 19:26; Status DC Memantine (Namenda) 5 mg BID PO ; Start 04/14/17 at 22:45; Stop 04/14/17 at 22: 45; Status DC Memantine (Namenda) 15 mg BID PO Last administered on 04/16/17 09:35; Start at 22:45; Stop 04/16/17 at 10:54; Status DC Mirtazapine (Remeron) 30 mg HS PO Last administered on 05/08/17 19:54; Start 04/14/17 at 22:45 Quetiapine Fumarate (SEROquel) 50 mg BID PO Last administered on 04/28/17 11: 15; Start 04/14/17 at 22:45; Stop 04/28/17 at 18:34; Status DC Rivastigmine (Exelon) 1 patch DAILY TD Last administered on 04/16/17 09:36; Start 04/15/17 at 09:00; Stop 04/16/17 at 10:54; Status DC Quetiapine Fumarate (SEROquel) 300 mg QHS PO Last administered on 04/23/17 19: 14; Start 04/14/17 at 22:45; Stop 04/24/17 at 19:00; Status DC Gabapentin (Neurontin) 200 mg TID PO Last administered on 05/08/17 19:54; Start 04/14/17 at 22:45 Polyethylene Glycol (miraLAX) 17 gm DAILY PO Last administered on 05/08/17 09: 24; Start 04/15/17 at 09:00 Sennosides (Senna) 8.6 mg DAILY PO Last administered on 05/08/17 09:24; Start 04/15/17 at 09:00 Insulin Detemir (Levemir) 6 units QHS SQ Last administered on 05/07/17 20:18; Start 04/15/17 at 21:00 Lactobacillus Acidophilus (Bacid, Ester-Bid) 1 tab DAILY PO Last administered on 05/08/17 09:24; Start 04/15/17 at 09:00 Al Hydroxide/Mg Hydroxide (Mylanta Plus Xs) 30 ml PRN Q8HRS PRN PO DYSPEPSIA; Start 04/14/17 at 23:00 Multivitamins/ Calcium (Thera-M Plus) 1 tab DAILY PO Last administered on 09:24; Start 04/15/17 at 09:00 Pantoprazole Sodium (Protonix) 40 mg DAILYAC PO Last administered on 05/08/17 07:44; Start 04/15/17 at 07:30 Potassium Chloride (Klor-Con) 10 meq DAILYWBKFT PO Last administered on 07:57; Start 04/15/17 at 08:00 Selenium Sulfide (Selsun) 1 ghada QTU TP ; Start 04/21/17 at 16:00 Linagliptin (Tradjenta) 5 mg DAILY PO Last administered on 05/08/17 09:23; Start 04/15/17 at 09:00 Selenium Sulfide (Selsun) 1 ghada QFR TP ; Start 04/17/17 at 16:00 Vitamin D (Vitamin D3) 50,000 unit WEEKLY PO Last administered on 05/07/17 09: 46; Start 04/16/17 at 09:00 Trazodone HCl (Desyrel) 100 mg QHS PO Last administered on 04/22/17 21:05; Start 04/16/17 at 21:00; Stop 04/23/17 at 17:59; Status DC Trazodone HCl (Desyrel) 100 mg PRN QHS PRN PO INSOMNIA; Start 04/16/17 at 21:00 ; Stop 04/23/17 at 17:59; Status DC Divalproex Sodium (Depakote Sprinkles) 500 mg DAILY PO Last administered on 08:22; Start 04/17/17 at 09:00; Stop 04/23/17 at 12:55; Status DC Divalproex Sodium (Depakote Sprinkles) 750 mg HS PO Last administered on 19:29; Start 04/16/17 at 21:00; Stop 04/20/17 at 18:21; Status DC Divalproex Sodium (Depakote Sprinkles) 500 mg HS PO Last administered on 21:05; Start 04/20/17 at 21:00; Stop 04/23/17 at 12:55; Status DC Olanzapine (ZyPREXA ZYDIS) 5 mg 1X ONCE PO Last administered on 04/24/17 11: 55; Start 04/24/17 at 12:00; Stop 04/24/17 at 12:01; Status DC Quetiapine Fumarate (SEROquel) 200 mg QHS PO Last administered on 04/29/17 19: 38; Start 04/24/17 at 21:00; Stop 04/30/17 at 14:32; Status DC Insulin Aspart (NovoLOG) 0-7 UNITS BID94 SQ Last administered on 05/08/17 16: 37; Start 04/25/17 at 09:00 Insulin Aspart (NovoLOG) 0-7 UNITS 1X ONCE SQ Last administered on 04/28/17 11:46; Start 04/28/17 at 12:00; Stop 04/28/17 at 12:02; Status DC Quetiapine Fumarate (SEROquel) 50 mg DAILY PO Last administered on 04/30/17 07 :31; Start 04/29/17 at 09:00; Stop 04/30/17 at 14:32; Status DC Risperidone (RisperDAL) 0.25 mg BID92 PO Last administered on 05/08/17 14:18; Start 05/01/17 at 09:00 Divalproex Sodium (Depakote Sprinkles) 500 mg DAILY PO Last administered on 09:03; Start 05/02/17 at 09:00; Stop 05/04/17 at 09:01; Status DC Divalproex Sodium (Depakote Sprinkles) 500 mg BID PO Last administered on 19:55; Start 05/04/17 at 09:00 Olanzapine (ZyPREXA ZYDIS) 2.5 mg PRN Q2HR PRN PO PSYCHOSIS Last administered on 05/08/17 19:54; Start 05/06/17 at 18:45 Active Scripts Active Reported Dianna-Lanta Liquid (Mag Hydrox/Al Hydrox/Simeth) 355 Ml Oral.susp 30 Ml PO PRN Q8HRS PRN Thera-M (Multivits,Th W-Fe,Other Min) 1 Each Tablet 1 Each PO DAILY Senna (Sennosides) 8.6 Mg Tablet 8.6 Mg PO DAILY EXELON 4.6mg/24hr (Rivastigmine) 1 Each Patch.td24 1 Patch TD DAILY Seroquel (Quetiapine Fumarate) 50 Mg Tablet 50 Mg PO BID Seroquel (Quetiapine Fumarate) 300 Mg Tablet 300 Mg PO QHS Potassium Chloride 10 Meq Tablet.er 10 Meq PO DAILY Miralax (Polyethylene Glycol 3350) 17 Gm Powd.pack 17 Gm PO DAILY Omeprazole 20 Mg Capsule.dr 20 Mg PO DAILY Mirtazapine 30 Mg Tablet 30 Mg PO HS Namenda (Memantine Hcl) 10 Mg Tablet 5 Mg PO BID Namenda (Memantine Hcl) 10 Mg Tablet 10 Mg PO BID Januvia (Sitagliptin Phosphate) 100 Mg Tablet 100 Mg PO DAILY Gabapentin 100 Mg Capsule 200 Mg PO TID Divalproex Sodium Er (Divalproex Sodium) 500 Mg Tab.er.24h 500 Mg PO BID Citalopram Hbr (Citalopram Hydrobromide) 20 Mg Tablet 20 Mg PO DAILY Acidophilus (Lactobacillus Acidophilus) 1 Each Capsule 1 Each PO DAILY Selenium Sulfide 180 Ml Shampoo 1 Ghada TP QHS TUES AND FRI Clonazepam 0.5 Mg Tablet 0.25 Mg PO HS Lantus Solostar (Insulin Glargine,Hum.rec.anlog) 100 Unit/1 Ml Insuln.pen 6 Unit SQ HS Tylenol (Acetaminophen) 325 Mg Tablet 650 Mg PO PRN Q6HRS PRN Diagnosis: Problems: (1) Bipolar disorder, mixed (2) Anxiety disorder (3) Dementia in Alzheimer's disease with delusions (4) Dementia in Alzheimer's disease with depression (5) Impulse control disorder (6) Dementia, vascular, with delusions (7) Dementia, vascular, with depression (8) Schizophrenia (9) Agitation (10) Dementia with behavioral disturbance VIPIN BELTRAN MD May 08, 2017 21:15
--- NOTE | 2017-05-08 23:38 | PN ---
DATE: 05/07/2017 PSYCHIATRIC PROGRESS NOTE This late entry, date of service, 05/07/2017 covers elements not covered in my initial note of 05/07/2017. SUBJECTIVE: I met with the patient evening of 05/07/2017. The patient was staffed at treatment team meeting morning of 05/07/2017. Reviewed history progress, she is a little more redirectable, does much better, but Zyprexa given p.r.n. prior to insulin administration and Accu-Cheks. Confuse rest of the time, but not aggressive. REVIEW OF SYSTEMS: No CV, , pulmonary, eye, ENT system symptoms on review. MENTAL STATUS EXAM: Oriented to herself. Prefers chips in a bag and the rest of the meal was lying in front of her. Insight, judgment, recent and remote memory, attention, concentration, fund of knowledge poor, consistent with her diagnosis mentioned in my initial note. PLAN: Continue current psychotropics mentioned in my initial note. Review drug interactions, risk/benefit ratio favors no further change. [place] level 0.7, valproic acid 55; therapeutic both. MAN Gladis BELTRAN MD DR: JIE/triston JOB#: [id number] / [id number]
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
--- NOTE | 2017-05-09 02:27 | NUR ---
Behavior Intervention Response and Plan: BIRP Note: Behavior: Assumed Care of patient, patient located in Patient Room at shift change. Patient exhibited the following behavior Disorganized, Resistive, Agitated. Brief assessment on rounds of vital signs, medication needs, lab studies, and pain. Treatment plan problems Dementia W/ BD and Fall risk. Intervention: Patient assessed and the following interventions initiated safety checks 15 Minute Checks Cognitive Assessment , Head to toe Assessment , Medications. Response: After interactions and interventions patient responded in the following manner, Disorganized , Agitated ,Resistive. Continue to assess behaviors and condition will continue to monitor throughout the shift as needed. Patient educated on ADL's, and hand hygiene. 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 Continue to assess patient for changes in above assessment. Monitor for medication needs, pain, and safety concerns. Hourly rounding performed to ensure safe environment.
[2017-05-09] MEDS: POTASSIUM CHLORIDE 10 MEQ TABLET.ER. PO SCH (07:43)
[2017-05-09] MEDS: DIVALPROEX 125 MG CAP.SPRINK PO SCH ×2 (07:43→19:46)
[2017-05-09] MEDS: SENNOSIDES 8.6 MG TABLET PO SCH (07:44)
[2017-05-09] MEDS: MULTIVITAMIN with MINERAL TABLET. PO SCH (07:45)
[2017-05-09] MEDS: CITALOPRAM 20 MG TABLET. PO SCH (07:45)
[2017-05-09] MEDS: risperiDONE 0.25 MG TABLET. PO SCH ×2 (07:45→14:13)
[2017-05-09] MEDS: LACTOBACILLUS ACIDOPH & BULGAR 1 TABLET. PO SCH (07:46)
[2017-05-09] MEDS: PANTOPRAZOLE 40 MG TABLET. PO SCH (07:46)
[2017-05-09] MEDS: GABAPENTIN 100 MG CAPSULE. PO SCH ×3 (07:46→19:46)
[2017-05-09] MEDS: LINAGLIPTIN 5 MG TABLET PO SCH (07:46)
[2017-05-09] MEDS: POLYETHYLENE GLYCOL 3350 17 GM PACKET. PO SCH (07:47)
[2017-05-09] MEDS: INSULIN ASPART 300 UNITS/3 ML INSULN.PEN SQ SCH ×2 (09:00→16:35)
--- NOTE | 2017-05-09 11:10 | NUR ---
Behavior Intervention Response and Plan: BIRP Note: Behavior: Assumed Care of patient, patient located in Patient Room at shift change. Patient exhibited the following behavior Disorganized, compliant, Agitated. Brief assessment on rounds of vital signs, medication needs, lab studies, and pain. Treatment plan problems Dementia W/ BD and Fall risk. Intervention: Patient assessed and the following interventions initiated safety checks 15 Minute Checks Cognitive Assessment , Head to toe Assessment , Medications. Response: After interactions and interventions patient responded in the following manner, Disorganized , Agitated ,compliant. Continue to assess behaviors and condition will continue to monitor throughout the shift as needed. Patient educated on ADL's, and hand hygiene. 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 Continue to assess patient for changes in above assessment. Monitor for medication needs, pain, and safety concerns. Hourly rounding performed to ensure safe environment.
[2017-05-09 16:15] VITALS: BP 127/75
[2017-05-09] MEDS: MIRTAZAPINE 30 MG TABLET PO SCH (19:46)
--- NOTE | 2017-05-09 21:11 | PN ---
DATE: 05/08/2017 PSYCHIATRIC PROGRESS NOTE This late entry for 05/08/2017 covers elements not covered in my initial note of 05/08/2017. SUBJECTIVE: I met with the patient's evening of 05/08/2017. The patient remains withdrawn, confused, refused meds at one point, received Zyprexa at 7:44 a.m., resistive with changed. The Zyprexa seemed to help with Accu-Cheks. REVIEW OF SYSTEMS: Ambulation impaired. No CV, , pulmonary, eye, ENT system symptoms on review. MENTAL STATUS EXAM: Oriented to herself. Speech is coherent, abstraction fair, computation impaired, language function intact, attention span short, mood and affect somewhat labile at times. LABORATORY DATA: Reviewed. IMPRESSION: Unchanged from initial note. PLAN: Continue current psychotropics, reviewed drug interactions, risk/benefit ratio favors no further change. MAN ProsperDave BELTRAN MD DR: JIE/triston JOB#: [id number] / [id number]
[2017-05-09] MEDS: INSULIN DETEMIR 300 UNITS/3 ML INSULN.PEN. SQ SCH (22:55)
--- NOTE | 2017-05-09 22:58 | PDOC ---
Exam Maximiliano Demential Exam: Maximiliano Note: Please also refer to the separate dictated note~for this date of service dictated separately.~Patient seen individually. Discussed the patient with Nursing staff reviewed the chart.~Reviewed interim history and current functioning. Reviewed vital signs,~Labs/ Radiology~and current medications noted below. Continue current treatment with the changes noted in the dictated addendum note Assessment: Vital Signs: Vital Signs Date Time Temp Pulse Resp B/P (MAP) Pulse Ox O2 Delivery O2 Flow Rate FiO2 05/09/17 16:15 97.6 65 16 127/75 (92) 97 05/07/17 06:38 Room Air I&O Intake and Output 05/10/17 07:00 Intake Total 960 ml Balance 960 ml Intake Oral 960 ml Labs: Laboratory Tests Test 05/09/17 07:10 05/09/17 16:24 05/09/17 19:06 Glucose (Fingerstick) 126 mg/dL (70-99) H 309 mg/dL (70-99) H 135 mg/dL (70-99) H Current Medications: Meds: Current Medications Olanzapine (ZyPREXA ZYDIS) 5 mg 1X ONCE PO ; Start 04/14/17 at 18:45; Stop 07/19 at 18:46; Status DC Olanzapine (ZyPREXA ZYDIS) 2.5 mg PRN Q2HR PRN PO PSYCHOSIS Last administered on 04/24/17 14:46; Start 04/14/17 at 18:45; Stop 05/06/17 at 18:45; Status DC Acetaminophen (Tylenol) 650 mg PRN Q6HRS PRN PO PAIN / TEMP Last administered on 04/28/17 16:23; Start 04/14/17 at 19:30 Multi-Ingredient Ointment (Analgesic [place]) 1 ghada PRN QID PRN TP MUSCLE PAIN; Start 04/14/17 at 19:30 Al Hydroxide/Mg Hydroxide (Mylanta Plus Xs) 15 ml PRN AFTMEALHC PRN PO DYSPEPSIA; Start 04/14/17 at 19:30; Status Cancel Magnesium Hydroxide (Milk Of Magnesia) 2,400 mg PRN QHS PRN PO CONSTIPATION; Start 04/14/17 at 19:30 Insulin Aspart (NovoLOG) 0-7 UNITS BID SQ Last administered on 04/23/17 21:45 ; Start 04/15/17 at 09:00; Stop 04/24/17 at 19:32; Status DC Dextrose 12.5 gm PRN Q15MIN PRN IV SEE COMMENTS; Start 04/14/17 at 22:15 Citalopram Hydrobromide (CeleXA) 20 mg DAILY PO Last administered on 05/09/17 07:45; Start 04/15/17 at 09:00 Clonazepam (KlonoPIN) 0.25 mg HS PO Last administered on 04/15/17 20:36; Start 04/14/17 at 22:45; Stop 04/16/17 at 10:54; Status DC Divalproex Sodium (Depakote Er) 500 mg BID PO Last administered on 04/16/17 09 :35; Start 04/14/17 at 22:45; Stop 04/16/17 at 19:26; Status DC Memantine (Namenda) 5 mg BID PO ; Start 04/14/17 at 22:45; Stop 04/14/17 at 22: 45; Status DC Memantine (Namenda) 15 mg BID PO Last administered on 04/16/17 09:35; Start at 22:45; Stop 04/16/17 at 10:54; Status DC Mirtazapine (Remeron) 30 mg HS PO Last administered on 05/09/17 19:46; Start 04/14/17 at 22:45 Quetiapine Fumarate (SEROquel) 50 mg BID PO Last administered on 04/28/17 11: 15; Start 04/14/17 at 22:45; Stop 04/28/17 at 18:34; Status DC Rivastigmine (Exelon) 1 patch DAILY TD Last administered on 04/16/17 09:36; Start 04/15/17 at 09:00; Stop 04/16/17 at 10:54; Status DC Quetiapine Fumarate (SEROquel) 300 mg QHS PO Last administered on 04/23/17 19: 14; Start 04/14/17 at 22:45; Stop 04/24/17 at 19:00; Status DC Gabapentin (Neurontin) 200 mg TID PO Last administered on 05/09/17 19:46; Start 04/14/17 at 22:45 Polyethylene Glycol (miraLAX) 17 gm DAILY PO Last administered on 05/09/17 07: 47; Start 04/15/17 at 09:00 Sennosides (Senna) 8.6 mg DAILY PO Last administered on 05/09/17 07:44; Start 04/15/17 at 09:00 Insulin Detemir (Levemir) 6 units QHS SQ Last administered on 05/09/17 22:55; Start 04/15/17 at 21:00 Lactobacillus Acidophilus (Bacid, Ester-Bid) 1 tab DAILY PO Last administered on 05/09/17 07:46; Start 04/15/17 at 09:00 Al Hydroxide/Mg Hydroxide (Mylanta Plus Xs) 30 ml PRN Q8HRS PRN PO DYSPEPSIA; Start 04/14/17 at 23:00 Multivitamins/ Calcium (Thera-M Plus) 1 tab DAILY PO Last administered on 07:45; Start 04/15/17 at 09:00 Pantoprazole Sodium (Protonix) 40 mg DAILYAC PO Last administered on 05/09/17 07:46; Start 04/15/17 at 07:30 Potassium Chloride (Klor-Con) 10 meq DAILYWBKFT PO Last administered on 07:43; Start 04/15/17 at 08:00 Selenium Sulfide (Selsun) 1 ghada QTU TP ; Start 04/21/17 at 16:00 Linagliptin (Tradjenta) 5 mg DAILY PO Last administered on 05/09/17 07:46; Start 04/15/17 at 09:00 Selenium Sulfide (Selsun) 1 ghada QFR TP ; Start 04/17/17 at 16:00 Vitamin D (Vitamin D3) 50,000 unit WEEKLY PO Last administered on 05/07/17 09: 46; Start 04/16/17 at 09:00 Trazodone HCl (Desyrel) 100 mg QHS PO Last administered on 04/22/17 21:05; Start 04/16/17 at 21:00; Stop 04/23/17 at 17:59; Status DC Trazodone HCl (Desyrel) 100 mg PRN QHS PRN PO INSOMNIA; Start 04/16/17 at 21:00 ; Stop 04/23/17 at 17:59; Status DC Divalproex Sodium (Depakote Sprinkles) 500 mg DAILY PO Last administered on 08:22; Start 04/17/17 at 09:00; Stop 04/23/17 at 12:55; Status DC Divalproex Sodium (Depakote Sprinkles) 750 mg HS PO Last administered on 19:29; Start 04/16/17 at 21:00; Stop 04/20/17 at 18:21; Status DC Divalproex Sodium (Depakote Sprinkles) 500 mg HS PO Last administered on 21:05; Start 04/20/17 at 21:00; Stop 04/23/17 at 12:55; Status DC Olanzapine (ZyPREXA ZYDIS) 5 mg 1X ONCE PO Last administered on 04/24/17 11: 55; Start 04/24/17 at 12:00; Stop 04/24/17 at 12:01; Status DC Quetiapine Fumarate (SEROquel) 200 mg QHS PO Last administered on 04/29/17 19: 38; Start 04/24/17 at 21:00; Stop 04/30/17 at 14:32; Status DC Insulin Aspart (NovoLOG) 0-7 UNITS BID94 SQ Last administered on 05/09/17 16: 35; Start 04/25/17 at 09:00 Insulin Aspart (NovoLOG) 0-7 UNITS 1X ONCE SQ Last administered on 04/28/17 11:46; Start 04/28/17 at 12:00; Stop 04/28/17 at 12:02; Status DC Quetiapine Fumarate (SEROquel) 50 mg DAILY PO Last administered on 04/30/17 07 :31; Start 04/29/17 at 09:00; Stop 04/30/17 at 14:32; Status DC Risperidone (RisperDAL) 0.25 mg BID92 PO Last administered on 05/09/17 14:13; Start 05/01/17 at 09:00 Divalproex Sodium (Depakote Sprinkles) 500 mg DAILY PO Last administered on 09:03; Start 05/02/17 at 09:00; Stop 05/04/17 at 09:01; Status DC Divalproex Sodium (Depakote Sprinkles) 500 mg BID PO Last administered on 19:46; Start 05/04/17 at 09:00 Olanzapine (ZyPREXA ZYDIS) 2.5 mg PRN Q2HR PRN PO PSYCHOSIS Last administered on 05/08/17 19:54; Start 05/06/17 at 18:45 Active Scripts Active Reported Tylenol (Acetaminophen) 325 Mg Tablet 650 Mg PO PRN Q6HRS PRN Dianna-Lanta Liquid (Mag Hydrox/Al Hydrox/Simeth) 355 Ml Oral.susp 30 Ml PO PRN Q8HRS PRN Thera-M (Multivits, W-,Other Min) 1 Each Tablet 1 Tab PO DAILY Senna (Sennosides) 8.6 Mg Tablet 8.6 Mg PO DAILY EXELON 4.6mg/24hr (Rivastigmine) 1 Each Patch.td24 1 Patch TD DAILY Seroquel (Quetiapine Fumarate) 50 Mg Tablet 50 Mg PO BID Seroquel (Quetiapine Fumarate) 300 Mg Tablet 300 Mg PO QHS Potassium Chloride 10 Meq Tablet.er 10 Meq PO DAILY Miralax (Polyethylene Glycol 3350) 17 Gm Powd.pack 17 Gm PO DAILY Omeprazole 20 Mg Capsule.dr 20 Mg PO DAILY Mirtazapine 30 Mg Tablet 30 Mg PO HS Namenda (Memantine Hcl) 10 Mg Tablet 5 Mg PO BID Namenda (Memantine Hcl) 10 Mg Tablet 10 Mg PO BID Januvia (Sitagliptin Phosphate) 100 Mg Tablet 100 Mg PO DAILY Gabapentin 100 Mg Capsule 200 Mg PO TID Divalproex Sodium Er (Divalproex Sodium) 500 Mg Tab.er.24h 500 Mg PO BID Citalopram Hbr (Citalopram Hydrobromide) 20 Mg Tablet 20 Mg PO DAILY Acidophilus (Lactobacillus Acidophilus) 1 Each Capsule 1 Cap PO DAILY Selenium Sulfide 180 Ml Shampoo 1 Ghada TP QHS TUES AND FRI Clonazepam 0.5 Mg Tablet 0.25 Mg PO HS Lantus Solostar (Insulin Glargine,Hum.rec.anlog) 100 Unit/1 Ml Insuln.pen 6 Unit SQ HS Diagnosis: Problems: (1) Bipolar disorder, mixed (2) Anxiety disorder (3) Dementia in Alzheimer's disease with delusions (4) Dementia in Alzheimer's disease with depression (5) Impulse control disorder (6) Dementia, vascular, with delusions (7) Dementia, vascular, with depression (8) Schizophrenia (9) Agitation (10) Dementia with behavioral disturbance VIPIN BELTRAN MD May 09, 2017 22:58
--- NOTE | 2017-05-10 02:24 | NUR ---
Behavior Intervention Response and Plan: BIRP Note: Behavior: Assumed Care of patient, patient located in Hallway at shift change. Patient exhibited the following behavior Calm, Disorganized, Able to Focus on Task. Brief assessment on rounds of vital signs, medication needs, lab studies, and pain. Treatment plan problems :1-2 Intervention: Patient assessed and the following interventions initiated safety checks 15 Minute Checks Cognitive Assessment , Head to toe Assessment , Medications. Response: After interactions and interventions patient responded in the following manner, Defensive , Combative ,Defensive. Continue to assess behaviors and condition will continue to monitor throughout the shift as needed. Patient educated on ADL's, and hand hygiene. 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 Continue to assess patient for changes in above assessment. Monitor for medication needs, pain, and safety concerns. Hourly rounding performed to ensure safe environment.
[2017-05-10] MEDS: PANTOPRAZOLE 40 MG TABLET. PO SCH ×2 (07:30→08:25)
[2017-05-10] MEDS: POTASSIUM CHLORIDE 10 MEQ TABLET.ER. PO SCH (08:25)
[2017-05-10] MEDS: LACTOBACILLUS ACIDOPH & BULGAR 1 TABLET. PO SCH (08:26)
[2017-05-10] MEDS: SENNOSIDES 8.6 MG TABLET PO SCH (08:26)
[2017-05-10] MEDS: LINAGLIPTIN 5 MG TABLET PO SCH (08:26)
[2017-05-10] MEDS: MULTIVITAMIN with MINERAL TABLET. PO SCH (08:26)
[2017-05-10] MEDS: CITALOPRAM 20 MG TABLET. PO SCH (08:26)
[2017-05-10] MEDS: GABAPENTIN 100 MG CAPSULE. PO SCH ×3 (08:26→19:38)
[2017-05-10] MEDS: DIVALPROEX 125 MG CAP.SPRINK PO SCH ×2 (08:27→19:37)
[2017-05-10] MEDS: POLYETHYLENE GLYCOL 3350 17 GM PACKET. PO SCH (08:27)
[2017-05-10] MEDS: risperiDONE 0.25 MG TABLET. PO SCH ×2 (08:27→14:29)
[2017-05-10] MEDS: INSULIN ASPART 300 UNITS/3 ML INSULN.PEN SQ SCH ×2 (08:27→17:23)
--- NOTE | 2017-05-10 10:28 | NUR ---
Behavior Intervention Response and Plan: BIRP Note: Behavior: Assumed Care of patient, patient located in Patient Room at shift change. Patient exhibited the following behavior Calm, Irritable, Non Compliant. Brief assessment on rounds of vital signs, medication needs, lab studies, and pain. Treatment plan problems . Intervention: Patient assessed and the following interventions initiated safety checks 15 Minute Checks Head to toe Assessment , Medications , Nutrition. Response: After interactions and interventions patient responded in the following manner, Calm , Irritable ,Non Compliant. Continue to assess behaviors and condition will continue to monitor throughout the shift as needed. Patient educated on ADL's, and hand hygiene. 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 Continue to assess patient for changes in above assessment. Monitor for medication needs, pain, and safety concerns. Hourly rounding performed to ensure safe environment.
[2017-05-10] MEDS: MIRTAZAPINE 30 MG TABLET PO SCH (19:37)
--- NOTE | 2017-05-10 20:42 | PDOC ---
Exam Maximiliano Demential Exam: Maximiliano Note: Please also refer to the separate dictated note~for this date of service dictated separately.~Patient seen individually. Discussed the patient with Nursing staff reviewed the chart.~Reviewed interim history and current functioning. Reviewed vital signs,~Labs/ Radiology~and current medications noted below. Continue current treatment with the changes noted in the dictated addendum note Assessment: Vital Signs: Vital Signs Date Time Temp Pulse Resp B/P (MAP) Pulse Ox O2 Delivery O2 Flow Rate FiO2 05/09/17 16:15 97.6 65 16 127/75 (92) 97 05/07/17 06:38 Room Air I&O Intake and Output 05/11/17 07:00 Intake Total 840 ml Balance 840 ml Intake Oral 840 ml # Bowel Movements 1 Labs: Laboratory Tests Test 05/10/17 06:58 05/10/17 17:10 05/10/17 19:19 Glucose (Fingerstick) 114 mg/dL (70-99) H 290 mg/dL (70-99) H 110 mg/dL (70-99) H Current Medications: Meds: Current Medications Olanzapine (ZyPREXA ZYDIS) 5 mg 1X ONCE PO ; Start 04/14/17 at 18:45; Stop 07/19 at 18:46; Status DC Olanzapine (ZyPREXA ZYDIS) 2.5 mg PRN Q2HR PRN PO PSYCHOSIS Last administered on 04/24/17 14:46; Start 04/14/17 at 18:45; Stop 05/06/17 at 18:45; Status DC Acetaminophen (Tylenol) 650 mg PRN Q6HRS PRN PO PAIN / TEMP Last administered on 04/28/17 16:23; Start 04/14/17 at 19:30 Multi-Ingredient Ointment (Analgesic [place]) 1 ghada PRN QID PRN TP MUSCLE PAIN; Start 04/14/17 at 19:30 Al Hydroxide/Mg Hydroxide (Mylanta Plus Xs) 15 ml PRN AFTMEALHC PRN PO DYSPEPSIA; Start 04/14/17 at 19:30; Status Cancel Magnesium Hydroxide (Milk Of Magnesia) 2,400 mg PRN QHS PRN PO CONSTIPATION; Start 04/14/17 at 19:30 Insulin Aspart (NovoLOG) 0-7 UNITS BID SQ Last administered on 04/23/17 21:45 ; Start 04/15/17 at 09:00; Stop 04/24/17 at 19:32; Status DC Dextrose 12.5 gm PRN Q15MIN PRN IV SEE COMMENTS; Start 04/14/17 at 22:15 Citalopram Hydrobromide (CeleXA) 20 mg DAILY PO Last administered on 05/10/17 08:26; Start 04/15/17 at 09:00 Clonazepam (KlonoPIN) 0.25 mg HS PO Last administered on 04/15/17 20:36; Start 04/14/17 at 22:45; Stop 04/16/17 at 10:54; Status DC Divalproex Sodium (Depakote Er) 500 mg BID PO Last administered on 04/16/17 09 :35; Start 04/14/17 at 22:45; Stop 04/16/17 at 19:26; Status DC Memantine (Namenda) 5 mg BID PO ; Start 04/14/17 at 22:45; Stop 04/14/17 at 22: 45; Status DC Memantine (Namenda) 15 mg BID PO Last administered on 04/16/17 09:35; Start at 22:45; Stop 04/16/17 at 10:54; Status DC Mirtazapine (Remeron) 30 mg HS PO Last administered on 05/10/17 19:37; Start 04/14/17 at 22:45 Quetiapine Fumarate (SEROquel) 50 mg BID PO Last administered on 04/28/17 11: 15; Start 04/14/17 at 22:45; Stop 04/28/17 at 18:34; Status DC Rivastigmine (Exelon) 1 patch DAILY TD Last administered on 04/16/17 09:36; Start 04/15/17 at 09:00; Stop 04/16/17 at 10:54; Status DC Quetiapine Fumarate (SEROquel) 300 mg QHS PO Last administered on 04/23/17 19: 14; Start 04/14/17 at 22:45; Stop 04/24/17 at 19:00; Status DC Gabapentin (Neurontin) 200 mg TID PO Last administered on 05/10/17 19:38; Start 04/14/17 at 22:45 Polyethylene Glycol (miraLAX) 17 gm DAILY PO Last administered on 05/10/17 08: 27; Start 04/15/17 at 09:00 Sennosides (Senna) 8.6 mg DAILY PO Last administered on 05/10/17 08:26; Start 04/15/17 at 09:00 Insulin Detemir (Levemir) 6 units QHS SQ Last administered on 05/09/17 22:55; Start 04/15/17 at 21:00 Lactobacillus Acidophilus (Bacid, Ester-Bid) 1 tab DAILY PO Last administered on 05/10/17 08:26; Start 04/15/17 at 09:00 Al Hydroxide/Mg Hydroxide (Mylanta Plus Xs) 30 ml PRN Q8HRS PRN PO DYSPEPSIA; Start 04/14/17 at 23:00 Multivitamins/ Calcium (Thera-M Plus) 1 tab DAILY PO Last administered on 08:26; Start 04/15/17 at 09:00 Pantoprazole Sodium (Protonix) 40 mg DAILYAC PO Last administered on 05/09/17 07:46; Start 04/15/17 at 07:30 Potassium Chloride (Klor-Con) 10 meq DAILYWBKFT PO Last administered on 08:25; Start 04/15/17 at 08:00 Selenium Sulfide (Selsun) 1 ghada QTU TP ; Start 04/21/17 at 16:00 Linagliptin (Tradjenta) 5 mg DAILY PO Last administered on 05/10/17 08:26; Start 04/15/17 at 09:00 Selenium Sulfide (Selsun) 1 ghada QFR TP ; Start 04/17/17 at 16:00 Vitamin D (Vitamin D3) 50,000 unit WEEKLY PO Last administered on 05/07/17 09: 46; Start 04/16/17 at 09:00 Trazodone HCl (Desyrel) 100 mg QHS PO Last administered on 04/22/17 21:05; Start 04/16/17 at 21:00; Stop 04/23/17 at 17:59; Status DC Trazodone HCl (Desyrel) 100 mg PRN QHS PRN PO INSOMNIA; Start 04/16/17 at 21:00 ; Stop 04/23/17 at 17:59; Status DC Divalproex Sodium (Depakote Sprinkles) 500 mg DAILY PO Last administered on 08:22; Start 04/17/17 at 09:00; Stop 04/23/17 at 12:55; Status DC Divalproex Sodium (Depakote Sprinkles) 750 mg HS PO Last administered on 19:29; Start 04/16/17 at 21:00; Stop 04/20/17 at 18:21; Status DC Divalproex Sodium (Depakote Sprinkles) 500 mg HS PO Last administered on 21:05; Start 04/20/17 at 21:00; Stop 04/23/17 at 12:55; Status DC Olanzapine (ZyPREXA ZYDIS) 5 mg 1X ONCE PO Last administered on 04/24/17 11: 55; Start 04/24/17 at 12:00; Stop 04/24/17 at 12:01; Status DC Quetiapine Fumarate (SEROquel) 200 mg QHS PO Last administered on 04/29/17 19: 38; Start 04/24/17 at 21:00; Stop 04/30/17 at 14:32; Status DC Insulin Aspart (NovoLOG) 0-7 UNITS BID94 SQ Last administered on 05/10/17 17: 23; Start 04/25/17 at 09:00 Insulin Aspart (NovoLOG) 0-7 UNITS 1X ONCE SQ Last administered on 04/28/17 11:46; Start 04/28/17 at 12:00; Stop 04/28/17 at 12:02; Status DC Quetiapine Fumarate (SEROquel) 50 mg DAILY PO Last administered on 04/30/17 07 :31; Start 04/29/17 at 09:00; Stop 04/30/17 at 14:32; Status DC Risperidone (RisperDAL) 0.25 mg BID92 PO Last administered on 05/10/17 14:29; Start 05/01/17 at 09:00 Divalproex Sodium (Depakote Sprinkles) 500 mg DAILY PO Last administered on 09:03; Start 05/02/17 at 09:00; Stop 05/04/17 at 09:01; Status DC Divalproex Sodium (Depakote Sprinkles) 500 mg BID PO Last administered on 19:37; Start 05/04/17 at 09:00 Olanzapine (ZyPREXA ZYDIS) 2.5 mg PRN Q2HR PRN PO PSYCHOSIS Last administered on 05/10/17 15:34; Start 05/06/17 at 18:45 Active Scripts Active Reported Tylenol (Acetaminophen) 325 Mg Tablet 650 Mg PO PRN Q6HRS PRN Dianna-Lanta Liquid (Mag Hydrox/Al Hydrox/Simeth) 355 Ml Oral.susp 30 Ml PO PRN Q8HRS PRN Thera-M (Multivits, W-,Other Min) 1 Each Tablet 1 Tab PO DAILY Senna (Sennosides) 8.6 Mg Tablet 8.6 Mg PO DAILY EXELON 4.6mg/24hr (Rivastigmine) 1 Each Patch.td24 1 Patch TD DAILY Seroquel (Quetiapine Fumarate) 50 Mg Tablet 50 Mg PO BID Seroquel (Quetiapine Fumarate) 300 Mg Tablet 300 Mg PO QHS Potassium Chloride 10 Meq Tablet.er 10 Meq PO DAILY Miralax (Polyethylene Glycol 3350) 17 Gm Powd.pack 17 Gm PO DAILY Omeprazole 20 Mg Capsule.dr 20 Mg PO DAILY Mirtazapine 30 Mg Tablet 30 Mg PO HS Namenda (Memantine Hcl) 10 Mg Tablet 5 Mg PO BID Namenda (Memantine Hcl) 10 Mg Tablet 10 Mg PO BID Januvia (Sitagliptin Phosphate) 100 Mg Tablet 100 Mg PO DAILY Gabapentin 100 Mg Capsule 200 Mg PO TID Divalproex Sodium Er (Divalproex Sodium) 500 Mg Tab.er.24h 500 Mg PO BID Citalopram Hbr (Citalopram Hydrobromide) 20 Mg Tablet 20 Mg PO DAILY Acidophilus (Lactobacillus Acidophilus) 1 Each Capsule 1 Cap PO DAILY Selenium Sulfide 180 Ml Shampoo 1 Ghada TP QHS TUES AND FRI Clonazepam 0.5 Mg Tablet 0.25 Mg PO HS Lantus Solostar (Insulin Glargine,Hum.rec.anlog) 100 Unit/1 Ml Insuln.pen 6 Unit SQ HS Diagnosis: Problems: (1) Bipolar disorder, mixed (2) Anxiety disorder (3) Dementia in Alzheimer's disease with delusions (4) Dementia in Alzheimer's disease with depression (5) Impulse control disorder (6) Dementia, vascular, with delusions (7) Dementia, vascular, with depression (8) Diabetes mellitus (9) Schizophrenia (10) Agitation (11) Dementia with behavioral disturbance VIPIN BELTRAN MD May 10, 2017 20:42
[2017-05-10] MEDS: INSULIN DETEMIR 300 UNITS/3 ML INSULN.PEN. SQ SCH (21:13)
--- NOTE | 2017-05-10 22:40 | PN ---
DATE: 05/09/2017 PSYCHIATRIC PROGRESS NOTE This late entry of 05/09/2017 covers elements not covered in my initial note of 05/09/2017. I met with the patient evening of 05/09/2017. Per nursing report, the patient remains confused, restless and combative at times with cares, but less so than before, compliant with meds hidden in ice cream withdrawn. I met with her in the hallway where she was sitting isolated right across away from others. REVIEW OF SYSTEMS: No CV, , pulmonary, eye, ENT system symptoms on review. MENTAL STATUS EXAM: Oriented to herself. Insight, judgment, recent and remote memory, attention, concentration, fund of knowledge poor, consistent with her diagnosis mentioned in my initial note. PLAN: Continue current psychotropics mentioned my initial note. Reviewed drug interactions. Risk/benefit ratio favors no further change. MAN Gladis BELTRAN MD DR: JIE/triston JOB#: [id number] / [id number]
--- NOTE | 2017-05-11 00:01 | NUR ---
Behavior Intervention Response and Plan: BIRP Note: Behavior: Assumed Care of patient, patient located in Hallway at shift change. Patient exhibited the following behavior Calm, Disorganized, Irritable. Brief assessment on rounds of vital signs, medication needs, lab studies, and pain. Treatment plan problems:1-2 Intervention: Patient assessed and the following interventions initiated safety checks 15 Minute Checks Cognitive Assessment , Head to toe Assessment , Medications. Response: After interactions and interventions patient responded in the following manner, Disorganized , Able to Focus on Task ,Compliant. Continue to assess behaviors and condition will continue to monitor throughout the shift as needed. Patient educated on ADL's, and hand hygiene. Pt tolerated HS ADL's without becoming aggressive. 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 Continue to assess patient for changes in above assessment. Monitor for medication needs, pain, and safety concerns. Hourly rounding performed to ensure safe environment.
[2017-05-11 06:25] VITALS: BP 111/81
[2017-05-11] MEDS: LACTOBACILLUS ACIDOPH & BULGAR 1 TABLET. PO SCH (08:29)
[2017-05-11] MEDS: PANTOPRAZOLE 40 MG TABLET. PO SCH (08:29)
[2017-05-11] MEDS: POTASSIUM CHLORIDE 10 MEQ TABLET.ER. PO SCH (08:29)
[2017-05-11] MEDS: POLYETHYLENE GLYCOL 3350 17 GM PACKET. PO SCH (08:30)
[2017-05-11] MEDS: CITALOPRAM 20 MG TABLET. PO SCH (08:30)
[2017-05-11] MEDS: DIVALPROEX 125 MG CAP.SPRINK PO SCH ×2 (08:30→20:20)
[2017-05-11] MEDS: SENNOSIDES 8.6 MG TABLET PO SCH (08:31)
[2017-05-11] MEDS: MULTIVITAMIN with MINERAL TABLET. PO SCH (08:31)
[2017-05-11] MEDS: LINAGLIPTIN 5 MG TABLET PO SCH (08:31)
[2017-05-11] MEDS: GABAPENTIN 100 MG CAPSULE. PO SCH ×3 (08:31→20:20)
[2017-05-11] MEDS: risperiDONE 0.25 MG TABLET. PO SCH ×2 (08:31→14:38)
[2017-05-11] MEDS: INSULIN ASPART 300 UNITS/3 ML INSULN.PEN SQ SCH ×2 (08:32→16:52)
--- NOTE | 2017-05-11 16:08 | NUR ---
Behavior Intervention Response and Plan: BIRP Note: Behavior: Assumed Care of patient, patient located in Patient Room at shift change. Patient exhibited the following behavior Sleeping, Calm, Cooperative. Brief assessment on rounds of vital signs, medication needs, lab studies, and pain. Treatment plan problems 1 and 2. Intervention: Patient assessed and the following interventions initiated safety checks 15 Minute Checks Cognitive Assessment , Head to toe Assessment , Medications. Response: After interactions and interventions patient responded in the following manner, Disorganized , Compliant ,Withdrawn. Continue to assess behaviors and condition will continue to monitor throughout the shift as needed. Patient educated on ADL's, and hand hygiene. Plan: Continue to monitor Master Treatment Plan for patient's progress toward short term goals of No harm To self/ others, Medication Compliance, buttermaker goals to return to previous living setting vs placement. Continue to assess patient for changes in above assessment. Monitor for medication needs, pain, and safety concerns. Hourly rounding performed to ensure safe environment.
[2017-05-11 16:12] VITALS: BP 134/75
[2017-05-11] MEDS: MIRTAZAPINE 30 MG TABLET PO SCH (20:20)
[2017-05-11] MEDS: INSULIN DETEMIR 300 UNITS/3 ML INSULN.PEN. SQ SCH (20:22)
--- NOTE | 2017-05-11 20:29 | PDOC ---
Exam Maximiliano Demential Exam: Maximiliano Note: Please also refer to the separate dictated note~for this date of service dictated separately.~Patient seen individually. Discussed the patient with Nursing staff reviewed the chart.~Reviewed interim history and current functioning. Reviewed vital signs,~Labs/ Radiology~and current medications noted below. Continue current treatment with the changes noted in the dictated addendum note Assessment: Vital Signs: Vital Signs Date Time Temp Pulse Resp B/P (MAP) Pulse Ox O2 Delivery O2 Flow Rate FiO2 05/11/17 16:12 98.3 81 18 134/75 (94) 95 Room Air I&O Intake and Output 05/12/17 07:00 Intake Total 480 ml Balance 480 ml Intake Oral 480 ml Labs: Laboratory Tests Test 05/11/17 07:37 05/11/17 11:33 05/11/17 16:16 05/11/17 19:10 Glucose (Fingerstick) 144 mg/dL (70-99) H 231 mg/dL (70-99) H 298 mg/dL (70-99) H 176 mg/dL (70-99) H Current Medications: Meds: Current Medications Olanzapine (ZyPREXA ZYDIS) 5 mg 1X ONCE PO ; Start 04/14/17 at 18:45; Stop 07/19 at 18:46; Status DC Olanzapine (ZyPREXA ZYDIS) 2.5 mg PRN Q2HR PRN PO PSYCHOSIS Last administered on 04/24/17t 14:46; Start 04/14/17 at 18:45; Stop 05/06/17 at 18:45; Status DC Acetaminophen (Tylenol) 650 mg PRN Q6HRS PRN PO PAIN / TEMP Last administered on 04/28/17t 16:23; Start 04/14/17 at 19:30 Multi-Ingredient Ointment (Analgesic [place]) 1 ghada PRN QID PRN TP MUSCLE PAIN; Start 04/14/17 at 19:30 Al Hydroxide/Mg Hydroxide (Mylanta Plus Xs) 15 ml PRN AFTMEALHC PRN PO DYSPEPSIA; Start 04/14/17 at 19:30; Status Cancel Magnesium Hydroxide (Milk Of Magnesia) 2,400 mg PRN QHS PRN PO CONSTIPATION; Start 04/14/17 at 19:30 Insulin Aspart (NovoLOG) 0-7 UNITS BID SQ Last administered on 04/23/17 21:45 ; Start 04/15/17 at 09:00; Stop 04/24/17 at 19:32; Status DC Dextrose 12.5 gm PRN Q15MIN PRN IV SEE COMMENTS; Start 04/14/17 at 22:15 Citalopram Hydrobromide (CeleXA) 20 mg DAILY PO Last administered on 05/11/17 08:30; Start 04/15/17 at 09:00 Clonazepam (KlonoPIN) 0.25 mg HS PO Last administered on 04/15/17 20:36; Start 04/14/17 at 22:45; Stop 04/16/17 at 10:54; Status DC Divalproex Sodium (Depakote Er) 500 mg BID PO Last administered on 04/16/17 09 :35; Start 04/14/17 at 22:45; Stop 04/16/17 at 19:26; Status DC Memantine (Namenda) 5 mg BID PO ; Start 04/14/17 at 22:45; Stop 04/14/17 at 22: 45; Status DC Memantine (Namenda) 15 mg BID PO Last administered on 04/16/17 09:35; Start at 22:45; Stop 04/16/17 at 10:54; Status DC Mirtazapine (Remeron) 30 mg HS PO Last administered on 05/11/17 20:20; Start 04/14/17 at 22:45 Quetiapine Fumarate (SEROquel) 50 mg BID PO Last administered on 04/28/17 11: 15; Start 04/14/17 at 22:45; Stop 04/28/17 at 18:34; Status DC Rivastigmine (Exelon) 1 patch DAILY TD Last administered on 04/16/17 09:36; Start 04/15/17 at 09:00; Stop 04/16/17 at 10:54; Status DC Quetiapine Fumarate (SEROquel) 300 mg QHS PO Last administered on 04/23/17 19: 14; Start 04/14/17 at 22:45; Stop 04/24/17 at 19:00; Status DC Gabapentin (Neurontin) 200 mg TID PO Last administered on 10/9/17at 20:20; Start 04/14/17 at 22:45 Polyethylene Glycol (miraLAX) 17 gm DAILY PO Last administered on 05/11/17 08: 30; Start 04/15/17 at 09:00 Sennosides (Senna) 8.6 mg DAILY PO Last administered on 05/11/17 08:31; Start 04/15/17 at 09:00 Insulin Detemir (Levemir) 6 units QHS SQ Last administered on 05/11/17 20:22; Start 04/15/17 at 21:00 Lactobacillus Acidophilus (Bacid, Ester-Bid) 1 tab DAILY PO Last administered on 05/11/17 08:29; Start 04/15/17 at 09:00 Al Hydroxide/Mg Hydroxide (Mylanta Plus Xs) 30 ml PRN Q8HRS PRN PO DYSPEPSIA; Start 04/14/17 at 23:00 Multivitamins/ Calcium (Thera-M Plus) 1 tab DAILY PO Last administered on 08:31; Start 04/15/17 at 09:00 Pantoprazole Sodium (Protonix) 40 mg DAILYAC PO Last administered on 05/11/17 08:29; Start 04/15/17 at 07:30 Potassium Chloride (Klor-Con) 10 meq DAILYWBKFT PO Last administered on 08:29; Start 04/15/17 at 08:00 Selenium Sulfide (Selsun) 1 ghada QTU TP ; Start 04/21/17 at 16:00 Linagliptin (Tradjenta) 5 mg DAILY PO Last administered on 05/11/17 08:31; Start 04/15/17 at 09:00 Selenium Sulfide (Selsun) 1 ghada QFR TP ; Start 04/17/17 at 16:00 Vitamin D (Vitamin D3) 50,000 unit WEEKLY PO Last administered on 05/07/17 09: 46; Start 04/16/17 at 09:00 Trazodone HCl (Desyrel) 100 mg QHS PO Last administered on 04/22/17 21:05; Start 04/16/17 at 21:00; Stop 04/23/17 at 17:59; Status DC Trazodone HCl (Desyrel) 100 mg PRN QHS PRN PO INSOMNIA; Start 04/16/17 at 21:00 ; Stop 04/23/17 at 17:59; Status DC Divalproex Sodium (Depakote Sprinkles) 500 mg DAILY PO Last administered on 08:22; Start 04/17/17 at 09:00; Stop 04/23/17 at 12:55; Status DC Divalproex Sodium (Depakote Sprinkles) 750 mg HS PO Last administered on 19:29; Start 04/16/17 at 21:00; Stop 04/20/17 at 18:21; Status DC Divalproex Sodium (Depakote Sprinkles) 500 mg HS PO Last administered on 21:05; Start 04/20/17 at 21:00; Stop 04/23/17 at 12:55; Status DC Olanzapine (ZyPREXA ZYDIS) 5 mg 1X ONCE PO Last administered on 04/24/17 11: 55; Start 04/24/17 at 12:00; Stop 04/24/17 at 12:01; Status DC Quetiapine Fumarate (SEROquel) 200 mg QHS PO Last administered on 04/29/17 19: 38; Start 04/24/17 at 21:00; Stop 04/30/17 at 14:32; Status DC Insulin Aspart (NovoLOG) 0-7 UNITS BID94 SQ Last administered on 05/10/17 17: 23; Start 04/25/17 at 09:00; Stop 05/11/17 at 14:30; Status DC Insulin Aspart (NovoLOG) 0-7 UNITS 1X ONCE SQ Last administered on 04/28/17 11:46; Start 04/28/17 at 12:00; Stop 04/28/17 at 12:02; Status DC Quetiapine Fumarate (SEROquel) 50 mg DAILY PO Last administered on 04/30/17 07 :31; Start 04/29/17 at 09:00; Stop 04/30/17 at 14:32; Status DC Risperidone (RisperDAL) 0.25 mg BID92 PO Last administered on 05/11/17 14:38; Start 05/01/17 at 09:00 Divalproex Sodium (Depakote Sprinkles) 500 mg DAILY PO Last administered on 09:03; Start 05/02/17 at 09:00; Stop 05/04/17 at 09:01; Status DC Divalproex Sodium (Depakote Sprinkles) 500 mg BID PO Last administered on 20:20; Start 05/04/17 at 09:00 Olanzapine (ZyPREXA ZYDIS) 2.5 mg PRN Q2HR PRN PO PSYCHOSIS Last administered on 05/10/17 15:34; Start 05/06/17 at 18:45 Insulin Aspart (NovoLOG) 0-7 UNITS TIDAC SQ Last administered on 05/11/17 16: 52; Start 05/11/17 at 16:30 Active Scripts Active Reported Tylenol (Acetaminophen) 325 Mg Tablet 650 Mg PO PRN Q6HRS PRN Dianna-Lanta Liquid (Mag Hydrox/Al Hydrox/Simeth) 355 Ml Oral.susp 30 Ml PO PRN Q8HRS PRN Thera-M (Multivits, W-Fe,Other Min) 1 Each Tablet 1 Tab PO DAILY Senna (Sennosides) 8.6 Mg Tablet 8.6 Mg PO DAILY EXELON 4.6mg/24hr (Rivastigmine) 1 Each Patch.td24 1 Patch TD DAILY Seroquel (Quetiapine Fumarate) 50 Mg Tablet 50 Mg PO BID Seroquel (Quetiapine Fumarate) 300 Mg Tablet 300 Mg PO QHS Potassium Chloride 10 Meq Tablet.er 10 Meq PO DAILY Miralax (Polyethylene Glycol 3350) 17 Gm Powd.pack 17 Gm PO DAILY Omeprazole 20 Mg Capsule.dr 20 Mg PO DAILY Mirtazapine 30 Mg Tablet 30 Mg PO HS Namenda (Memantine Hcl) 10 Mg Tablet 5 Mg PO BID Namenda (Memantine Hcl) 10 Mg Tablet 10 Mg PO BID Januvia (Sitagliptin Phosphate) 100 Mg Tablet 100 Mg PO DAILY Gabapentin 100 Mg Capsule 200 Mg PO TID Divalproex Sodium Er (Divalproex Sodium) 500 Mg Tab.er.24h 500 Mg PO BID Citalopram Hbr (Citalopram Hydrobromide) 20 Mg Tablet 20 Mg PO DAILY Acidophilus (Lactobacillus Acidophilus) 1 Each Capsule 1 Cap PO DAILY Selenium Sulfide 180 Ml Shampoo 1 Ghada TP QHS TUES AND FRI Clonazepam 0.5 Mg Tablet 0.25 Mg PO HS Lantus Solostar (Insulin Glargine,Hum.rec.anlog) 100 Unit/1 Ml Insuln.pen 6 Unit SQ HS Diagnosis: Problems: (1) Bipolar disorder, mixed (2) Anxiety disorder (3) Dementia in Alzheimer's disease with delusions (4) Dementia in Alzheimer's disease with depression (5) Impulse control disorder (6) Dementia, vascular, with delusions (7) Dementia, vascular, with depression (8) Diabetes mellitus (9) Schizophrenia (10) Agitation (11) Dementia with behavioral disturbance VIPIN BELTRAN MD May 11, 2017 20:29
--- NOTE | 2017-05-11 21:43 | NUR ---
Pt in day room becoming upset saying she has been watching the neighbors kids and they were being wild and upset her. They have now gone home but she remains upset. HITESH juarez given.
--- NOTE | 2017-05-11 21:50 | NUR ---
Behavior Intervention Response and Plan: BIRP Note: Behavior: Assumed Care of patient, patient located in Day Room at shift change. Patient exhibited the following behavior Delusions, Withdrawn, Agitated. Brief assessment on rounds of vital signs, medication needs, lab studies, and pain. Treatment plan problems . Intervention: Patient assessed and the following interventions initiated safety checks 15 Minute Checks Head to toe Assessment , Medications , Medications. Response: After interactions and interventions patient responded in the following manner, Disorganized , Agitated ,Withdrawn. Continue to assess behaviors and condition will continue to monitor throughout the shift as needed. Patient educated on ADL's, and hand hygiene. Plan: Continue to monitor Master Treatment Plan for patient's progress toward short term goals of Decreased Agitation, Decreased Anxiety, detention goals to return to previous living setting vs placement. Continue to assess patient for changes in above assessment. Monitor for medication needs, pain, and safety concerns. Hourly rounding performed to ensure safe environment.
--- NOTE | 2017-05-11 23:19 | PN ---
DATE: 05/10/2017 PSYCHIATRIC PROGRESS NOTE This late entry 05/10/2017 covers elements, not covered in my initial note of 05/10/2017. SUBJECTIVE: I met with the patient the evening of 05/10/2017. The patient remains confused. 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 We opted for Zyprexa Zydis and this seemed to help. REVIEW OF SYSTEMS: No CV, , pulmonary, eye, ENT system symptoms on review. Reliability poor. MENTAL STATUS EXAM: Oriented to herself. Insight, judgment, recent and remote memory, attention, concentration, fund of knowledge poor, consistent with her diagnosis. LABORATORY DATA: Reviewed. IMPRESSION: Unchanged from initial note. PLAN: Continue current psychotropics. Reviewed drug interactions. Risk/benefit ratio favors no further change. MAN Gladis BELTRAN MD DR: JIE/triston JOB#: [id number] / [id number]
[2017-05-12 07:13] VITALS: BP 145/75
[2017-05-12] MEDS: INSULIN ASPART 300 UNITS/3 ML INSULN.PEN SQ SCH ×3 (07:30→17:05)
[2017-05-12] MEDS: MULTIVITAMIN with MINERAL TABLET. PO SCH (08:58)
[2017-05-12] MEDS: POLYETHYLENE GLYCOL 3350 17 GM PACKET. PO SCH (08:58)
[2017-05-12] MEDS: CITALOPRAM 20 MG TABLET. PO SCH (08:58)
[2017-05-12] MEDS: POTASSIUM CHLORIDE 10 MEQ TABLET.ER. PO SCH (08:58)
[2017-05-12] MEDS: SENNOSIDES 8.6 MG TABLET PO SCH (08:58)
[2017-05-12] MEDS: DIVALPROEX 125 MG CAP.SPRINK PO SCH ×2 (08:58→19:52)
[2017-05-12] MEDS: LINAGLIPTIN 5 MG TABLET PO SCH (08:58)
[2017-05-12] MEDS: LACTOBACILLUS ACIDOPH & BULGAR 1 TABLET. PO SCH (08:58)
[2017-05-12] MEDS: risperiDONE 0.25 MG TABLET. PO SCH ×2 (08:58→15:05)
[2017-05-12] MEDS: GABAPENTIN 100 MG CAPSULE. PO SCH ×3 (08:58→19:52)
[2017-05-12] MEDS: PANTOPRAZOLE 40 MG TABLET. PO SCH (08:59)
[2017-05-12] MEDS: ACETAMINOPHEN 325 MG TABLET PO PRN (09:00)
--- NOTE | 2017-05-12 09:01 | NUR ---
STELLA faxed updated clinicals to [facility] and requested DC for Thursday. SW will wait to be contacted by facility to determine if they will be accepting Pt. back at dc. They have been attempting to locate new placement since Pt. admit to this facility.
--- NOTE | 2017-05-12 14:39 | NUR ---
Behavior Intervention Response and Plan: BIRP Note: Behavior: Assumed Care of patient, patient located in her bed at shift change. Patient exhibited the following behavior Calm, Calm, Drowsy. Brief assessment on rounds of vital signs, medication needs, lab studies, and pain. Treatment plan problems 1. dementia with bd 2. fall risk. Intervention: Patient assessed and the following interventions initiated safety checks 15 Minute Checks Cognitive Assessment , Head to toe Assessment , Medications. Response: After interactions and interventions patient responded in the following manner, Calm , Interactive ,. Continue to assess behaviors and condition will continue to monitor throughout the shift as needed. Patient educated on ADL's, and hand hygiene. Plan: Continue to monitor Master Treatment Plan for patient's progress toward short term goals of Improved Mood, No harm To self/ others, correction goals to return to previous living setting vs placement. Continue to assess patient for changes in above assessment. Monitor for medication needs, pain, and safety concerns. Hourly rounding performed to ensure safe environment.
--- NOTE | 2017-05-12 15:09 | NUR ---
STELLA spoke w/Leann from [facility] regarding dc plans. Pt. will be returning to [facility] as they have not been able to secure new placement for PT. STELLA to follow up w/Leann on Thursday to plan for a dc as they will need to discuss return plans and move rooms for Pt.
[2017-05-12] MEDS: SELENIUM SULFIDE 1% TOPICAL SHAMPOO 207ML BOTTLE. TP SCH (16:00)
[2017-05-12 16:01] VITALS: BP 121/67
[2017-05-12] MEDS: MIRTAZAPINE 30 MG TABLET PO SCH (19:52)
[2017-05-12] MEDS: INSULIN DETEMIR 300 UNITS/3 ML INSULN.PEN. SQ SCH (19:54)
--- NOTE | 2017-05-12 20:48 | PDOC ---
Exam Maximiliano Demential Exam: Maximiliano Note: Please also refer to the separate dictated note~for this date of service dictated separately.~Patient seen individually. Discussed the patient with Nursing staff reviewed the chart.~Reviewed interim history and current functioning. Reviewed vital signs,~Labs/ Radiology~and current medications noted below. Continue current treatment with the changes noted in the dictated addendum note Assessment: Vital Signs: Vital Signs Date Time Temp Pulse Resp B/P (MAP) Pulse Ox O2 Delivery O2 Flow Rate FiO2 05/12/17 16:01 97.2 86 16 121/67 (85) 93 05/11/17 16:12 Room Air I&O Intake and Output 05/13/17 07:00 Intake Total 1200 ml Balance 1200 ml Intake Oral 1200 ml Labs: Laboratory Tests Test 05/12/17 07:12 05/12/17 11:22 05/12/17 16:26 05/12/17 19:14 Glucose (Fingerstick) 107 mg/dL (70-99) H 221 mg/dL (70-99) H 213 mg/dL (70-99) H 183 mg/dL (70-99) H Current Medications: Meds: Current Medications Olanzapine (ZyPREXA ZYDIS) 5 mg 1X ONCE PO ; Start 04/14/17 at 18:45; Stop 07/19 at 18:46; Status DC Olanzapine (ZyPREXA ZYDIS) 2.5 mg PRN Q2HR PRN PO PSYCHOSIS Last administered on 04/24/17 14:46; Start 04/14/17 at 18:45; Stop 05/06/17 at 18:45; Status DC Acetaminophen (Tylenol) 650 mg PRN Q6HRS PRN PO PAIN / TEMP Last administered on 05/12/17 09:00; Start 04/14/17 at 19:30 Multi-Ingredient Ointment (Analgesic [place]) 1 ghada PRN QID PRN TP MUSCLE PAIN; Start 04/14/17 at 19:30 Al Hydroxide/Mg Hydroxide (Mylanta Plus Xs) 15 ml PRN AFTMEALHC PRN PO DYSPEPSIA; Start 04/14/17 at 19:30; Status Cancel Magnesium Hydroxide (Milk Of Magnesia) 2,400 mg PRN QHS PRN PO CONSTIPATION; Start 04/14/17 at 19:30 Insulin Aspart (NovoLOG) 0-7 UNITS BID SQ Last administered on 04/23/17 21:45 ; Start 04/15/17 at 09:00; Stop 04/24/17 at 19:32; Status DC Dextrose 12.5 gm PRN Q15MIN PRN IV SEE COMMENTS; Start 04/14/17 at 22:15 Citalopram Hydrobromide (CeleXA) 20 mg DAILY PO Last administered on 08:58; Start 04/15/17 at 09:00 Clonazepam (KlonoPIN) 0.25 mg HS PO Last administered on 04/15/17 20:36; Start 04/14/17 at 22:45; Stop 04/16/17 at 10:54; Status DC Divalproex Sodium (Depakote Er) 500 mg BID PO Last administered on 04/16/17 09 :35; Start 04/14/17 at 22:45; Stop 04/16/17 at 19:26; Status DC Memantine (Namenda) 5 mg BID PO ; Start 04/14/17 at 22:45; Stop 04/14/17 at 22: 45; Status DC Memantine (Namenda) 15 mg BID PO Last administered on 04/16/17 09:35; Start at 22:45; Stop 04/16/17 at 10:54; Status DC Mirtazapine (Remeron) 30 mg HS PO Last administered on 05/12/17 19:52; Start 04/14/17 at 22:45 Quetiapine Fumarate (SEROquel) 50 mg BID PO Last administered on 04/28/17 11: 15; Start 04/14/17 at 22:45; Stop 04/28/17 at 18:34; Status DC Rivastigmine (Exelon) 1 patch DAILY TD Last administered on 04/16/17 09:36; Start 04/15/17 at 09:00; Stop 04/16/17 at 10:54; Status DC Quetiapine Fumarate (SEROquel) 300 mg QHS PO Last administered on 04/23/17 19: 14; Start 04/14/17 at 22:45; Stop 04/24/17 at 19:00; Status DC Gabapentin (Neurontin) 200 mg TID PO Last administered on 05/12/17 19:52; Start 04/14/17 at 22:45 Polyethylene Glycol (miraLAX) 17 gm DAILY PO Last administered on 05/12/17 08 :58; Start 04/15/17 at 09:00 Sennosides (Senna) 8.6 mg DAILY PO Last administered on 05/12/17 08:58; Start 04/15/17 at 09:00 Insulin Detemir (Levemir) 6 units QHS SQ Last administered on 05/12/17 19:54 ; Start 04/15/17 at 21:00 Lactobacillus Acidophilus (Bacid, Ester-Bid) 1 tab DAILY PO Last administered on 05/12/17 08:58; Start 04/15/17 at 09:00 Al Hydroxide/Mg Hydroxide (Mylanta Plus Xs) 30 ml PRN Q8HRS PRN PO DYSPEPSIA; Start 04/14/17 at 23:00 Multivitamins/ Calcium (Thera-M Plus) 1 tab DAILY PO Last administered on 05/12 08:58; Start 04/15/17 at 09:00 Pantoprazole Sodium (Protonix) 40 mg DAILYAC PO Last administered on 08:59; Start 04/15/17 at 07:30 Potassium Chloride (Klor-Con) 10 meq DAILYWBKFT PO Last administered on 08:58; Start 04/15/17 at 08:00 Selenium Sulfide (Selsun) 1 ghada QTU TP ; Start 04/21/17 at 16:00 Linagliptin (Tradjenta) 5 mg DAILY PO Last administered on 05/12/17 08:58; Start 04/15/17 at 09:00 Selenium Sulfide (Selsun) 1 ghada QFR TP ; Start 04/17/17 at 16:00 Vitamin D (Vitamin D3) 50,000 unit WEEKLY PO Last administered on 05/07/17 09: 46; Start 04/16/17 at 09:00 Trazodone HCl (Desyrel) 100 mg QHS PO Last administered on 04/22/17 21:05; Start 04/16/17 at 21:00; Stop 04/23/17 at 17:59; Status DC Trazodone HCl (Desyrel) 100 mg PRN QHS PRN PO INSOMNIA; Start 04/16/17 at 21:00 ; Stop 04/23/17 at 17:59; Status DC Divalproex Sodium (Depakote Sprinkles) 500 mg DAILY PO Last administered on 08:22; Start 04/17/17 at 09:00; Stop 04/23/17 at 12:55; Status DC Divalproex Sodium (Depakote Sprinkles) 750 mg HS PO Last administered on 19:29; Start 04/16/17 at 21:00; Stop 04/20/17 at 18:21; Status DC Divalproex Sodium (Depakote Sprinkles) 500 mg HS PO Last administered on 21:05; Start 04/20/17 at 21:00; Stop 04/23/17 at 12:55; Status DC Olanzapine (ZyPREXA ZYDIS) 5 mg 1X ONCE PO Last administered on 04/24/17 11: 55; Start 04/24/17 at 12:00; Stop 04/24/17 at 12:01; Status DC Quetiapine Fumarate (SEROquel) 200 mg QHS PO Last administered on 04/29/17 19: 38; Start 04/24/17 at 21:00; Stop 04/30/17 at 14:32; Status DC Insulin Aspart (NovoLOG) 0-7 UNITS BID94 SQ Last administered on 05/10/17 17: 23; Start 04/25/17 at 09:00; Stop 05/11/17 at 14:30; Status DC Insulin Aspart (NovoLOG) 0-7 UNITS 1X ONCE SQ Last administered on 04/28/17 11:46; Start 04/28/17 at 12:00; Stop 04/28/17 at 12:02; Status DC Quetiapine Fumarate (SEROquel) 50 mg DAILY PO Last administered on 04/30/17 07 :31; Start 04/29/17 at 09:00; Stop 04/30/17 at 14:32; Status DC Risperidone (RisperDAL) 0.25 mg BID92 PO Last administered on 05/12/17 15:05 ; Start 05/01/17 at 09:00 Divalproex Sodium (Depakote Sprinkles) 500 mg DAILY PO Last administered on 09:03; Start 05/02/17 at 09:00; Stop 05/04/17 at 09:01; Status DC Divalproex Sodium (Depakote Sprinkles) 500 mg BID PO Last administered on 05/12 19:52; Start 05/04/17 at 09:00 Olanzapine (ZyPREXA ZYDIS) 2.5 mg PRN Q2HR PRN PO PSYCHOSIS Last administered on 05/11/17 21:43; Start 05/06/17 at 18:45 Insulin Aspart (NovoLOG) 0-7 UNITS TIDAC SQ Last administered on 05/12/17 17: 05; Start 05/11/17 at 16:30 Active Scripts Active Reported Tylenol (Acetaminophen) 325 Mg Tablet 650 Mg PO PRN Q6HRS PRN Dianna-Lanta Liquid (Mag Hydrox/Al Hydrox/Simeth) 355 Ml Oral.susp 30 Ml PO PRN Q8HRS PRN Thera-M (Multivits, W-Fe,Other Min) 1 Each Tablet 1 Tab PO DAILY Senna (Sennosides) 8.6 Mg Tablet 8.6 Mg PO DAILY EXELON 4.6mg/24hr (Rivastigmine) 1 Each Patch.td24 1 Patch TD DAILY Seroquel (Quetiapine Fumarate) 50 Mg Tablet 50 Mg PO BID Seroquel (Quetiapine Fumarate) 300 Mg Tablet 300 Mg PO QHS Potassium Chloride 10 Meq Tablet.er 10 Meq PO DAILY Miralax (Polyethylene Glycol 3350) 17 Gm Powd.pack 17 Gm PO DAILY Omeprazole 20 Mg Capsule.dr 20 Mg PO DAILY Mirtazapine 30 Mg Tablet 30 Mg PO HS Namenda (Memantine Hcl) 10 Mg Tablet 5 Mg PO BID Namenda (Memantine Hcl) 10 Mg Tablet 10 Mg PO BID Januvia (Sitagliptin Phosphate) 100 Mg Tablet 100 Mg PO DAILY Gabapentin 100 Mg Capsule 200 Mg PO TID Divalproex Sodium Er (Divalproex Sodium) 500 Mg Tab.er.24h 500 Mg PO BID Citalopram Hbr (Citalopram Hydrobromide) 20 Mg Tablet 20 Mg PO DAILY Acidophilus (Lactobacillus Acidophilus) 1 Each Capsule 1 Cap PO DAILY Selenium Sulfide 180 Ml Shampoo 1 Ghada TP QHS TUES AND FRI Clonazepam 0.5 Mg Tablet 0.25 Mg PO HS Lantus Solostar (Insulin Glargine,Hum.rec.anlog) 100 Unit/1 Ml Insuln.pen 6 Unit SQ HS Diagnosis: Problems: (1) Bipolar disorder, mixed (2) Anxiety disorder (3) Dementia in Alzheimer's disease with delusions (4) Dementia in Alzheimer's disease with depression (5) Impulse control disorder (6) Dementia, vascular, with delusions (7) Dementia, vascular, with depression (8) Schizophrenia (9) Agitation (10) Dementia with behavioral disturbance VIPIN BELTRAN MD May 12, 2017 20:48
--- NOTE | 2017-05-12 20:50 | NUR ---
Behavior Intervention Response and Plan: BIRP Note: Behavior: Assumed Care of patient, patient located in Day Room at shift change. Patient exhibited the following behavior Defensive, Disorganized, Calm. Brief assessment on rounds of vital signs, medication needs, lab studies, and pain. Treatment plan problems . Intervention: Patient assessed and the following interventions initiated safety checks 15 Minute Checks Cognitive Assessment , Head to toe Assessment , Medications. Response: After interactions and interventions patient responded in the following manner, Demanding , Non Compliant ,Resistive. Continue to assess behaviors and condition will continue to monitor throughout the shift as needed. Patient educated on ADL's, and hand hygiene. Plan: Continue to monitor Master Treatment Plan for patient's progress toward short term goals of Decreased Agitation, Medication Compliance, fdc goals to return to previous living setting vs placement. Continue to assess patient for changes in above assessment. Monitor for medication needs, pain, and safety concerns. Hourly rounding performed to ensure safe environment.
--- NOTE | 2017-05-13 02:54 | PN ---
DATE: 05/11/2017 This late entry 05/11/2017 covers elements not covered in my initial note of 05/11/2017. I met with the patient in the afternoon of 05/11/2017. She slept 6-3/4 hours previous evening. She takes 3 people to get her up in the morning, somewhat combative, then does better other than during blood draws and Accu-Cheks and administering insulin. Zyprexa p.r.n. seems to help if given before these events. REVIEW OF SYSTEMS: No CV, , pulmonary, eye, ENT system symptoms on review. Reliability poor. MENTAL STATUS EXAM: Oriented to herself. Insight, judgment, recent and remote memory, attention, concentration, fund of knowledge poor, consistent with her diagnosis mentioned in my initial note. PLAN: Continue current psychotropics, reviewed drug interactions, risk/benefit ratio favors no further change, current psychotropics mentioned in my initial note. MAN Gladis BELTRAN MD DR: JIE/triston JOB#: [id number] / [id number]
[2017-05-13] MEDS: INSULIN ASPART 300 UNITS/3 ML INSULN.PEN SQ SCH ×3 (07:30→16:56)
[2017-05-13] MEDS: POLYETHYLENE GLYCOL 3350 17 GM PACKET. PO SCH (08:05)
[2017-05-13] MEDS: CITALOPRAM 20 MG TABLET. PO SCH (08:05)
[2017-05-13] MEDS: POTASSIUM CHLORIDE 10 MEQ TABLET.ER. PO SCH (08:05)
[2017-05-13] MEDS: DIVALPROEX 125 MG CAP.SPRINK PO SCH ×2 (08:05→20:02)
[2017-05-13] MEDS: SENNOSIDES 8.6 MG TABLET PO SCH (08:05)
[2017-05-13] MEDS: GABAPENTIN 100 MG CAPSULE. PO SCH ×3 (08:05→20:02)
[2017-05-13] MEDS: LINAGLIPTIN 5 MG TABLET PO SCH (08:06)
[2017-05-13] MEDS: LACTOBACILLUS ACIDOPH & BULGAR 1 TABLET. PO SCH (08:06)
[2017-05-13] MEDS: PANTOPRAZOLE 40 MG TABLET. PO SCH (08:06)
[2017-05-13] MEDS: risperiDONE 0.25 MG TABLET. PO SCH ×2 (08:06→14:16)
[2017-05-13] MEDS: MULTIVITAMIN with MINERAL TABLET. PO SCH (08:06)
--- NOTE | 2017-05-13 14:20 | NUR ---
SW arranged for dc transport. Will notify Guardian.
[2017-05-13 16:51] VITALS: BP 118/75
[2017-05-13] MEDS: MIRTAZAPINE 30 MG TABLET PO SCH (20:02)
[2017-05-13] MEDS: INSULIN DETEMIR 300 UNITS/3 ML INSULN.PEN. SQ SCH (20:04)
--- NOTE | 2017-05-13 20:31 | PDOC ---
Exam Maximiliano Demential Exam: Maximiliano Note: Please also refer to the separate dictated note~for this date of service dictated separately.~Patient seen individually. Discussed the patient with Nursing staff reviewed the chart.~Reviewed interim history and current functioning. Reviewed vital signs,~Labs/ Radiology~and current medications noted below. Continue current treatment with the changes noted in the dictated addendum note Assessment: Vital Signs: Vital Signs Date Time Temp Pulse Resp B/P (MAP) Pulse Ox O2 Delivery O2 Flow Rate FiO2 05/13/17 16:51 97.4 90 18 118/75 (89) 96 05/11/17 16:12 Room Air I&O Intake and Output 05/14/17 07:00 Intake Total 720 ml Balance 720 ml Intake Oral 720 ml Labs: Laboratory Tests Test 05/13/17 07:05 05/13/17 11:30 05/13/17 16:28 05/13/17 19:29 Glucose (Fingerstick) 132 mg/dL (70-99) H 217 mg/dL (70-99) H 171 mg/dL (70-99) H 178 mg/dL (70-99) H Current Medications: Meds: Current Medications Olanzapine (ZyPREXA ZYDIS) 5 mg 1X ONCE PO ; Start 04/14/17 at 18:45; Stop 07/19 at 18:46; Status DC Olanzapine (ZyPREXA ZYDIS) 2.5 mg PRN Q2HR PRN PO PSYCHOSIS Last administered on 04/24/17 14:46; Start 04/14/17 at 18:45; Stop 05/06/17 at 18:45; Status DC Acetaminophen (Tylenol) 650 mg PRN Q6HRS PRN PO PAIN / TEMP Last administered on 05/12/17 09:00; Start 04/14/17 at 19:30 Multi-Ingredient Ointment (Analgesic [place]) 1 ghada PRN QID PRN TP MUSCLE PAIN; Start 04/14/17 at 19:30 Al Hydroxide/Mg Hydroxide (Mylanta Plus Xs) 15 ml PRN AFTMEALHC PRN PO DYSPEPSIA; Start 04/14/17 at 19:30; Status Cancel Magnesium Hydroxide (Milk Of Magnesia) 2,400 mg PRN QHS PRN PO CONSTIPATION; Start 04/14/17 at 19:30 Insulin Aspart (NovoLOG) 0-7 UNITS BID SQ Last administered on 04/23/17 21:45 ; Start 04/15/17 at 09:00; Stop 04/24/17 at 19:32; Status DC Dextrose 12.5 gm PRN Q15MIN PRN IV SEE COMMENTS; Start 04/14/17 at 22:15 Citalopram Hydrobromide (CeleXA) 20 mg DAILY PO Last administered on 08:05; Start 04/15/17 at 09:00 Clonazepam (KlonoPIN) 0.25 mg HS PO Last administered on 04/15/17 20:36; Start 04/14/17 at 22:45; Stop 04/16/17 at 10:54; Status DC Divalproex Sodium (Depakote Er) 500 mg BID PO Last administered on 04/16/17 09 :35; Start 04/14/17 at 22:45; Stop 04/16/17 at 19:26; Status DC Memantine (Namenda) 5 mg BID PO ; Start 04/14/17 at 22:45; Stop 04/14/17 at 22: 45; Status DC Memantine (Namenda) 15 mg BID PO Last administered on 04/16/17 09:35; Start at 22:45; Stop 04/16/17 at 10:54; Status DC Mirtazapine (Remeron) 30 mg HS PO Last administered on 05/13/17 20:02; Start 04/14/17 at 22:45 Quetiapine Fumarate (SEROquel) 50 mg BID PO Last administered on 04/28/17 11: 15; Start 04/14/17 at 22:45; Stop 04/28/17 at 18:34; Status DC Rivastigmine (Exelon) 1 patch DAILY TD Last administered on 04/16/17 09:36; Start 04/15/17 at 09:00; Stop 04/16/17 at 10:54; Status DC Quetiapine Fumarate (SEROquel) 300 mg QHS PO Last administered on 04/23/17 19: 14; Start 04/14/17 at 22:45; Stop 04/24/17 at 19:00; Status DC Gabapentin (Neurontin) 200 mg TID PO Last administered on 05/13/17 20:02; Start 04/14/17 at 22:45 Polyethylene Glycol (miraLAX) 17 gm DAILY PO Last administered on 05/13/17 08 :05; Start 04/15/17 at 09:00 Sennosides (Senna) 8.6 mg DAILY PO Last administered on 05/13/17 08:05; Start 04/15/17 at 09:00 Insulin Detemir (Levemir) 6 units QHS SQ Last administered on 05/13/17 20:04 ; Start 04/15/17 at 21:00 Lactobacillus Acidophilus (Bacid, Estre-Bid) 1 tab DAILY PO Last administered on 05/13/17 08:06; Start 04/15/17 at 09:00 Al Hydroxide/Mg Hydroxide (Mylanta Plus Xs) 30 ml PRN Q8HRS PRN PO DYSPEPSIA; Start 04/14/17 at 23:00 Multivitamins/ Calcium (Thera-M Plus) 1 tab DAILY PO Last administered on 05/13 08:06; Start 04/15/17 at 09:00 Pantoprazole Sodium (Protonix) 40 mg DAILYAC PO Last administered on 08:06; Start 04/15/17 at 07:30 Potassium Chloride (Klor-Con) 10 meq DAILYWBKFT PO Last administered on 08:05; Start 04/15/17 at 08:00 Selenium Sulfide (Selsun) 1 ghada QTU TP ; Start 04/21/17 at 16:00 Linagliptin (Tradjenta) 5 mg DAILY PO Last administered on 05/13/17 08:06; Start 04/15/17 at 09:00 Selenium Sulfide (Selsun) 1 ghada QFR TP ; Start 04/17/17 at 16:00 Vitamin D (Vitamin D3) 50,000 unit WEEKLY PO Last administered on 05/07/17 09: 46; Start 04/16/17 at 09:00 Trazodone HCl (Desyrel) 100 mg QHS PO Last administered on 04/22/17 21:05; Start 04/16/17 at 21:00; Stop 04/23/17 at 17:59; Status DC Trazodone HCl (Desyrel) 100 mg PRN QHS PRN PO INSOMNIA; Start 04/16/17 at 21:00 ; Stop 04/23/17 at 17:59; Status DC Divalproex Sodium (Depakote Sprinkles) 500 mg DAILY PO Last administered on 08:22; Start 04/17/17 at 09:00; Stop 04/23/17 at 12:55; Status DC Divalproex Sodium (Depakote Sprinkles) 750 mg HS PO Last administered on 19:29; Start 04/16/17 at 21:00; Stop 04/20/17 at 18:21; Status DC Divalproex Sodium (Depakote Sprinkles) 500 mg HS PO Last administered on 21:05; Start 04/20/17 at 21:00; Stop 04/23/17 at 12:55; Status DC Olanzapine (ZyPREXA ZYDIS) 5 mg 1X ONCE PO Last administered on 04/24/17 11: 55; Start 04/24/17 at 12:00; Stop 04/24/17 at 12:01; Status DC Quetiapine Fumarate (SEROquel) 200 mg QHS PO Last administered on 04/29/17 19: 38; Start 04/24/17 at 21:00; Stop 04/30/17 at 14:32; Status DC Insulin Aspart (NovoLOG) 0-7 UNITS BID94 SQ Last administered on 05/10/17 17: 23; Start 04/25/17 at 09:00; Stop 05/11/17 at 14:30; Status DC Insulin Aspart (NovoLOG) 0-7 UNITS 1X ONCE SQ Last administered on 04/28/17 11:46; Start 04/28/17 at 12:00; Stop 04/28/17 at 12:02; Status DC Quetiapine Fumarate (SEROquel) 50 mg DAILY PO Last administered on 04/30/17 07 :31; Start 04/29/17 at 09:00; Stop 04/30/17 at 14:32; Status DC Risperidone (RisperDAL) 0.25 mg BID92 PO Last administered on 05/13/17 14:16 ; Start 05/01/17 at 09:00 Divalproex Sodium (Depakote Sprinkles) 500 mg DAILY PO Last administered on 09:03; Start 05/02/17 at 09:00; Stop 05/04/17 at 09:01; Status DC Divalproex Sodium (Depakote Sprinkles) 500 mg BID PO Last administered on 05/13 20:02; Start 05/04/17 at 09:00 Olanzapine (ZyPREXA ZYDIS) 2.5 mg PRN Q2HR PRN PO PSYCHOSIS Last administered on 05/11/17 21:43; Start 05/06/17 at 18:45 Insulin Aspart (NovoLOG) 0-7 UNITS TIDAC SQ Last administered on 05/13/17 16: 56; Start 05/11/17 at 16:30 Active Scripts Active Reported Tylenol (Acetaminophen) 325 Mg Tablet 650 Mg PO PRN Q6HRS PRN Dianna-Lanta Liquid (Mag Hydrox/Al Hydrox/Simeth) 355 Ml Oral.susp 30 Ml PO PRN Q8HRS PRN Thera-M (Multivits, W-Fe,Other Min) 1 Each Tablet 1 Tab PO DAILY Senna (Sennosides) 8.6 Mg Tablet 8.6 Mg PO DAILY EXELON 4.6mg/24hr (Rivastigmine) 1 Each Patch.td24 1 Patch TD DAILY Seroquel (Quetiapine Fumarate) 50 Mg Tablet 50 Mg PO BID Seroquel (Quetiapine Fumarate) 300 Mg Tablet 300 Mg PO QHS Potassium Chloride 10 Meq Tablet.er 10 Meq PO DAILY Miralax (Polyethylene Glycol 3350) 17 Gm Powd.pack 17 Gm PO DAILY Omeprazole 20 Mg Capsule.dr 20 Mg PO DAILY Mirtazapine 30 Mg Tablet 30 Mg PO HS Namenda (Memantine Hcl) 10 Mg Tablet 5 Mg PO BID Namenda (Memantine Hcl) 10 Mg Tablet 10 Mg PO BID Januvia (Sitagliptin Phosphate) 100 Mg Tablet 100 Mg PO DAILY Gabapentin 100 Mg Capsule 200 Mg PO TID Divalproex Sodium Er (Divalproex Sodium) 500 Mg Tab.er.24h 500 Mg PO BID Citalopram Hbr (Citalopram Hydrobromide) 20 Mg Tablet 20 Mg PO DAILY Acidophilus (Lactobacillus Acidophilus) 1 Each Capsule 1 Cap PO DAILY Selenium Sulfide 180 Ml Shampoo 1 Ghada TP QHS TUES AND FRI Clonazepam 0.5 Mg Tablet 0.25 Mg PO HS Lantus Solostar (Insulin Glargine,Hum.rec.anlog) 100 Unit/1 Ml Insuln.pen 6 Unit SQ HS Diagnosis: Problems: (1) Bipolar disorder, mixed (2) Anxiety disorder (3) Dementia in Alzheimer's disease with delusions (4) Dementia in Alzheimer's disease with depression (5) Impulse control disorder (6) Dementia, vascular, with delusions (7) Dementia, vascular, with depression (8) Diabetes mellitus (9) Schizophrenia (10) Agitation (11) Dementia with behavioral disturbance VIPIN BELTRAN MD May 13, 2017 20:31
--- NOTE | 2017-05-13 21:37 | NUR ---
Behavior Intervention Response and Plan: BIRP Note: Behavior: Assumed Care of patient, patient located in Day Room at shift change. Patient exhibited the following behavior Disorganized, Defensive, Withdrawn. Brief assessment on rounds of vital signs, medication needs, lab studies, and pain. Treatment plan problems . Intervention: Patient assessed and the following interventions initiated safety checks 15 Minute Checks Cognitive Assessment , Head to toe Assessment , Medications. Response: After interactions and interventions patient responded in the following manner, Able to Focus on Task , Compliant ,Cooperative. Continue to assess behaviors and condition will continue to monitor throughout the shift as needed. Patient educated on ADL's, and hand hygiene. Plan: Continue to monitor Master Treatment Plan for patient's progress toward short term goals of Decreased Anxiety, Medication Compliance, terminal supervisor goals to return to previous living setting vs placement. Continue to assess patient for changes in above assessment. Monitor for medication needs, pain, and safety concerns. Hourly rounding performed to ensure safe environment.
[2017-05-14] MEDS ORDERED: CHOL-5 PO (00:53)
[2017-05-14] MEDS ORDERED: DIVA125C PO (00:56)
[2017-05-14] MEDS ORDERED: INSU100I17 SQ (00:59)
[2017-05-14] MEDS ORDERED: INSU100I27 SQ (01:00)
[2017-05-14] MEDS ORDERED: LINA5TAB4 PO (01:03)
[2017-05-14] MEDS ORDERED: MAGN2400 PO (01:06)
[2017-05-14] MEDS ORDERED: METH29OI TP (01:07)
[2017-05-14] MEDS ORDERED: OLAN5TAB5 PO (01:10)
[2017-05-14] MEDS ORDERED: PANT40TA5 PO (01:11)
[2017-05-14] MEDS ORDERED: RISP0.2519 PO (01:16)
--- NOTE | 2017-05-14 02:50 | PN ---
DATE: 05/12/2017 PSYCHIATRIC PROGRESS NOTE This late entry 05/12/2017 covers elements, not covered in my initial note of 05/12/2017. SUBJECTIVE: I met with the patient evening of 05/12/2017. The patient remains confused, otherwise, calm, smiling, not aggressive. REVIEW OF SYSTEMS: No CV, , pulmonary, eye, ENT system symptoms on review. Reliability poor. MENTAL STATUS EXAM: Oriented to herself. Insight, judgment, recent and remote memory, attention, concentration, fund of knowledge poor, consistent with her diagnosis mentioned in my initial note. LABORATORY DATA: Reviewed. PLAN: Continue current psychotropics. Valproic acid level therapeutic at 84, repeat on 05/06/2017 is 60. Maintain current psychotropics. Reviewed drug contractions. Risk/benefit ratio favors no further change. MAN Gladis BELTRAN MD DR: JIE/triston JOB#: [id number] / [id number]
[2017-05-14 06:07] VITALS: BP 116/78
[2017-05-14] MEDS: INSULIN ASPART 300 UNITS/3 ML INSULN.PEN SQ SCH (07:30)
[2017-05-14] MEDS: LACTOBACILLUS ACIDOPH & BULGAR 1 TABLET. PO SCH (07:47)
[2017-05-14] MEDS: MULTIVITAMIN with MINERAL TABLET. PO SCH (07:47)
[2017-05-14] MEDS: DIVALPROEX 125 MG CAP.SPRINK PO SCH (07:47)
[2017-05-14] MEDS: CHOLECALCIFEROL (VITAMIN D3) 50,000 UNIT CAPSULE PO SCH (07:47)
[2017-05-14] MEDS: PANTOPRAZOLE 40 MG TABLET. PO SCH (07:48)
[2017-05-14] MEDS: LINAGLIPTIN 5 MG TABLET PO SCH (07:48)
[2017-05-14] MEDS: POTASSIUM CHLORIDE 10 MEQ TABLET.ER. PO SCH (07:48)
[2017-05-14] MEDS: GABAPENTIN 100 MG CAPSULE. PO SCH (07:48)
[2017-05-14] MEDS: SENNOSIDES 8.6 MG TABLET PO SCH (07:48)
[2017-05-14] MEDS: CITALOPRAM 20 MG TABLET. PO SCH (07:48)
[2017-05-14] MEDS: risperiDONE 0.25 MG TABLET. PO SCH (07:48)
[2017-05-14] MEDS: POLYETHYLENE GLYCOL 3350 17 GM PACKET. PO SCH (07:48)
--- NOTE | 2017-05-14 08:20 | NUR ---
[facility] Social Work Discharge Planning Form Patient Name MARTIN CRAWLEY Admit Date: 04/14/17 DISCHARGE PLAN Discharge Destination: return to [facility] Transportation: Facility to tile picker 05/14/17 at 10:00 DISCHARGE TO FACILITY Facility: [facility] Address: [address] [place] [address] Contact Name: PCP: at facility w/in 10-12 days of dc Psychiatrist: at facility w/in 10-12 days of dc
--- NOTE | 2017-05-14 08:35 | NUR ---
Behavior Intervention Response and Plan: BIRP Note: Behavior: Assumed Care of patient, patient located in Dining Room at shift change. Patient exhibited the following behavior Restless, Wandering, Disorganized. Brief assessment on rounds of vital signs, medication needs, lab studies, and pain. Treatment plan problems 1 & 2. Intervention: Patient assessed and the following interventions initiated safety checks 15 Minute Checks Cognitive Assessment , Head to toe Assessment , Medications. Response: After interactions and interventions patient responded in the following manner, Calm , Appropriate ,Compliant. Continue to assess behaviors and condition will continue to monitor throughout the shift as needed. Patient educated on ADL's, and hand hygiene. Plan: Continue to monitor Master Treatment Plan for patient's progress toward short term goals of Decreased Agitation, Decreased Aggression, logistics tech goals to return to previous living setting vs placement. Continue to assess patient for changes in above assessment. Monitor for medication needs, pain, and safety concerns. Hourly rounding performed to ensure safe environment.
--- NOTE | 2017-05-14 08:41 | NUR ---
SW contacted Pt's guardian to notify of dc plans.
--- NOTE | 2017-05-14 10:30 | NUR ---
Transition Record was faxed to follow-up provider with the following elements: Reason for admission, procedures, tests, principal diagnosis, pending studies, patient instructions, 23/02 contact information for unit, phone number to obtain pending test results, plan for follow-up care, physician follow-up, advanced directive information, and medication list with dose, duration and instructions. This information was included in the following documents: History and physical, lab results, study results, progress notes, social work planning form, DC instruction form, patient visit summary, and medication reconciliation form. Date & time record faxed: 09:52 14 May 2017 Record faxed to: [facility] [phone] Record discussed with/ report given to: YUDELKA Calabrese at [facility]
--- NOTE | 2017-05-14 18:23 | PDOC ---
Exam Maximiliano Demential Exam: Maximiliano Note: Please also refer to the separate dictated note~for this date of service dictated separately.~Patient seen individually. Discussed the patient with Nursing staff reviewed the chart.~Reviewed interim history and current functioning. Reviewed vital signs,~Labs/ Radiology~and current medications noted below. Continue current treatment with the changes noted in the dictated addendum note Assessment: Vital Signs: Vital Signs Date Time Temp Pulse Resp B/P (MAP) Pulse Ox O2 Delivery O2 Flow Rate FiO2 05/14/17 06:07 98.1 65 20 116/78 (91) 96 05/11/17 16:12 Room Air I&O Intake and Output 05/15/17 07:00 Intake Total 480 ml Balance 480 ml Intake Oral 480 ml # Bowel Movements 1 Labs: Laboratory Tests Test 05/13/17 19:29 05/14/17 07:17 Glucose (Fingerstick) 178 mg/dL (70-99) H 111 mg/dL (70-99) H Current Medications: Meds: Current Medications Olanzapine (ZyPREXA ZYDIS) 5 mg 1X ONCE PO ; Start 04/14/17 at 18:45; Stop 07/19 at 18:46; Status DC Olanzapine (ZyPREXA ZYDIS) 2.5 mg PRN Q2HR PRN PO PSYCHOSIS Last administered on 04/24/17 14:46; Start 04/14/17 at 18:45; Stop 05/06/17 at 18:45; Status DC Acetaminophen (Tylenol) 650 mg PRN Q6HRS PRN PO PAIN / TEMP Last administered on 05/12/17 09:00; Start 04/14/17 at 19:30; Stop 05/14/17 at 11:24; Status DC Multi-Ingredient Ointment (Analgesic [place]) 1 ghada PRN QID PRN TP MUSCLE PAIN; Start 04/14/17 at 19:30; Stop 05/14/17 at 11:24; Status DC Al Hydroxide/Mg Hydroxide (Mylanta Plus Xs) 15 ml PRN AFTMEALHC PRN PO DYSPEPSIA; Start 04/14/17 at 19:30; Status Cancel Magnesium Hydroxide (Milk Of Magnesia) 2,400 mg PRN QHS PRN PO CONSTIPATION; Start 04/14/17 at 19:30; Stop 05/14/17 at 11:24; Status DC Insulin Aspart (NovoLOG) 0-7 UNITS BID SQ Last administered on 04/23/17 21:45 ; Start 04/15/17 at 09:00; Stop 04/24/17 at 19:32; Status DC Dextrose 12.5 gm PRN Q15MIN PRN IV SEE COMMENTS; Start 04/14/17 at 22:15; Stop 05/14/17 at 11:24; Status DC Citalopram Hydrobromide (CeleXA) 20 mg DAILY PO Last administered on 07:48; Start 04/15/17 at 09:00; Stop 05/14/17 at 11:24; Status DC Clonazepam (KlonoPIN) 0.25 mg HS PO Last administered on 04/15/17 20:36; Start 04/14/17 at 22:45; Stop 04/16/17 at 10:54; Status DC Divalproex Sodium (Depakote Er) 500 mg BID PO Last administered on 04/16/17 09 :35; Start 04/14/17 at 22:45; Stop 04/16/17 at 19:26; Status DC Memantine (Namenda) 5 mg BID PO ; Start 04/14/17 at 22:45; Stop 04/14/17 at 22: 45; Status DC Memantine (Namenda) 15 mg BID PO Last administered on 04/16/17 09:35; Start at 22:45; Stop 04/16/17 at 10:54; Status DC Mirtazapine (Remeron) 30 mg HS PO Last administered on 05/13/17 20:02; Start 04/14/17 at 22:45; Stop 05/14/17 at 11:24; Status DC Quetiapine Fumarate (SEROquel) 50 mg BID PO Last administered on 04/28/17 11: 15; Start 04/14/17 at 22:45; Stop 04/28/17 at 18:34; Status DC Rivastigmine (Exelon) 1 patch DAILY TD Last administered on 04/16/17 09:36; Start 04/15/17 at 09:00; Stop 04/16/17 at 10:54; Status DC Quetiapine Fumarate (SEROquel) 300 mg QHS PO Last administered on 04/23/17 19: 14; Start 04/14/17 at 22:45; Stop 04/24/17 at 19:00; Status DC Gabapentin (Neurontin) 200 mg TID PO Last administered on 05/14/17 07:48; Start 04/14/17 at 22:45; Stop 05/14/17 at 11:24; Status DC Polyethylene Glycol (miraLAX) 17 gm DAILY PO Last administered on 05/14/17 07 :48; Start 04/15/17 at 09:00; Stop 05/14/17 at 11:24; Status DC Sennosides (Senna) 8.6 mg DAILY PO Last administered on 05/14/17 07:48; Start 04/15/17 at 09:00; Stop 05/14/17 at 11:24; Status DC Insulin Detemir (Levemir) 6 units QHS SQ Last administered on 05/13/17 20:04 ; Start 04/15/17 at 21:00; Stop 05/14/17 at 11:24; Status DC Lactobacillus Acidophilus (Bacid, Ester-Bid) 1 tab DAILY PO Last administered on 05/14/17 07:47; Start 04/15/17 at 09:00; Stop 05/14/17 at 11:24; Status DC Al Hydroxide/Mg Hydroxide (Mylanta Plus Xs) 30 ml PRN Q8HRS PRN PO DYSPEPSIA; Start 04/14/17 at 23:00; Stop 05/14/17 at 11:24; Status DC Multivitamins/ Calcium (Thera-M Plus) 1 tab DAILY PO Last administered on 05/14 07:47; Start 04/15/17 at 09:00; Stop 05/14/17 at 11:24; Status DC Pantoprazole Sodium (Protonix) 40 mg DAILYAC PO Last administered on 07:48; Start 04/15/17 at 07:30; Stop 05/14/17 at 11:24; Status DC Potassium Chloride (Klor-Con) 10 meq DAILYWBKFT PO Last administered on 07:48; Start 04/15/17 at 08:00; Stop 05/14/17 at 11:24; Status DC Selenium Sulfide (Selsun) 1 ghada QTU TP ; Start 04/21/17 at 16:00; Stop at 11:24; Status DC Linagliptin (Tradjenta) 5 mg DAILY PO Last administered on 05/14/17 07:48; Start 04/15/17 at 09:00; Stop 05/14/17 at 11:24; Status DC Selenium Sulfide (Selsun) 1 ghada QFR TP ; Start 04/17/17 at 16:00; Stop at 11:24; Status DC Vitamin D (Vitamin D3) 50,000 unit WEEKLY PO Last administered on 05/14/17 07 :47; Start 04/16/17 at 09:00; Stop 05/14/17 at 11:24; Status DC Trazodone HCl (Desyrel) 100 mg QHS PO Last administered on 04/22/17 21:05; Start 04/16/17 at 21:00; Stop 04/23/17 at 17:59; Status DC Trazodone HCl (Desyrel) 100 mg PRN QHS PRN PO INSOMNIA; Start 04/16/17 at 21:00 ; Stop 04/23/17 at 17:59; Status DC Divalproex Sodium (Depakote Sprinkles) 500 mg DAILY PO Last administered on 08:22; Start 04/17/17 at 09:00; Stop 04/23/17 at 12:55; Status DC Divalproex Sodium (Depakote Sprinkles) 750 mg HS PO Last administered on 19:29; Start 04/16/17 at 21:00; Stop 04/20/17 at 18:21; Status DC Divalproex Sodium (Depakote Sprinkles) 500 mg HS PO Last administered on 21:05; Start 04/20/17 at 21:00; Stop 04/23/17 at 12:55; Status DC Olanzapine (ZyPREXA ZYDIS) 5 mg 1X ONCE PO Last administered on 04/24/17 11: 55; Start 04/24/17 at 12:00; Stop 04/24/17 at 12:01; Status DC Quetiapine Fumarate (SEROquel) 200 mg QHS PO Last administered on 04/29/17 19: 38; Start 04/24/17 at 21:00; Stop 04/30/17 at 14:32; Status DC Insulin Aspart (NovoLOG) 0-7 UNITS BID94 SQ Last administered on 05/10/17 17: 23; Start 04/25/17 at 09:00; Stop 05/11/17 at 14:30; Status DC Insulin Aspart (NovoLOG) 0-7 UNITS 1X ONCE SQ Last administered on 04/28/17 11:46; Start 04/28/17 at 12:00; Stop 04/28/17 at 12:02; Status DC Quetiapine Fumarate (SEROquel) 50 mg DAILY PO Last administered on 04/30/17 07 :31; Start 04/29/17 at 09:00; Stop 04/30/17 at 14:32; Status DC Risperidone (RisperDAL) 0.25 mg BID92 PO Last administered on 05/14/17 07:48 ; Start 05/01/17 at 09:00; Stop 05/14/17 at 11:24; Status DC Divalproex Sodium (Depakote Sprinkles) 500 mg DAILY PO Last administered on 09:03; Start 05/02/17 at 09:00; Stop 05/04/17 at 09:01; Status DC Divalproex Sodium (Depakote Sprinkles) 500 mg BID PO Last administered on 05/14 07:47; Start 05/04/17 at 09:00; Stop 05/14/17 at 11:24; Status DC Olanzapine (ZyPREXA ZYDIS) 2.5 mg PRN Q2HR PRN PO PSYCHOSIS Last administered on 05/11/17 21:43; Start 05/06/17 at 18:45; Stop 05/14/17 at 11:24; Status DC Insulin Aspart (NovoLOG) 0-7 UNITS TIDAC SQ Last administered on 05/13/17 16: 56; Start 05/11/17 at 16:30; Stop 05/14/17 at 11:24; Status DC Active Scripts Active Reported Risperdal (Risperidone) 0.25 Mg Tablet 0.25 Mg PO BID92 Pantoprazole Sodium 40 Mg Tablet.dr 40 Mg PO DAILYAC Zyprexa Zydis (Olanzapine) 5 Mg Tab.rapdis 2.5 Mg PO PRN Q2HR PRN Analgesic [place] (Methyl Salicylate/Menthol) 28 Gm Oint...g. 1 Ghdaa TP PRN QID PRN Milk Of Magnesia (Magnesium Hydroxide) 2,400 Mg/10 Ml Oral.susp 2,400 Mg PO PRN QHS PRN Tradjenta (Linagliptin) 5 Mg Tablet 5 Mg PO DAILY PRN Levemir Flextouch (Insulin Detemir) 100 Unit/1 Ml Insuln.pen 6 Units SQ QHS Novolog Flexpen (Insulin Aspart) 100 Unit/1 Ml Insuln.pen 0-7 Units SQ TIDAC Depakote Sprinkle (Divalproex Sodium) 125 Mg Cap.sprink 500 Mg PO BID Vitamin D3 (Cholecalciferol (Vitamin D3)) 10,000 Unit Tablet 50,000 Unit PO WEEKLY Tylenol (Acetaminophen) 325 Mg Tablet 650 Mg PO PRN Q6HRS PRN Dianna-Lanta Liquid (Mag Hydrox/Al Hydrox/Simeth) 355 Ml Oral.susp 30 Ml PO PRN Q8HRS PRN Thera-M (Multivits, W-Fe,Other Min) 1 Each Tablet 1 Tab PO DAILY Senna (Sennosides) 8.6 Mg Tablet 8.6 Mg PO DAILY Potassium Chloride 10 Meq Tablet.er 10 Meq PO DAILYWBKFT Miralax (Polyethylene Glycol 3350) 17 Gm Powd.pack 17 Gm PO DAILY Mirtazapine 30 Mg Tablet 30 Mg PO HS Gabapentin 100 Mg Capsule 200 Mg PO TID Citalopram Hbr (Citalopram Hydrobromide) 20 Mg Tablet 20 Mg PO DAILY Acidophilus (Lactobacillus Acidophilus) 1 Each Capsule 1 Cap PO DAILY Selenium Sulfide 180 Ml Shampoo 1 Ghada TP QHS AND THU Diagnosis: Problems: (1) Dementia with behavioral disturbance (2) Dementia, vascular, with depression (3) Dementia, vascular, with delusions (4) Impulse control disorder (5) Dementia in Alzheimer's disease with depression (6) Dementia in Alzheimer's disease with delusions (7) Bipolar disorder, mixed VIPIN BELTRAN MD May 14, 2017 18:23
--- NOTE | 2017-05-15 21:07 | DS ---
DATE OF DISCHARGE: 05/14/2017 DISCHARGE SUMMARY AND PSYCHIATRIC PROGRESS NOTE REASON FOR ADMISSION: Please refer to the admission history for details. Briefly, the patient is a 71-year-old female, referred to us from [facility] by her psychiatrist, Dr. Bai and primary care physician on account of being noncompliant with medications, increasingly psychotic, confused, hitting staff and other patients at the facility. Behaviors had failed outpatient psychiatric interventions, were deemed dangerous at the [facility] facility, unmanageable, referred for inpatient psychiatric stabilization. SIGNIFICANT FINDINGS AND CLINICAL COURSE: Following admission, the patient was seen daily individually by myself, followed medically per Dr. Rosen/Dr. Catherine. The patient remained quite labile in her mood, psychotic, confused, agitated, hitting, screaming, biting at times, especially during insulin administration and Accu-Cheks amongst other areas. Adjustments were made in her psychotropics and she finally seemed to respond to a combination of Celexa 20 mg a day, Remeron 30 mg at bedtime, Risperdal 0.25 mg twice a day, Depakote 500 mg b.i.d. with valproic acid level of 84, therapeutic Zyprexa was p.r.n. CONDITION AT DISCHARGE: Improved prior to discharge on 05/14/2017. REVIEW OF SYSTEMS: No CV, , pulmonary, eye, ENT system symptoms on review. Reliability poor. MENTAL STATUS EXAM: Oriented to herself. Insight, judgment, recent and remote memory, attention, concentration, fund of knowledge poor, consistent with her diagnosis. Attention span short, language function intact. Memory is impaired. LABORATORY DATA: Reviewed. IMPRESSION: Major neurocognitive disorder, Alzheimer, vascular with depression, delusion, behavioral disturbance; bipolar 1 disorder, mixed with psychotic features, in partial remission; anxiety disorder, unspecified; impulse control disorder, unspecified. Rest of the diagnosis unchanged. UA had shown mixed urogenital michael, greater than 100,000 organisms per mL, but clinically insignificant. DISCHARGE MEDICATIONS: Please refer to the MRAD. DISCHARGE INSTRUCTIONS: Outpatient psychiatric and medical followup at the [facility]. Time for discharge day management is greater than 30 minutes. VIPIN BELTRAN MD DR: JIE/triston JOB#: [id number] / [id number]
--- NOTE | 2017-05-15 23:31 | PN ---
DATE: NO DICTATION MAN Gladis BELTRAN MD DR: Martha JOB#: [id number] / [id number]
--- NOTE | 2017-05-18 05:26 | PN ---
DATE: 05/13/2017 This late entry, date of service 05/13/2017, covers elements not covered in my initial note of 05/13/2017. I met with the patient evening of 05/13/2017. The patient has been disorganized, resistive to care and medications, but does redirect. At times, she spits out her medication, takes it later in ice cream. Overall, less labile despite the above. REVIEW OF SYSTEMS: No CV, , pulmonary, eye, ENT system symptoms on review. Reliability poor. MENTAL STATUS EXAM: Oriented to herself. Insight, judgment, recent and remote memory, attention, concentration, fund of knowledge poor, consistent with her diagnosis mentioned in my initial note. PLAN: Continue current psychotropics, reviewed drug interactions, risk/benefit ratio favors no further change. MAN Gladis BELTRAN MD DR: JIE/triston JOB#: [id number] / [id number]
== END 2017-05-14 10:30 | disposition home or self-care (01) | DRG 884 ==
LOC: ER 14:00 → GEROPSY 18:15
PROVIDERS: ADMIT Psychiatry & Neurology Psychiatry; ATTEND Psychiatry & Neurology Psychiatry
DX: F01.51 Vascular dementia, unspecified severity, with behavioral disturbance (principal); E11.9 Type 2 diabetes mellitus without complications; G30.9 Alzheimer's disease, unspecified; F02.81 Dementia in other diseases classified elsewhere, unspecified severity, with behavioral disturbance; F25.0 Schizoaffective disorder, bipolar type; E86.0 Dehydration; M04.8 Other autoinflammatory syndromes; Z66 Do not resuscitate; F17.200 Nicotine dependence, unspecified, uncomplicated; F41.9 Anxiety disorder, unspecified; F63.9 Impulse disorder, unspecified; I10 Essential (primary) hypertension; K21.9 Gastro-esophageal reflux disease without esophagitis; Z79.899 Other long term (current) drug therapy; Z86.73 Personal history of transient ischemic attack (TIA), and cerebral infarction without residual deficits; Z91.14 Patient's other noncompliance with medication regimen; Z91.83 Wandering in diseases classified elsewhere
CPT/HCPCS: 36415; 70450; 80053; 80061; 80164; 81001; 82306; 82607; 82947; 83036; 83540; 83550; 83735; 84436; 84443; 84480; 85025; 86592; 86593; 87086; 87324; J1815; 97116; 97530; 99285-25